=== PATIENT | female | born 1965 | race Caucasian/White ===

== ENCOUNTER → 2017-06-10 15:56 | Outpatient (CLI) | payer BC, SELFPAY ==
--- NOTE | 2017-06-10 16:03 | XR_ITS ---
XR shoulder LT min 2V COMPARISON: Left shoulder 05/12/2015 HISTORY: Left shoulder TECHNIQUE: 3 views left shoulder FINDINGS: The clavicle is intact. The AC joint appears somewhat wider on the current study when compared to the previous study. Suggest clinical correlation for tenderness at the AC joint. The humeral head and glenoid appear normal. There are no soft tissue calcifications. IMPRESSION: Change in the appearance of the AC joint when compared to the previous study suggesting possibility of very mild AC separation and suggest clinical correlation.
== END ==
PROVIDERS: PCP Family Medicine; Visit Provider Nurse Practitioner Family
DX: M25.512 Pain in left shoulder (principal)
CPT/HCPCS: 73030

== ENCOUNTER 2017-06-25 08:47 | Outpatient (RCR) | payer BC, SELFPAY ==
--- NOTE | 2017-06-25 10:10 | HMH.PTOPEV ---
Rehab Outpatient Evaluation Rehab OP Evaluation Start: 06/25/17 09:36 Freq: Status: Active Protocol: Document 06/25/17 09:36 TFRY (Rec: 06/25/17 10:09 TFRY [id number]) Electronically Signed By Julisa Victoria OT 06/25/17 09:36 Outpatient Therapy Subjective History Subjective History THIS IS A 51 YEAR OLD FEMALE WHO WAS REFERRED TO OCCUPATIONAL THERAPY FOR LEFT SHOULDER IMPINGEMENT SYNDROME. PATIENT REPORTS THAT SHE HAS HAD PAIN IN LEFT SHOULDER FOR THE LAST 6 MONTHS. PATIENT CAN NOT RECALL DOING ANYTHING TO HER SHOULDER BUT AT PREVIOUS JOB DID A LOT OF HEAVY LIFTING. Chief Complaint Pain Symptom Type Ache Sharp Burning Symptoms Relieved By Rest/Positioning Ice OTC Meds Symptoms Aggravated By Physical Activity Prior Functional Limitations None Current Functional Limitations Reaching Lifting Housework Dressing Driving Sleeping Symptom Description Constant but Variable Level of pain today (0-10) 3 Pain scale - at its best (0-10) 1 Pain scale - at its worst (0-10) 8 Shoulder/Elbow Eval Shoulder Objective Measurements Palpation Tenderness tenderness shoulder exam standard left tenderness over the bicipital tendon left shoulder exam standard Shoulder Palpation Findings Tenderness Shoulder ROM Left Shoulder Abduction Active Range of WFL Motion (degrees) Shoulder Flexion Active Range of Motion WFL (degrees) Query Text: Shoulder External Rotation Active Range WFL of Motion (degrees) Shoulder Internal Rotation Active Range WFL of Motion (degrees) Shoulder Extension Active Range of WFL Motion (degrees) pain with active ROM shoulder exam left standard Shoulder MMT Shoulder Abduction Strength Grade 3 Fair Shoulder Extension Strength Grade 3+ Fair+ Shoulder Flexion Strength Grade 3+ Fair+ Shoulder External Rotation Strength 3 Fair Grade Shoulder Internal Rotation Strength 3 Fair Grade Shoulder Strength Patient Testing Sitting Position Shoulder Speci
== END 2017-06-25 08:48 | disposition home or self-care (01) ==
LOC: OT 08:47
PROVIDERS: Family Provider Emergency Medicine; PCP Family Medicine; Visit Provider Orthopaedic Surgery
DX: M75.42 Impingement syndrome of left shoulder (principal); G56.02 Carpal tunnel syndrome, left upper limb
CPT/HCPCS: 97014; 97033; 97110; G0283

== ENCOUNTER → 2017-07-23 08:34 | Outpatient (CLI) | payer BC, SELFPAY ==
--- NOTE | 2017-07-23 08:35 | MM_ITS ---
MM Dig screening mamm BI w/CAD CAD Screening INDICATION: Screening for breast cancer ORDERING PHYSICIAN: Negrito Abebe MD PATIENT AGE: 51 years COMPARISON: 07/23/2014, 06/26/2013, 06/28/2012 TECHNIQUE: Standard CC and MLO images were obtained. R2 CAD reviewed. FINDINGS: Average fibroglandular tissue. No malignant appearing mass or malignant appearing microcalcification. No significant change IMPRESSION: No change with no evidence of malignancy BI-RADS Category: 1 Negative RECOMMENDED FOLLOW-UP: 1YR - 1 YEAR FOLLOW-UP (A letter has been sent to the patient regarding results of the study.)
== END ==
PROVIDERS: Family Provider Emergency Medicine; PCP Family Medicine; Visit Provider Nurse Practitioner Obstetrics & Gynecology
DX: Z12.31 Encounter for screening mammogram for malignant neoplasm of breast (principal)
CPT/HCPCS: 77067

== ENCOUNTER → 2017-10-01 07:54 | Outpatient (CLI) | payer BC, SELFPAY ==
--- NOTE | 2017-10-01 07:56 | MR_ITS ---
MR knee RT wo con Ordering Physician: Jose Urrutia MD Patient Age: 52 years: Female HISTORY: ITS.REASON: ACUTE PAIN OF RIGHT KNEE Right anterior knee pain.. Swelling. Pain worse when patient on the frontal lung appears intact. Pain with bending and extending. No trauma. TECHNIQUE: Multiplanar multisequence imaging 1.5 the MR. COMPARISON :November 25, 2015 FINDINGS . Large patient. Degenerative changes at the knee. . Moderate Tricompartmental marginal osteophytes Lateral compartment. Chondral scuffing and thinning most evident at the posterior weightbearing surface of the lateral femoral condyle. For example is seen on sagittal slice 16 ,17. There also appears to be some subtle fissuring irregularities the cartilage at the lateral tibial plateau There is slight displacement of the meniscus from accompanying the marginal osteophytes. Slight increased posterior margin posterior body lateral meniscus likely related to averaging from popliteus tendon sheath. There is mild intrameniscal degenerative signal changes within the body of lateral meniscus but no definitive nor prominent meniscal tear involving meniscal surface.. Generous volume meniscus. Medial compartment. The cartilage is better maintained throughout the medial compartment. The medial meniscus appears intact Patellofemoral joint Marked diffuse chondral thinning and chondral loss throughout lateral facet of patella also involving the midportion, vertical ridging posterior patella. The medial facet with less pronounced mild chondral thinning. initially question be a small 3 mm loose body fragment on axial slice 11 at the lateral patellofemoral joint but on sagittal view appears to be a small fatty protrusion. Generous 1.5 cm area of reactive posterior bone signal changes or bone contusion beneath at the inferior patella beneath the lateral facet where we see marked cartilage loss.-Either reactive bone change or bone contusion. Other tiny osteochondral irregularity seen at lateral facet Mild marginal osteophytes about the patellofemoral joint. Generous joint effusion most evident at suprapatellar bursa. ACL and PCL intact. Medial and lateral collateral ligament intact. Quadriceps and patellar tendon intact. Mild edema overlying patella tendon. Varicosities noted. Upper normal signal at the generous popliteal vein most likely normal but if there should be swelling the leg consider duplex Doppler study to further and more definitively exclude exclude DVT. IMPRESSION: 1. Osteo-arthritic changes at the knee most evident & pronounced at patellofemoral joint & lateral compartment. .. Tricompartmental marginal osteophytes.. 2. Moderate /generous Joint effusion most evident patellofemoral joint with 3. Patellofemoral joint. Prominent chondral loss at the lateral facet. . Generous area increased bone signal at inferior patella- beneath lateral facet reflecting reflecting likely reactive bone changes. Or possibly bone contusion 4. Lateral compartment.. Significant Chondral thinning and scuffing most evident at the posterior weightbearing surface of the lateral femoral condyle. 5. Generous caliber popliteal vein and femoral vein with increased signal and lack of flow void..... Appears most likely reflects slow flow phenomenon but consider duplex Doppler to exclude DVT particularly if pain or swelling. 6. medial & lateral meniscus are fairly intact with only mild degenerative signal changes and no definitive tear ACL and PCL intact. Collateral ligaments intact. 7 Additional note: a 15 mm x 11 mm mulberry-like calcification posterior to the distal femoral metaphysis, just above the base of medial femoral condyle-neck. Favor synovial osteochondroma. Less likely loose body. Note
== END ==
PROVIDERS: Family Provider Emergency Medicine; PCP Family Medicine; Visit Provider Family Medicine
DX: M25.561 Pain in right knee (principal)
CPT/HCPCS: 73721

== ENCOUNTER → 2017-10-11 07:35 | Outpatient (CLI) | payer BC, SELFPAY ==
--- NOTE | 2017-10-11 | NVE_ITS ---
Venous Exam Indications: 729.81 Swelling of limb. IMPRESSIONS No evidence of deep or superficial vein thrombosis involving the right lower extremity History: Swelling of the right lower extremity. Varicose veins of the right lower extremity. Risk factors: Current tobacco use. Hypercoagulable state due to hormone replacement therapy. Right lower extremity venous duplex evaluation. Doppler flow study including spectral analysis, color and hanson scale imaging. Location: Vascular laboratory. Patient status: Outpatient. Tables: Venous flow and imaging: + +-------+ + Location Overall Flow properties + +-------+ + Right common femoral Patent Normal phasicity; spontaneous; normal augmentation; compressible + +-------+ + Right saphenofemoral junction Patent Compressible + +-------+ + Right profunda femoral Patent Compressible + +-------+ + Right femoral Patent Normal phasicity; spontaneous; normal augmentation; compressible + +-------+ + Right greater saphenous Patent Normal phasicity; spontaneous; normal augmentation; compressible; reflux + +-------+ + Right popliteal Patent Normal phasicity; spontaneous; normal augmentation; compressible + +-------+ + Right posterior tibial Patent Compressible + +-------+ + Right peroneal Patent Compressible + +-------+ + Right gastrocnemius Patent Compressible + +-------+ + Right soleal Patent Compressible + +-------+ + (Report amended ) Electronically signed by: Hebert Kimball [id number]
== END ==
PROVIDERS: Family Provider Emergency Medicine; PCP Family Medicine; Visit Provider Orthopaedic Surgery Adult Reconstructive Orthopaedic Surgery
DX: M17.11 Unilateral primary osteoarthritis, right knee (principal); M79.604 Pain in right leg
CPT/HCPCS: 93971

== ENCOUNTER → 2018-04-15 09:30 | Outpatient (CLI) | payer BC, SELFPAY ==
--- NOTE | 2018-04-15 09:35 | XR_ITS ---
XR shoulder RT min 2V HISTORY: ITS.REASON: Shoulder pain ORDERING PHYSICIAN: Cami Coronel MD PATIENT AGE: 52 years Comparison: None FINDINGS: No fracture or dislocation. No lytic or blastic change. There is normal mineralization. Mild osteoarthritic changes involving the acromioclavicular joint with minimal spurring inferiorly. There is mild subacromial stenosis. There is a type II acromion . IMPRESSION: 1. 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 Otherwise negative
--- NOTE | 2018-04-15 09:35 | XR_ITS ---
XR shoulder LT min 2V HISTORY: ITS.REASON: Shoulder pain ORDERING PHYSICIAN: Cami Coronel MD PATIENT AGE: 52 years Comparison: 06/10/2017 FINDINGS: No fracture or dislocation. No lytic or blastic change. There is normal mineralization. There is mild acromioclavicular arthropathy with minimal subarticular cystic change of the distal aspect of the clavicle. No significant subacromial stenosis. IMPRESSION: Mild acromioclavicular arthropathy
== END ==
PROVIDERS: PCP Family Medicine; Visit Provider Orthopaedic Surgery
DX: G56.02 Carpal tunnel syndrome, left upper limb (principal); M25.511 Pain in right shoulder
CPT/HCPCS: 73030

== ENCOUNTER → 2018-07-06 10:41 | Outpatient (CLI) | payer BC, SELFPAY ==
--- NOTE | 2018-07-06 | NVE_ITS ---
Venous Exam Indications: 729.81 Swelling of limb. IMPRESSIONS 1. There is no evidence of significant Reflux. 2. No evidence of deep or superficial vein thrombosis involving the right lower extremity History: Risk factors: Current tobacco use. Right lower extremity venous duplex evaluation. Doppler flow study including spectral analysis, color and hanson scale imaging. Location: Vascular laboratory. Patient status: Outpatient. Tables: Venous flow and imaging: + +-------+ + Location Overall Flow properties + +-------+ + Right common femoral Patent Normal phasicity; spontaneous; normal augmentation; compressible + +-------+ + Right saphenofemoral junction Patent Compressible + +-------+ + Right profunda femoral Patent Compressible + +-------+ + Right femoral Patent Normal phasicity; spontaneous; normal augmentation; compressible + +-------+ + Right greater saphenous Patent Normal phasicity; spontaneous; normal augmentation; compressible + +-------+ + Right popliteal Patent Normal phasicity; spontaneous; normal augmentation; compressible + +-------+ + Right posterior tibial Patent Compressible + +-------+ + Right peroneal Patent Compressible + +-------+ + Right gastrocnemius Patent Compressible + +-------+ + Right soleal Patent Compressible + +-------+ + (Report amended ) Electronically signed by: Hebert Kimball [id number]
== END ==
PROVIDERS: PCP Family Medicine; Visit Provider Family Medicine
DX: R60.0 Localized edema (principal); M79.661 Pain in right lower leg
CPT/HCPCS: 93971

== ENCOUNTER 2018-07-24 19:24 | Observation (INO) ==
[2018-07-24 19:43] LABS: Microscopic, Urine URINE MICROSCOPIC (MICROSCOPIC)
[2018-07-24 19:47] LABS: Appearance,Urine CLEAR (Clear); Bilirubin,Urine Negative (Negative); Blood, Urine TRACE-I (Negative); Color,Urine YELLOW (Yellow); Glucose,Urine (UA) Negative (Negative); Ketones,Urine Negative (Negative); Leukocyte Esterase,Urine Negative (Negative); PH,Urine 7.5 (5.0-8.5); Protein,Urine Negative (Negative); Urobilinogen,Urine 0.2 EU/dl (0.2)
[2018-07-24 19:48] LABS: Amorphous Sediment,Urine Trace /lpf
[2018-07-24 19:48] LABS: Basophils # 0.1 K/mm3 (0-0.2); Basophils % 0.5 % (0.1-2.0); Eosinophils # 0.2 K/mm3 (0.0-0.4); Eosinophils % 1.8 % (0.1-12.0); Hematocrit 38.4 % (37.0-47.0); Hemoglobin 12.9 g/dL (12.2-16.2); Lymphocytes # 3.5 K/mm3 (0.7-4.5); Lymphocytes % 31.9 % (10-50); Mean Corpuscular HGB Conc 33.6 g/dL (31.8-35.4); Mean Corpuscular Hemoglobin 28.8 pg (27.0-31.2); Mean Corpuscular Volume 85.7 fl (81-99); Mean Platelet Volume 8.6 fl (7.4-10.4); Monocytes # 0.6 K/mm3 (0.1-1.0); Monocytes % 5.3 % (1.7-9.3); Neutrophils # 6.6 K/mm3 (1.8-7.8); Neutrophils % 60.5 % (37.0-80.0); Platelet Count 271 K/mm3 (142-424); Red Blood Count 4.48 M/mm3 (4.20-5.40)
[2018-07-24 20:02] LABS: Amphetamine/Metha Screen,Urine Negative ng/mL (<1000); Barbiturates Screen,Urine Negative ng/mL (<200); Benzodiazepines Screen,Urine Negative ng/mL (<200); Cannabinoid Screen,Urine Negative ng/mL (<50); Cocaine Screen,Urine Negative ng/mL (<300); Methadone Screen,Urine Negative ng/mL (<300); Opiate Screen,Urine Negative ng/mL (<300); Phencyclidine Screen,Urine Negative ng/mL (<25)
[2018-07-24 20:06] LABS: Alanine Aminotransferase 35 U/L (12-78); Albumin Level 3.6 gm/dL (3.4-5.0); Alkaline Phosphatase 83 U/L (46-116); Anion Gap 16.2 mEq/L (5-15); Aspartate Amino Transferase 18 U/L (15-37); Bilirubin,Total 0.4 mg/dL (0.2-1.0); Blood Urea Nitrogen 14 mg/dL (7-18); C-Reactive Protein 0.2 mg/L (0.0-0.9); Calcium 9.1 mg/dL (8.5-10.1); Carbon Dioxide 25 mmol/L (21.0-32.0); Chloride 98 mmol/L (98-107); Globulin 3.7 gm/dl (1.3-3.2); Glucose 88 mg/dL (74-106); Potassium 3.2 mmoL/L (3.5-5.1); Sodium 136 mmol/L (136-145); Total Protein,Serum 7.3 gm/dL (6.4-8.2)
--- NOTE | 2018-07-24 20:26 | Emergency Department Note ---
ED Disposition Clinical Impression: Obesity (BMI 30.0-34.9), Tobacco use Chest pain Qualifiers: Chest pain type: precordial pain Qualified Code(s): R07.2 - Precordial pain Disposition: Admitted as Observation Condition on Discharge: Good Referrals: Jaylene Mcwilliams MD [Primary Care Provider] - - Critical Care Critical Care Time: No Attestation: On 07/24/18, the high probability of a clinically significant, sudden or life threatening deterioration of the following system(s) required my full and direct attention, intervention and personal management. The time I documented below is in addition to time spent performing reported procedures but includes the following listed in this critical care notation. Medical Decision Making - Tony Inquiry Pt receiving controlled substance: No Vital Signs: 07/24/18 19:28 Temperature 98.7 F Temperature Source Oral Pulse Rate [Right] 64 Respiratory Rate 18 Blood Pressure [Right Arm] 130/79 Blood Pressure Mean [Right Arm] 96 Blood Pressure Source [Right Arm] Automatic Cuff Blood Pressure Position [Right Arm] Supine 02 Sat by Pulse Oximetry 96 Oxygen Delivery Method Room Air - Lab Data Lab results reviewed: Yes: I reviewed the patient's lab results. Lab Results 07/24/18 19:00: WBC 11.0 H, RBC 4.48, Hgb 12.9, Hct 38.4, MCV 85.7, MCH 28.8, MCHC 33.6, RDW 15.0, Plt Count 271, MPV 8.6, Neut % (Auto) 60.5, Lymph % (Auto) 31.9, Conway % (Auto) 5.3, Eos % (Auto) 1.8, Baso % (Auto) 0.5, Neut # (Auto) 6.6, Lymph # (Auto) 3.5, Conway # (Auto) 0.6, Eos # (Auto) 0.2, Baso # (Auto) 0.1, ESR 33 H 07/24/18 19:00: Sodium 136, Potassium 3.2 L, Chloride 98, Carbon Dioxide 25, Anion Gap 16.2 H, BUN 14, Creatinine 0.63, Estimated Creat Clear 168, Estimated GFR 100, Est GFR ( Amer) 121, Glucose 88, Calcium 9.1, Total Bilirubin 0.4, AST 18, ALT 35, Alkaline Phosphatase 83, Troponin I < 0.02, C-Reactive Protein 0.2, Total Protein 7.3, Albumin 3.6, Globulin 3.7 H, Albumin/Globulin Ratio 1.0 L 07/24/18 19:30: Urine Color Yellow, Urine Appearance Clear, Urine pH 7.5, Ur Specific Starbuck 1.010, Urine Protein Negative, Urine Glucose (UA) Negative, Urine Ketones Negative, Urine Blood Trace-i, Urine Nitrate Negative, Urine Bilirubin Negative, Urine Urobilinogen 0.2, Ur Leukocyte Esterase Negative, Urine RBC 3-5, Ur Squamous Epith Cells 3-5, Amorphous Sediment Trace 07/24/18 19:30: Urine Opiates Screen Negative, Urine Methadone Screen Negative, Ur Barbituates Screen Negative, Ur Phencyclidine Scrn Negative, Ur Amphetamines Screen Negative, U Benzodiazepines Scrn Negative, Urine Cocaine Screen Negative, U Marijuana (THC) Screen Negative Result diagrams: 07/24/18 19:00 07/24/18 19:00 Orders (Tests/Meds): ED MEDICATIONS Generic Name Dose Route Start Last Admin Trade Name Freq PRN Reason Stop Dose Admin Sodium Chloride 1,000 mls @ 999 mls/hr 07/24/18 19:30 07/24/18 19:45 Sod Chlor 0.9% 1000ml Bag IV 07/24/18 20:30 999 mls/hr .[id number] JAKE Administration Discontinued Medications Generic Name Dose Route Start Last Admin Trade Name Freq PRN Reason Stop Dose Admin Ketorolac Tromethamine 30 mg 07/24/18 19:27 07/24/18 19:45 Toradol 30mg/Ml Vial IV 07/24/18 19:28 30 mg ONCE ONE Administration Morphine Sulfate 4 mg 07/24/18 20:25 07/24/18 20:32 Morphine 2mg/Ml Syringe IV 07/24/18 20:26 4 mg ONCE ONE Administration Nitroglycerin 1 gm 07/24/18 20:25 07/24/18 20:32 Nitroglycerin 1 Inch Oint Udp TD 07/24/18 20:26 1 gm ONCE ONE Administration Ondansetron HCl 4 mg 07/24/18 19:27 07/24/18 19:45 Zofran 4mg/2ml Vial IV 07/24/18 19:28 4 mg ONCE ONE Administration Ondansetron HCl 4 mg 07/24/18 20:33 07/24/18 20:35 Zofran 4mg/2ml Vial IV 07/24/18 20:34 4 mg ONCE ONE Administration ORDERS Category Date Time Status XR chest 2V Stat Exams 07/24/18 19:26 Taken - Radiology Data #1 Image(s): Chest Image Reviewed: Yes I reviewed the patient's radiology image Preliminary Findings: Normal/NAD - ECG Data Tracing #1 Normal Sinus Rhythm: Yes Ischemic changes: non-specific ST-T wave changes - Physician Consults Physician Consulted: ave Reason -: Admission Chest Pain HPI - General Chief Complaint: Chest Pain Stated Complaint: chest pain Time Seen by Provider: 07/24/18 20:24 Mode of Arrival: EMS Source of Information: Patient, Spouse, EMS, Medical Record Limitations: No Limitations Description of Symptoms (Recalled from ER Triage Doc. by RN): Pt states she star rudolph having chest pain today, ASA, and Nitro x 1 per EMS - History of Present Illness HPI narrative: acute onset of chest pain which is described as heavy with pos risk factors MD complaint: chest pain indicative of cardiac Onset (ago): hour(s) Duration: constant Activity at onset: during rest Pain location: substernal Severity: moderate Quality: heaviness Relieving factors: nitroglycerin Associated symptoms: nausea Risk Factors for CAD: Family Hx of CAD, Smoking Treatments prior to or on arrival for Cardiac Chest Pain: aspirin, nitroglycerin - DAV Score for Non-Stemi Age of Patient: 50-59 years old Heart Rate: 50-69 bpm Systolic Blood Pressure: 120-139 mmhg Serum Creatinine: 0.40-0.79 mg/dl CHF Kill[place] Class: I-No CHF Other Risk Factors: None Non-Stemi Risk Score: 82 - Related Data On Oral Contraceptives: No Home Medications Medication Instructions Recorded Confirmed paroxetine 20 mg tablet 20 mg PO DAILY 04/25/18 07/24/18 Estradiol 2 mg PO DAILY 07/24/18 07/24/18 Allergies Allergy/AdvReac Type Severity Reaction Status Date / Time No Known Allergies Allergy Verified 07/24/18 19:25 [facility] History - Hepatitis A Screen Drug use history?: No High risk sexual behaviors?: No History of sexually transmitted infection?: No Currently employed?: No Childcare worker?: No Do you have indoor plumbing?: Yes Do you have electricity?: Yes Attestation statement:: This patient has been screened for Hepatitis A risk factors. I have reviewed the patient's past medical history: Yes Medical History: Reports:: Anxiety Denies:: Asthma, Diabetes Mellitus Type 1, Diabetes Mellitus Type 2, Hypertension, Seizures Other Medical History: Reports: Arthritis, Hormone Therapy, Thyroid Disease Comment: thyroid problems Other Surgeries: Yes: Cholecystectomy, Hysterectomy-Total, Other Amputation: No Fractures: No Comment: A&P repair, prakash in left leg - Social History Smoking Status: Current every day smoker Tobacco Type: cigarettes # Packs/Day (cigarettes): 2 Alcohol Intake: never Substance Use Type: denies use Occupational Status: employed, other Household Members: spouse - Psychiatric History Expresses thoughts of harming self/others: None Suicide Plan Description: No Plan Pschychiatric History:: Reports:: Anxiety Family Hx:: Cancer, Thyroid Disorder, Hypertension ROS Obtained: Yes All systems reviewed & no additional complaints - Constitutional Constitutional: Denies fever(s) - Eyes Eyes: Denies change in vision - ENT Ears, Nose, Mouth, and Throat: Denies sore throat - Cardiovascular Cardiovascular: Reports chest pain, Denies dyspnea - Respiratory Respiratory: No cough - Gastrointestinal Gastrointestingal: Reports: nausea. Denies: vomiting - Genitourinary Female Genitourinary: Denies hematuria - Musculoskeletal Musculoskeletal: Denies joint pain - Integumentary/Breasts Skin/Breast: Denies rash - Neurologic Neurologic: Denies seizure-like activity Physical Exam - General General appearance: alert, in no apparent distress, obese - Head Head exam: normocephalic - Eye Eye exam: Present: PERRL, EOMI. Absent: scleral icterus - ENT ENT exam: Present: mucous membranes dry - Neck Neck exam: Present: trachea midline - Respiratory Respiratory exam: Present: normal lung sounds bilaterally. Absent: respiratory distress - Cardiovascular Cardiovascular exam: Present: regular rate, systolic murmur - Abdominal Exam Abdominal exam: Present: soft - Extremities Exam Extremities exam: Absent: calf tenderness - Neurological Exam Neurological exam: Present: alert, oriented X3, CN II-XII intact - Psychiatric Psychiatric exam: Present: normal affect - Skin Skin exam: Absent: rash
[2018-07-24 20:27] LABS: Erythrocyte Sedimentation Rate 33 mm/hr (0-20)
[2018-07-25 04:35] LABS: Basophils # 0.1 K/mm3 (0-0.2); Basophils % 0.8 % (0.1-2.0); Eosinophils # 0.2 K/mm3 (0.0-0.4); Eosinophils % 2.3 % (0.1-12.0); Lymphocytes # 1.9 K/mm3 (0.7-4.5); Lymphocytes % 26.9 % (10-50); Mean Corpuscular HGB Conc 33.6 g/dL (31.8-35.4); Mean Corpuscular Hemoglobin 29.4 pg (27.0-31.2); Mean Corpuscular Volume 87.6 fl (81-99); Mean Platelet Volume 8.6 fl (7.4-10.4); Monocytes # 0.5 K/mm3 (0.1-1.0); Monocytes % 7.2 % (1.7-9.3); Neutrophils # 4.4 K/mm3 (1.8-7.8); Neutrophils % 62.8 % (37.0-80.0); Platelet Count 200 K/mm3 (142-424); Red Blood Count 3.89 M/mm3 (4.20-5.40)
[2018-07-25 04:40] LABS: Hemoglobin 11.4 g/dL (12.2-16.2)
[2018-07-25 04:50] LABS: Anion Gap 10.8 mEq/L (5-15); Blood Urea Nitrogen 14 mg/dL (7-18); Carbon Dioxide 28 mmol/L (21.0-32.0); Chloride 104 mmol/L (98-107); Chol/HDL Ratio 3.3 (1-3.5); Cholesterol 199 mg/dL (140-200); Glucose 95 mg/dL (74-106); HDL Cholesterol 60 mg/dL (29-89); LDL Cholesterol 131 mg/dL (0-130); Potassium 3.8 mmoL/L (3.5-5.1); Sodium 139 mmol/L (136-145); Triglycerides 42 mg/dL (30-200); VLDL Cholesterol 8 mg/dL (0-40)
[2018-07-25 04:54] LABS: Calcium 7.9 mg/dL (8.5-10.1)
--- NOTE | 2018-07-25 07:05 | Pharmacy Consult Notes ---
[facility] Pharmacy VTE Monitoring - Patient Demographics Admission date: 07/24/18 Report Date: 07/25/18 Time: 07:05 Allergies/Adverse Reactions: Patient Allergies No Known Allergies Allergy (Verified 07/24/18 19:25) Height: 1.7 m Weight: 109.089 kg Patient Problems: Current Active Problems (Updated 07/24/18 @ 21:50 by Anthony Warren MD) Chest pain (Acute) Obesity (BMI 30.0-34.9) (Acute) Tobacco use (Acute) - VTE Risk Labs: VTE Related Lab Results Hgb 11.4 g/dL (12.2-16.2) L D 07/25/18 04:05 Hct 34.0 % (37.0-47.0) L 07/25/18 04:05 Plt Count 200 K/mm3 (142-424) D 07/25/18 04:05 BUN 14 mg/dL (7-18) 07/25/18 04:05 Creatinine 0.62 mg/dL (0.55-1.02) 07/25/18 04:05 Estimated Creat Clear 186 mL/min (50-200) 07/25/18 04:05 Was VTE Risk Assessment Performed: Yes VTE Score: 5 VTE Risk Level: Low Risk - Prophylaxis VTE Prophylaxis Ordered?: Yes Types of VTE Prophylaxis: TEDS Knee High Location of Applied Device: Bilateral Lower Extremeties - VTE Diagnosis Confirmed Treatment or plan recommended: Continue Current Treatment
--- NOTE | 2018-07-25 09:09 | Consult Report ---
History of Present Illness Consult date: 07/25/18 Requesting physician: Pepper Plasencia Consult reason: chest pain Chief complaint: chest pain Additional Medical History:: 1. Tobacco use 2. Anxiety 3. Hormone replacement History of present illness: 52-year-old white female tobacco user presented to the emergency department for complaint of chest pain. She describes the pain as substernal and right-sided heaviness with associated shortness of breath/inability to breathe while at work last evening to the point that co-workers called EMS for evaluation. No nausea, vomiting or diaphoresis. Patient was transported to the ER for evaluation and was given nitroglycerin in route with improvement in symptoms. Patient's mother recently and patient has been stressed due to that along with an increasing her work load. EKG is sinus rhythm without acute ST segment changes. Troponins overnight have been normal. Preliminary echocardiogram shows normal left ventricular ejection fraction. Patient does relate some increased swelling recently for which she has been taken Lasix. She does relate eating a lot of pickles recently. Patient does smoke about 2 packs of cigarettes per day. She denies diabetes, hypertension or hyperlipidemia. Her mother of heart disease. [facility] History Medical History: Reports:: Anxiety Denies:: Asthma, Diabetes Mellitus Type 1, Diabetes Mellitus Type 2, Hypertension, Seizures *Have you ever received a pneumonia vaccine?: No *Have you received a flu vaccine this season?: No Other Medical History: Reports: Arthritis, Hormone Therapy, Thyroid Disease Other Surgeries: Yes: Cholecystectomy, Hernia Repair, Hysterectomy-Total, Other (Warren in (L) leg) Amputation: No Fractures: No - *Social History Educational Level: Completed High School Smoking Status: Current every day smoker Tobacco Type: cigarettes # Packs/Day (cigarettes): 1 Alcohol Intake: never Substance Use Type: denies use *Occupational Status:: employed, other Household Members: spouse *Travel in the last 8 weeks: None - Psychiatric History Expresses thoughts of harming self/others: None Suicide Plan Description: No Plan Pschychiatric History:: Reports:: Anxiety Family Hx:: Cancer, Thyroid Disorder, Hypertension Meds Home Medications Medication Instructions Recorded Confirmed Type paroxetine 20 mg tablet 20 mg PO DAILY 04/25/18 07/25/18 History Diclofenac Sodium [Diclofenac 75mg 75 mg PO BID 07/24/18 07/25/18 History Tab] Estradiol 2 mg PO DAILY 07/24/18 07/25/18 History Furosemide [Lasix 20mg tab] 20 mg PO DAILY 07/24/18 07/25/18 History Pyridoxine HCl (Vitamin B6) 50 mg PO DAILY 07/25/18 07/25/18 History [Vitamin B-6] Allergies Allergy/AdvReac Type Severity Reaction Status Date / Time No Known Allergies Allergy Verified 07/24/18 19:25 Review of Systems - *Cardiovascular Reports chest pain, Reports shortness of breath, Reports leg swelling - *Respiratory Reports shortness of breath with activity, Denies cough, Denies wheezing - *Gastrointestinal Denies abdominal pain, Denies nausea, Denies vomiting - *Genitourinary Denies blood in urine, Denies pelvic pain - *Musculoskeletal Denies joint pain, Denies back pain - *Neurologic Denies seizure-like activity Exam Vital signs and Labs for Last 24 Hours: Temp Pulse Resp BP Pulse Ox 97.9 F 43 L 16 120/73 91 L 07/25/18 08:00 07/25/18 08:00 07/25/18 08:00 07/25/18 08:00 07/25/18 08:00 Laboratory Results - last 24 hr 07/24/18 19:00: WBC 11.0 H, RBC 4.48, Hgb 12.9, Hct 38.4, MCV 85.7, MCH 28.8, MCHC 33.6, RDW 15.0, Plt Count 271, MPV 8.6, Neut % (Auto) 60.5, Lymph % (Auto) 31.9, [place] % (Auto) 5.3, Eos % (Auto) 1.8, Baso % (Auto) 0.5, Neut # (Auto) 6.6, Lymph # (Auto) 3.5, [place] # (Auto) 0.6, Eos # (Auto) 0.2, Baso # (Auto) 0.1, ESR 33 H 07/24/18 19:00: Sodium 136, Potassium 3.2 L, Chloride 98, Carbon Dioxide 25, Anion Gap 16.2 H, BUN 14, Creatinine 0.63, Estimated Creat Clear 168, Estimated GFR 100, Est GFR ( Amer) 121, Glucose 88, Calcium 9.1, Total Bilirubin 0.4, AST 18, ALT 35, Alkaline Phosphatase 83, Troponin I < 0.02, C-Reactive Protein 0.2, Total Protein 7.3, Albumin 3.6, Globulin 3.7 H, Albumin/Globulin Ratio 1.0 L 07/24/18 19:30: Urine Color Yellow, Urine Appearance Clear, Urine pH 7.5, Ur Specific [place] 1.010, Urine Protein Negative, Urine Glucose (UA) Negative, Urine Ketones Negative, Urine Blood Trace-i, Urine Nitrate Negative, Urine Bilirubin Negative, Urine Urobilinogen 0.2, Ur Leukocyte Esterase Negative, Urine RBC 3-5, Ur Squamous Epith Cells 3-5, Amorphous Sediment Trace 07/24/18 19:30: Urine Opiates Screen Negative, Urine Methadone Screen Negative, Ur Barbituates Screen Negative, Ur Phencyclidine Scrn Negative, Ur Amphetamines Screen Negative, U Benzodiazepines Scrn Negative, Urine Cocaine Screen Negative, U Marijuana (THC) Screen Negative 07/25/18 01:05: Troponin I < 0.02 07/25/18 04:05: WBC 7.0 D, RBC 3.89 L, Hgb 11.4 L D, Hct 34.0 L, MCV 87.6, MCH 29.4, MCHC 33.6, RDW 15.0, Plt Count 200 D, MPV 8.6, Neut % (Auto) 62.8, Lymph % (Auto) 26.9, Schley % (Auto) 7.2, Eos % (Auto) 2.3, Baso % (Auto) 0.8, Neut # (Auto) 4.4, Lymph # (Auto) 1.9, [place] # (Auto) 0.5, Eos # (Auto) 0.2, Baso # (Auto) 0.1 07/25/18 04:05: Sodium 139, Potassium 3.8, Chloride 104, Carbon Dioxide 28, Anion Gap 10.8, BUN 14, Creatinine 0.62, Estimated Creat Clear 186, Estimated GFR 102, Est GFR ( Amer) 123, Glucose 95, Calcium 7.9 L D, Magnesium 1.9, Troponin I < 0.02, Triglycerides 42, Cholesterol 199, LDL Cholesterol 131 H, VLDL Cholesterol 8, HDL Cholesterol 60, Cholesterol/HDL Ratio 3.3 I & O for Last 24 hours: Intake & Output 07/22/18 07/23/18 07/24/18 07/25/18 11:59 11:59 11:59 11:59 Intake Total 1581 / 1581 Balance 1581 / 1581 Weight 240 lb 8 oz - *Routine HEENT Exam Head: Present: normocephalic Eye: Present: EOMI, PERRL ENT: Present: mucous membranes moist - *Routine Neck Exam Present: supple. Absent: JVD, carotid bruit - *Routine Respiratory Exam Present: CTA bilaterally. Absent: accessory muscle use, rales, rhonchi, wheezes - *Routine Cardiovascular Exam Present: RRR. Absent: murmur, gallop, rubs - *Routine Abdominal Exam Present: soft. Absent: tenderness, distended, guarding - *Routine Extremities Exam Absent: edema, calf tenderness - *Routine Neurological Exam Present: alert, oriented X3, moving all extremities Assessment and Plan (1) Unstable angina Current visit: Yes Status: Acute Category: Medical Code(s): I20.0 - Unstable angina (2) Obesity (BMI 30.0-34.9) Current visit: Yes Status: Acute Category: Medical Code(s): E66.9 - Obesity, unspecified (3) Tobacco use Current visit: Yes Status: Acute Category: Medical Code(s): Z72.0 - Tobacco use (4) Dependent edema Current visit: No Status: Acute Category: Medical Code(s): R60.9 - Edema, unspecified (5) Bradycardia Current visit: Yes Status: Acute Category: Medical Code(s): R00.1 - Bradycardia, unspecified - Assessment and plan all Dx Assessment and Plan for all problems:: 1. Unstable angina at rest in a tobacco user. Preliminary echo shows normal LV function, EKG is without acute changes and troponins are normal. Patient has borderline low blood pressure and bradycardia which limits anti-anginal therapy. Would therefore recommend proceeding with cardiac catheterization to evaluate the patient's coronary arteries. Risks, benefits and procedure explained to the patient she agrees to proceed. 2. Continue to monitor patient's heart rate and rhythm due to bradycardia on no rate control medication for possible need for pacemaker. 3. Further recommendations to follow pending above results.
--- NOTE | 2018-07-25 09:22 | History & Physical Report ---
*Admission Date: 07/24/18 <Lauren Broderick 07/25/18 09:22> *Chief complaint: Chest pain <Lauren Broderick 07/25/18 09:22> *History of present illness: Ms. Doty is a 52-year-old white female tobacco user with a history of anxiety and depression who presented to the emergency department for complaint of chest pain. She describes the pain as substernal and right-sided heaviness with associated shortness of breath/inability to breathe. She denies nausea, vomiting and diaphoresis. Patient states she has been working daily for the last 2 weeks without any time off. The pain started work last evening and progressively worsened and her coworkers called an ambulance to transport her by EMS to the ER for evaluation. She was given nitroglycerin in route with improvement in symptoms. Patient's mother recently and patient has been stressed due to that along with an increasing her work load. EKG is sinus rhythm without acute ST segment changes. Troponins overnight have been normal. Preliminary echocardiogram shows normal left ventricular ejection fraction. Patient does relate some increased swelling recently for which she has been taken Lasix. She does relate eating a lot of pickles recently Patient does smoke about 2 packs of cigarettes per day. She denies diabetes, hypertension or hyperlipidemia. Her mother of heart disease. This a.m. patient has soreness in her chest. Her breathing is back to normal. She is seen by cardiology who plans for cardiac cath this a.m. <Lauren Broderick 07/25/18 09:30> [facility] History Medical History: Reports:: Anxiety Denies:: Asthma, Diabetes Mellitus Type 1, Diabetes Mellitus Type 2, Hypertension, Seizures <Lauren Broderick 07/25/18 09:22> *Have you ever received a pneumonia vaccine?: No <Lauren Broderick 07/25/18 09:22> *Have you received a flu vaccine this season?: No <Lauren Broderick 07/25/18 09:22> Other Medical History: Reports: Arthritis, Hormone Therapy, Thyroid Disease <Lauren Broderick 07/25/18 09:22> Other Surgeries: Yes: Cholecystectomy, Hernia Repair, Hysterectomy-Total, Other (Warren in (L) leg) <Lauren Broderick 07/25/18 09:22> Amputation: No <Lauren Broderick 07/25/18 09:22> Fractures: No <Lauren Broderick 07/25/18 09:22> Comment: Tendon repair right elbow 2002; knee surgery out on the right ; metal warren to left leg due to femur fracture 1990; left wrist surgery 2004 <Broderick,Lauren - 07/25/18 09:30> - *Social History Educational Level: Completed High School <Lauren Broderick 07/25/18 09:22> Smoking Status: Current every day smoker <Lauren Broderick 07/25/18 09:22> Tobacco Type: cigarettes <Lauren Broderick 07/25/18 09:22> # Packs/Day (cigarettes): 2 <Lauren Broderick 07/25/18 09:30> Alcohol Intake: never <Lauren Broderick 07/25/18 09:22> Substance Use Type: denies use <Lauren Broderick 07/25/18 09:22> *Occupational Status:: employed, other <Lauren Broderick 07/25/18 09:22> Household Members: spouse <Broderick,Lauren - 07/25/18 09:22> *Travel in the last 8 weeks: None <Lauren Broderick 07/25/18 09:22> - Psychiatric History Expresses thoughts of harming self/others: None <Lauren Broderick 07/25/18 09:22> Suicide Plan Description: No Plan <Lauren Broderick 07/25/18 09:22> Pschychiatric History:: Reports:: Anxiety <Lauren Broderick 07/25/18 09:22> Family Hx:: Cancer, Thyroid Disorder, Hypertension <Lauren Broderick 07/25/18 09:22> Review of Systems - Constitutional Reports headache(s), Denies fever(s) <Lauren Broderick 07/25/18 09:30> - Eyes Denies change in vision <Lauren Broderick 07/25/18 09:30> - ENT Denies ear pain, Denies sore throat <Lauren Broderick 07/25/18 09:30> - *Cardiovascular Reports chest pain, Denies irregular heart rhythm <Lauren Broderick 07/25/18 09:30> - *Respiratory Reports cough, Reports shortness of breath, Denies chest congestion, Denies coughing up blood <Lauren Broderick 07/25/18 09:30> - *Gastrointestinal Denies belching, Denies change in bowel habits, Denies change in stools, Denies nausea, Denies vomiting <Lauren Broderick 07/25/18 09:30> - *Genitourinary Denies difficulty urinating <Lauren Broderick 07/25/18 09:30> - *Musculoskeletal Reports joint pain (Right knee), Denies abnormal walking <Lauren Broderick 07/25/18 09:30> - *Neurologic Reports dizziness, Denies confusion, Denies seizure-like activity <Lauren Jama 07/25/18 09:30> - Psychiatric Reports anxiety, Reports depression <Lauren Broderick 07/25/18 09:30> Meds Home Medications Medication Instructions Recorded Confirmed Type paroxetine 20 mg tablet 20 mg PO DAILY 04/25/18 07/25/18 History Diclofenac Sodium [Diclofenac 75mg 75 mg PO BID 07/24/18 07/25/18 History Tab] Estradiol 2 mg PO DAILY 07/24/18 07/25/18 History Furosemide [Lasix 20mg tab] 20 mg PO DAILY 07/24/18 07/25/18 History Pyridoxine HCl (Vitamin B6) 50 mg PO DAILY 07/25/18 07/25/18 History [Vitamin B-6] <Pepper Plasencia - 07/25/18 09:49> Allergies Allergy/AdvReac Type Severity Reaction Status Date / Time No Known Allergies Allergy Verified 07/24/18 19:25 <Pepper Plasencia - 07/25/18 09:49> Exam Vital signs and Labs for Last 24 Hours: Temp Pulse Resp BP Pulse Ox 97.9 F 43 L 16 120/73 91 L 07/25/18 08:00 07/25/18 08:00 07/25/18 08:00 07/25/18 08:00 07/25/18 08:00 Laboratory Results - last 24 hr 07/24/18 19:00: WBC 11.0 H, RBC 4.48, Hgb 12.9, Hct 38.4, MCV 85.7, MCH 28.8, MCHC 33.6, RDW 15.0, Plt Count 271, MPV 8.6, Neut % (Auto) 60.5, Lymph % (Auto) 31.9, [place] % (Auto) 5.3, Eos % (Auto) 1.8, Baso % (Auto) 0.5, Neut # (Auto) 6.6, Lymph # (Auto) 3.5, [place] # (Auto) 0.6, Eos # (Auto) 0.2, Baso # (Auto) 0.1, ESR 33 H 07/24/18 19:00: Sodium 136, Potassium 3.2 L, Chloride 98, Carbon Dioxide 25, Anion Gap 16.2 H, BUN 14, Creatinine 0.63, Estimated Creat Clear 168, Estimated GFR 100, Est GFR ( Amer) 121, Glucose 88, Calcium 9.1, Total Bilirubin 0.4, AST 18, ALT 35, Alkaline Phosphatase 83, Troponin I < 0.02, C-Reactive Protein 0.2, Total Protein 7.3, Albumin 3.6, Globulin 3.7 H, Albumin/Globulin Ratio 1.0 L 07/24/18 19:30: Urine Color Yellow, Urine Appearance Clear, Urine pH 7.5, Ur Specific [place] 1.010, Urine Protein Negative, Urine Glucose (UA) Negative, Urine Ketones Negative, Urine Blood Trace-i, Urine Nitrate Negative, Urine Bilirubin Negative, Urine Urobilinogen 0.2, Ur Leukocyte Esterase Negative, Urine RBC 3-5, Ur Squamous Epith Cells 3-5, Amorphous Sediment Trace 07/24/18 19:30: Urine Opiates Screen Negative, Urine Methadone Screen Negative, Ur Barbituates Screen Negative, Ur Phencyclidine Scrn Negative, Ur Amphetamines Screen Negative, U Benzodiazepines Scrn Negative, Urine Cocaine Screen Negative, U Marijuana (THC) Screen Negative 07/25/18 01:05: Troponin I < 0.02 07/25/18 04:05: WBC 7.0 D, RBC 3.89 L, Hgb 11.4 L D, Hct 34.0 L, MCV 87.6, MCH 29.4, MCHC 33.6, RDW 15.0, Plt Count 200 D, MPV 8.6, Neut % (Auto) 62.8, Lymph % (Auto) 26.9, [place] % (Auto) 7.2, Eos % (Auto) 2.3, Baso % (Auto) 0.8, Neut # (Auto) 4.4, Lymph # (Auto) 1.9, [place] # (Auto) 0.5, Eos # (Auto) 0.2, Baso # (Auto) 0.1 07/25/18 04:05: Sodium 139, Potassium 3.8, Chloride 104, Carbon Dioxide 28, Anion Gap 10.8, BUN 14, Creatinine 0.62, Estimated Creat Clear 186, Estimated GFR 102, Est GFR ( Amer) 123, Glucose 95, Calcium 7.9 L D, Magnesium 1.9, Troponin I < 0.02, Triglycerides 42, Cholesterol 199, LDL Cholesterol 131 H, VLDL Cholesterol 8, HDL Cholesterol 60, Cholesterol/HDL Ratio 3.3 <Pepper Plasencia - 07/25/18 09:49> Temp Pulse Resp BP Pulse Ox 97.9 F 43 L 16 120/73 91 L 07/25/18 08:00 07/25/18 08:00 07/25/18 08:00 07/25/18 08:00 07/25/18 08:00 Laboratory Results - last 24 hr 07/24/18 19:00: WBC 11.0 H, RBC 4.48, Hgb 12.9, Hct 38.4, MCV 85.7, MCH 28.8, MCHC 33.6, RDW 15.0, Plt Count 271, MPV 8.6, Neut % (Auto) 60.5, Lymph % (Auto) 31.9, [place] % (Auto) 5.3, Eos % (Auto) 1.8, Baso % (Auto) 0.5, Neut # (Auto) 6.6, Lymph # (Auto) 3.5, [place] # (Auto) 0.6, Eos # (Auto) 0.2, Baso # (Auto) 0.1, ESR 33 H 07/24/18 19:00: Sodium 136, Potassium 3.2 L, Chloride 98, Carbon Dioxide 25, Anion Gap 16.2 H, BUN 14, Creatinine 0.63, Estimated Creat Clear 168, Estimated GFR 100, Est GFR ( Amer) 121, Glucose 88, Calcium 9.1, Total Bilirubin 0.4, AST 18, ALT 35, Alkaline Phosphatase 83, Troponin I < 0.02, C-Reactive Protein 0.2, Total Protein 7.3, Albumin 3.6, Globulin 3.7 H, Albumin/Globulin Ratio 1.0 L 07/24/18 19:30: Urine Color Yellow, Urine Appearance Clear, Urine pH 7.5, Ur Specific [place] 1.010, Urine Protein Negative, Urine Glucose (UA) Negative, Ur ine Ketones Negative, Urine Blood Trace-i, Urine Nitrate Negative, Urine Bilirubin Negative, Urine Urobilinogen 0.2, Ur Leukocyte Esterase Negative, Urine RBC 3-5, Ur Squamous Epith Cells 3-5, Amorphous Sediment Trace 07/24/18 19:30: Urine Opiates Screen Negative, Urine Methadone Screen Negative, Ur Barbituates Screen Negative, Ur Phencyclidine Scrn Negative, Ur Amphetamines Screen Negative, U Benzodiazepines Scrn Negative, Urine Cocaine Screen Negative, U Marijuana (THC) Screen Negative 07/25/18 01:05: Troponin I < 0.02 07/25/18 04:05: WBC 7.0 D, RBC 3.89 L, Hgb 11.4 L D, Hct 34.0 L, MCV 87.6, MCH 29.4, MCHC 33.6, RDW 15.0, Plt Count 200 D, MPV 8.6, Neut % (Auto) 62.8, Lymph % (Auto) 26.9, [place] % (Auto) 7.2, Eos % (Auto) 2.3, Baso % (Auto) 0.8, Neut # (Auto) 4.4, Lymph # (Auto) 1.9, [place] # (Auto) 0.5, Eos # (Auto) 0.2, Baso # (Auto) 0.1 07/25/18 04:05: Sodium 139, Potassium 3.8, Chloride 104, Carbon Dioxide 28, Anion Gap 10.8, BUN 14, Creatinine 0.62, Estimated Creat Clear 186, Estimated GFR 102, Est GFR ( Amer) 123, Glucose 95, Calcium 7.9 L D, Magnesium 1.9, Troponin I < 0.02, Triglycerides 42, Cholesterol 199, LDL Cholesterol 131 H, VLDL Cholesterol 8, HDL Cholesterol 60, Cholesterol/HDL Ratio 3.3 <Lauren Broedrick - 07/25/18 09:22> I & O for Last 24 hours: Intake & Output 05/07/23/18 07/24/18 07/25/18 11:59 11:59 11:59 11:59 Intake Total 1581 / 1581 Balance 1581 / 1581 Weight 240 lb 8 oz <Pepper Plasencia Lexi 07/25/18 09:49> Intake & Output 07/22/18 07/23/18 07/24/18 07/25/18 11:59 11:59 11:59 11:59 Intake Total 1581 / 1581 Balance 1581 / 1581 Weight 240 lb 8 oz <Lauren Broderick - 07/25/18 09:22> Radiology Reports for the Last 24 Hours: 07/24/2018 chest x-ray IMPRESSION: No acute finding. <MegganLauren - 07/25/18 09:22> - Constitutional no acute distress <Broderick,Lauren Lexi 07/25/18 09:22> Comments: Appears comfortable at present <Broderick,Lauren Lexi 07/25/18 09:22> - *Routine HEENT Exam Head: Present: normocephalic, atraumatic <MegganLauren Lexi 07/25/18 09:22> Eye: Present: PERRL <BroderickLauren Lexi 07/25/18 09:22> ENT: Present: mucous membranes moist, oropharynx clear <BroderickLauren Lexi 07/25/18 09:22> - *Routine Neck Exam Present: supple. Absent: carotid bruit, lymphadenopathy, thyromegaly <Broderick Lauren Lexi 07/25/18 09:22> - Routine Chest/Breast/Axilla Exam Chest wall: Absent: tenderness <MegganLauren Lexi 07/25/18 09:22> - *Routine Respiratory Exam Comments: Rare expiratory wheeze <BroderickLauren Lexi 07/25/18 09:22> - *Routine Cardiovascular Exam Present: RRR <BroderickLauren Lexi 07/25/18 09:22> - *Routine Abdominal Exam Present: soft, normoactive bowel sounds. Absent: tenderness, distended <BroderickLauren Lexi 07/25/18 09:22> - *Routine Extremities Exam Present: edema (2+ bilateral leg edema) <Lauren Broderick 07/25/18 09:22> - *Routine Neurological Exam Present: alert, oriented X3 <Lauren Broderick 07/25/18 09:22> Assessment and Plan (1) Unstable angina Current visit: Yes Status: Acute Category: Medical Code(s): I20.0 - Unstable angina (2) Obesity (BMI 30.0-34.9) Current visit: Yes Status: Acute Category: Medical Code(s): E66.9 - Obesity, unspecified (3) Tobacco use Current visit: Yes Status: Acute Category: Medical Code(s): Z72.0 - Tobacco use (4) Dependent edema Current visit: No Status: Acute Category: Medical Code(s): R60.9 - Edema, unspecified (5) Bradycardia Current visit: Yes Status: Acute Category: Medical Code(s): R00.1 - Bradycardia, unspecified <Lauren Broderick 07/25/18 09:22> (1) Unstable angina Current visit: Yes Status: Acute Category: Medical Code(s): I20.0 - Unstable angina (2) Obesity (BMI 30.0-34.9) Current visit: Yes Status: Acute Category: Medical Code(s): E66.9 - Obesity, unspecified (3) Tobacco use Current visit: Yes Status: Acute Category: Medical Code(s): Z72.0 - Tobacco use (4) Dependent edema Current visit: No Status: Acute Category: Medical Code(s): R60.9 - Edema, unspecified (5) Bradycardia Current visit: Yes Status: Acute Category: Medical Code(s): R00.1 - Bradycardia, unspecified <Pepper Plasencia 07/25/18 09:49> - Assessment and plan all Dx Assessment and Plan for all problems:: Agree with above. Discussed the risks and benefits of cardiac cath. I also ad vised her that discharge will be dictated depending on what is done during the cardiac cath. She voiced understanding. We will still keep her n.p.o. for now. Will restart her diet after her cardiac cath. <Pepper Plasencia 07/25/18 09:49> Patient will have a cardiac cath this a.m. <Lauren Broderick 07/25/18 09:30>
--- NOTE | 2018-07-25 20:28 | Cardiology Report ---
PROCEDURE: 2-D M-mode and color Doppler study INDICATIONS FOR THE TEST: Chest pain + COPD Heart Murmur Tobacco Smoking+ Palpitations Fatigue Syncope Edema+ Hypertension Diabetes Mellitus Rheumatic Fever SOB EVANS Obesity+Hyperlipidemia Family History HD Additional History PATIENT INFORMATION HEIGHT: 67 WEIGHT:220 GENDER: Female B/P:130/79 2-D/M-MODE INTERPRETATION: 2-D MEASUREMENTS OBSERVED VALUES IN CMS Right Ventricular Dimension (RVDd) 2.8 Interventricular Septum (Thickness)(IVsd) 1.4 Left Ventricular Internal Dimensions(LVIDd) 5.8 Left Ventricular Posterior Wall (Thickness)(LVPWd) 1.0 Aortic Root 3.6 Aortic Cusp Separation 2.6 Left Atrial Dimensions (LAD) 4.5 2D 1. Left atrium is mildly enlarged, left ventricle is normal size, there is no concentric left ventricular hypertrophy, visually estimated ejection fraction of 55% with no regional wall motion abnormality. 2. The right atrium and right ventricle are mildly enlarged with normal. 3. The aortic valve is minimally thickened and fibrosed. 4. Mitral and tricuspid valvular grossly normal. 5. The pulmonic valve is poorly present 6. No significant pericardial effusion noted. DOPPLER INTERROGATION: Doppler interrogation of the aortic, mitral and tricuspid valvular presence of mild mitral and tricuspid regurgitation, calculated right ventricular systolic pressure is 50 mmHg consistent with moderate pulmonary hypertension, diastolic parameters are within normal range. CONCLUSION: 1. Biatrial enlargement, normal left ventricular size, visually estimated ejection fraction 55% with no regional wall motion abnormality, diastolic parameters are within normal range. 2. Mildly enlarged right ventricle with normal contractility. 3. Mild mitral and tricuspid regurgitation, calculated right ventricular systolic pressure is 50 mmHg consistent with moderate pulmonary hypertension. 4. No significant pericardial effusion noted.
--- NOTE | 2018-07-26 13:38 | Discharge Summary ---
General - General Admission date:: 07/24/18 Discharge date: 07/25/18 HPI HPI: Ms. Doty is a 52-year-old white female tobacco user with a history of anxiety and depression who presented to the emergency department for complaint of chest pain. She describes the pain as substernal and right-sided heaviness with associated shortness of breath/inability to breathe. She denies nausea, vomiting and diaphoresis. Patient states she has been working daily for the last 2 weeks without any time off. The pain started work last evening and progressively worsened and her coworkers called an ambulance to transport her by EMS to the ER for evaluation. She was given nitroglycerin in route with improvement in symptoms. Patient's mother recently and patient has been stressed due to that along with an increasing her work load. EKG is sinus rhythm without acute ST segment changes. Troponins overnight have been normal. Preliminary echocardiogram shows normal left ventricular ejection fraction. Patient does relate some increased swelling recently for which she has been taken Lasix. She does relate eating a lot of pickles recently. Patient does smoke about 2 packs of cigarettes per day. She denies diabetes, hypertension or hyperlipidemia. Her mother of heart disease. This a.m. patient has soreness in her chest. Her breathing is back to normal. She is seen by cardiology who plans for cardiac cath this a.m. Hospital Course Hospital Course: The patient's chest x-ray showed nothing acute. Her echo showed biatrial enlargement with an EF of 55%. Diastolic parameters with normal. She did have moderate pulmonary hypertension. She was seen by cardiology who recommended a heart cath. The heart cath was performed and showed no significant coronary artery disease with a mildly elevated LVEDP. They felt the patient to be discharged home but would benefit from low-dose diuretics such as spironolactone or hydrochlorothiazide. They wanted to follow-up with the patient in 1 to 2 weeks. She was stable to be discharged home and her Lasix was increased from 20 to 40 mg daily. Objective Vital signs: Temp Pulse Resp BP Pulse Ox 97.5 F L 68 17 100/55 L 95 07/25/18 17:32 07/25/18 17:32 07/25/18 17:32 07/25/18 17:32 07/25/18 17:32 Narrative: - Constitutional no acute distress Comments: Appears comfortable at present - *Routine HEENT Exam Head: Present: normocephalic, atraumatic Eye: Present: PERRL ENT: Present: mucous membranes moist, oropharynx clear - *Routine Neck Exam Present: supple. Absent: carotid bruit, lymphadenopathy, thyromegaly - Routine Chest/Breast/Axilla Exam Chest wall: Absent: tenderness - *Routine Respiratory Exam Comments: Rare expiratory wheeze - *Routine Cardiovascular Exam Present: RRR - *Routine Abdominal Exam Present: soft, normoactive bowel sounds. Absent: tenderness, distended - *Routine Extremities Exam Present: edema (2+ bilateral leg edema) - *Routine Neurological Exam Present: alert, oriented X3 DS: Diagnosis - Discharge Diagnosis (1) Unstable angina Status: Acute (2) Obesity (BMI 30.0-34.9) Status: Acute (3) Tobacco use Status: Acute (4) Dependent edema Status: Acute (5) Bradycardia Status: Acute Discharge Plan - Patient Discharge Instructions ACTIVITY: Continue current activity DIET: continue same diet Patient Instructions: DI for Chest Pain, Surgical Site Infection - Follow up Plan Follow up with: Jaylene Mcwilliams MD [Primary Care Provider] - 1 week Disposition: Home, Self-Alf Medications: Home Medications Medication Instructions Recorded Confirmed Type paroxetine 20 mg tablet 20 mg PO DAILY 04/25/18 07/25/18 History Diclofenac Sodium [Diclofenac 75mg 75 mg PO BID 07/24/18 07/25/18 History Tab] Estradiol 2 mg PO DAILY 07/24/18 07/25/18 History Furosemide [Lasix 20mg tablet] 40 mg PO DAILY 30 Days #30 tab 07/25/18 Rx Pyridoxine HCl (Vitamin B6) 50 mg PO DAILY 07/25/18 07/25/18 History [Vitamin B-6] Prescriptions/Medication Reconciliation: Continued paroxetine 20 mg tablet 20 mg PO DAILY Diclofenac Sodium [Diclofenac 75mg Tab] 75 mg PO BID Pyridoxine HCl (Vitamin B6) [Vitamin B-6] 50 mg PO DAILY Estradiol 2 mg PO DAILY Changed Furosemide [Lasix 20mg tablet] 40 mg PO DAILY 30 Days #30 tab
== END 2018-07-25 17:53 | disposition home or self-care (01) ==
LOC: ER 19:24 → 2ND 19:24
PROVIDERS: ADMIT Emergency Medicine; ATTEND Emergency Medicine
CPT/HCPCS: 36415; 71020; 71046; 80048; 80053; 80061; 80305; 81001; 83735; 84484; 85025; 85651; 86140; 93005; 93306; 93458; 96365; 96367; 96375; 99152; 99284; C1725; C1769; G0378; J1644; J2405; Q9967

== ENCOUNTER → 2018-08-04 09:39 | Outpatient (CLI) | payer BC, SELFPAY ==
[2018-08-04 15:01] VITALS: PULSE 74; PULSE 80
== END ==
PROVIDERS: PCP Physician Assistant; Visit Provider Physician Assistant
DX: R06.02 Shortness of breath (principal)
CPT/HCPCS: 94060; 94640; 94726; 94729

== ENCOUNTER → 2018-08-05 12:03 | Outpatient (CLI) | payer BC, SELFPAY ==
[2018-08-05 14:03] LABS: Anion Gap 12.2 mEq/L (5-15); Blood Urea Nitrogen 10 mg/dL (7-18); Calcium 8.5 mg/dL (8.5-10.1); Carbon Dioxide 31 mmol/L (21.0-32.0); Chloride 103 mmol/L (98-107); Creatinine,Serum 0.59 mg/dL (0.55-1.02); Estimated Glomerular Filt Rate 107 ml/min (>60); GFR (African American) 130 ML/MIN (>60); Potassium 4.2 mmoL/L (3.5-5.1); Sodium 142 mmol/L (136-145)
[2018-08-05 14:08] LABS: Glucose 48 mg/dL (74-106)
== END ==
PROVIDERS: Visit Provider Nurse Practitioner Family
DX: R40.0 Somnolence (principal); G47.9 Sleep disorder, unspecified; R94.30 Abnormal result of cardiovascular function study, unspecified; E66.9 Obesity, unspecified; R06.83 Snoring; I25.10 Atherosclerotic heart disease of native coronary artery without angina pectoris; R07.2 Precordial pain; Z72.0 Tobacco use
CPT/HCPCS: 36415; 80048; 95806

== ENCOUNTER → 2018-09-09 08:06 | Outpatient (CLI) | payer BC, SELFPAY ==
[2018-09-09 10:29] LABS: Alanine Aminotransferase 36 U/L (12-78); Albumin Level 3.2 gm/dL (3.4-5.0); Albumin/Globulin Ratio 1.1 (1.1-1.8); Alkaline Phosphatase 75 U/L (46-116); Anion Gap 10.8 mEq/L (5-15); Aspartate Amino Transferase 18 U/L (15-37); Bilirubin,Total 0.3 mg/dL (0.2-1.0); Blood Urea Nitrogen 10 mg/dL (7-18); Calcium 8.3 mg/dL (8.5-10.1); Carbon Dioxide 30 mmol/L (21.0-32.0); Chloride 105 mmol/L (98-107); Estimated Glomerular Filt Rate 105 ml/min (>60); Free T4 (Free Thyroxine) 1.16 ng/dl (0.76-1.46); GFR (African American) 128 ML/MIN (>60); Globulin 2.8 gm/dl (1.3-3.2); Glucose 110 mg/dL (74-106); Potassium 3.8 mmoL/L (3.5-5.1); Sodium 142 mmol/L (136-145); Thyroid Stimulating Hormone 0.47 uIU/ml (0.358-3.740)
[2018-09-11 03:33] LABS: Vitamin B12 808 pg/mL (232-1245); Vitamin D 25 Hydroxy 28.9 ng/mL (30.0-100.0)
== END ==
PROVIDERS: Visit Provider Physician Assistant
DX: R60.0 Localized edema (principal); R20.2 Paresthesia of skin; R53.83 Other fatigue
CPT/HCPCS: 36415; 80053; 82607; 82652; 83880; 84439; 84443

== ENCOUNTER → 2018-11-07 10:43 | Outpatient (CLI) | payer BC, SELFPAY ==
--- NOTE | 2018-11-07 | XR_ITS ---
PROCEDURE: XR SHOULDER LT MIN three-view Patient Age:53Y CLINICAL INDICATION: AGA SHOULDER PAIN U COMPARISON: No exams were available for comparison FINDINGS: AP internal and external rotation along with Y-view of both left and right shoulder performed. The left humeral head and neck are intact. The left glenohumeral joint is intact. Suggestion of minor degenerative changes at the AC joint.. AC joint is slightly more generous in with on the left than right but within normal limits. Scapula intact. Bones well mineralized. Left lung apex clear. Probable old healed fracture of the lateral 4th rib noting minor deformity here. IMPRESSION: No acute findings but left shoulder intact w Only suggestion of perhaps trace degenerative changes at the left AC joint. Dictated by: Zhen Mayer MD 11/07/2018 14:08 Signed by: <Electronically signed by Zhen Mayer MD in [place]> 11/07/2018 14:08
--- NOTE | 2018-11-07 | XR_ITS ---
PROCEDURE: XR KNEE RT 4V Patient Age:53Y CLINICAL INDICATION: RT KNEE PAIN Right anterior knee pain. No injury COMPARISON: No exams were available for comparison FINDINGS: AP lateral and oblique views performed No fracture or dislocation. No lytic or blastic change. Adequate mineralization . Patellofemoral joint. Narrowing and degenerative arthritic changes are most evident at the lateral patellofemoral joint-with sclerosis and narrowing at the lateral patellofemoral joint. Marginal osteophytes laterally from the femoral aspect of this region and to less degree lateral margin of patella. There is also slight narrowing at the medial compartment. . Tricompartmental marginal osteophytes are more evident evident about slightly narrowed medial compartment more so than lateral compartment. . 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 Also note moderate venous varicosities are seen in the superficial soft tissues about the right knee But no significant joint effusion only borderline increased joint fluid suprapatellar bursa. IMPRESSION: No acute findings. . Degenerate arthritic changes at the right knee most evident at the lateral patellofemoral joint, and medial compartment. Other observations as in text above Dictated by: Zhen Mayer MD 11/07/2018 14:16 Signed by: <Electronically signed by Zhen Mayer MD in [place]> 11/07/2018 14:16
--- NOTE | 2018-11-07 | XR_ITS ---
PROCEDURE: XR SHOULDER RT MIN 2V Patient Age:53Y CLINICAL INDICATION: AGA SHOULDER PAIN No injury bilateral shoulder pain coal COMPARISON: No exams were available for comparison Findings: Bones are well mineralized but no lesions evident The glenohumeral joint intact. The humeral head and neck are intact. AC joint-Only minor degenerative changes. Scapula and visualized right clavicle intact. Upper right ribs and right lung apex satisfactory. IMPRESSION: Right shoulder intact no acute findings Only suggestion of scant degenerative changes right AC joint Dictated by: Zhen Mayer MD 11/07/2018 14:03 Signed by: <Electronically signed by Zhen Mayer MD in [place]> 11/07/2018 14:03
== END ==
PROVIDERS: PCP Family Medicine; Visit Provider Orthopaedic Surgery Adult Reconstructive Orthopaedic Surgery
DX: M25.512 Pain in left shoulder (principal); M25.511 Pain in right shoulder; M25.561 Pain in right knee
CPT/HCPCS: 73030; 73564

== ENCOUNTER → 2019-02-03 08:16 | Outpatient (CLI) | payer BC, SELFPAY ==
--- NOTE | 2019-02-03 08:17 | MM_ITS ---
PROCEDURE: MM DIG SCREENING MAMM BI W/CAD CLINICAL INDICATION: Routine Screening Mammogram There is a history of breast cancer in the patient's maternal aunts COMPARISON: [facility] DIGITAL MAMM-SCREEN BILATERAL from 06/28/2012 [facility] DIG MAMM-SCREEN AGA from 06/26/2013 [facility] DIG MAMM-SCREEN AGA from 07/23/2014 [facility] MM Dig screening mamm BI w/CAD from 07/23/2017 TECHNIQUE: Standard CC and MLO images were obtained. R2 CAD reviewed. FINDINGS: Scattered fibroglandular densities are seen throughout both breasts. The findings of bilateral and symmetrical. There is no suspicious lesion in either breast and no suspicious microcalcifications. IMPRESSION: Fibrofatty parenchyma with no suspicious lesions seen BI-RAD Category: 1 Negative FOLLOW-UP: 1YR 1 Year Follow-up (A letter has been sent to the patient regarding results of the study.) Dictated by: Dr. Ramy Mahajan MD 02/03/2019 10:[address] Ramy Mahajan MD in [place] 02/03/2019 10:40
== END ==
PROVIDERS: PCP Family Medicine; Visit Provider Nurse Practitioner Obstetrics & Gynecology
DX: Z12.31 Encounter for screening mammogram for malignant neoplasm of breast (principal)
CPT/HCPCS: 77067

== ENCOUNTER → 2019-05-25 08:36 | Outpatient (CLI) | payer BC, SELFPAY ==
--- NOTE | 2019-05-25 08:46 | XR_ITS ---
PROCEDURE: XR MULTIPLE SPINE 6+V CLINICAL INDICATION: BACK PAIN COMPARISON: CT ABDOMEN PELVIS W CON from 01/07/2019 FINDINGS: Thoracic spine: Normal alignment. No fracture or dislocation. Mild degenerative changes. Lumbar spine: Degenerate disc disease L1-L4 worse at L3-L4 and L4-5. No fracture or dislocation. No lytic or blastic change. Facet arthritic changes are present at L5-S1. There is generalized vascular calcification and there are surgical clips in the right lower quadrant and lower pelvic region IMPRESSION: Degenerative changes of the thoracic lumbar spine as described above Dictated by: Hebert Kimball MD 05/25/2019 11:35 Electronically signed by Hebert Kimball MD in [place] 05/25/2019 11:35
== END ==
PROVIDERS: PCP Nurse Practitioner Family; Referring Provider Nurse Practitioner Family; Visit Provider Nurse Practitioner Family
DX: M54.5 Low back pain (principal); M54.6 Pain in thoracic spine; M54.9 Dorsalgia, unspecified
CPT/HCPCS: 72084

== ENCOUNTER → 2019-08-21 08:14 | Outpatient (POV) | payer BC, SELFPAY ==
[2019-08-21 08:33] VITALS: BP 129/85; PULSE 88; RESP 18; TEMP 36.8; O2SAT 99; BMI 35.7
--- NOTE | 2019-08-21 09:18 | HMH.PMCON ---
Assessment and Plan (1) Arthritis Current visit: Yes Status: Chronic Category: Medical Code(s): M19.90 - Unspecified osteoarthritis, unspecified site (2) Back pain Current visit: Yes Status: Chronic Qualifiers: Back pain location: low back pain Chronicity: chronic Back pain laterality: right Category: Medical Code(s): M54.9 - Dorsalgia, unspecified (3) Hand pain Current visit: Yes Status: Chronic Qualifiers: Laterality: bilateral Qualified Code(s): M79.641 - Pain in right hand; M79.642 - Pain in left hand Category: Medical Code(s): M79.643 - Pain in unspecified hand - Assessment and plan all Dx Assessment and Plan for all problems:: Start her on some anti-inflammatory compounding cream. She is to take this prior to her physical therapy sessions. I will follow-up with her after her neurosurgical appointment to see how she is doing with this. She has been instructed to call the office if she has any issues prior to her next appointment. Dr. Urbina has reviewed this note and agrees with this plan of care. This note was dictated using voice recognition software and may contain errors or omissions HPI - Data of Consult Consult date: 08/21/19 Requesting Physician: Hali Keane APRN Primary Care Provider: Lauren Broderick APRN - Consult Narrative Reason for consult: Back pain, hand pain History of present illness: Ms. Doty is a 54 year old female who presents today for consultation in regards to her overall pain. Patient has low back pain which she is seeing a surgeon for on the of this month. She does have nerve impingement at the L4-L5 levels. She has low back pain radiating into her right leg. She states that she is here today to discuss her hand pain. She is not having any numbness and tingling she has not having soreness and swelling of the joints. She is on ibuprofen. She rates her pain today an 8 out of 10. Patient states that she is in physical therapy for her hand pain. CC: Hali Keane APRN [facility] History I have reviewed the patient's past medical history: Yes Medical History: Reports:: Anxiety, Hypertension Denies:: Asthma, Cancer, Diabetes Mellitus Type 1, Diabetes Mellitus Type 2, MRSA, Seizures *Have you ever received a pneumonia vaccine?: Yes *Have you received a flu vaccine this season?: Yes Other Medical History: Reports: Arthritis, Hormone Therapy, Thyroid Disease Other Surgeries: Yes: No Previous Surgery, Cholecystectomy, Hernia Repair, Hysterectomy-Total, Other (Warren in (L) leg) Amputation: No Fractures: No - *Social History Smoking Status: Current every day smoker Tobacco Type: cigarettes # Packs/Day (cigarettes): 1 Alcohol Intake: never Substance Use Type: denies use *Occupational Status:: other Housing: house Household Members: other *Travel in the last 8 weeks: None - Psychiatric History Pschychiatric History:: Reports:: Anxiety Family Hx:: Cancer, Thyroid Disorder, Hypertension Review of Systems - Review of Systems ROS General: no recent weight change, no fever, no sleep disturbances Respiratory: no cough, no shortness of air, no recurring pulmonary infections Cardiovascular/Peripheral Vascular: No chest pain, No palpitations, no edema, no shortness of breath. Gastrointestinal: no new onset incontinence, normal bowel movements reported Genitourinary: no new onset incontinence Musculoskeletal: Hand pain, back pain, leg pain Psychiatric: normal mood/ affect Neurological: [denies new onset weakness in extremities], [denies new onset balance issues] Meds Home Medications Medication Instructions Recorded Confirmed Type estradioL [Estradiol] 2 mg PO DAILY 07/24/18 11/21/18 History Pyridoxine HCl (Vitamin B6) 50 mg PO DAILY 07/25/18 11/21/18 History [Vitamin B-6] paroxetine HCl 20 mg tablet 30 mg PO DAILY tab 08/03/18 11/21/18 History aspirin 81 mg tablet,delayed 81 mg PO DAILY 08/31/18 11/21/18 History re
== END ==
PROVIDERS: PCP Nurse Practitioner Family; Visit Provider Clinical Nurse Specialist Family Health
DX: M19.90 Unspecified osteoarthritis, unspecified site (principal); M54.9 Dorsalgia, unspecified; M79.641 Pain in right hand; M79.642 Pain in left hand
CPT/HCPCS: 99202

== ENCOUNTER → 2020-01-30 09:17 | Outpatient (CLI) | payer BC, SELFPAY ==
--- NOTE | 2020-01-30 09:31 | ECG_ITS ---
APPROVED REPORT Exam: Resting ECG HR:66 bpm ECG Measurements Heart Rate 66 AXES GA 164 P 50 QRSd 90 QRS 31 QT 416 T 54 QTc 436 Conclusion Normal sinus rhythm Normal ECG Electronically signed by : Quang Costa, 01/30/2020 19:48:25
[2020-01-30 10:34] LABS: Basophils # 0.1 K/mm3 (0-0.2); Basophils % 1.1 % (0.1-2.0); Eosinophils # 0.3 K/mm3 (0.0-0.4); Eosinophils % 3.7 % (0.1-12.0); Hemoglobin 11.9 g/dL (12.2-16.2); Lymphocytes # 1.8 K/mm3 (0.7-4.5); Lymphocytes % 26.2 % (10-50); Mean Corpuscular HGB Conc 30.6 g/dL (31.8-35.4); Mean Corpuscular Hemoglobin 25.9 pg (27.0-31.2); Mean Corpuscular Volume 84.7 fl (81-99); Mean Platelet Volume 9.7 fl (7.4-10.4); Monocytes # 0.4 K/mm3 (0.1-1.0); Monocytes % 5.6 % (1.7-9.3); Neutrophils # 4.4 K/mm3 (1.8-7.8); Neutrophils % 63.3 % (37.0-80.0); Platelet Count 226 K/mm3 (142-424); Red Cell Distribution Width 15.4 % (11.5-17.5); White Blood Count 6.9 K/mm3 (4.8-10.8)
[2020-01-30 11:10] LABS: Chloride 104 mmol/L (98-107); Potassium 4.7 mmoL/L (3.5-5.1); Sodium 137 mmol/L (136-145)
[2020-01-30 11:13] LABS: Alanine Aminotransferase 19 U/L (12-78); Albumin/Globulin Ratio 1.5 (1.1-1.8); Alkaline Phosphatase 91 U/L (38-126); Anion Gap 8.7 mEq/L (5-15); Aspartate Amino Transferase 26 U/L (14-36); Bilirubin,Total 0.5 mg/dl (0.2-1.3); Blood Urea Nitrogen 14 mg/dl (7-17); Carbon Dioxide 29 mmol/L (22.0-30.0); Estimated Glomerular Filt Rate 105 ml/min (>60); GFR (African American) 127 ML/MIN (>60); Globulin 2.6 g/dL (1.3-3.2); Total Protein,Serum 6.6 g/dl (6.3-8.2)
[2020-01-30 11:14] LABS: Calcium 9.4 mg/dl (8.4-10.2); Glucose 93 mg/dl (74-100)
[2020-01-30 11:28] LABS: Free T4 (Free Thyroxine) 1.47 ng/dl (0.78-2.19)
== END ==
PROVIDERS: PCP Nurse Practitioner Family; Visit Provider Nurse Practitioner Family
DX: R53.1 Weakness (principal)
CPT/HCPCS: 36415; 80053; 84439; 84443; 85025; 93005; 93225; 93226

== ENCOUNTER → 2020-02-05 08:43 | Outpatient (CLI) | payer BC, SELFPAY ==
--- NOTE | 2020-02-05 08:46 | MM_ITS ---
PROCEDURE: MM DIG SCREENING MAMM BI W/CAD Digital Breast Tomosynthesis Included CLINICAL INDICATION: SCREENING The history of breast cancer in the patient's maternal aunts. COMPARISON: MG [facility]B DIG MAMM-SCREEN AGA from 07/23/2014 [facility] MM Dig screening mamm BI w/CAD from 07/23/2017 MG MM DIG SCREENING MAMM BI W/CAD from 02/03/2019 TECHNIQUE: Standard CC and MLO images and 3D Tomosynthesis was obtained. R2 CAD reviewed. FINDINGS: Mild to moderate scattered fibroglandular densities are both breasts. There is no suspicious lesion either breast and no suspicious microcalcifications. IMPRESSION: Fibrofatty parenchyma with no suspicious lesions seen BI-RAD Category: 1 Negative FOLLOW-UP: 1YR 1 Year Follow-up (A letter has been sent to the patient regarding results of the study.) Dictated by: Dr. Ramy Mahajan MD 02/06/2020 09:58 Dr. Ramy Mahajan MD in [place] 02/06/2020 09:58
== END ==
PROVIDERS: PCP Nurse Practitioner Family; Visit Provider Nurse Practitioner Family
DX: Z12.31 Encounter for screening mammogram for malignant neoplasm of breast (principal)
CPT/HCPCS: 77063; 77067

== ENCOUNTER → 2020-03-29 13:07 | Outpatient (CLI) | payer BC, SELFPAY ==
--- NOTE | 2020-03-29 13:10 | CT_ITS ---
PROCEDURE: CT LUMBAR SPINE WO CON CLINICAL HISTORY: LOW BACK PAIN Pinched nerve back pain Back surgery 5 months ago COMPARISON: CT CT ABDOMEN PELVIS W CON from 01/07/2019 TECHNIQUE: Axial images obtained with sagittal and coronal reformats. All CT scans at the facility use one or more dose reduction, viz: automated exposure control, ma/kV adjustment per patient size (including targeted exams where dose is matched to indication, i.e. head), or iterative reconstruction technique. FINDINGS: There has been prior lumbar surgery with inter pedicular screws at L2, L3, L4, and L5. Disc spacer devices are present at L2-L3 L3-L4 and L4-5. L1-L2: Mild degenerative disc disease with mild bilateral foraminal narrowing and minimal bulging disc. L2-L3: Postsurgical changes with significant artifact. Mild bulging disc with bilateral lateral recess and foraminal narrowing L3-L4: Postsurgical changes with significant artifact with mild bilateral foraminal narrowing. Minimal bulging disc. L4-L5: Significant artifact from postsurgical changes. There does appear to be a small right paracentral disc osteophyte complex causing right lateral recess and foraminal narrowing. There is mild left foraminal narrowing also noted. L5-S1: Minimal bulging disc. There is a small right facet osteophyte causing right lateral recess narrowing and mild right foraminal narrowing. L5-S1: Mild bulging disc. Incidental findings include renal cysts on both sides IMPRESSION: 1. Postsurgical changes as detailed above with normal alignment. 2. Multilevel lumbar spondylosis. Please see above for detailed description at each level. Dictated by: Hebert Kimball MD 03/30/2020 12:32 Hebert Kimball MD in [place] 03/30/2020 12:32
== END ==
PROVIDERS: PCP Nurse Practitioner Family; Visit Provider Orthopaedic Surgery
DX: M54.5 Low back pain (principal)
CPT/HCPCS: 72131

== ENCOUNTER 2020-11-16 17:11 | Emergency (ER) | payer BC, SELFPAY ==
[2020-11-16 18:15] VITALS: BP 145/79; PULSE 61; RESP 16; TEMP 36.6; O2SAT 98; BMI 37.5
--- NOTE | 2020-11-16 18:46 | HMH.EDUTC ---
[facility] Disposition Clinical Impression: Right wrist pain, Ganglion cyst of volar aspect of right wrist Disposition: Home, Self-Care Condition on Discharge: Good Instructions: DI Ganglion Cyst, Ganglion Cyst, DI for Wrist Pain Additional Instructions: Rest the extremity, Wear the caridad wrap for compression, Elevate the extremity as tolerated while you are resting. Take ibuprofen for pain. I sent in a prescription to your pharmacy. Follow up with your orthopedic doctor in [place]. An orthopedic doctor is the best one to help you get rid of or manage the cyst. Follow up with your regular doctor. GO TO THE ER FOR ANY WORSENING SYMPTOMS Prescriptions: methylPREDNISolone [Medrol] 4 mg PO DIRECTED 6 Days #21 packet Transmission Status: Pending to [id number] Referrals: Lauren Broderick APRN [Primary Care Provider] - Time of Disposition: 18:55 Medical Decision Making - Medical Records Medical records reviewed: No: I reviewed the patient's medical records. - Tony Inquiry Pt receiving controlled substance: No Vital Signs: 11/16/20 18:15 Temperature 97.9 F Temperature Source Oral Pulse Rate [Left] 61 Respiratory Rate 16 Blood Pressure [Right Arm] 145/79 H Blood Pressure Mean [Right Arm] 101 02 Sat by Pulse Oximetry 98 [facility] HPI - General Stated complaint: knot on r wrist Time Seen by Provider: 11/16/20 18:46 Mode of Arrival: Ambulatory Source of Information: Patient Limitations: No Limitations HEENT Symptoms (Recalled from RN notes): No Resp Symptoms (Recalled from RN notes): No Skin Symptoms (Recalled from RN notes): No MS Symptoms (Recalled from RN notes): Yes (R WRIST PAIN) Functional Status (Recalled from RN notes): NA - History of Present Illness Provider Complaint: She states that she has a knot on the inside of her right wrist. This knot has been present for a while now, at least a year. But, over the past 3 days it has began to hurt and be tender to touch. She denies any injury. - Related Data Home Medications Medication Instructions Recorded Confirmed estradioL [Estradiol] 2 mg PO DAILY 07/24/18 11/21/18 Pyridoxine HCl (Vitamin B6) 50 mg PO DAILY 07/25/18 11/21/18 [Vitamin B-6] paroxetine HCl 20 mg tablet 30 mg PO DAILY tab 08/03/18 11/21/18 aspirin 81 mg tablet,delayed 81 mg PO DAILY 08/31/18 11/21/18 release calcium carbonate 600 mg calcium 600 mg PO DAILY 08/31/18 11/21/18 (1,500 mg) tablet pantoprazole 40 mg tablet,delayed 40 mg PO DAILY 08/31/18 11/21/18 release varenicline 1 mg tablet 1 mg PO BID 08/31/18 11/21/18 Previous Rx's Medication Instructions Recorded furosemide 40 mg tablet 40 mg PO BID #60 tab 08/31/18 atorvastatin 20 mg tablet 20 mg PO DAILY #30 tab 11/21/18 isosorbide mononitrate 30 mg 30 mg PO DAILY #30 tab 11/21/18 tablet,extended release 24 hr Dicyclomine HCl [Bentyl 10mg 10 mg PO TIDP PRN #30 cap 12/31/18 capsule] Ondansetron [Zofran 4mg ODT] 4 mg PO Q8HP PRN #20 tab.rapdis 12/31/18 methylPREDNISolone [Medrol] 4 mg PO DIRECTED 6 Days #21 02/21/19 tab.ds.pk methylPREDNISolone [Medrol] 4 mg PO DIRECTED 6 Days #21 11/16/20 packet Allergies Allergy/AdvReac Type Severity Reaction Status Date / Time No Known Allergies Allergy Verified 11/21/18 14:30 - Worker's Comp Is this a Worker's Comp case?: No [facility] History - Hepatitis A Screen Drug use history?: No High risk sexual behaviors?: No History of sexually transmitted infection?: No Currently employed?: No Childcare worker?: No Do you have indoor plumbing?: Yes Do you have electricity?: Yes Attestation statement:: This patient has been screened for Hepatitis A risk factors. I have reviewed the patient's past medical history: Yes Medical History: Reports:: Anxiety, Hypertension Denies:: Asthma, Cancer, Diabetes Mellitus Type 1, Diabetes Mellitus Type 2, MRSA, Seizures Other Medical History: Reports: Arthritis, Hormone Therapy, Thyroi
[2020-11-16 18:59] VITALS: BP 145/79; PULSE 61; RESP 17; TEMP 36.6
== END 2020-11-16 19:05 | disposition home or self-care (01) ==
PROVIDERS: Emergency Provider Nurse Practitioner Family; PCP Nurse Practitioner Family
DX: M67.431 Ganglion, right wrist (principal); I10 Essential (primary) hypertension; F17.210 Nicotine dependence, cigarettes, uncomplicated; F41.9 Anxiety disorder, unspecified
CPT/HCPCS: 99202; G0463

== ENCOUNTER → 2021-02-21 07:48 | Outpatient (CLI) | payer BC, SELFPAY ==
--- NOTE | 2021-02-21 07:51 | MM_ITS ---
PROCEDURE INFORMATION: Exam: MG Bilateral Screening 3D Mammography Exam date and time: 02/21/2021 7:51 AM Age: 55 years old Clinical indication: Encounter for screening mammogram for malignant neoplasm of breast TECHNIQUE: Imaging protocol: Bilateral screening tomosynthesis and 2D mammography including computer-aided detection (CAD) when performed. COMPARISON: 1. MG MM DIG SCREENING MAMM BI W/CAD 02/05/2020 8:50 AM 2. MG MM DIG SCREENING MAMM BI W/CAD 02/03/2019 8:33 AM FINDINGS: MAMMOGRAPHY: Breast composition: The breast tissue is composed of scattered areas of fibroglandular density. Mass: Questionable 0.5 cm mass in the anterior third of the left upper breast only seen in the MLO projection Architectural distortion: None. Calcifications: No suspicious calcifications. Asymmetric density: None. Skin thickening: None. Axillary adenopathy: None. IMPRESSION: Patient to be recalled for spot compression views of the left breast in the CC and MLO projections, a full 90 degree lateral view, and left breast ultrasound for further evaluation of a left breast mass. ASSESSMENT: BI-RADS Category 0: Incomplete- Need Additional Imaging Evaluation and/or Prior Mammograms for Comparison
== END ==
PROVIDERS: PCP Nurse Practitioner Family; Visit Provider Nurse Practitioner Family
DX: Z12.31 Encounter for screening mammogram for malignant neoplasm of breast (principal)
CPT/HCPCS: 77063; 77067

== ENCOUNTER → 2021-03-17 07:48 | Outpatient (CLI) | payer BC, SELFPAY ==
--- NOTE | 2021-03-17 07:51 | US_ITS ---
PROCEDURE INFORMATION: Exam: US Left Breast, Complete MG Left Diagnostic Breast Tomosynthesis Exam date and time: 03/17/2021 7:51 AM Age: 55 years old Clinical indication: Callback from screening mammogram for a 0.5 cm mass in the anterior upper left breast. TECHNIQUE: Imaging protocol: Complete ultrasound of all four quadrants of the Left breast and the retroareolar regions, including ultrasound of the axilla when performed. Left Diagnostic tomosynthesis and 2D mammography including computer-aided detection (CAD) when performed. Unilateral or bilateral exam. COMPARISON: 1. MG MM DIG SCREENING MAMM BI W/CAD 02/21/2021 8:11 AM 2. MG MM DIG SCREENING MAMM BI W/CAD 02/05/2020 8:50 AM 3. MG MM DIG SCREENING MAMM BI W/CAD 02/03/2019 8:33 AM FINDINGS: MAMMOGRAPHY: The screening detected 0.5 cm mass in the anterior upper left breast partially dissipates on spot compression MLO view and resembles dense fibroglandular breast parenchyma . The mass possibly persists in the anterior lateral left breast on spot compression CC view however findings may represent overlapping breast parenchyma. No discrete stellate or suspicious mass identified. ULTRASOUND: No definite suspicious sonographic correlate for the screening detected mass in the anterior upper left breast. At least 3 probably benign, slightly prominent left axillary lymph nodes with fatty john, largest measuring 2.0 cm. IMPRESSION: No definite sonographically visible mass is seen in the upper anterior left breast to correlate with the screening detected 0.5 cm mass on mammogram. Finding may represent overlapping breast parenchyma. As a precaution recommend 6 month follow-up diagnostic mammogram of the left breast to confirm stability of the questionable screening detected mass in the anterior upper left breast. Probably benign, slightly prominent left axillary lymph nodes with fatty john seen on ultrasound, incidentally noted. Findings may represent reactive adenopathy. Clinical correlation recommended for any recent history of infectious or inflammatory process. Patient denies history of recent vaccination in the left arm (last vaccine in June 2020). Recommend short interval follow-up ultrasound in 6-8 weeks to confirm stability/resolution. ASSESSMENT: BI-RADS Category 3: Probably Benign
== END ==
LOC: RAD 07:48
PROVIDERS: PCP Nurse Practitioner Family; Visit Provider Physician Assistant
DX: R92.8 Other abnormal and inconclusive findings on diagnostic imaging of breast (principal)
CPT/HCPCS: 76641; 77061; 77065; G0279

== ENCOUNTER 2021-03-30 10:22 | Emergency (ER) | payer BC, SELFPAY ==
[2021-03-30 11:27] VITALS: BP 131/82; PULSE 57; RESP 16; TEMP 36.8; O2SAT 100; BMI 37.5
[2021-03-30 12:55] LABS: Apearance,Urine Clear (Clear); Color,Urine Yellow (Yellow); Protein,Urine Negative (Negative); Specific Gravity, Urine 1.015 (1.005-1.030)
[2021-03-30 12:56] LABS: Bilirubin,Urine Negative (Negative); Blood, Urine Trace (Negative); Glucose,Urine (UA) Negative (Negative); Ketones,Urine Negative (Negative); UTC Leukocyte Esterase,Urine Negative (Negative); UTC Nitrate,Urine Negative (Negative); Urobilinogen,Urine 0.2 EU/dl (0.2)
--- NOTE | 2021-03-30 12:56 | HMH.EDUTC ---
[facility] Disposition Clinical Impression: Low back pain Qualifiers: Chronicity: unspecified Back pain laterality: right Sciatica presence: with sciatica Sciatica laterality: sciatica of right side Qualified Code(s): M54.41 - Lumbago with sciatica, right side Disposition: Home, Self-Care Condition on Discharge: Good Instructions: DI for Chronic Pain -- Adult, DI for Low Back Pain, Low Back Pain, DI for Back Pain With Sciatica Additional Instructions: *Etodolac nikia 8 hours with meal as needed for pain/inflammation *Not additional anti-inflammatory like motrin, aleve, advil with the above amount of ibuprofen. You can still take Tylenol every 4 hours as needed if you need something else for pain *Ice 20 minutes every 2 hours for the first 48 hours after the initial injury followed by moist heat every 20 minutes 3-4 times a day to affected area *Muscle relaxer every 12 hours as needed for muscle spasms but remember, it WILL cause drowsiness You cannot take it and drive, operate machinery or care for small children. *Keep this area active, no movement leads to more stiffness, However take it easy and avoid heavy lifting pushing or pulling *Follow up with you family doctor if no improvement for further treatment Return if needed Straight to ER if any life threatening symptoms Prescriptions: Etodolac 200 mg PO Q8HP PRN #20 cap PRN Reason: Moderate Pain Transmission Status: Pending to [id number] methylPREDNISolone [Medrol 4mg tab] 4 mg PO DIRECTED #21 tab Transmission Status: Pending to [facility] methocarbamoL [Methocarbamol 500mg Tablet] 500 mg PO BID PRN #10 tab PRN Reason: Muscle Spasm Transmission Status: Pending to [facility] Referrals: Lauren Broderick APRN [Primary Care Provider] - As needed Forms: Work/School Release Time of Disposition: 13:13 Medical Decision Making - Tony Inquiry Pt receiving controlled substance: No Tony was queried for this patient: No Vital Signs: 03/30/21 11:27 Temperature 98.3 F Temperature Source Oral Pulse Rate [Right] 57 L Respiratory Rate 16 Blood Pressure [Right Arm] 131/82 Blood Pressure Mean [Right Arm] 98 Blood Pressure Source [Right Arm] Automatic Cuff Blood Pressure Position [Right Arm] Sitting 02 Sat by Pulse Oximetry 100 Oxygen Delivery Method Room Air - Lab Data Lab results reviewed: Yes: I reviewed the patient's lab results. Lab Results 03/30/21 11:31: Urine Color Yellow, Urine Appearance Clear, Urine pH 7.0, Ur Specific [place] 1.015, Urine Protein Negative, Urine Glucose (UA) Negative, Urine Ketones Negative, Urine Blood Trace, Urine Nitrate Negative, Urine Bilirubin Negative, Urine Urobilinogen 0.2, Ur Leukocyte Esterase Negative Medical Decision Narrative: dicussed and recommended xray and patient declined states that she has chronic back issues and denies injury [facility] HPI - General Stated complaint: right side hip/back pain Time Seen by Provider: 03/30/21 12:56 Mode of Arrival: Ambulatory Source of Information: Patient Limitations: No Limitations Description of Symptoms (Recalled from Triage Doc. by RN): pt c/o pain in her right flank, lower back that started yesterday. Denies any N/V/D or abd pain. PT advises she does some lifting at work HEENT Symptoms (Recalled from RN notes): No Resp Symptoms (Recalled from RN notes): No Skin Symptoms (Recalled from RN notes): No MS Symptoms (Recalled from RN notes): No Functional Status (Recalled from RN notes): na - History of Present Illness Provider Complaint: Patient states that she does do some lifting pulling and tugging at work State that she started yesterday having achy like feeling in her right lower back that goes down into her buttock area States that she has a history of back problems and denies known injury Denies fever, denies burning with urination etc States that she came in to get checked Denies loss of control of bowel or bladder - Related Data Home Medication
[2021-03-30 13:41] VITALS: BP 131/82; PULSE 57; RESP 16; TEMP 36.8
== END 2021-03-30 13:42 | disposition home or self-care (01) ==
PROVIDERS: Emergency Provider Nurse Practitioner; PCP Nurse Practitioner Family
DX: M54.41 Lumbago with sciatica, right side (principal); X50.9XXA Other and unspecified overexertion or strenuous movements or postures, initial encounter; I10 Essential (primary) hypertension; F41.9 Anxiety disorder, unspecified; F17.210 Nicotine dependence, cigarettes, uncomplicated
CPT/HCPCS: 81003; 99202; G0463

== ENCOUNTER → 2021-04-28 12:49 | Outpatient (CLI) | payer BC, SELFPAY ==
--- NOTE | 2021-04-28 12:52 | US_ITS ---
PROCEDURE INFORMATION: Exam: US Left Breast, Complete Exam date and time: 04/28/2021 12:52 PM Age: 55 years old Clinical indication: Short-term follow-up for questionable axillary adenopathy TECHNIQUE: Imaging protocol: Complete ultrasound of all four quadrants of the Left breast and the retroareolar regions, including ultrasound of the axilla when performed. COMPARISON: US BREAST LT COMPLETE 03/17/2021 8:58 AM FINDINGS: Breast: Sonographic images of the left axilla demonstrates several fat containing benign-appearing axillary lymph nodes. No axillary adenopathy. IMPRESSION: Normal left axillary lymph nodes. Annual mammographic screening is recommended unless otherwise clinically indicated. ASSESSMENT: BI-RADS Category 1: Negative
== END ==
LOC: RAD 12:49
PROVIDERS: PCP Nurse Practitioner Family; Visit Provider Nurse Practitioner Family
DX: R92.8 Other abnormal and inconclusive findings on diagnostic imaging of breast (principal)
CPT/HCPCS: 76641

== ENCOUNTER → 2021-05-26 07:27 | Outpatient (CLI) | payer BC, SELFPAY | PROVIDERS: Visit Provider Internal Medicine | DX: Z01.812 Encounter for preprocedural laboratory examination (principal); Z11.52 Encounter for screening for COVID-19; Z12.11 Encounter for screening for malignant neoplasm of colon | CPT/HCPCS: C9803; U0003; U0005 ==

== ENCOUNTER 2021-05-28 07:42 | Day surgery (SDC) | payer BC, SELFPAY ==
[2021-04-23 10:06] VITALS: BMI 37.6
[2021-05-21 12:59] VITALS: BMI 37.6
[2021-05-28 08:22] VITALS: BP 117/78; PULSE 69; RESP 16; TEMP 36.2; O2SAT 98
--- NOTE | 2021-05-28 08:33 | HMH.ANESCL ---
[facility] Anesthesia Checklist - Patient Identification Patient Identification: Arm Band - Structural Data Admitted From: Home Planned Operative Procedure/s: Colonoscopy Consent for Planned Operative Procedure(s) Verified: Yes - NPO Status Verified Time NPO: 05:00 (Prep) - Airway Assessment C-Spine Mobility Assessed: Yes TMJ Mobility Assessed: Yes Dentition: Good Dentition - Neurological Assessment Level of Consciousness: Awake Hx Seizures: No Numbness or tingling in extremities: No - Anesthesia Plan Anesthesia Risk discussed: Yes Anesthesia Plan: Verified ASA Class: I Anesthesia Type: MAC [facility] History I have reviewed the patient's past medical history: Yes Medical History: Reports:: Anxiety Denies:: Asthma, Cancer, Diabetes Mellitus Type 1, Diabetes Mellitus Type 2, Internal Pacemaker, MRSA, Seizures *Have you ever received a pneumonia vaccine?: No *Have you received a flu vaccine this season?: Yes Other Medical History: Reports: Hormone Therapy, Thyroid Disease Anesthesia experience/problems:: None Other Surgeries: Yes: No Previous Surgery, Cholecystectomy, Hernia Repair, Hysterectomy-Total, Other (Warren in (L) leg). No: Pacemaker Amputation: No Fractures: No - *Social History Last grade of school completed: GED Smoking Status: Current every day smoker Tobacco Type: cigarettes # Packs/Day (cigarettes): 1 Alcohol Intake: never Substance Use Type: denies use *Occupational Status:: employed Housing: house Household Members: spouse, family *Travel in the last 8 weeks: None - Psychiatric History Pschychiatric History:: Reports:: Anxiety Family Hx:: Cancer, Thyroid Disorder, Hypertension
[2021-05-28 09:23] VITALS: O2SAT 97
--- NOTE | 2021-05-28 09:42 | HMH.SCOPE ---
- Procedure: Date: 05/28/21 Patient Date of :: 1965 Procedure Performed:: Colonoscopy Indications:: The patient is a 55 year old who presents for screening colonoscopy. She has a history of colon cancer in a first degree relative in her mother. Performing Provider:: Cedrick Mercer MD Referring Provider:: Lauren Broderick APRN Sedation:: See nursing records Procedure:: After placing the patient in the left lateral decubitus position, the colonoscopy was gently inserted into the rectum and under direct visualization advanced to the cecum which was identified by transillumination in the right lower quadrant, identification of the ileocecal valve, appendiceal orifice, and cecal strap. Color, texture, mucosa, and anatomy of the colon were carefully examined with the scope. Findings:: Anal canal: normal Rectum: Sessile polyp less than 5 mm in size. Removed with cold snare polypectomy Sigmoid colon: Sessile polyp less than 5 mm in size. Removed with cold snare polypectomy Descending colon: normal without polyps or inflammatory changes Splenic flexure: normal Transverse colon: normal without polyps or inflammatory changes Hepatic flexure: normal Ascending colon: normal without polyps or inflammatory changes Cecum: normal Terminal ileum: not visualized Recommendations:: Await pathology results Recommend to repeat colonoscopy in 3 years Complications:: None Estimated blood obtained (mL): 0
[2021-05-28 09:43] VITALS: BP 111/66; PULSE 61; RESP 18; TEMP 36.7; O2SAT 98
[2021-05-28 09:53] VITALS: BP 122/65; PULSE 56; RESP 18; O2SAT 100
[2021-05-28 10:05] VITALS: BP 116/74; PULSE 59; RESP 18; O2SAT 97
[2021-05-28 10:11] VITALS: BP 137/79; PULSE 60; RESP 18; O2SAT 97
== END 2021-05-28 10:13 | disposition home or self-care (01) ==
LOC: OUTP 07:44
PROVIDERS: PCP Nurse Practitioner Family; Visit Provider Internal Medicine
PROC: 0DJD8ZZ Inspection of Lower Intestinal Tract, Via Natural or Artificial Opening Endoscopic (ICD-10-PCS; CPT 45378; principal; 2021-05-28 09:00)
DX: Z12.11 Encounter for screening for malignant neoplasm of colon (principal); Z80.0 Family history of malignant neoplasm of digestive organs; K63.5 Polyp of colon; F41.9 Anxiety disorder, unspecified; E07.9 Disorder of thyroid, unspecified; I25.10 Atherosclerotic heart disease of native coronary artery without angina pectoris; G47.30 Sleep apnea, unspecified; Z79.890 Hormone replacement therapy; Z83.49 Family history of other endocrine, nutritional and metabolic diseases; Z82.49 Family history of ischemic heart disease and other diseases of the circulatory system
CPT/HCPCS: 45385; J2704

== ENCOUNTER → 2021-09-15 13:41 | Outpatient (CLI) | payer BC, SELFPAY ==
--- NOTE | 2021-09-15 13:47 | MM_ITS ---
PROCEDURE INFORMATION: Exam: MG Left Diagnostic Breast Tomosynthesis Exam date and time: 09/15/2021 1:41 PM Age: 56 years old Clinical indication: Short-term radiographic followup; Left breast; mass TECHNIQUE: Imaging protocol: Left Diagnostic tomosynthesis and 2D mammography including computer-aided detection (CAD) when performed. Unilateral or bilateral exam. COMPARISON: 1. MG MM DIG MAMM DX UNILAT LT CAD 03/17/2021 8:08 AM 2. MG MM DIG SCREENING MAMM BI W/CAD 02/21/2021 8:11 AM FINDINGS: MAMMOGRAPHY: The breast tissue is composed of scattered areas of fibroglandular density. There is no stellate mass, architectural distortion or suspicious microcalcifications to suggest malignancy. No persistent focal mass lesion or asymmetry identified. No skin thickening or axillary adenopathy. IMPRESSION: No mammographic evidence of malignancy. Annual bilateral mammographic screening is recommended in March 2022 unless otherwise clinically indicated. ASSESSMENT: BI-RADS Category 1: Negative
== END ==
PROVIDERS: PCP Nurse Practitioner Family; Visit Provider Nurse Practitioner Family
DX: R92.8 Other abnormal and inconclusive findings on diagnostic imaging of breast (principal); N63.20 Unspecified lump in the left breast, unspecified quadrant
CPT/HCPCS: 77061; 77065; G0279

== ENCOUNTER 2021-12-12 14:03 | Emergency (ER) | payer BC, SELFPAY ==
--- NOTE | 2021-12-12 14:25 | EXP.UTC ---
Discharge Plan Disposition Patient Disposition: Home, Self-Care Condition: Good Prescriptions Prescriptions: New cyclobenzaprine 10 mg Tablet 10 mg PO BID PRN (Reason: Muscle Spasm) Qty: 20 0RF methylprednisolone 4 mg Tablets,Dose Pack 4 mg PO DIRECTED Qty: 21 0RF No Action aspirin [Adult Low Dose Aspirin] 81 mg tablet,delayed release (DR/EC) 81 mg PO DAILY pantoprazole [Protonix] 40 mg tablet,delayed release (DR/EC) 40 mg PO DAILY trazodone 50 MG tablet 50 mg PO HS umeclidinium-vilanterol 1 EACH blister with device 1 inh IH DAILY furosemide 40 MG tablet 40 mg PO NEEDED PRN (Reason: Edema) Referrals Follow up/Referrals: Lauren Broderick APRN [Primary Care Provider] - See instructions Activity Restrictions/Add. Instructions Additional Instructions/Restrictions: Go home and rest. It would be best if you rested tomorrow too. No heavy lifting. No twisting. Take the oral medications as directed. The muscle relaxer (cyclobenzaprine--Flexeril) will make you drowsy, so don't drive or operate heavy machinery after taking it. Don't start the oral steroids (medrol dose pack) until tomorrow, since you had the shots in here today. Follow up with your regular doctor. GO TO THE ER FOR ANY WORSENING SYMPTOMS OR CONCERN, ESPECIALLY BOWEL OR BLADDER ISSUES, SADDLE AREA NUMBNESS, FEVER, ETC Clinical Impressions Clinical Impression: Lumbar back pain with radiculopathy affecting left lower extremity Instructions Patient Instructions: DI for Low Back Pain, DI for Lumbar Radiculopathy Discharge ED Provider: Donovan Casas [facility] General Stated complaint: back pain Time Seen by Provider: 12/12/21 14:20 History of Present Illness Provider Complaint: she states that she has had low back pain that radiates down her right leg for the past 3 days. She has had similar episodes of this in the past. She denies any recent injury. Related Data Home Medications Medication Instructions Recorded Confirmed aspirin 81 mg tablet,delayed 81 mg PO DAILY heart health 08/31/18 05/28/21 release (Adult Low Dose Aspirin) pantoprazole 40 mg tablet,delayed 40 mg PO DAILY GERD 08/31/18 05/28/21 release (Protonix) furosemide 40 mg tablet 40 mg PO NEEDED PRN Edema 04/23/21 05/28/21 trazodone 50 mg tablet 50 mg PO HS sleep 04/23/21 05/28/21 umeclidinium 62.5 mcg-vilanterol 1 inh IH DAILY Anxiety 04/23/21 05/28/21 25 mcg/actuation powdr for inhalation Previous Rx's Medication Instructions Recorded cyclobenzaprine 10 mg tablet 10 mg PO BID PRN Muscle Spasm #20 12/12/21 tabs methylprednisolone 4 mg tablets in 4 mg PO DIRECTED #21 tabs 12/12/21 a dose pack Allergies Allergy/AdvReac Type Severity Reaction Status Date / Time No Known Allergies Allergy Verified 12/12/21 14:30 PFSH [facility] Medical History Angina, class II CAD (coronary artery disease) Daytime somnolence Dyspnea Elevated left ventricular end-diastolic pressure (LVEDP) Restless sleeper Snoring Social History Smoking Status: Current every day smoker tobacco type: cigarettes packs per day: 1 alcohol intake: never substance use type: denies use current occupational status: employed Travel in the last 8 weeks: None household members: spouse and family housing: house current occupation: [employer] Direct caffeine: Yes ROS Obtained: Yes All systems reviewed & no additional complaints except as documented Constitutional Constitutional: Denies chills and Denies fever(s) Eyes Eyes: Denies eye discharge ENT Ears, Nose, Mouth, and Throat: Denies dizziness, Denies otalgia and Denies sore throat Cardiovascular Cardiovascular: Denies chest pain Respiratory Respiratory: Denies shortness of breath, Denies chest congestion, Denies cough, Denies stridor and Denies wheezing
[2021-12-12 14:28] VITALS: BP 138/89; PULSE 72; RESP 16; TEMP 36.7; O2SAT 99; BMI 37.5
[2021-12-12 15:24] VITALS: BP 138/89; PULSE 72; RESP 16; TEMP 36.7
== END 2021-12-12 15:25 | disposition home or self-care (01) ==
PROVIDERS: Emergency Provider Nurse Practitioner Family; PCP Nurse Practitioner Family
DX: M54.16 Radiculopathy, lumbar region (principal)
CPT/HCPCS: 96372; 99212; G0463

== ENCOUNTER 2022-04-08 08:35 | Emergency (ER) | payer BC, SELFPAY ==
[2022-04-08 08:40] VITALS: BP 138/85; PULSE 67; RESP 20; TEMP 36.7; O2SAT 99; BMI 38.2
--- NOTE | 2022-04-08 08:48 | EXP.UTC ---
Discharge Plan Disposition Patient Disposition: Home, Self-Care Condition: Good Prescriptions Prescriptions: New amoxicillin [amoxicillin] 500 mg tablet 500 mg PO TID 10 Days Qty: 30 0RF benzonatate [benzonatate] 100 mg capsule 100 mg PO TIDP PRN (Reason: Cough) Qty: 30 0RF methylprednisolone 4 mg Tablets,Dose Pack 4 mg PO DIRECTED Qty: 21 0RF No Action aspirin [Adult Low Dose Aspirin] 81 mg tablet,delayed release (DR/EC) 81 mg PO DAILY pantoprazole [Protonix] 40 mg tablet,delayed release (DR/EC) 40 mg PO DAILY trazodone 50 MG tablet 50 mg PO HS umeclidinium-vilanterol 1 EACH blister with device 1 inh IH DAILY furosemide 40 MG tablet 40 mg PO NEEDED PRN (Reason: Edema) cyclobenzaprine 10 mg Tablet 10 mg PO BID PRN (Reason: Muscle Spasm) Qty: 20 0RF Referrals Follow up/Referrals: Lauren Broderick APRN [Primary Care Provider] - See instructions Activity Restrictions/Add. Instructions Additional Instructions/Restrictions: Drink plenty of fluids. Take tylenol or ibuprofen for pain or fever. Take the medications as directed. Follow up with your regular doctor. GO TO THE ER FOR ANY WORSENING SYMPTOMS Clinical Impressions Clinical Impression: Sinusitis, Pharyngitis Stand Alone Forms Stand Alone Forms: Work/School Release Instructions Patient Instructions: Sinusitis, DI for Pharyngitis/Tonsillopharyngitis -- Adult, DI for Sinusitis Discharge ED Provider: Donovan Casas [facility] General Stated complaint: SALDANA, ear pain, congestion Time Seen by Provider: 04/08/22 08:48 History of Present Illness Provider Complaint: She states that for the past 4 days she has had sore throat, ear pain, sinus congestion, and a cough. Her throat felt much worse today, so she came to be checked for strep throat. Related Data Home Medications Medication Instructions Recorded Confirmed aspirin 81 mg tablet,delayed 81 mg PO DAILY heart health 08/31/18 05/28/21 release (Adult Low Dose Aspirin) pantoprazole 40 mg tablet,delayed 40 mg PO DAILY GERD 08/31/18 05/28/21 release (Protonix) furosemide 40 mg tablet 40 mg PO NEEDED PRN Edema 04/23/21 05/28/21 trazodone 50 mg tablet 50 mg PO HS sleep 04/23/21 05/28/21 umeclidinium 62.5 mcg-vilanterol 1 inh IH DAILY Anxiety 04/23/21 05/28/21 25 mcg/actuation powdr for inhalation Previous Rx's Medication Instructions Recorded cyclobenzaprine 10 mg tablet 10 mg PO BID PRN Muscle Spasm #20 12/12/21 tabs amoxicillin 500 mg tablet 500 mg PO TID 10 days #30 tabs 04/08/22 benzonatate 100 mg capsule 100 mg PO TIDP PRN Cough #30 caps 04/08/22 methylprednisolone 4 mg tablets in 4 mg PO DIRECTED #21 tabs 04/08/22 a dose pack Allergies Allergy/AdvReac Type Severity Reaction Status Date / Time No Known Allergies Allergy Verified 04/08/22 09:01 [facility] Disclaimer: The information contained in this section may have been updated after the patient was seen, as this information can be updated by other users. 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
[2022-04-08 08:58] LABS: UTC Strep Screen (Rapid) Negative (Negative)
[2022-04-08 09:29] VITALS: BP 138/85; PULSE 67; RESP 20; TEMP 36.7; O2SAT 99
== END 2022-04-08 09:15 | disposition home or self-care (01) ==
PROVIDERS: Emergency Provider Nurse Practitioner Family; PCP Nurse Practitioner Family
DX: J32.9 Chronic sinusitis, unspecified (principal); J02.9 Acute pharyngitis, unspecified
CPT/HCPCS: 87880; 99212; 99213; G0463

== ENCOUNTER → 2022-05-20 09:41 | Outpatient (CLI) | payer BC, SELFPAY ==
[2022-05-20 10:22] LABS: Basophils # 0.1 K/mm3 (0-0.2); Basophils % 1.4 % (0.1-2.0); Eosinophils # 0.2 K/mm3 (0.0-0.4); Eosinophils % 2.4 % (0.1-12.0); Hematocrit 46.5 % (37.0-47.0); Hemoglobin 14.7 g/dL (12.2-16.2); Lymphocytes # 2.1 K/mm3 (0.7-4.5); Lymphocytes % 27.2 % (10-50); Mean Corpuscular HGB Conc 31.5 g/dL (31.8-35.4); Mean Corpuscular Hemoglobin 28.5 pg (27.0-31.2); Mean Corpuscular Volume 90.4 fl (81-99); Mean Platelet Volume 10.3 fl (7.4-10.4); Monocytes # 0.4 K/mm3 (0.1-1.0); Monocytes % 5.7 % (1.7-9.3); Neutrophils # 4.8 K/mm3 (1.8-7.8); Neutrophils % 63.4 % (37.0-80.0); Platelet Count 214 K/mm3 (142-424); Red Blood Count 5.15 M/mm3 (4.20-5.40); Red Cell Distribution Width 14.3 % (11.5-17.5); White Blood Count 7.6 K/mm3 (4.8-10.8)
[2022-05-20 10:54] LABS: Anion Gap 8.8 mEq/L (5-15); Blood Urea Nitrogen 15 mg/dl (7-17); Carbon Dioxide 29 mmol/L (22.0-30.0); Chloride 103 mmol/L (98-107); Estimated Glomerular Filt Rate 104 ml/min (>60); GFR (African American) 126 ML/MIN (>60); Glucose 108 mg/dl (74-100); Potassium 4.8 mmoL/L (3.5-5.1); Sodium 136 mmol/L (136-145)
== END ==
PROVIDERS: PCP Nurse Practitioner Family; Visit Provider Orthopaedic Surgery Adult Reconstructive Orthopaedic Surgery
DX: M54.2 Cervicalgia (principal); S14.107A Unspecified injury at C7 level of cervical spinal cord, initial encounter
CPT/HCPCS: 36415; 80048; 85025

== ENCOUNTER → 2022-07-14 23:28 | Outpatient (CLI) | payer BC, SELFPAY | PROVIDERS: PCP Student in an Organized Health Care Education/Training Program; Visit Provider Student in an Organized Health Care Education/Training Program | DX: J02.9 Acute pharyngitis, unspecified (principal) | CPT/HCPCS: 87070 ==

== ENCOUNTER 2022-08-25 16:25 | Inpatient (IN) | payer BC, SELFPAY ==
[2022-08-25] VITALS (16 sets, daily range): BP systolic 128–164; BP diastolic 69–97; PULSE 54–81; RESP 14–18; TEMP 36.8–43; O2SAT 90–98; BMI 36.3
--- NOTE | 2022-08-25 11:45 | CT_ITS ---
FINAL REPORT TECHNIQUE: Axial images through the abdomen and pelvis were performed without contrast. Oral contrast is given. This study was performed with techniques to keep radiation doses as low as reasonably achievable, (ALARA). Individualized dose reduction techniques using automated exposure control or adjustment of mA and/or kV according to the patient's size were employed. CLINICAL HISTORY: ABDOMINAL PAIN oral contrast only FINDINGS: ABDOMEN: Extensive streak artifact arising from posterior fusion hardware somewhat compromises the evaluation. The lung bases are clear. The heart size is normal. The liver parenchyma is homogeneous. The gallbladder is absent. There are calcified granulomas of the spleen. No adrenal mass is identified. The aorta is normal in caliber. There is no significant free fluid or adenopathy. There are multiple benign-appearing cysts in both kidneys. Individual cysts measure up to 2.5 cm in diameter. There is no nephrolithiasis. There is no hydronephrosis. PELVIS: There is extensive inflammatory reaction in the right lower quadrant. There is an associated focal density, probably representing an appendicolith. Tubular structure is seen consistent with an enlarged and inflamed appendix, can not exclude appendiceal rupture. Intramedullary prakash is seen in the proximal left femur. There are calcified phleboliths in the floor of the pelvis. The urinary bladder is unremarkable. There is no significant free fluid or adenopathy. IMPRESSION: Acute complicated appendicitis with possible appendiceal rupture. Please correlate clinically. Reviewed, Interpreted and Dictated by Merritt Schaffer MD Transcribed by Lauren Magaña Authenticated and [facility]
--- NOTE | 2022-08-25 16:36 | EXP.HP ---
History of Present Illness *Admission Date: 08/25/22 *Reason for visit:: Appendicitis *History of present illness: Ms. Doty is a 57-year-old female with a history of anxiety and GERD who presented to the office [facility] stating she started having Severe mid abdominal pain yesterday. She states the pain has now moved to her right side. She was not able to sleep throughout the night. She also was having some loose stools. She denied having any vomiting or diarrhea, fever, constipation. She had not had much to eat or drink because it hurt to even think about food. With evaluation in the office patient was found to have a temperature of 98. Completed CBC showed a white blood cell count of 13,000 with 75.6% granulocytes. Hemoglobin was 14.6 and hematocrit 45.5. Urinalysis revealed some hematuria. With exam she had pain with palpation in the right lower quadrant with guarding. She was then sent for CT scan. CT scan revealed the following: FINDINGS: ABDOMEN:? Extensive streak artifact arising from posterior fusion hardware somewhat compromises the evaluation.? The lung bases are clear.? The heart size is normal.? The liver parenchyma is homogeneous.? The gallbladder is absent.? There are calcified granulomas of the spleen.? No adrenal mass is identified.? The aorta is normal in caliber.? There is no significant free fluid or adenopathy.? There are multiple benign-appearing cysts in both kidneys.? Individual cysts measure up to 2.5 cm in diameter.? There is no nephrolithiasis. There is no hydronephrosis.? PELVIS:? There is extensive inflammatory reaction in the right lower quadrant.? There is an associated focal density, probably representing an appendicolith.? Tubular structure is seen consistent with an enlarged and inflamed appendix, can not exclude appendiceal rupture.? Intramedullary prakash is seen in the proximal left femur. There are calcified phleboliths in the floor of the pelvis. The urinary bladder is unremarkable.? There is no significant free fluid or adenopathy. IMPRESSION: Acute complicated appendicitis with possible appendiceal rupture.? Please correlate clinically. Patient did agree to admission. Dr. Mcwilliams was notified as well as Dr. Chavarria the surgeon. [facility] Disclaimer: The information contained in this section may have been updated after the patient was seen, as this information can be updated by other users. Medical History (Updated 08/25/22 @ 17:00 by Lauren Broderick APRN) Angina, class II CAD (coronary artery disease) Daytime somnolence Dyspnea Elevated left ventricular end-diastolic pressure (LVEDP) History of left heart catheterization Restless sleeper Snoring Surgical History (Updated 08/25/22 @ 17:00 by Lauren Broderick APRN) H/O repair of rotator cuff H/O total hysterectomy History of cholecystectomy Previous back surgery S/P tendon repair Family History (Updated 08/25/22 @ 16:46 by Latonia Jean RN) Family history of cancer Mother Family history of myocardial infarction Social History Smoking Status: Current every day smoker tobacco type: cigarettes packs per day: 1 alcohol intake: never substance use type: denies use current occupational status: employed Travel in the last 8 weeks: None household members: spouse and family housing: house current occupation: [employer] caffeine: Yes Review of Systems Constitutional Constitutional: Denies fever(s) and Reports headache(s) Eyes Eyes: Denies change in vision ENT Ears, Nose, Mouth, and Throat: Denies disequilibrium, Denies dizziness, Denies otalgia, Reports headache(s) and Denies sore throat *Cardiovascular Cardiovascular: Denies chest pain and Denies dyspnea *Respiratory Respiratory: Denies chest congestion, Denies cough and Denies dyspnea *Gastrointestinal Gastrointestinal: Reports abdominal pain, Denies belching, Denies change in stool character
--- NOTE | 2022-08-25 16:44 | EXP.SURG.CON ---
History of Present Illness *Admission Date: 08/25/22 *Reason for visit:: Appendicitis *History of present illness: This is a 57-year-old female seen in consultation from her primary service after being diagnosed with appendicitis as confirmed per CT scan. Please see truncated HPI forwarded from admission H&P below. Forwarded from admission H&P: Ms. Doty is a 57-year-old female with a history of anxiety and GERD who presented to the office of [facility] stating she started having Severe mid abdominal pain yesterday. She states the pain has now moved to her right side. She was not able to sleep throughout the night. She also was having some loose stools. She denied having any vomiting or diarrhea, fever, constipation. She had not had much to eat or drink because it hurt to even think about food. With evaluation in the office patient was found to have a temperature of 98. Completed CBC showed a white blood cell count of 13,000 with 75.6% granulocytes. Hemoglobin was 14.6 and hematocrit 45.5. Urinalysis revealed some hematuria. With exam she had pain with palpation in the right lower quadrant with guarding. She was then sent for CT scan. CT scan revealed the following: IMPRESSION: Acute complicated appendicitis with possible appendiceal rupture.? Please correlate clinically. Patient did agree to admission. Dr. Mcwilliams was notified as well as Dr. Chavarria the surgeon. PFSH PFSH Disclaimer: The information contained in this section may have been updated after the patient was seen, as this information can be updated by other users. Medical History (Updated 07/14/22 @ 12:57 by FOZIA Vital) Angina, class II CAD (coronary artery disease) Daytime somnolence Dyspnea Elevated left ventricular end-diastolic pressure (LVEDP) Restless sleeper Snoring Family History (Updated 08/25/22 @ 16:46 by Latonia Jean RN) Family history of cancer Mother Family history of myocardial infarction Social History Smoking Status: Current every day smoker tobacco type: cigarettes packs per day: 1 alcohol intake: never substance use type: denies use current occupational status: employed Travel in the last 8 weeks: None household members: spouse and family housing: house 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 caffeine: Yes Meds Home Medications and Allergies Home Medications Medication Instructions Recorded Confirmed Type aspirin 81 mg tablet,delayed 81 mg PO DAILY heart health 08/31/18 07/14/22 History release (Adult Low Dose Aspirin) pantoprazole 40 mg tablet,delayed 40 mg PO DAILY GERD 08/31/18 07/14/22 History release (Protonix) furosemide 40 mg tablet 40 mg PO NEEDED PRN Edema 04/23/21 07/14/22 History trazodone 50 mg tablet 50 mg PO HS sleep 04/23/21 07/14/22 History amoxicillin 500 mg capsule 500 mg PO BID 10 days #20 caps 07/14/22 07/14/22 Rx New Prescriptions to Start Prescriptions: Allergies Allergy/AdvReac Type Severity Reaction Status Date / Time No Known Allergies Allergy Verified 07/14/22 11:25 Exam (Inpt) Constitutional: no acute distress Head: Present normocephalic and atraumatic Neck: Present full ROM Respiratory: Absent respiratory distress Cardiac: Present Reg Rate and Rhythm GI: Present soft and tenderness Rectal (female): Present deferred (female): Present deferred Extremities: Present full ROM Skin: Absent erythema Neuro: Present alert Results Imaging CT scan - abdomen: report reviewed and image reviewed CT scan - pelvis: report reviewed and image reviewed Assessment and Plan *Assessment and plan (1) Appendicitis: Status: Acute Category: Surgical Code(s): K37 - Unspecified appendicitis Plan: The patient is being admitted
--- NOTE | 2022-08-25 17:05 | PC.NURSE ---
20g iv rt ac. no skin issues noted, pt a&o. or staff just took pt down to surgery.
--- NOTE | 2022-08-25 17:58 | P.PN_ITS ---
[facility] Disclaimer: The information contained in this section may have been updated after the patient was seen, as this information can be updated by other users. Medical History (Updated 08/25/22 @ 17:00 by Lauren Broderick APRN) Angina, class II CAD (coronary artery disease) Daytime somnolence Dyspnea Elevated left ventricular end-diastolic pressure (LVEDP) History of left heart catheterization Restless sleeper Snoring Surgical History (Updated 08/25/22 @ 17:00 by Lauren Broderick APRN) H/O repair of rotator cuff H/O total hysterectomy History of cholecystectomy Previous back surgery S/P tendon repair Family History (Updated 08/25/22 @ 16:46 by Latonia Jean RN) Mother Family history of cancer Other Family history of myocardial infarction Social History Smoking Status: Current every day smoker tobacco type: cigarettes packs per day: 1 alcohol intake: never substance use type: denies use current occupational status: employed Travel in the last 8 weeks: None household members: spouse and family housing: house 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 Anesthesia Checklist Patient Identification Patient Identification: Arm Band Structural Data Admitted From: Inpatient Planned Operative Procedure/s: Laparoscopic Appendectomy Consent for Planned Operative Procedure(s) Verified: Yes Verified Documents: Surgical Consent and History and Physical NPO Status Verified Time NPO: 00:00 Additional verifications Anesthesia Reactions: No Airway Assessment C-Spine Mobility Assessed: Yes TMJ Mobility Assessed: Yes Dentition: Good Dentition Anesthesia Plan Anesthesia Risk discussed: Yes Anesthesia Plan: Verified ASA Class: II (E) Anesthesia Type: General
--- NOTE | 2022-08-25 19:24 | EXP.OP.NOTE ---
Date of procedure: 08/25/22 Pre-op Diagnosis:: Appendicitis Post-op Diagnosis:: Necrotic/perforated appendicitis Procedure performed:: Laparoscopic appendectomy Surgeon:: Jerardo Chavarria MD CLEANING LABORER:: Brent Guillaume Anesthesia: FABY Estimated blood loss (mL): 25 Operative findings:: Severe inflammatory changes throughout right lower quadrant Dense adhesions (essentially fusion) of appendix to surrounding tissue including colon and small bowel Mid and distal appendiceal necrosis Perforation of distal appendix Operative note:: After informed consent was obtained the patient was taken to the operating room and placed in the supine position. General anesthesia was induced and her abdomen was prepped and draped in a sterile fashion. After infiltration with local anesthetic a small longitudinal supraumbilical incision was made (somewhat cephalad incision secondary to radiographic findings). A Veress needle was placed in position. The abdomen was insufflated. A 12 mm optical trocar was placed in position. Under direct visualization an additional 5 mm trocar was placed in the suprapubic position and an additional 5 mm trocar was placed in the left lower quadrant. Visualization revealed severe dense adhesions and fusion of periappendiceal tissue. The tissue was exceptionally firm and dissection was difficult. No obvious injury to colon or small bowel was noted. A combination of blunt dissection and harmonic yokasta were utilized to carefully transect around the appendix as it was elevated. Necrosis and distal perforation were confirmed. A small mesoappendiceal bleeding vessel was controlled with a single clip. No additional hemorrhage noted. An Endopath 45 stapling device was used to transect the appendix at its base. The base/stapled margin appeared viable. The appendix was placed in a retrieval bag and removed through the supraumbilical trocar site. No obvious injury or leak was noted. The right lower quadrant was thoroughly irrigated. No pockets of purulence or other fluid collections were seen. Fascia at the supraumbilical trocar site was reapproximated with the Reuben-Close device. Pneumoperitoneum was released as the remaining trocars were removed. All wounds were irrigated and skin was closed with interrupted 4-0 Monocryl in a mattress fashion to facilitate hemostasis. Dressings were applied and the patient was transferred to recovery in stable condition. Condition: stable Disposition: PACU Specimens:: Appendix Complications:: No immediate
--- NOTE | 2022-08-25 19:34 | P.PNANES_ITS ---
[facility] Anesthesia Record Part I Anesthesia Record I Intake, IV Amount: 1,300 Estimated blood loss (mL): 25 Urine output (mL): 200 Blood Pressure: 138/69 SaO2: 92 Pulse Rate: 81 Respiratory Rate: 16 Temperature: 98.5 F Patient is:: Drowsy and Stable Stable to PACU at:: 19:30
--- NOTE | 2022-08-25 20:02 | PC.NURSE ---
pt arrived to floor from PACU at this time
--- NOTE | 2022-08-25 20:10 | SUR.PHASEI ---
1957- Report called to Med/Surg nurse Maurice. 1999- Patient transported to med/surg room 202 in stable condition by this RN and Nancy. Bed left in lowest position and wheels locked. Vital signs stable, dressings clean dry and intact. This RN and Maurice RN assessed patient's dressings together at bedside. Patient left in the care of Maurice HARRINGTON with family at bedside.
[2022-08-26] VITALS (8 sets, daily range): BP systolic 109–147; BP diastolic 68–87; PULSE 58–81; RESP 15–18; TEMP 36.8–37.2; O2SAT 92–98; BMI 36.4
[2022-08-26 06:08] LABS: Chloride 101 mmol/L (98-107); Sodium 135 mmol/L (136-145)
[2022-08-26 06:09] LABS: Basophils % 0.1 % (0.1-2.0); Eosinophils % 0.1 % (0.1-12.0); Hematocrit 41.9 % (37.0-47.0); Hemoglobin 13.7 g/dL (12.2-16.2); Lymphocytes # 1.2 K/mm3 (0.7-4.5); Lymphocytes % 9.1 % (10-50); Mean Corpuscular HGB Conc 32.7 g/dL (31.8-35.4); Mean Corpuscular Hemoglobin 28.7 pg (27.0-31.2); Mean Corpuscular Volume 87.7 fl (81-99); Mean Platelet Volume 10.7 fl (7.4-10.4); Monocytes # 0.9 K/mm3 (0.1-1.0); Monocytes % 6.6 % (1.7-9.3); Neutrophils # 11.4 K/mm3 (1.8-7.8); Neutrophils % 84.1 % (37.0-80.0); Platelet Count 226 K/mm3 (142-424); Red Blood Count 4.78 M/mm3 (4.20-5.40); Red Cell Distribution Width 14.5 % (11.5-17.5); White Blood Count 13.6 K/mm3 (4.8-10.8)
[2022-08-26 06:11] LABS: Blood Urea Nitrogen 11 mg/dl (7-17); Creatinine Clearance Estimated 151 mL/min (50-200); Estimated Glomerular Filt Rate 87 ml/min (>60); GFR (African American) 105 ML/MIN (>60)
[2022-08-26 06:12] LABS: Calcium 8.5 mg/dl (8.4-10.2); Carbon Dioxide 25 mmol/L (22.0-30.0); Glucose 117 mg/dl (74-100)
[2022-08-26 06:29] LABS: Anion Gap 13.2 mEq/L (5-15); Potassium 4.2 mmoL/L (3.5-5.1)
--- NOTE | 2022-08-26 07:07 | [facility].PHAINT1 ---
Pharmacy Intervention Comments: home medication list verified using list from outpatient pharmacy and pt interview
--- NOTE | 2022-08-26 07:39 | EXP.ANES.II ---
[facility] Anesthesia Record Part II Anesthesia Record Part II Discharge Time: 20:00 Destination: Surgical Day Care (OP Surgery) PACU nurse assessment reviewed?: Yes Patient Condition:: Good Anesthesia Complications:: None Swallowing reflex intact?: Yes Cyanosis?: No Blood Pressure: 133/87 Pulse Rate: 58 Temperature: 98.5 F Mental Status: Alert & Oriented Pain level:: 0 Nausea and/or vomitting:: None Intake, IV Amount: 0
--- NOTE | 2022-08-26 08:25 | EXP.SURG.PN ---
Subjective Patient reports: no new complaints and feels better Exam Data for Last 24 hours Vital signs and Labs for Last 24 Hours: Temp Pulse Resp BP Pulse Ox 98.4 F 62 17 109/68 L 94 L 08/26/22 07:51 08/26/22 07:51 08/26/22 07:51 08/26/22 07:51 08/26/22 07:51 Laboratory Results - last 24 hr 08/26/22 05:45: WBC 13.6 H, RBC 4.78, Hgb 13.7, Hct 41.9, MCV 87.7, MCH 28.7, MCHC 32.7, RDW 14.5, Plt Count 226, MPV 10.7 H, Neut % (Auto) 84.1 H, Lymph % (Auto) 9.1 L, [place] % (Auto) 6.6, Eos % (Auto) 0.1, Baso % (Auto) 0.1, Neut # (Auto) 11.4 H, Lymph # (Auto) 1.2, [place] # (Auto) 0.9, Eos # (Auto) 0.0, Baso # (Auto) 0.0 08/26/22 05:45: Sodium 135 L, Potassium 4.2, Chloride 101, Carbon Dioxide 25, Anion Gap 13.2, BUN 11, Creatinine 0.70, Estimated Creat Clear 151, Estimated GFR 87, Est GFR ( Amer) 105, Glucose 117 H, Calcium 8.5 I & O for Last 24 hours: Intake & Output 08/23/22 08/24/22 08/25/22 08/26/22 11:59 11:59 11:59 11:59 Intake Total 1540 / 1540 Output Total 350 / 350 Balance 1190 / 1190 Weight 232 lb 7 oz Constitutional Constitutional: no acute distress *Routine Respiratory Exam Respiratory: Absent respiratory distress *Routine Cardiovascular Exam Cardiovascular: Absent tachycardia *Routine Abdominal Exam Comments: Dressings in place. No erythema or sign of bleeding. Progress Note: A&P Assessment and plan (1) Acute perforated appendicitis: Status: Acute Assessment and plan: Overall, doing well status post laparoscopic appendectomy. Slowly advance diet as tolerated Continue IV antibiotics for now Increase ambulation (2) Obesity (BMI 30.0-34.9): Status: Acute
--- NOTE | 2022-08-26 08:25 | EXP.ACUTE.PN ---
Subjective *Date: 08/26/22 *Time: 08:35 Interval history: Patient is feeling better and has much less pain. Passing a lot of gas. Medical Exam Vital signs and Labs for Last 24 Hours: Vital Signs Temp Pulse Pulse Resp BP BP Pulse Ox 08/26/22 07:51 98.4 F 62 17 109/68 L 94 L 08/26/22 04:00 98.2 F 64 17 118/69 98 08/26/22 02:45 98.8 F 78 15 125/81 95 08/26/22 01:45 81 18 132/76 92 L 08/26/22 00:45 72 17 147/81 H 95 08/25/22 23:45 99.1 F 67 14 154/85 H 93 L 08/25/22 22:40 99.5 F 65 16 137/91 H 94 L 08/25/22 22:20 99 F 63 16 150/84 H 91 L 08/25/22 21:40 98.4 F 63 16 147/80 H 95 08/25/22 21:10 98.4 F 61 16 140/88 95 08/25/22 20:44 98.4 F 54 L 16 139/81 90 L 08/25/22 20:35 98.7 F 54 L 16 139/87 90 L 08/25/22 20:15 98.3 F 56 L 16 144/90 H 90 L 08/25/22 20:05 98.3 F 60 18 132/82 90 L 08/25/22 20:00 58 L 15 133/87 94 L 08/25/22 19:50 63 17 129/75 92 L 08/25/22 19:40 74 16 128/76 91 L 08/25/22 19:30 98.5 F 81 16 138/69 92 L 08/25/22 16:45 98.7 F 71 18 164/97 H 98 08/25/22 19:34 98.5 F 81 16 138/69 Intake and Output 08/25/22 08/26/22 08/26/22 19:59 03:59 11:59 Intake Total 1300 / 1540 240 / 1540 Output Total 350 / 350 Balance 1300 / 1190 -350 / 1190 240 / 1190 Intake: Intake, Oral Amount 0 / 240 240 / 240 Intake, Total IV Amount 1300 / 1300 0 / 1300 Output: Output, Urine Amount 350 / 350 Other: Number of Unmeasured Voids 1 Weight 232 lb 7 oz 232 lb 7 oz Patient Weight 08/26/22 11:59 Weight 232 lb 7 oz Laboratory Results - last 24 hr 08/26/22 05:45: WBC 13.6 H, RBC 4.78, Hgb 13.7, Hct 41.9, MCV 87.7, MCH 28.7, MCHC 32.7, RDW 14.5, Plt Count 226, MPV 10.7 H, Neut % (Auto) 84.1 H, Lymph % (Auto) 9.1 L, [place] % (Auto) 6.6, Eos % (Auto) 0.1, Baso % (Auto) 0.1, Neut # (Auto) 11.4 H, Lymph # (Auto) 1.2, [place] # (Auto) 0.9, Eos # (Auto) 0.0, Baso # (Auto) 0.0 08/26/22 05:45: Sodium 135 L, Potassium 4.2, Chloride 101, Carbon Dioxide 25, Anion Gap 13.2, BUN 11, Creatinine 0.70, Estimated Creat Clear 151, Estimated GFR 87, Est GFR ( Amer) 105, Glucose 117 H, Calcium 8.5 I & O for Labs for Last 24 Hours: Intake & Output 08/23/22 08/24/22 08/25/22 08/26/22 11:59 11:59 11:59 11:59 Intake Total 1540 / 1540 Output Total 350 / 350 Balance 1190 / 1190 Weight 232 lb 7 oz Constitutional: Present no acute distress Respiratory: Present CTA bilaterally Cardiac: Present Reg Rate and Rhythm GI: Present soft, tenderness (around surgical sites) and normal bowel sounds; Absent guarding, rebound or rigidity Extremities: Absent edema Skin: Present warm Neuro: Present alert, awake and oriented x 3 Assessment and Plan *Assessment and plan (1) Appendicitis: Status: Deleted Category: Surgical Code(s): K37 - Unspecified appendicitis (2) Acute perforated appendicitis: Status: Acute Category: Surgical Code(s): K35.32 - Acute appendicitis with perforation, localized peritonitis, and gangrene, without abscess (3) Status post appendectomy: Status: Acute Category: Surgical Code(s): Z90.49 - Acquired absence of other specified parts of digestive tract (4) Tobacco use: Status: Chronic Category: Social Hx Code(s): Z72.0 - Tobacco use (5) Snoring: Status: Chronic Category: Medical Code(s): R06.83 - Snoring (6) Obesity (BMI 30.0-34.9): Status: Acute Category: Medical Code(s): E66.9 - Obesity, unspecified (7) Lower abdominal pain: Status: Acute Category: Medical Code(s): R10.30 - Lower abdominal pain, unspecified Plan Dr. Chavarria would like to keep the patient on IV abx until tomorrow. Will advance diet to full liquid.
[2022-08-26 10:55] LABS: Coronavirus 19, PCR Not Detected (NotDetected); Influenza A, PCR Not Detected (NotDetected); Influenza B, PCR Not Detected (NotDetected)
[2022-08-26 13:17] LABS: Microscopic,Cath URINE MICROSCOPIC (MICROSCOPIC)
[2022-08-26 13:19] LABS: Appearance,Urine/Cath CLEAR (Clear); Bilirubin,Cath Negative (Negative); Blood, Urine/Cath 1+ (Negative); Color,Urine/Cath YELLOW (Yellow); Glucose,Urine/Cath (UA) Negative (Negative); Ketones,Urine/Cath Negative (Negative); Leukocyte Esterase,Cath Negative (Negative); Nitrate,Cath Negative (Negative); Protein,Urine/Cath Negative (Negative); Specific Gravity, Urine/Cath 1.015 (1.005-1.030)
[2022-08-26 13:49] LABS: Bacteria,Urine/Cath TRACE /lpf; Squamous Epithelial Ur./Cath Occasional #/hpf (0-5); WBC,Urine/Cath Occasional #/hpf (0-3)
--- NOTE | 2022-08-26 15:10 | PC.NURSE ---
Pt is up to chair. Has not c/o any discomfort. DSGs to abdomen is C/D/I. Pt has ambulated to BR and tolerated. IV ABX administered. Diet tolerated. Call light within reach.
[2022-08-27] VITALS: BP 137/74; PULSE 70; RESP 19; TEMP 37.2; O2SAT 92
[2022-08-27 04:00] VITALS: BP 140/75; PULSE 66; RESP 19; TEMP 36.9; O2SAT 95; BMI 38.0
--- NOTE | 2022-08-27 04:32 | PC.NURSE ---
patient has rested most of the night. Has ambulated in the room. Patient did complain of nausea, see MAR. Patient has had no other complaints.
[2022-08-27 06:36] LABS: Basophils % 0.2 % (0.1-2.0); Eosinophils # 0.1 K/mm3 (0.0-0.4); Eosinophils % 1.2 % (0.1-12.0); Hematocrit 38.8 % (37.0-47.0); Hemoglobin 12.7 g/dL (12.2-16.2); Lymphocytes # 1.7 K/mm3 (0.7-4.5); Lymphocytes % 17.3 % (10-50); Mean Corpuscular HGB Conc 32.8 g/dL (31.8-35.4); Mean Corpuscular Hemoglobin 28.9 pg (27.0-31.2); Mean Platelet Volume 10.3 fl (7.4-10.4); Monocytes # 0.8 K/mm3 (0.1-1.0); Monocytes % 7.9 % (1.7-9.3); Neutrophils # 7.3 K/mm3 (1.8-7.8); Neutrophils % 73.3 % (37.0-80.0); Platelet Count 195 K/mm3 (142-424); Red Blood Count 4.41 M/mm3 (4.20-5.40); Red Cell Distribution Width 14.6 % (11.5-17.5); White Blood Count 9.9 K/mm3 (4.8-10.8)
--- NOTE | 2022-08-27 06:43 | EXP.SURG.PN ---
Subjective Patient reports: no new complaints, feels better and bowel movement Exam Data for Last 24 hours Vital signs and Labs for Last 24 Hours: Temp Pulse Resp BP Pulse Ox 98.5 F 66 19 140/75 95 08/27/22 04:00 08/27/22 04:00 08/27/22 04:00 08/27/22 04:00 08/27/22 04:00 Laboratory Results - last 24 hr 08/26/22 10:50: SARS-CoV-2 (PCR) Not detected, Influenza A Untype (PCR) Not detected, Influenza Type B (PCR) Not detected 08/26/22 11:25: Urine Color Yellow, Urine Appearance Clear, Urine pH 8.0, Ur Specific [place] 1.015, Urine Protein Negative, Urine Glucose (UA) Negative, Urine Ketones Negative, Urine Blood 1+, Urine Nitrate Negative, Urine Bilirubin Negative, Urine Urobilinogen 1.0, Ur Leukocyte Esterase Negative, Urine RBC 5-10, Urine WBC Occasional, Ur Squamous Epith Cells Occasional, Urine Bacteria Trace 08/27/22 06:05: WBC 9.9 D, RBC 4.41, Hgb 12.7, Hct 38.8, MCV 88.0, MCH 28.9, MCHC 32.8, RDW 14.6, Plt Count 195, MPV 10.3, Neut % (Auto) 73.3, Lymph % (Auto) 17.3, [place] % (Auto) 7.9, Eos % (Auto) 1.2, Baso % (Auto) 0.2, Neut # (Auto) 7.3, Lymph # (Auto) 1.7, [place] # (Auto) 0.8, Eos # (Auto) 0.1, Baso # (Auto) 0.0 I & O for Last 24 hours: Intake & Output 08/24/22 08/25/22 08/26/22 08/27/22 11:59 11:59 11:59 11:59 Intake Total 1780 / 1780 2497 / 2497 Output Total 350 / 350 0 / 0 Balance 1430 / 1430 2497 / 2497 Weight 232 lb 7 oz 242 lb 11.2 oz Constitutional Constitutional: no acute distress *Routine Respiratory Exam Respiratory: Absent respiratory distress *Routine Cardiovascular Exam Cardiovascular: Present RRR *Routine Abdominal Exam Comments: No spreading cellulitis Progress Note: A&P Assessment and plan (1) Acute perforated appendicitis: Status: Acute Assessment and plan: Overall, doing well status post laparoscopic appendectomy. Okay from surgical standpoint for discharge home with close outpatient follow-up Short-course of Augmentin prescribed secondary to intraoperative findings (2) Obesity (BMI 30.0-34.9): Status: Acute
[2022-08-27 08:00] VITALS: BP 120/54; PULSE 56; RESP 18; TEMP 36.9; O2SAT 97
--- NOTE | 2022-08-27 08:07 | EXP.ACUTE.PN ---
Subjective *Date: 08/27/22 *Time: 08:07 Interval history: Patient is feeling better this am. Has had a small watery BM and is passing gas. Still feels bloated. Has been tolerating a full liquid diet. Wants to go home today. Medical Exam Vital signs and Labs for Last 24 Hours: Vital Signs Temp Pulse Resp BP Pulse Ox 08/27/22 04:00 98.5 F 66 19 140/75 95 08/27/22 00:00 98.9 F 70 19 137/74 92 L 08/26/22 15:12 99.0 F 62 18 130/80 96 08/26/22 11:34 99.0 F 62 17 129/71 94 L Intake and Output 08/26/22 08/27/22 08/27/22 19:59 03:59 11:59 Intake Total 2497 / 2497 Output Total 0 / 0 0 / 0 0 / 0 Balance 2497 / 2497 0 / 2497 0 / 2497 Intake: Intake, Oral Amount 360 / 360 Intake, Total IV Amount 2137 / 2137 0.9 % Sodium Chloride 1000ML 1, 1937 / 1937 000 ml @ 125 mls/hr IV .Q8H JAKE Rx#:[id number] Piperacillin/Tazo 4.5 gm In 0.9 200 / 200 % Sodium Chloride 100 ml @ 200 mls/hr IV Q6H JAKE Rx#:[id number] Output: Output, Urine Amount 0 / 0 0 / 0 0 / 0 Other: Number of Unmeasured Voids 1 2 1 Number of Bowel Movements 1 Weight 242 lb 11.2 oz Patient Weight 08/27/22 11:59 Weight 242 lb 11.2 oz Laboratory Results - last 24 hr 08/26/22 10:50: SARS-CoV-2 (PCR) Not detected, Influenza A Untype (PCR) Not detected, Influenza Type B (PCR) Not detected 08/26/22 11:25: Urine Color Yellow, Urine Appearance Clear, Urine pH 8.0, Ur Specific [place] 1.015, Urine Protein Negative, Urine Glucose (UA) Negative, Urine Ketones Negative, Urine Blood 1+, Urine Nitrate Negative, Urine Bilirubin Negative, Urine Urobilinogen 1.0, Ur Leukocyte Esterase Negative, Urine RBC 5-10, Urine WBC Occasional, Ur Squamous Epith Cells Occasional, Urine Bacteria Trace 08/27/22 06:05: WBC 9.9 D, RBC 4.41, Hgb 12.7, Hct 38.8, MCV 88.0, MCH 28.9, MCHC 32.8, RDW 14.6, Plt Count 195, MPV 10.3, Neut % (Auto) 73.3, Lymph % (Auto) 17.3, [place] % (Auto) 7.9, Eos % (Auto) 1.2, Baso % (Auto) 0.2, Neut # (Auto) 7.3, Lymph # (Auto) 1.7, [place] # (Auto) 0.8, Eos # (Auto) 0.1, Baso # (Auto) 0.0 I & O for Labs for Last 24 Hours: Intake & Output 08/24/22 08/25/22 08/26/22 08/27/22 11:59 11:59 11:59 11:59 Intake Total 1780 / 1780 2497 / 2497 Output Total 350 / 350 0 / 0 Balance 1430 / 1430 2497 / 2497 Weight 232 lb 7 oz 242 lb 11.2 oz Constitutional: Present no acute distress Respiratory: Present CTA bilaterally Cardiac: Present Reg Rate and Rhythm GI: Present soft, tenderness (around surgical sites) and normal bowel sounds; Absent guarding, rebound or rigidity Extremities: Absent edema Skin: Present warm Neuro: Present alert, awake and oriented x 3 Assessment and Plan *Assessment and plan (1) Appendicitis: Status: Deleted Category: Surgical Code(s): K37 - Unspecified appendicitis (2) Acute perforated appendicitis: Status: Acute Category: Surgical Code(s): K35.32 - Acute appendicitis with perforation, localized peritonitis, and gangrene, without abscess (3) Status post appendectomy: Status: Inactive Category: Surgical Code(s): Z90.49 - Acquired absence of other specified parts of digestive tract (4) Tobacco use: Status: Chronic Category: Social Hx Code(s): Z72.0 - Tobacco use (5) Snoring: Status: Chronic Category: Medical Code(s): R06.83 - Snoring (6) Obesity (BMI 30.0-34.9): Status: Acute Category: Medical Code(s): E66.9 - Obesity, unspecified (7) Lower abdominal pain: Status: Acute Category: Medical Code(s): R10.30 - Lower abdominal pain, unspecified Plan Patient should be able to discharge home today on oral abx. She will f/u with Dr. Chavarria next week.
[2022-08-27 11:47] VITALS: BP 139/72; PULSE 64; RESP 18; TEMP 36.8; O2SAT 96
--- NOTE | 2022-08-28 13:15 | CARE MANAGER ---
Contacted patient related to hospital discharge. She states she is sore, but feels much better. She did get her antibiotic and is aware of follow up appointment. Denies questions or concerns.
--- NOTE | 2022-08-31 23:31 | EXP.DC.SUM ---
General Admission date:: 08/25/22 Discharge date: 08/27/22 HPI HPI HPI: Ms. Doty is a 57-year-old female with a history of anxiety and GERD who [facility] stating she started having Severe mid abdominal pain yesterday.? She states the pain has now moved to her right side.? She was not able to sleep throughout the night.? She also was having some loose stools.? She denied having any vomiting or diarrhea, fever, constipation.? She had not had much to eat or drink because it hurt to even think about food. With evaluation in the office patient was found to have a temperature of 98.? Completed CBC showed a white blood cell count of 13,000 with 75.6% granulocytes.? Hemoglobin was 14.6 and hematocrit 45.5.? Urinalysis revealed some hematuria. With exam she had pain with palpation in the right lower quadrant with guarding.? She was then sent for CT scan. CT scan revealed the following: FINDINGS: ABDOMEN:? Extensive streak artifact arising from posterior fusion hardware somewhat compromises the evaluation.? The lung bases are clear.? The heart size is normal.? The liver parenchyma is homogeneous.? The gallbladder is absent.? There are calcified granulomas of the spleen.? No adrenal mass is identified.? The aorta is normal in caliber.? There is no significant free fluid or adenopathy.? There are multiple benign-appearing cysts in both kidneys.? Individual cysts measure up to 2.5 cm in diameter.? There is no nephrolithiasis. There is no hydronephrosis.? PELVIS:? There is extensive inflammatory reaction in the right lower quadrant.? There is an associated focal density, probably representing an appendicolith.? Tubular structure is seen consistent with an enlarged and inflamed appendix, can not exclude appendiceal rupture.? Intramedullary prakash is seen in the proximal left femur. There are calcified phleboliths in the floor of the pelvis. The urinary bladder is unremarkable.? There is no significant free fluid or adenopathy. IMPRESSION: Acute complicated appendicitis with possible appendiceal rupture.? Please correlate clinically. Patient did agree to admission.? Dr. Mcwilliams was notified as well as Dr. Chavarria the surgeon. Hospital Course Hospital Course Hospital Course: The patient was seen by Dr. Chavarria who performed an appendectomy. The patient had a necrotic/perforated appendicitis. There were severe inflammatory changes throughout the right lower quadrant and dense adhesions of the appendix to surrounding tissue including the colon and small bowel. There was mid and distal appendiceal necrosis and a perforation of the distal appendix. He was able to remove the appendix laparoscopically. The patient felt much better by 08/26/2022. She had much less pain and was passing gas. It was felt she should be kept for another day for IV antibiotics due to the perforated appendix. Her diet was advanced to a full liquid diet. By 08/28/2022, she was feeling better and had a bowel movement. She wanted to be discharged home. Her white count was improving and it was felt she was stable for discharge with close outpatient follow-up on a short course of Augmentin. She will follow-up with both Dr. Chavarria and Dr. Mcwilliams. Exam Data for Last 24 hours Vital signs and Labs for Last 24 Hours: Temp Pulse Resp BP Pulse Ox 98.2 F 64 18 139/72 96 08/27/22 11:47 08/27/22 11:47 08/27/22 11:47 08/27/22 11:47 08/27/22 11:47 Narrative: Exam Constitutional Constitutional: no acute distress Comments: appears somewhat uncomfortable *Routine HEENT Exam Head: Present normocephalic and atraumatic Eye: Present PERRL; Absent conjunctival icterus, scleral injection or conjunctivae pink ENT: Present mucous membranes moist and oropharynx clear *Routine Neck Exam Neck: Present supple and full ROM; Absent lymphadenopathy or thyromegaly *Routine Respiratory Exam Respiratory: Present CTA bilaterally (Anteriorly and posteriorly) *Routine
== END 2022-08-27 12:34 | disposition home or self-care (01) | DRG 340 ==
LOC: 2ND 16:27
PROVIDERS: Surgery; Admitting Provider Family Medicine; PCP Nurse Practitioner Family; Visit Provider Family Medicine
PROC: 0DTJ4ZZ Resection of Appendix, Percutaneous Endoscopic Approach (ICD-10-PCS; CPT 44970; principal; 2022-08-25 17:00)
DX: F17.210 Nicotine dependence, cigarettes, uncomplicated; K35.32 Acute appendicitis with perforation, localized peritonitis, and gangrene, without abscess; F41.9 Anxiety disorder, unspecified; K21.9 Gastro-esophageal reflux disease without esophagitis; I25.10 Atherosclerotic heart disease of native coronary artery without angina pectoris; E66.9 Obesity, unspecified; Z68.38 Body mass index [BMI] 38.0-38.9, adult
CPT/HCPCS: 44970; 36415; 74176; 80048; 80053; 81001; 85025; 87636; C9803; J0696; J2405; J2543; U0003; U0005

== ENCOUNTER → 2022-10-27 07:47 | Outpatient (CLI) | payer BC, SELFPAY ==
--- NOTE | 2022-10-27 07:50 | MM_ITS ---
PROCEDURE INFORMATION: Exam: MG Bilateral Screening 3D Mammography Exam date and time: 10/27/2022 7:45 AM Age: 57 years old Clinical indication: Screening. Maternal aunt had breast cancer. TECHNIQUE: Imaging protocol: Bilateral Screening tomosynthesis and 2D mammography including computer-aided detection (CAD) when performed. COMPARISON: 1. MG MM DIG MAMM DX UNILAT LT CAD 09/15/2021 1:41 PM 2. MG MM DIG MAMM DX UNILAT LT CAD 03/17/2021 8:08 AM 3. MG MM DIG SCREENING MAMM BI W/CAD 02/21/2021 8:11 AM 4. MG MM DIG SCREENING MAMM BI W/CAD 02/05/2020 8:50 AM FINDINGS: MAMMOGRAPHY: Breast composition: There are scattered areas of fibroglandular density. Mass: No suspicious mass. Architectural distortion: None. Calcifications: No suspicious calcifications. Asymmetric density: None. Skin thickening: None. Axillary adenopathy: None. IMPRESSION: No mammographic evidence of malignancy. Annual screening is recommended unless otherwise clinically indicated. ASSESSMENT: BI-RADS Category 1: Negative
== END ==
PROVIDERS: PCP Nurse Practitioner Family; Visit Provider Nurse Practitioner Family
DX: Z12.31 Encounter for screening mammogram for malignant neoplasm of breast (principal)
CPT/HCPCS: 77063; 77067

== ENCOUNTER 2022-12-04 11:22 | Emergency (ER) | payer BC, SELFPAY ==
[2022-12-04 12:20] VITALS: BP 109/68; PULSE 86; RESP 19; TEMP 36.6; O2SAT 97; BMI 33.6
--- NOTE | 2022-12-04 12:38 | EXP.UTC ---
Discharge Plan Disposition Patient Disposition: Home, Self-Care Condition: Good Prescriptions Prescriptions: New methocarbamol 500 mg tablet 500 mg PO TID PRN (Reason: muscle spasm) Qty: 15 0RF No Action aspirin [Adult Low Dose Aspirin] 81 mg tablet,delayed release (DR/EC) 81 mg PO DAILY pantoprazole [Protonix] 40 mg tablet,delayed release (DR/EC) 40 mg PO DAILY trazodone 50 MG tablet 50 mg PO HSP PRN (Reason: Sleep) furosemide 40 MG tablet 40 mg PO NEEDED PRN (Reason: Edema) Referrals Follow up/Referrals: Lauren Broderick APRN [Primary Care Provider] - See instructions Activity Restrictions/Add. Instructions Additional Instructions/Restrictions: *Ibuprofen as prescribed with meal as needed for pain/inflammation Not additional anti-inflammatory like motrin, aleve, advil with the above amount of ibuprofen. You can still take Tylenol every 4 hours as needed if you need something else for pain *Ice 20 minutes every 2 hours for the first 48 hours after the initial injury followed by moist heat every 20 minutes 3-4 times a day to affected area *Muscle relaxer every 8 hours as needed for muscle spasms but remember, it WILL cause drowsiness You cannot take it and drive, operate machinery or care for small children. *Keep this area active, no movement leads to more stiffness, However take it easy and avoid heavy lifting pushing or pulling *Follow up with you family doctor if no improvement for further treatment Clinical Impressions Clinical Impression: Muscle spasm Stand Alone Forms Stand Alone Forms: Work/School Release Instructions Patient Instructions: DI for Muscle Spasm, Methocarbamol Discharge ED Provider: Genesis Bowser [facility] General Stated complaint: Neck pain, headache, dizzy Mode of Arrival: Ambulatory Source of Information: Patient Limitations: No Limitations Time Seen by Provider: 12/04/22 12:38 Description of Symptoms (Recalled from Triage Doc. by RN): PATIENT C/O NECK PAIN THAT IS CAUSING HEADACHES AND DIZZINESS. 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 and it is making her have tightness and spasm like feeling in the back of her neck that goes up into the base of her skull and makes her head hurt at times States that this morning she had a small spell of dizziness when she turned her head but hasnt had it since States that she had to leave work earlier because her neck felt tight and hurt when she would turn her head or move certain ways Denies known injury Reports that she has appointment with her Ortho on Wednesday Related Data Home Medications Medication Instructions Recorded Confirmed aspirin 81 mg tablet,delayed 81 mg PO DAILY heart health 08/31/18 09/09/22 release (Adult Low Dose Aspirin) pantoprazole 40 mg tablet,delayed 40 mg PO DAILY Acid reflux 08/31/18 09/09/22 release (Protonix) furosemide 40 mg tablet 40 mg PO NEEDED PRN Edema 04/23/21 09/09/22 trazodone 50 mg tablet 50 mg PO HSP PRN Sleep 04/23/21 09/09/22 Previous Rx's Medication Instructions Recorded methocarbamol 500 mg tablet 500 mg PO TID PRN muscle spasm #15 12/04/22 tabs Allergies Allergy/AdvReac Type Severity Reaction Status Date / Time No Known Allergies Allergy Verified 09/09/22 10:41 Worker's Comp Is this a Worker's Comp case?: No [facility] Disclaimer: The information contained in this section may have been updated after the patient was seen, as this information can be updated by other users. Medical History Angina, class II Arth
[2022-12-04 12:54] VITALS: BP 109/68; PULSE 86; RESP 19; TEMP 36.6; O2SAT 97
== END 2022-12-04 12:56 | disposition home or self-care (01) ==
PROVIDERS: Emergency Provider Nurse Practitioner; PCP Nurse Practitioner Family
DX: M54.2 Cervicalgia (principal); M62.838 Other muscle spasm; F17.210 Nicotine dependence, cigarettes, uncomplicated; I25.10 Atherosclerotic heart disease of native coronary artery without angina pectoris; I27.20 Pulmonary hypertension, unspecified; G25.81 Restless legs syndrome; M19.09 Primary osteoarthritis, other specified site; I11.9 Hypertensive heart disease without heart failure
CPT/HCPCS: 99212; 99214; G0463

== ENCOUNTER → 2023-01-05 07:19 | Outpatient (CLI) | payer BC, SELFPAY ==
[2023-01-05 07:36] LABS: Microscopic, Urine URINE MICROSCOPIC (MICROSCOPIC)
--- NOTE | 2023-01-05 07:49 | XR_ITS ---
FINAL REPORT CLINICAL HISTORY: TOBACCO USE,COUGH R CTR 01-13-23 COMPARISON: None FINDINGS: Two views of the chest were obtained. The heart size and pulmonary vascularity are within normal limits. The mediastinum is normal. There is a mild left basilar opacity, atelectasis and/or pneumonia. There is no pneumothorax. Postoperative changes noted in the lower cervical spine. IMPRESSION: Mild left basilar opacity, atelectasis and/or pneumonia. Reviewed, Interpreted and Dictated by Сергей Salazar III, MD Transcribed by Anna Collier Authenticated and . [facility]
[2023-01-05 08:01] LABS: Basophils # 0.1 K/mm3 (0-0.2); Basophils % 0.5 % (0.1-2.0); Eosinophils # 0.2 K/mm3 (0.0-0.4); Eosinophils % 1.9 % (0.1-12.0); Hematocrit 44.8 % (37.0-47.0); Hemoglobin 15.3 g/dL (12.2-16.2); Lymphocytes # 2.6 K/mm3 (0.7-4.5); Lymphocytes % 24.4 % (10-50); Mean Corpuscular HGB Conc 34.3 g/dL (31.8-35.4); Mean Corpuscular Hemoglobin 30.8 pg (27.0-31.2); Mean Platelet Volume 9.5 fl (7.4-10.4); Monocytes # 0.7 K/mm3 (0.1-1.0); Monocytes % 6.7 % (1.7-9.3); Neutrophils # 7.2 K/mm3 (1.8-7.8); Neutrophils % 66.5 % (37.0-80.0); Platelet Count 223 K/mm3 (142-424); Red Blood Count 4.97 M/mm3 (4.20-5.40); Red Cell Distribution Width 15.2 % (11.5-17.5); White Blood Count 10.8 K/mm3 (4.8-10.8)
--- NOTE | 2023-01-05 08:05 | ECG_ITS ---
APPROVED REPORT Exam: Resting ECG HR:48 bpm ECG Measurements Heart Rate 48 AXES NE 170 P 30 QRSd 104 QRS 3 QT 419 T 23 QTc 385 Conclusion SINUS BRADYCARDIA BORDERLINE ECG UNCONFIRMED REPORT Electronically signed by : Quang Costa MD 01/07/2023 21:42:47
[2023-01-05 08:08] LABS: Appearance,Urine CLEAR (Clear); Bilirubin,Urine Negative (Negative); Blood, Urine 1+ (Negative); Color,Urine YELLOW (Yellow); Glucose,Urine (UA) Negative (Negative); Ketones,Urine Negative (Negative); Leukocyte Esterase,Urine Negative (Negative); Nitrate,Urine Negative (Negative); Protein,Urine Negative (Negative); Specific Gravity, Urine <= 1.005 (1.005-1.030); Urobilinogen,Urine 0.2 EU/dl (0.2)
[2023-01-05 08:20] LABS: Chloride 104 mmol/L (98-107); Potassium 4.2 mmoL/L (3.5-5.1); Sodium 136 mmol/L (136-145)
[2023-01-05 08:23] LABS: Alanine Aminotransferase 20 U/L (12-78); Albumin Level 4.2 g/dl (3.5-5.0); Albumin/Globulin Ratio 1.9 (1.1-1.8); Alkaline Phosphatase 61 U/L (38-126); Anion Gap 7.2 mEq/L (5-15); Aspartate Amino Transferase 22 U/L (14-36); Bilirubin,Total 0.3 mg/dl (0.2-1.3); Blood Urea Nitrogen 14 mg/dl (7-17); Calcium 8.7 mg/dl (8.4-10.2); Carbon Dioxide 29 mmol/L (22.0-30.0); Estimated Glomerular Filt Rate 104 ml/min (>60); GFR (African American) 126 ML/MIN (>60); Globulin 2.2 g/dL (1.3-3.2); Glucose 95 mg/dl (74-100); Total Protein,Serum 6.4 g/dl (6.3-8.2)
== END ==
PROVIDERS: PCP Nurse Practitioner Family; Visit Provider Orthopaedic Surgery Adult Reconstructive Orthopaedic Surgery
DX: Z01.818 Encounter for other preprocedural examination (principal); G56.01 Carpal tunnel syndrome, right upper limb
CPT/HCPCS: 36415; 71046; 80053; 81001; 85025; 87635; 93005

== ENCOUNTER 2023-08-17 11:25 | Outpatient (CLI) | payer BC, SELFPAY ==
--- NOTE | 2023-08-17 11:32 | XR_ITS ---
FINAL REPORT CLINICAL HISTORY: COSTOCHONDRAL CHEST PAIN COMPARISON: None FINDINGS: Two views of the chest were obtained. The heart size and pulmonary vascularity are within normal limits. The mediastinum is normal. There is mild atelectasis versus scar present at the right lung base. Postoperative changes are noted in the lower cervical spine. There is no pneumothorax. The bony thorax is intact. IMPRESSION: Mild atelectasis versus scar at right lung base. Reviewed, Interpreted and Dictated by Сергей Salazar III, MD Transcribed by Anna Collier Authenticated and [facility]
--- NOTE | 2023-08-17 11:32 | XR_ITS ---
FINAL REPORT CLINICAL HISTORY: RIGHT HAND PAIN COMPARISON: None FINDINGS: RIGHT HAND: 3 views of the right hand were obtained. There is no acute fracture or dislocation. Visualized joint spaces are normally aligned. Mild degenerative change is present involving the radial aspect of the hand and wrist. Soft tissues are unremarkable. IMPRESSION: No acute bony abnormality. Reviewed, Interpreted and Dictated by Сергей Salazar III, MD Transcribed by Anna Collier Authenticated and [facility]
--- NOTE | 2023-08-17 11:33 | XR_ITS ---
FINAL REPORT CLINICAL HISTORY: LEFT HAND PAIN COMPARISON: None FINDINGS: LEFT HAND: 3 views of the left hand were obtained. There is no acute fracture or dislocation. Mild degenerative changes present involving the radial aspect of the wrist and hand. There is chronic deformity of the middle phalanx of the third finger, that may represent a chronic fracture deformity. Soft tissues are unremarkable. IMPRESSION: No acute bony abnormality. Mild degenerative change, and possible chronic fracture deformity of the middle phalanx of the third finger. Reviewed, Interpreted and Dictated by Сергей Salazar III, MD Transcribed by Anna Collier Authenticated and [facility]
== END 2023-08-17 23:59 | disposition home or self-care (01) ==
LOC: RAD 11:27
PROVIDERS: PCP Nurse Practitioner Family; Visit Provider Nurse Practitioner Family
DX: R07.1 Chest pain on breathing (principal); M79.641 Pain in right hand; M79.642 Pain in left hand
CPT/HCPCS: 71046; 73130

== ENCOUNTER 2023-11-03 08:02 | Outpatient (CLI) | payer BC, SELFPAY ==
--- NOTE | 2023-11-03 08:05 | MM_ITS ---
PROCEDURE INFORMATION: Exam: MG Bilateral Screening 3D Mammography Exam date and time: 11/03/2023 7:55 AM Age: 58 years old Clinical indication: Screening examination TECHNIQUE: Imaging protocol: Bilateral Screening tomosynthesis and 2D mammography including computer-aided detection (CAD) when performed. COMPARISON: 1. MG MM DIG SCREENING MAMM BI W/CAD 11/03/2023 7:55 AM 2. MG MM DIG SCREENING MAMM BI W/CAD 10/27/2022 7:45 AM FINDINGS: MAMMOGRAPHY: Breast composition: There are scattered areas of fibroglandular density. Mass: No suspicious masses. Architectural distortion: None. Calcifications: No suspicious calcifications. Asymmetric density: None. Skin thickening: None. Axillary adenopathy: None. IMPRESSION: No mammographic evidence of malignancy. Annual screening is recommended unless otherwise clinically indicated. ASSESSMENT: BI-RADS Category 1: Negative
== END 2023-11-03 23:59 | disposition home or self-care (01) ==
LOC: RAD 08:02
PROVIDERS: PCP Nurse Practitioner Family; Visit Provider Nurse Practitioner Family
DX: Z12.31 Encounter for screening mammogram for malignant neoplasm of breast (principal)
CPT/HCPCS: 77063; 77067

== ENCOUNTER 2024-03-20 11:41 | Outpatient (CLI) | payer BC, SELFPAY ==
--- NOTE | 2024-03-20 12:00 | XR_ITS ---
FINAL REPORT CLINICAL HISTORY: Left hip pain COMPARISON: None FINDINGS: LEFT HIP: Two views of the left hip with an AP view of the pelvis demonstrate no acute fracture or dislocation. There are post ORIF changes of the left femoral shaft. Dystrophic calcifications are seen along the greater trochanter. The visualized bony structures are well aligned. No soft tissue abnormality is seen. IMPRESSION: No acute findings. Reviewed, Interpreted and Dictated by Jaylene Mcfarlane MD Transcribed by Cate Guzmán Authenticated and [facility]
[2024-03-20 12:21] LABS: Basophils # 0.1 K/mm3 (0-0.2); Basophils % 1.1 % (0.1-2.0); Eosinophils # 0.1 K/mm3 (0.0-0.4); Eosinophils % 0.8 % (0.1-12.0); Hematocrit 43.8 % (37.0-47.0); Hemoglobin 14.8 g/dL (12.2-16.2); Lymphocytes # 1.3 K/mm3 (0.7-4.5); Lymphocytes % 15.3 % (10-50); Mean Corpuscular HGB Conc 33.8 g/dL (31.8-35.4); Mean Corpuscular Hemoglobin 30.3 pg (27.0-31.2); Mean Corpuscular Volume 89.6 fl (81-99); Mean Platelet Volume 11.7 fl (7.4-10.4); Monocytes # 0.5 K/mm3 (0.1-1.0); Monocytes % 6.1 % (1.7-9.3); Neutrophils # 6.5 K/mm3 (1.8-7.8); Neutrophils % 76.2 % (37.0-80.0); Platelet Count 215 K/mm3 (142-424); Red Blood Count 4.89 M/mm3 (4.20-5.40); Red Cell Distribution Width 14.6 % (11.5-17.5); White Blood Count 8.6 K/mm3 (4.8-10.8)
[2024-03-20 12:48] LABS: Estimated Glomerular Filt Rate 87 ml/min (>60); GFR (African American) 105 ML/MIN (>60); VLDL Cholesterol 13 mg/dL (0-40)
[2024-03-20 12:49] LABS: Chol/HDL Ratio 2.4 (1-3.5)
[2024-03-20 13:08] LABS: Hemoglobin A1C 5.1 % (4.0-6.0)
[2024-03-20 13:13] LABS: 25-OH Vitamin D, Total 34.8 ng/mL (30-100)
[2024-03-20 13:19] LABS: Thyroid Stimulating Hormone 0.23 uIU/mL (0.465-4.68)
[2024-03-20 13:25] LABS: Alanine Aminotransferase 30 U/L (12-78); Albumin Level 4.2 g/dl (3.5-5.0); Alkaline Phosphatase 48 U/L (38-126); Anion Gap 10.7 mEq/L (5-15); Aspartate Amino Transferase 35 U/L (14-36); Bilirubin,Total 0.4 mg/dl (0.2-1.3); Blood Urea Nitrogen 16 mg/dl (7-17); Carbon Dioxide 27 mmol/L (22.0-30.0); Chloride 102 mmol/L (98-107); Cholesterol 164 mg/dl (140-200); Globulin 2.1 g/dL (1.3-3.2); Glucose 88 mg/dl (74-100); HDL Cholesterol 67 mg/dl (40-60); Magnesium 1.7 mg/dl (1.6-2.3); Potassium 4.7 mmoL/L (3.5-5.1); Sodium 135 mmol/L (136-145); Total Protein,Serum 6.3 g/dl (6.3-8.2); Triglycerides 67 mg/dl (30-150)
[2024-03-20 13:36] LABS: Direct LDL Cholesterol 81.24 mg/dL (100-129)
[2024-03-20 14:08] LABS: Iron 83 ug/dL (37-170)
[2024-03-20 14:18] LABS: Vitamin B12 919 pg/mL (239-931)
== END 2024-03-20 23:59 | disposition home or self-care (01) ==
LOC: LAB 11:41
PROVIDERS: PCP Nurse Practitioner Family; Visit Provider Nurse Practitioner Family
DX: R25.1 Tremor, unspecified (principal); E04.9 Nontoxic goiter, unspecified; L03.90 Cellulitis, unspecified; Z13.1 Encounter for screening for diabetes mellitus; Z13.220 Encounter for screening for lipoid disorders; M25.552 Pain in left hip
CPT/HCPCS: 36415; 73502; 80053; 80061; 82306; 82607; 83036; 83540; 83735; 84443; 85025

== ENCOUNTER 2024-03-31 10:38 | Observation (INO) | payer BC, SELFPAY ==
[2024-03-31] VITALS (15 sets, daily range): BP systolic 93–118; BP diastolic 48–67; PULSE 68–95; RESP 16–24; TEMP 36.6–37.1; O2SAT 93–99; BMI 35.8; BMI 35.6; BMI 35.4
--- NOTE | 2024-03-31 10:52 | XR_ITS ---
FINAL REPORT TECHNIQUE: Chest PA & Lateral CLINICAL HISTORY: Shortness of breath COMPARISON: 08/17/2023 FINDINGS: 2 views of the chest were performed. The heart size is normal. The mediastinum is within normal limits. There is patchy airspace opacity in the right middle lobe. Atelectasis is seen at the right lung base. The left lung is clear. There are no pleural effusions. There is no pneumothorax. The bony thorax appears intact. IMPRESSION: Patchy airspace opacity right middle lobe. Right lung base atelectasis. Reviewed, Interpreted and Dictated by Merritt Schaffer MD Transcribed by Cate Guzmán Authenticated and [facility]
--- NOTE | 2024-03-31 11:05 | EXP.UTC ---
Discharge Plan Disposition Patient Disposition: Still a Patient Condition: Fair Prescriptions Prescriptions: No Action furosemide 40 mg tablet 40 mg PO DAILY gabapentin 600 mg tablet 600 mg PO TID Patient Comments: TAKE 1 TABLET BY MOUTH THREE TIMES DAILY trazodone 50 mg tablet 50 mg PO HS Patient Comments: TAKE 1 TABLET BY MOUTH AT BEDTIME NEEDED prednisone 5 mg tablet 5 mg PO DAILY leflunomide 20 mg tablet 20 mg PO DAILY Patient Comments: TAKE 1 TABLET BY MOUTH ONCE DAILY pantoprazole 40 mg tablet,delayed release (DR/EC) 40 mg PO DAILY Patient Comments: TAKE 1 TABLET BY MOUTH ONE-HALF TO ONE HOUR BEFORE MORNING MEAL ONCE A DAY nicotine 21 mg/24 hr patch 24 hour 1 patch transdermal DAILY Patient Comments: APPLY 1 PATCH TO SKIN TRANSDERMALLY ONCE DAILY methimazole 5 mg tablet 5 mg PO DAILY Patient Comments: TAKE 1 TABLET BY MOUTH ONCE DAILY hydroxychloroquine 200 mg tablet 200 mg PO BID Patient Comments: TAKE 1 TABLET BY MOUTH TWICE DAILY ibuprofen 600 mg tablet 600 mg PO TID Patient Comments: TAKE 1 TABLET BY MOUTH THREE TIMES DAILY rosuvastatin 10 mg tablet 10 mg PO DAILY Patient Comments: TAKE 1 TABLET BY MOUTH ONCE DAILY Referrals Follow up/Referrals: Lauren Broderick APRN [Primary Care Provider] - See instructions Clinical Impressions Clinical Impression: Pneumonia Print Language Print Language: Polish Discharge ED Provider: Nithya Nagel [facility] HPI General Stated complaint: fever, vomiting, body aches Mode of Arrival: Ambulatory Source of Information: Patient Limitations: No Limitations Time Seen by Provider: 03/31/24 11:05 Description of Symptoms (Recalled from Triage Doc. by RN): PATIENT C/O FEVER, BODY ACHES, HEADACHE AND VOMITING X 2 DAYS HEENT Symptoms (Recalled from RN notes): No Resp Symptoms (Recalled from RN notes): No Skin Symptoms (Recalled from RN notes): No MS Symptoms (Recalled from RN notes): No Functional Status (Recalled from RN notes): WNL History of Present Illness Provider Complaint: She states that for the past 2 days she has had worsening shortness of breath, cough, fever, body aches, and n/v. Related Data Home Medications ?Medication ?Instructions ?Recorded ?Confirmed furosemide 40 mg tablet 40 mg PO DAILY 03/31/24 03/31/24 gabapentin 600 mg tablet 600 mg PO TID 03/31/24 03/31/24 hydroxychloroquine 200 mg tablet 200 mg PO BID 03/31/24 03/31/24 ibuprofen 600 mg tablet 600 mg PO TID 03/31/24 03/31/24 leflunomide 20 mg tablet 20 mg PO DAILY 03/31/24 03/31/24 methimazole 5 mg tablet 5 mg PO DAILY 03/31/24 03/31/24 nicotine 21 mg/24 hr daily 1 patch transdermal DAILY 03/31/24 03/31/24 transdermal patch pantoprazole 40 mg tablet,delayed 40 mg PO DAILY 03/31/24 03/31/24 release prednisone 5 mg tablet 5 mg PO DAILY 03/31/24 03/31/24 rosuvastatin 10 mg tablet 10 mg PO DAILY 03/31/24 03/31/24 trazodone 50 mg tablet 50 mg PO HS 03/31/24 03/31/24 Allergies Allergy/AdvReac Type Severity Reaction Status Date / Time No Known Allergies Allergy Verified 03/22/23 08:16 Worker's Comp Is this a Worker's Comp case?: No [facility] Disclaimer: The information contained in this section may have been updated after the patient was seen, as this information can be updated by other users. Medical History Angina, class II Arthritis Back pain Bradycardia CAD (coronary artery disease) Chest pain Daytime somnolence Dependent edema Dyspnea Elevated left ventricular end-diastolic pressure (LVEDP) Ganglion cyst of volar aspect of right wrist Hand pain History of left heart catheterization Knee pain Low back pain Lumbar back pain with radiculopathy affecting left lower extremity Pharyngitis Pulmonary HTN Restless sleeper Right wrist pain Sinusitis Snoring Umbilical hernia Unstable angina Vulval edema Surgical History H/O repair of rotator cuff H/O total hysterectomy History of cholecystectomy Previous back surgery S/P tendon repair Status post appendectomy Family History Mother Family history of cancer Other Family history of myocardial infarction Social History (Updated 03/22/23 @ 08:22 by Krystyna Cruiel) Smoking Status: Current every day smoker tobacco type: cigarettes packs per day: 1 alcohol intake: never substance use type: denies use current occupational status: unemployed Travel in the last 8 weeks: None household members: spouse and family housing: house 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: Yes Have you lived/traveled outside [place] in past 30 days?: No Contact w/someone who lives/traveled outside US past 30 days?: No Exposure to someone with infectious disease in past 14 days?: No Do you have a fever (greater than 100.4 F or 38 C)?: Yes Have you tested positive for COVID-19: No Exposed to someone with COVID-19 in past 14 days?: No Do you have a sore throat?: No Do you have a cough?: No Do you have any weakness?: No Do you have any diarrhea?: No Are you experiencing any unusual bleeding?: No Do you have any muscle aches/pain?: Yes Do you have any abdominal pain?: No Are you experiencing loss of taste or smell?: No ROS Obtained: Yes All systems reviewed & no additional complaints except as documented Constitutional Constitutional: Reports chills and Reports fever(s) Eyes Eyes: Denies eye discharge ENT Ears, Nose, Mouth, and Throat: Reports as per HPI Cardiovascular Cardiovascular: Denies chest pain Respiratory Respiratory: Denies chest congestion and Reports cough Gastrointestinal Gastrointestingal: Reports nausea; Denies abdominal pain, constipation, cramping, diarrhea or vomiting Musculoskeletal Musculoskeletal: Denies arthralgias Integumentary/Breasts Skin/Breast: Denies rash Neurologic Neurologic: Denies paresthesias Physical Exam General General appearance: alert and in no apparent distress Head Head exam: atraumatic, normocephalic and normal inspection Eye Eye exam: Present normal appearance, PERRL and EOMI ENT ENT exam: Present normal exam, normal oropharynx, mucous membranes moist, TM's normal bilaterally and normal external ear exam Neck Neck exam: Present normal inspection, full ROM and trachea midline; Absent meningismus or lymphadenopathy Chest Chest inspection: Present normal inspection and symmetric chest wall rise; Absent tenderness Respiratory Respiratory exam: Present normal lung sounds bilaterally; Absent respiratory distress Cardiovascular Cardiovascular exam: Present regular rate and normal rhythm; Absent JVD Abdominal Exam Abdominal exam: Present soft and normal bowel sounds; Absent distention, tenderness or guarding Extremities Exam Extremities exam: Present normal inspection, full ROM and normal capillary refill; Absent calf tenderness Back Exam Back exam: Present normal inspection; Absent tenderness Neurological Exam Neurological exam: Present alert and oriented X3 Psychiatric Psychiatric exam: Present normal affect and normal mood Skin Skin exam: Present warm, dry, intact and normal color Lymphatic Lymphatic Findings: no adenopathy Medical Decision Making Medical Records Medical records reviewed: No I reviewed the patient's medical records. Screening: Per USPSTF and CDC recommendations, given the prevalence of disease in our region, it is our hospital?s policy to screen for HIV and viral Hepatitis for all patients aged 18 and over and those with ongoing risk factors. Tony Inquiry Pt receiving controlled substance: No Vital Signs: 03/31/24 10:50 Temperature 98.1 F Temperature Source Oral Pulse Rate [Left Brachial] 95 H Respiratory Rate 24 Blood Pressure [Left Arm] 118/48 L Blood Pressure Mean [Left Arm] 71 Blood Pressure Source [Left Arm] Automatic Cuff Blood Pressure Position [Left Arm] Sitting 02 Sat by Pulse Oximetry 93 L Oxygen Delivery Method Room Air Orders (Tests/Meds): ORDERS Category Date Time Status Chest XR 2 view (NOT portable) [XR chest 2V] Stat Exams 03/31/24 10:52 Ordered Radiology Data #1: Image(s): Chest Image Reviewed: Yes I reviewed the patient's radiology image and Yes I have reviewed radiologist's interpretation Preliminary Findings: Abnormal Medical Decision Narrative: She was transferred to the ER due to low 02 sats and pneumonia on cxr.
[2024-03-31 11:16] LABS: UTC Influenza A Antigen Negative (Negative)
[2024-03-31 11:17] LABS: UTC Influenza B Antigen Negative (Negative)
--- NOTE | 2024-03-31 11:44 | PC.NURSE ---
PATIENT SENT TO ER PER Jaylene HADDAD APRN FOR FURTHER EVALUATION. REPORT GIVEN TO ER MD BY Jaylene HADDAD APRN. PATIENT TRANSPORTED TO ER VIA WHEELCHAIR WITH [facility] STAFF ASSIST AT THIS TIME. FAMILY AT BEDSIDE
--- NOTE | 2024-03-31 11:45 | PC.NURSE ---
PT ARRIVED TO ER FROM [facility] VIA WHEELCHAIR
--- NOTE | 2024-03-31 12:00 | PC.NURSE ---
DR SILVA AT BEDSIDE
[2024-03-31] MEDS: ACETAMINOPHEN 500MG TAB 1000 MG PO (12:14)
[2024-03-31] MEDS: KETOROLAC 30MG/ML VIAL 15 MG IV (12:14)
[2024-03-31] MEDS: AMOXICILLIN/CLAVULANATE POTASSIUM 875/125MG TABLET 1 EACH PO (12:14)
[2024-03-31 12:17] LABS: Basophils # 0.1 K/mm3 (0-0.2); Basophils % 0.6 % (0.1-2.0); Eosinophils % 0.1 % (0.1-12.0); Hematocrit 45.1 % (37.0-47.0); Hemoglobin 15.3 g/dL (12.2-16.2); Lymphocytes # 0.6 K/mm3 (0.7-4.5); Lymphocytes % 3.3 % (10-50); Mean Corpuscular HGB Conc 33.9 g/dL (31.8-35.4); Mean Corpuscular Hemoglobin 29.7 pg (27.0-31.2); Mean Corpuscular Volume 87.6 fl (81-99); Mean Platelet Volume 11.7 fl (7.4-10.4); Monocytes # 0.5 K/mm3 (0.1-1.0); Monocytes % 3.1 % (1.7-9.3); Neutrophils # 16.2 K/mm3 (1.8-7.8); Neutrophils % 91.5 % (37.0-80.0); Platelet Count 196 K/mm3 (142-424); Red Blood Count 5.15 M/mm3 (4.20-5.40); White Blood Count 17.7 K/mm3 (4.8-10.8)
[2024-03-31 12:22] LABS: MANUAL DIFFERENTIAL MANUAL DIFFERENTIAL (MANUAL DIFF)
[2024-03-31 12:25] LABS: Chloride 102 mmol/L (98-107); Potassium 3.7 mmoL/L (3.5-5.1); Sodium 137 mmol/L (136-145)
[2024-03-31 12:28] LABS: Anion Gap 13.7 mEq/L (5-15); Blood Urea Nitrogen 24 mg/dl (7-17); Carbon Dioxide 25 mmol/L (22.0-30.0); Creatinine Clearance Estimated 128 mL/min (50-200); Estimated Glomerular Filt Rate 74 ml/min (>60); GFR (African American) 90 ML/MIN (>60); Glucose 112 mg/dl (74-100)
[2024-03-31 12:46] LABS: Free T4 (Free Thyroxine) 2.15 ng/dl (0.78-2.19)
--- NOTE | 2024-03-31 12:54 | ED_ITS ---
Discharge Plan Disposition Patient Disposition: Still a Patient Condition: Fair Prescriptions Prescriptions: No Action furosemide 40 mg tablet 40 mg PO DAILY gabapentin 600 mg tablet 600 mg PO TID Patient Comments: TAKE 1 TABLET BY MOUTH THREE TIMES DAILY trazodone 50 mg tablet 50 mg PO HS Patient Comments: TAKE 1 TABLET BY MOUTH AT BEDTIME NEEDED prednisone 5 mg tablet 5 mg PO DAILY leflunomide 20 mg tablet 20 mg PO DAILY Patient Comments: TAKE 1 TABLET BY MOUTH ONCE DAILY pantoprazole 40 mg tablet,delayed release (DR/EC) 40 mg PO DAILY Patient Comments: TAKE 1 TABLET BY MOUTH ONE-HALF TO ONE HOUR BEFORE MORNING MEAL ONCE A DAY nicotine 21 mg/24 hr patch 24 hour 1 patch transdermal DAILY Patient Comments: APPLY 1 PATCH TO SKIN TRANSDERMALLY ONCE DAILY methimazole 5 mg tablet 5 mg PO DAILY Patient Comments: TAKE 1 TABLET BY MOUTH ONCE DAILY hydroxychloroquine 200 mg tablet 200 mg PO BID Patient Comments: TAKE 1 TABLET BY MOUTH TWICE DAILY ibuprofen 600 mg tablet 600 mg PO TID Patient Comments: TAKE 1 TABLET BY MOUTH THREE TIMES DAILY rosuvastatin 10 mg tablet 10 mg PO DAILY Patient Comments: TAKE 1 TABLET BY MOUTH ONCE DAILY Referrals Follow up/Referrals: Lauren Broderick APRN [Primary Care Provider] - See instructions Clinical Impressions Clinical Impression: Pneumonia Qualifiers: Laterality: right Print Language Print Language: Persian Discharge ED Provider: Nithya Nagel General Adult HPI General Chief complaint: Upper Respiratory Infection Stated complaint: fever, vomiting, body aches Time Seen by Provider: 03/31/24 11:05 Mode of Arrival: Ambulatory Source of Information: Patient Limitations: No Limitations Description of Symptoms (Recalled from ER Triage Doc. by RN): [place] [facility] [place]. Pt reports she has been feeling sick for several days with fever of 101.6, chills, non-productive cough. covid/flu swab was negative. x-ray showed the patient had a spot on her right lung. History of Present Illness HPI narrative: Patient is a 58-year-old female presenting with cough. Patient initially seen at [facility] and transferred to the ER after having concerns for pneumonia and hypoxia. Patient states she developed nasal congestion with facial pressure on Wednesday which progressed to a cough that was productive of white sputum. She then developed fevers, chills, generalized weakness. She thought that she had the flu and was going to deal with it at home, but family convinced her to come to the ER after she was barely able to take a shower today. Patient has had a few episodes of vomiting without coughing. She notes feeling hungry but decreased oral intake due to nausea. Patient denies lung disease. She has a past medical history of rheumatoid arthritis and thyroiditis scheduled to have a thyroidectomy in the spring. Patient denies chest pain, back pain, bowel or bladder dysfunction. Related Data Home Medications ?Medication ?Instructions ?Recorded ?Confirmed furosemide 40 mg tablet 40 mg PO DAILY 03/31/24 03/31/24 gabapentin 600 mg tablet 600 mg PO TID 03/31/24 03/31/24 hydroxychloroquine 200 mg tablet 200 mg PO BID 03/31/24 03/31/24 ibuprofen 600 mg tablet 600 mg PO TID 03/31/24 03/31/24 leflunomide 20 mg tablet 20 mg PO DAILY 03/31/24 03/31/24 methimazole 5 mg tablet 5 mg PO DAILY 03/31/24 03/31/24 nicotine 21 mg/24 hr daily 1 patch transdermal DAILY 03/31/24 03/31/24 transdermal patch pantoprazole 40 mg tablet,delayed 40 mg PO DAILY 03/31/24 03/31/24 release prednisone 5 mg tablet 5 mg PO DAILY 03/31/24 03/31/24 rosuvastatin 10 mg tablet 10 mg PO DAILY 03/31/24 03/31/24 trazodone 50 mg tablet 50 mg PO HS 03/31/24 03/31/24 Allergies Allergy/AdvReac Type Severity Reaction Status Date / Time No Known Allergies Allergy Verified 03/22/23 08:16 [facility] Disclaimer: The information contained in this section may have been updated after the patient was seen, as this information can be updated by other users. Medical History Angina, class II Arthritis Back pain Bradycardia CAD (coronary artery disease) Chest pain Daytime somnolence Dependent edema Dyspnea Elevated left ventricular end-diastolic pressure (LVEDP) Ganglion cyst of volar aspect of right wrist Hand pain History of left heart catheterization Knee pain Low back pain Lumbar back pain with radiculopathy affecting left lower extremity Pharyngitis Pulmonary HTN Restless sleeper Right wrist pain Sinusitis Snoring Umbilical hernia Unstable angina Vulval edema Surgical History H/O repair of rotator cuff H/O total hysterectomy History of cholecystectomy Previous back surgery S/P tendon repair Status post appendectomy Family History Mother Family history of cancer Other Family history of myocardial infarction Social History (Updated 03/22/23 @ 08:22 by Krystyna Curiel) Smoking Status: Never smoker alcohol intake: never substance use type: denies use current occupational status: unemployed Travel in the last 8 weeks: None household members: spouse and family housing: house 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: Yes Have you lived/traveled outside US in past 30 days?: No Contact w/someone who lives/traveled outside US past 30 days?: No Exposure to someone with infectious disease in past 14 days?: No Do you have a fever (greater than 100.4 F or 38 C)?: Yes Have you tested positive for COVID-19: No Exposed to someone with COVID-19 in past 14 days?: No Do you have a sore throat?: No Do you have a cough?: No Do you have any weakness?: No Do you have any diarrhea?: No Are you experiencing any unusual bleeding?: No Do you have any muscle aches/pain?: Yes Do you have any abdominal pain?: No Are you experiencing loss of taste or smell?: No Other Medical History Have you received the Flu Vaccine for this season: No Have you received the Pneumonia Vaccine: No ROS Obtained: Yes All systems reviewed & no additional complaints except as documented Physical Exam General General appearance: alert and in no apparent distress Head Head exam: atraumatic, normocephalic and normal inspection Eye Eye exam: Present normal appearance, PERRL and EOMI ENT ENT exam: Present normal exam, normal oropharynx, mucous membranes moist and normal external ear exam Neck Neck exam: Present normal inspection, full ROM and trachea midline; Absent meningismus or lymphadenopathy Chest Chest inspection: Present normal inspection and symmetric chest wall rise; Absent tenderness Respiratory Respiratory exam: Present normal lung sounds bilaterally; Absent respiratory distress Expanded Respiratory Exam Location: Right: decreased breath sounds and Lower: decreased breath sounds Cardiovascular Cardiovascular exam: Present regular rate and normal rhythm; Absent JVD Abdominal Exam Abdominal exam: Present soft; Absent distention, tenderness or guarding Extremities Exam Extremities exam: Present normal inspection, full ROM and normal capillary refill; Absent calf tenderness Neurological Exam Neurological exam: Present alert and oriented X3 Psychiatric Psychiatric exam: Present normal affect and normal mood Skin Skin exam: Present warm, dry, intact and normal color Medical Decision Making Medical Records Medical records reviewed: Yes I reviewed the patient's medical records. Screening: Per USPSTF and CDC recommendations, given the prevalence of disease in our region, it is our hospital?s policy to screen for HIV and viral Hepatitis for all patients aged 18 and over and those with ongoing risk factors. Tony Inquiry Pt receiving controlled substance: No Vital Signs: 03/31/24 10:50 03/31/24 11:51 03/31/24 12:00 Temperature 98.1 F 97.8 F Temperature Source Oral Oral Pulse Rate Pulse Rate [Left Brachial] 95 H 82 Respiratory Rate 24 18 16 Blood Pressure Blood Pressure [Left Arm] 118/48 L 115/67 Blood Pressure Mean [Left Arm] 71 83 Blood Pressure Source [Left Arm] Automatic Cuff Automatic Cuff Blood Pressure Position [Left Arm] Sitting 02 Sat by Pulse Oximetry 93 L 99 96 Oxygen Delivery Method Room Air Room Air Room Air Oxygen Flow Rate (LPM) 03/31/24 12:06 03/31/24 12:30 03/31/24 12:31 Temperature Temperature Source Pulse Rate 83 Pulse Rate [Left Brachial] 78 Respiratory Rate Blood Pressure 110/57 L Blood Pressure [Left Arm] Blood Pressure Mean [Left Arm] Blood Pressure Source [Left Arm] Blood Pressure Position [Left Arm] 02 Sat by Pulse Oximetry 93 L 96 Oxygen Delivery Method Nasal Cannula Oxygen Flow Rate (LPM) 2 03/31/24 13:00 03/31/24 13:30 Temperature Temperature Source Pulse Rate 84 78 Pulse Rate [Left Brachial] Respiratory Rate Blood Pressure 108/57 L 112/53 L Blood Pressure [Left Arm] Blood Pressure Mean [Left Arm] Blood Pressure Source [Left Arm] Blood Pressure Position [Left Arm] 02 Sat by Pulse Oximetry 96 94 L Oxygen Delivery Method Nasal Cannula Room Air Oxygen Flow Rate (LPM) 2 Lab Data Lab results reviewed: Yes I reviewed the patient's lab results. Lab Results 03/31/24 10:52: Influenza Type A Ag Negative, Influenza Type B Ag Negative 03/31/24 11:58: WBC 17.7 H, RBC 5.15, Hgb 15.3, Hct 45.1, MCV 87.6, MCH 29.7, MCHC 33.9, RDW 14.0, Plt Count 196, MPV 11.7 H, Neut % (Auto) 91.5 H, Lymph % (Auto) 3.3 L, [place] % (Auto) 3.1, Eos % (Auto) 0.1, Baso % (Auto) 0.6, Neut # (Auto) 16.2 H, Lymph # (Auto) 0.6 L, [place] # (Auto) 0.5, Eos # (Auto) 0.0, Baso # (Auto) 0.1, Total Counted 100, Neutrophils % (Manual) 88 H, Lymphocytes % (Manual) 7 L, Monocytes % (Manual) 5, Platelet Estimate Normal, RBC Morphology Normal, Sodium 137, Potassium 3.7, Chloride 102, Carbon Dioxide 25, Anion Gap 13.7, BUN 24 H, Creatinine 0.80, Estimated Creat Clear 128, Estimated GFR 74, Est GFR ( Amer) 90, Glucose 112 H, Calcium 9.0, Procalcitonin 1.14, TSH 0.78, Free T4 2.15 03/31/24 11:58 03/31/24 11:58 Orders (Tests/Meds): ED MEDICATIONS Generic Name Dose Route Start Last Admin Trade Name Freq PRN Reason Stop Dose Admin Sodium Chloride 10 ml 03/31/24 12:03 Sodium Chloride 0.9% 10ml Flush Syringe IV 04/30/24 12:02 NEEDED PRN Maintain IV Site Discontinued Medications Generic Name Dose Route Start Last Admin Trade Name Freq PRN Reason Stop Dose Admin Acetaminophen 1,000 mg 03/31/24 12:06 03/31/24 12:14 Acetaminophen 500mg Tab PO 03/31/24 12:07 1,000 mg ONCE ONE Administration Amoxicillin/Clavulanate Potassium 1 each 03/31/24 12:06 03/31/24 12:14 Amoxicillin/Clavulanate Potassium 875/125mg Tablet PO 03/31/24 12:07 1 each ONCE ONE Administration Ketorolac Tromethamine 15 mg 03/31/24 12:06 03/31/24 12:14 Ketorolac 30mg/Ml Vial IV 03/31/24 12:07 15 mg ONCE ONE Administration ORDERS Category Date Time Status Chest XR 2 view (NOT portable) [XR chest 2V] Stat Exams 03/31/24 10:52 Completed BMP [Basic Metabolic Panel] Stat Lab 03/31/24 11:58 Completed CBC w/Auto Diff [Complete Blood Count Auto Diff] Stat Lab 03/31/24 11:58 Completed Free T4 (Free Thyroxine) Stat Lab 03/31/24 11:58 Completed Full Resp Panel w/COVID ([facility]) Routine Lab 03/31/24 13:09 Received Procalcitonin Stat Lab 03/31/24 11:58 Completed TSH [Thyroid Stimulating Hormone] Stat Lab 03/31/24 11:58 Completed Medical Decision Narrative: In summary, patient is a 58-year-old female presenting with cough and hypoxia. Differential diagnosis includes was not limited to, viral URI, pneumonia, pneumothorax, PE, ACS, among others. Based on history, physical and lack of chest pain, upper respiratory infection is the current leading diagnosis. Patient had two-view CXR and flu swab performed which demonstrated right middle lobe consolidation with right lower lobe atelectasis. Flu A/B were negative. Patient found to be hypoxic with exertion to the upper 80s on room air. On my evaluation, patient tested with CBC, BMP, full respiratory panel, procalcitonin, thyroid. Patient given initial dose of antibiotics, Augmentin, Toradol and Tylenol for headache. Additional labs significant for a leukocytosis of 17.7, no anemia or thrombocytopenia. BMP nonactionable. Procalcitonin 1.14. Thyroid studies WNL. Full respiratory panel pending. Patient requiring 2L NC due to persistent hypoxia at 90% while at rest. Patient experienced hypoxia to 86% with ambulation on room air. I discussed admission with the patient who was in agreement. I consulted Dr. Lugo for admission and he has agreed to admit the patient for observation and new oxygen requirement. Nithya Nagel MD PGY-3, Emergency Medicine Critical Care Critical Care Time Critical Care Time: No
[2024-03-31 12:59] LABS: Thyroid Stimulating Hormone 0.78 uIU/mL (0.465-4.68)
[2024-03-31 13:04] LABS: Procalcitonin 1.14 ng/mL (0.0-2.0)
[2024-03-31 13:14] LABS: Adenovirus,PCR Not Detected (NotDetected); Bordetella Pertussis Not Detected (NotDetected); Chlamydophila Pneumoniae, PCR Not Detected (NotDetected); Coronavirus 19, PCR Not Detected (NotDetected); Coronavirus 229E Not Detected (NotDetected); Coronavirus NL63 Not Detected (NotDetected); Coronavirus OC43 Not Detected (NotDetected); Coronovirus HKU1,PCR Not Detected (NotDetected); Human Metapneumovirus Not Detected (NotDetected); Influenza A, PCR Not Detected (NotDetected); Influenza AH1, 2009 Not Detected (NotDetected); Influenza AH1, PCR Not Detected (NotDetected); Influenza AH3,PCR Not Detected (NotDetected); Influenza B, PCR Not Detected (NotDetected); Mycoplasma Pneumoniae, PCR Not Detected (NotDetected); Parainfluenza 1, PCR Not Detected (NotDetected); Parainfluenza 2, PCR Not Detected (NotDetected); Parainfluenza 3, PCR Not Detected (NotDetected); Parainfluenza 4, PCR Not Detected (NotDetected); Respiratory Syncytial Virus Not Detected (NotDetected)
[2024-03-31 13:22] LABS: Lymphocytes % 7 % (10-50); Monocytes % 5 % (2-9); Neutrophils % 88 % (42-76); Platelet Estimate Normal; RBC Morphology Normal; Total Cells Counted 100
--- NOTE | 2024-03-31 13:32 | PC.NURSE ---
ROUNDED ON PT NO NEEDS AT THIS TIME DID DIM THE LIGHT IN ROOM AT BS AND CALL LIGHT IN REACH
--- NOTE | 2024-03-31 13:41 | PC.NURSE ---
on phone with hospitalist
--- NOTE | 2024-03-31 13:43 | PC.NURSE ---
call made to housekeeper/custodian/laundry worker for bed placement
--- NOTE | 2024-03-31 13:45 | EXP.HP ---
History of Present Illness *Admission Date: 03/31/24 *Reason for visit:: Pneumonia, cough, fever *History of present illness: Ms. Doty is a 58-year-old female who states she has been having fevers and cough for the past 2 to 3 days. More fatigued per family. at bedside helps give history. Patient and state that she has been more confused and her children were commenting on her confusion, talking out of her head yesterday. Denies any nausea or vomiting. No diarrhea. Complains of feeling weak. On presentation to the ER, found to be hypoxic. Workup concerning for pneumonia with leukocytosis and chest imaging confirming right middle lobe pneumonia. Started on Augmentin. Due to new oxygen requirement, medicine consulted for admission and further management. Patient denies any chest pain, nausea, vomiting, diarrhea. Afebrile at this time. Recent antibiotic course for 7 days with Keflex for cellulitis of right lower leg. Leg looks good but given recent exposure, antibiotics changed from those initiated in the ER. Received 1 dose of Augmentin in the ER. Alert and oriented x 4 on exam [facility] Disclaimer: The information contained in this section may have been updated after the patient was seen, as this information can be updated by other users. Medical History History of left heart catheterization Pharyngitis Sinusitis Lumbar back pain with radiculopathy affecting left lower extremity Ganglion cyst of volar aspect of right wrist Right wrist pain Hand pain Back pain Arthritis Knee pain Umbilical hernia Low back pain Dyspnea Angina, class II Pulmonary HTN Elevated left ventricular end-diastolic pressure (LVEDP) CAD (coronary artery disease) Snoring Restless sleeper Daytime somnolence Bradycardia Unstable angina Chest pain Dependent edema Vulval edema Surgical History Status post appendectomy Previous back surgery H/O repair of rotator cuff History of cholecystectomy H/O total hysterectomy S/P tendon repair Family History Mother Family history of cancer Other Family history of myocardial infarction Social History Smoking Status: Never smoker alcohol intake: never substance use type: denies use current occupational status: unemployed Travel in the last 8 weeks: None household members: spouse and family housing: house 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: Yes Have you lived/traveled outside US in past 30 days?: No Contact w/someone who lives/traveled outside US past 30 days?: No Exposure to someone with infectious disease in past 14 days?: No Do you have a fever (greater than 100.4 F or 38 C)?: Yes Have you tested positive for COVID-19: No Exposed to someone with COVID-19 in past 14 days?: No Do you have a sore throat?: No Do you have a cough?: No Do you have any weakness?: No Do you have any diarrhea?: No Are you experiencing any unusual bleeding?: No Do you have any muscle aches/pain?: Yes Do you have any abdominal pain?: No Are you experiencing loss of taste or smell?: No Other Medical History Have you received the Flu Vaccine for this season: No Have you received the Pneumonia Vaccine: No Review of Systems Review of Systems Review of systems (narrative): 14 point review of systems performed, pertinent positives and negatives as per HPI *Neurologic Neurologic: Denies paresthesias Meds Home Medications and Allergies Home Medications ?Medication ?Instructions ?Recorded ?Confirmed ?Type furosemide 40 mg tablet 40 mg PO DAILY 03/31/24 03/31/24 History gabapentin 600 mg tablet 600 mg PO TID 03/31/24 03/31/24 History hydroxychloroquine 200 mg tablet 200 mg PO BID 03/31/24 03/31/24 History ibuprofen 600 mg tablet 600 mg PO TID 03/31/24 03/31/24 History leflunomide 20 mg tablet 20 mg PO DAILY 03/31/24 03/31/24 History methimazole 5 mg tablet 5 mg PO DAILY 03/31/24 03/31/24 History nicotine 21 mg/24 hr daily 1 patch transdermal DAILY 03/31/24 03/31/24 History transdermal patch pantoprazole 40 mg tablet,delayed 40 mg PO DAILY 03/31/24 03/31/24 History release prednisone 5 mg tablet 5 mg PO DAILY 03/31/24 03/31/24 History rosuvastatin 10 mg tablet 10 mg PO DAILY 03/31/24 03/31/24 History trazodone 50 mg tablet 50 mg PO HS 03/31/24 03/31/24 History New Prescriptions to Start Prescriptions: Allergies Allergy/AdvReac Type Severity Reaction Status Date / Time No Known Allergies Allergy Verified 03/31/24 16:43 Exam Data for Last 24 hours Vital signs and Labs for Last 24 Hours: Temp Pulse Resp BP Pulse Ox O2 Del Method O2 Flow Rate 97.8 F 78 16 112/53 L 94 L Room Air 2 03/31/24 11:51 03/31/24 13:30 03/31/24 12:00 03/31/24 13:30 03/31/24 13:30 03/31/24 13:30 03/31/24 13:00 Laboratory Results - last 24 hr 03/31/24 10:52: Influenza Type A Ag Negative, Influenza Type B Ag Negative 03/31/24 11:58: WBC 17.7 H, RBC 5.15, Hgb 15.3, Hct 45.1, MCV 87.6, MCH 29.7, MCHC 33.9, RDW 14.0, Plt Count 196, MPV 11.7 H, Neut % (Auto) 91.5 H, Lymph % (Auto) 3.3 L, [place] % (Auto) 3.1, Eos % (Auto) 0.1, Baso % (Auto) 0.6, Neut # (Auto) 16.2 H, Lymph # (Auto) 0.6 L, [place] # (Auto) 0.5, Eos # (Auto) 0.0, Baso # (Auto) 0.1, Total Counted 100, Neutrophils % (Manual) 88 H, Lymphocytes % (Manual) 7 L, Monocytes % (Manual) 5, Platelet Estimate Normal, RBC Morphology Normal, Sodium 137, Potassium 3.7, Chloride 102, Carbon Dioxide 25, Anion Gap 13.7, BUN 24 H, Creatinine 0.80, Estimated Creat Clear 128, Estimated GFR 74, Est GFR ( Amer) 90, Glucose 112 H, Calcium 9.0, Procalcitonin 1.14, TSH 0.78, Free T4 2.15 I & O for Last 24 hours: Intake & Output 03/28/24 03/29/24 03/30/24 03/31/24 23:59 23:59 23:59 23:59 Weight 103.419 kg Constitutional Constitutional: no acute distress, obese and cooperative *Routine HEENT Exam Head: Present normocephalic Eye: Present EOMI and PERRL ENT: Present mucous membranes moist *Routine Neck Exam Neck: Present supple; Absent lymphadenopathy *Routine Respiratory Exam Respiratory: Present crackles (Right lung field best heard in posterior and lateral midlung region); Absent respiratory distress, rhonchi or wheezes *Routine Cardiovascular Exam Cardiovascular: Present RRR *Routine Abdominal Exam Abdominal: Present soft and normoactive bowel sounds; Absent tenderness *Routine Rectal Exam Rectal:: deferred *Routine Genitalia Exam Genitalia:: deferred *Routine Extremities Exam Extremities: Absent cyanosis, clubbing or edema *Routine Skin Exam Skin: Present warm; Absent rash Comments: Wound right lower [place], scabbed and healing *Routine Neurological Exam Neurological: Present alert, oriented X3 and moving all extremities; Absent altered mental status Assessment and Plan *Assessment and plan (1) Pneumonia: Status: Acute Qualifiers: Laterality: right Category: Medical Code(s): J18.9 - Pneumonia, unspecified organism (2) Acute hypoxemic respiratory failure: Status: Acute Category: Medical Code(s): J96.01 - Acute respiratory failure with hypoxia (3) CAD (coronary artery disease): Status: Chronic Qualifiers: Coronary Disease-Associated Artery/Lesion type: [place] artery [place] vs. transplanted heart: [place] heart Associated angina: with stable angina Qualified Code(s): I25.118 - Atherosclerotic heart disease of [place] coronary artery with other forms of angina pectoris Category: Medical Code(s): I25.10 - Atherosclerotic heart disease of [place] coronary artery without angina pectoris (4) HLD (hyperlipidemia): Status: Chronic Qualifiers: Hyperlipidemia type: mixed hyperlipidemia Qualified Code(s): E78.2 - Mixed hyperlipidemia Category: Medical Code(s): E78.5 - Hyperlipidemia, unspecified (5) Tobacco use: Status: Chronic Category: Social Hx Code(s): Z72.0 - Tobacco use (6) Hyperthyroidism: Status: Acute Category: Medical Code(s): E05.90 - Thyrotoxicosis, unspecified without thyrotoxic crisis or storm (7) Class 2 obesity: Status: Acute Category: Medical Code(s): E66.812 - Obesity, class 2 Plan 58-year-old female who presents with 3 to 4 days of cough, fever, shortness of breath. Found to be hypoxic in the ER with chest imaging consistent with pneumonia. Discussed case with ER physician, request admission for observation overnight and treatment with antibiotics to evaluate oxygen requirements. I agreed to admit for further care. Hemodynamically stable upon arrival to the floor, requiring 2 L oxygen. Problems addressed as follows: Acute hypoxemic respiratory failure Right middle lobe pneumonia - Patient has new oxygen requirement,-room air saturation in the mid 80s. Necessitating 2 L. Per my review of chest imaging, has right middle lobe consolidation consistent with pneumonia. White count elevated at 17. Kidney function and electrolytes normal. -Initiated on Augmentin in the ER, will broaden to Levaquin as she just completed a course of Keflex for cellulitis. Continue Levaquin 750 mg daily for 5 to 7 days. -Sputum and blood cultures pending -DuoNebs as needed every 6 hours Hyperthyroidism: Continue methimazole 5 mg daily and leflunomide 20 mg daily. Former smoker, using patches at this time. Last cigarette over a week ago. Continue nicotine 21 mg patch daily Continue home Crestor 10 mg daily for hyperlipidemia Continue trazodone 50 mg nightly sleep Continue pantoprazole 40 mg daily for GERD Continue gabapentin 600 mg 3 times a day for neuropathy Holding home diuretics in the setting of acute illness Holding home hydroxychloroquine for RA in the setting of acute infection Obesity complicates all aspects of her care Full code Lovenox subcu 40 mg Regular diet
--- NOTE | 2024-03-31 14:06 | [facility].PHAINT1 ---
Pharmacy Intervention Comments: home medication list verified using list from outpatient pharmacy
--- NOTE | 2024-03-31 14:09 | PC.NURSE ---
ROUNDED ON HAS NO COMPLAINTS AT THIS TIME AND AT BS
--- NOTE | 2024-03-31 14:42 | PC.NURSE ---
report called to luz on second floor
--- NOTE | 2024-03-31 15:00 | PC.NURSE ---
arrived by w/c to floor from ED
[2024-03-31 16:59] LABS: Rhinovirus/Enterovirus Detected (NotDetected)
[2024-03-31] MEDS: LEVOFLOXACIN/D5W 750 MG/150 ML 750 MG/150 ML PIGGYBACK 100 MG IV (17:29)
[2024-03-31] MEDS: ENOXAPARIN 40MG/0.4ML SYRINGE 40 MG SUBCUT (17:29)
[2024-03-31] MEDS: IPRATROPIUM/ALBUTEROL 3 ML NEB IH (18:19)
[2024-03-31] MEDS: ACETAMINOPHEN 325MG TAB 650 MG PO (18:48)
[2024-03-31] MEDS: TRAZODONE 50MG TABLET 50 MG PO (21:10)
[2024-03-31] MEDS: ATORVASTATIN 20MG TABLET 20 MG PO (21:10)
[2024-03-31] MEDS: PANTOPRAZOLE 40MG TABLET 40 MG PO (21:10)
[2024-03-31] MEDS: GABAPENTIN 600MG TABLET 600 MG PO (21:10)
[2024-04-01] MEDS: IPRATROPIUM/ALBUTEROL 3 ML NEB IH ×2 (00:23→06:36)
[2024-04-01] MEDS: GUAIFENESIN/DEXTROMETHORPHAN 200MG/20MG 10ML UDC 10 ML PO (01:47)
[2024-04-01 04:00] VITALS: BP 113/77; PULSE 75; RESP 16; TEMP 36.8; O2SAT 96; BMI 35.9
[2024-04-01 04:47] LABS: Basophils # 0.1 K/mm3 (0-0.2); Basophils % 0.5 % (0.1-2.0); Eosinophils # 0.1 K/mm3 (0.0-0.4); Eosinophils % 0.7 % (0.1-12.0); Hematocrit 38.8 % (37.0-47.0); Mean Corpuscular HGB Conc 34.3 g/dL (31.8-35.4); Mean Corpuscular Volume 87.4 fl (81-99); Monocytes # 0.7 K/mm3 (0.1-1.0); Monocytes % 5.4 % (1.7-9.3); Platelet Count 190 K/mm3 (142-424); Red Blood Count 4.44 M/mm3 (4.20-5.40); Red Cell Distribution Width 14.1 % (11.5-17.5)
[2024-04-01 04:51] LABS: Lymphocytes % 8.4 % (10-50); Mean Platelet Volume 12.4 fl (7.4-10.4); Neutrophils # 10.4 K/mm3 (1.8-7.8); Neutrophils % 84.6 % (37.0-80.0); White Blood Count 12.3 K/mm3 (4.8-10.8)
[2024-04-01 04:54] LABS: Hemoglobin 13.3 g/dL (12.2-16.2)
[2024-04-01 04:57] LABS: Alanine Aminotransferase 21 U/L (12-78); Albumin Level 3.2 g/dl (3.5-5.0); Albumin/Globulin Ratio 1.2 (1.1-1.8); Alkaline Phosphatase 76 U/L (38-126); Anion Gap 9.3 mEq/L (5-15); Aspartate Amino Transferase 21 U/L (14-36); Bilirubin,Total 0.8 mg/dl (0.2-1.3); Blood Urea Nitrogen 24 mg/dl (7-17); Calcium 8.6 mg/dl (8.4-10.2); Carbon Dioxide 26 mmol/L (22.0-30.0); Chloride 102 mmol/L (98-107); Creatinine Clearance Estimated 147 mL/min (50-200); Estimated Glomerular Filt Rate 87 ml/min (>60); GFR (African American) 105 ML/MIN (>60); Globulin 2.7 g/dL (1.3-3.2); Glucose 101 mg/dl (74-100); Potassium 3.3 mmoL/L (3.5-5.1); Sodium 134 mmol/L (136-145); Total Protein,Serum 5.9 g/dl (6.3-8.2)
[2024-04-01] MEDS: POTASSIUM CHLORIDE 20MEQ TAB 40 MEQ PO ×2 (05:39→09:23)
[2024-04-01 06:37] VITALS: PULSE 71; PULSE 74; O2SAT 95
--- NOTE | 2024-04-01 07:36 | P.DS_ITS ---
General Admission date:: 03/31/24 Discharge date: 04/01/24 HPI HPI HPI: Ms. Doty is a 58-year-old female who states she has been having fevers and cough for the past 2 to 3 days. More fatigued per family. at bedside helps give history. Patient and state that she has been more confused and her children were commenting on her confusion, talking out of her head yesterday. Denies any nausea or vomiting. No diarrhea. Complains of feeling weak. On presentation to the ER, found to be hypoxic. Workup concerning for pneumonia with leukocytosis and chest imaging confirming right middle lobe pneumonia. Started on Augmentin. Due to new oxygen requirement, medicine consulted for admission and further management. Patient denies any chest pain, nausea, vomiting, diarrhea. Afebrile at this t [place]. Recent antibiotic course for 7 days with Keflex for cellulitis of right lower leg. Leg looks good but given recent exposure, antibiotics changed from those initiated in the ER. Received 1 dose of Augmentin in the ER. Alert and oriented x 4 on exam Hospital Course Hospital Course Hospital Course: 58-year-old female who presents with 3 to 4 days of cough, fever, shortness of breath. Found to be hypoxic in the ER with chest imaging consistent with pneumonia. Discussed case with ER physician, request admission for observation overnight and treatment with antibiotics to evaluate oxygen requirements. I agreed to admit for further care. Hemodynamically stable upon arrival to the floor, requiring 2 L oxygen. Weaned to room air by morning. Found to be positive for rhinovirus. Also concerning for lobar pneumonia. Continue antibiotics at discharge to complete course for empiric treatment for pneumonia. Stable on room air. Problems addressed as follows: Acute hypoxemic respiratory failure Right middle lobe pneumonia - Patient has new oxygen requirement, room air saturation in the mid 80s at time of admission. Necessitated 2 L oxygen. Improved overnight. Respiratory panel found to be positive for rhinovirus. Per my review of chest imaging, has right middle lobe consolidation consistent with pneumonia. White count elevated at 17. Kidney function and electrolytes normal. Initiated on levofloxacin. White count improved to 12.3 by the following morning. Given her positive viral panel and presentation consistent with community-acquired pneumonia, will complete 7 days total of Levaquin orally at discharge. No oxygen requirement on day of discharge. Sats maintained in the low 90s with ambulation on room air. Hyperthyroidism: Continue methimazole 5 mg daily and leflunomide 20 mg daily. Former smoker, using patches at this time. Last cigarette over a week ago. Continue nicotine 21 mg patch daily Continue home Crestor 10 mg daily for hyperlipidemia Continue trazodone 50 mg nightly sleep Continue pantoprazole 40 mg daily for GERD Continue gabapentin 600 mg 3 times a day for neuropathy Holding home diuretics in the setting of acute illness Holding home hydroxychloroquine for RA in the setting of acute infection Exam Data for Last 24 hours Vital signs and Labs for Last 24 Hours: Temp Pulse Resp BP Pulse Ox O2 Del Method O2 Flow Rate 98.2 F 71 16 113/77 95 Room Air 1 04/01/24 04:00 04/01/24 06:37 04/01/24 04:00 04/01/24 04:00 04/01/24 06:37 04/01/24 06:41 04/01/24 06:37 Laboratory Results - last 24 hr 03/31/24 10:52: Influenza Type A Ag Negative, Influenza Type B Ag Negative 03/31/24 11:58: WBC 17.7 H, RBC 5.15, Hgb 15.3, Hct 45.1, MCV 87.6, MCH 29.7, MCHC 33.9, RDW 14.0, Plt Count 196, MPV 11.7 H, Neut % (Auto) 91.5 H, Lymph % (Auto) 3.3 L, [place] % (Auto) 3.1, Eos % (Auto) 0.1, Baso % (Auto) 0.6, Neut # (Auto) 16.2 H, Lymph # (Auto) 0.6 L, [place] # (Auto) 0.5, Eos # (Auto) 0.0, Baso # (Auto) 0.1, Total Counted 100, Neutrophils % (Manual) 88 H, Lymphocytes % (Manual) 7 L, Monocytes % (Manual) 5, Platelet Estimate Normal, RBC Morphology Normal, Sodium 137, Potassium 3.7, Chloride 102, Carbon Dioxide 25, Anion Gap 13.7, BUN 24 H, Creatinine 0.80, Estimated Creat Clear 128, Estimated GFR 74, Est GFR ( Amer) 90, Glucose 112 H, Calcium 9.0, Procalcitonin 1.14, TSH 0.78, Free T4 2.15 03/31/24 13:09: Chlamy pneumoniae PCR Not detected, Adenovirus (PCR) Not detected, B. pertussis DNA (PCR) Not detected, Coronavirus OC43 (PCR) Not detected, Coronavirus HKU1 (PCR) Not detected, Coronavirus 229E (PCR) Not detected, SARS-CoV-2 (PCR) Not detected, Coronavirus NL63 (PCR) Not detected, Human Metapneumovir PCR Not detected, Influenza A (H1) PCR Not detected, Influ A (H1N1/09) PCR Not detected, Influenza A (H3) PCR Not detected, Influenza Type A (PCR) Not detected, Influenza Type B (PCR) Not detected, M. pneumoniae (PCR) Not detected, Parainfluenza 1 (PCR) Not detected, Parainfluenza 2 (PCR) Not detected, Parainfluenza 3 (PCR) Not detected, Parainfluenza 4 (PCR) Not d etected, RSV (PCR) Not detected, Entero/Rhino (PCR) Detected A 04/01/24 04:26: WBC 12.3 H D, RBC 4.44, Hgb 13.3 D, Hct 38.8, MCV 87.4, MCH 30.0, MCHC 34.3, RDW 14.1, Plt Count 190, MPV 12.4 H, Neut % (Auto) 84.6 H, Lymph % (Auto) 8.4 L, [place] % (Auto) 5.4, Eos % (Auto) 0.7, Baso % (Auto) 0.5, Neut # (Auto) 10.4 H, Lymph # (Auto) 1.0, [place] # (Auto) 0.7, Eos # (Auto) 0.1, Baso # (Auto) 0.1, Sodium 134 L, Potassium 3.3 L, Chloride 102, Carbon Dioxide 26, Anion Gap 9.3, BUN 24 H, Creatinine 0.70, Estimated Creat Clear 147, Estimated GFR 87, Est GFR ( Amer) 105, Glucose 101 H, Calcium 8.6, Magnesium 2.0, Total Bilirubin 0.8, AST 21, ALT 21, Alkaline Phosphatase 76, Total Protein 5.9 L, Albumin 3.2 L, Globulin 2.7, Albumin/Globulin Ratio 1.2 I & O for Last 24 hours: Intake & Output 01/2203/30/24 03/31/24 04/01/24 23:59 23:59 23:59 23:59 Intake Total 480 / 720 240 / 240 Output Total 0 / 0 0 / 0 Balance 480 / 720 240 / 240 Weight 102.625 kg 103.827 kg Microbiology Reports for the Last 24 Hours: Microbiology 03/31/24 18:46 Sputum - Expectorated Sputum Gram Stain - Preliminary Constitutional Constitutional: no acute distress, obese, chronically ill appearing and cooperative *Routine HEENT Exam Head: Present normocephalic Eye: Present EOMI and PERRL ENT: Present mucous membranes moist *Routine Neck Exam Neck: Present supple; Absent lymphadenopathy *Routine Respiratory Exam Respiratory: Present crackles (right posterior lung field) and normal respiratory effort; Absent rhonchi or stridor *Routine Cardiovascular Exam Cardiovascular: Present RRR *Routine Abdominal Exam Abdominal: Present soft and normoactive bowel sounds; Absent tenderness *Routine Rectal Exam Patient deferred: visual exam *Routine Exam Patient deferred: external exam *Routine Extremities Exam Extremities: Absent cyanosis, clubbing or edema *Routine Skin Exam Skin: Present intact and warm; Absent rash Comments: healing scabbed wound on right lower [place] *Routine Neurological Exam Neurological: Present alert, oriented X3 and moving all extremities; Absent altered mental status Results Data Completed and Pending Labs on day of discharge: Labs from last 24 hours 04/01/24 03/31/24 03/31/24 04:26 13:09 11:58 WBC 12.3 H D 17.7 H RBC 4.44 5.15 Hgb 13.3 D 15.3 Hct 38.8 45.1 MCV 87.4 87.6 MCH 30.0 29.7 MCHC 34.3 33.9 RDW 14.1 14.0 Plt Count 190 196 MPV 12.4 H 11.7 H Neut % (Auto) 84.6 H 91.5 H Lymph % (Auto) 8.4 L 3.3 L [place] % (Auto) 5.4 3.1 Eos % (Auto) 0.7 0.1 Baso % (Auto) 0.5 0.6 Neut # (Auto) 10.4 H 16.2 H Lymph # (Auto) 1.0 0.6 L [place] # (Auto) 0.7 0.5 Eos # (Auto) 0.1 0.0 Baso # (Auto) 0.1 0.1 Total Counted 100 Neutrophils % (Manual) 88 H Lymphocytes % (Manual) 7 L Monocytes % (Manual) 5 Platelet Estimate Normal RBC Morphology Normal Sodium 134 L 137 Potassium 3.3 L 3.7 Chloride 102 102 Carbon Dioxide 26 25 Anion Gap 9.3 13.7 BUN 24 H 24 H Creatinine 0.70 0.80 Estimated Creat Clear 147 128 Estimated GFR 87 74 Est GFR ( Amer) 105 90 Glucose 101 H 112 H Calcium 8.6 9.0 Magnesium 2.0 Total Bilirubin 0.8 AST 21 ALT 21 Alkaline Phosphatase 76 Total Protein 5.9 L Albumin 3.2 L Globulin 2.7 Albumin/Globulin Ratio 1.2 Procalcitonin 1.14 TSH 0.78 Free T4 2.15 Chlamy pneumoniae PCR Not detected Adenovirus (PCR) Not detected B. pertussis DNA (PCR) Not detected Coronavirus OC43 (PCR) Not detected Coronavirus HKU1 (PCR) Not detected Coronavirus 229E (PCR) Not detected SARS-CoV-2 (PCR) Not detected Coronavirus NL63 (PCR) Not detected Human Metapneumovir PCR Not detected Influenza A (H1) PCR Not detected Influ A (H1N1/09) PCR Not detected Influenza A (H3) PCR Not detected Influenza Type A Ag Influenza Type A (PCR) Not detected Influenza Type B Ag Influenza Type B (PCR) Not detected M. pneumoniae (PCR) Not detected Parainfluenza 1 (PCR) Not detected Parainfluenza 2 (PCR) Not detected Parainfluenza 3 (PCR) Not detected Parainfluenza 4 (PCR) Not detected RSV (PCR) Not detected Entero/Rhino (PCR) Detected A 03/31/24 10:52 WBC RBC Hgb Hct MCV MCH MCHC RDW Plt Count MPV Neut % (Auto) Lymph % (Auto) [place] % (Auto) Eos % (Auto) Baso % (Auto) Neut # (Auto) Lymph # (Auto) [place] # (Auto) Eos # (Auto) Baso # (Auto) Total Counted Neutrophils % (Manual) Lymphocytes % (Manual) Monocytes % (Manual) Platelet Estimate RBC Morphology Sodium Potassium Chloride Carbon Dioxide Anion Gap BUN Creatinine Estimated Creat Clear Estimated GFR Est GFR ( Amer) Glucose Calcium Magnesium Total Bilirubin AST ALT Alkaline Phosphatase Total Protein Albumin Globulin Albumin/Globulin Ratio Procalcitonin TSH Free T4 Chlamy pneumoniae PCR Adenovirus (PCR) B. pertussis DNA (PCR) Coronavirus OC43 (PCR) Coronavirus HKU1 (PCR) Coronavirus 229E (PCR) SARS-CoV-2 (PCR) Coronavirus NL63 (PCR) Human Metapneumovir PCR Influenza A (H1) PCR Influ A (H1N1/09) PCR Influenza A (H3) PCR Influenza Type A Ag Negative Influenza Type A (PCR) Influenza Type B Ag Negative Influenza Type B (PCR) M. pneumoniae (PCR) Parainfluenza 1 (PCR) Parainfluenza 2 (PCR) Parainfluenza 3 (PCR) Parainfluenza 4 (PCR) RSV (PCR) Entero/Rhino (PCR) Preliminary micro results at discharge 03/31/24 18:46 Gram Stain - Preliminary Sputum - Expectorated Sputum DS: Diagnosis Discharge Diagnosis (1) Pneumonia: Status: Acute Code(s): J18.9 - Pneumonia, unspecified organism Qualifiers: Laterality: right (2) Acute hypoxemic respiratory failure: Status: Acute Code(s): J96.01 - Acute respiratory failure with hypoxia (3) CAD (coronary artery disease): Status: Chronic Code(s): I25.10 - Atherosclerotic heart disease of [place] coronary artery without angina pectoris Qualifiers: Associated angina: with stable angina Coronary Disease-Associated Artery/Lesion type: [place] artery [place] vs. transplanted heart: [place] heart Qualified Code(s): I25.118 - Atherosclerotic heart disease of [place] coronary artery with other forms of angina pectoris (4) HLD (hyperlipidemia): Status: Chronic Code(s): E78.5 - Hyperlipidemia, unspecified Qualifiers: Hyperlipidemia type: mixed hyperlipidemia Qualified Code(s): E78.2 - Mixed hyperlipidemia (5) Tobacco use: Status: Chronic Code(s): Z72.0 - Tobacco use (6) Hyperthyroidism: Status: Acute Code(s): E05.90 - Thyrotoxicosis, unspecified without thyrotoxic crisis or storm (7) Class 2 obesity: Status: Acute Code(s): E66.812 - Obesity, class 2 (8) Immunosuppressed status: Status: Chronic Code(s): D84.9 - Immunodeficiency, unspecified Problem details: On hydroxychloroquine and steroids daily for RA Meds Home Medications and Allergies Home Medications ?Medication ?Instructions ?Recorded ?Confirmed ?Type furosemide 40 mg tablet 40 mg PO DAILY 03/31/24 03/31/24 History gabapentin 600 mg tablet 600 mg PO TID 03/31/24 03/31/24 History hydroxychloroquine 200 mg tablet 200 mg PO BID 03/31/24 03/31/24 History ibuprofen 600 mg tablet 600 mg PO TID 03/31/24 03/31/24 History leflunomide 20 mg tablet 20 mg PO DAILY 03/31/24 03/31/24 History methimazole 5 mg tablet 5 mg PO DAILY 03/31/24 03/31/24 History nicotine 21 mg/24 hr daily 1 patch transdermal DAILY 03/31/24 03/31/24 History transdermal patch pantoprazole 40 mg tablet,delayed 40 mg PO DAILY 03/31/24 03/31/24 History release prednisone 5 mg tablet 5 mg PO DAILY 03/31/24 03/31/24 History rosuvastatin 10 mg tablet 10 mg PO DAILY 03/31/24 03/31/24 History trazodone 50 mg tablet 50 mg PO HS 03/31/24 03/31/24 History levofloxacin 750 mg tablet 750 mg PO DAILY 6 days #6 tabs 04/01/24 Rx New Prescriptions to Start Prescriptions: levofloxacin Donovan Lugo Allergies Allergy/AdvReac Type Severity Reaction Status Date / Time No Known Allergies Allergy Verified 03/31/24 16:43 Discharge Plan Disposition Patient Disposition: Home, Self-Care Condition: Fair Follow up Plan Follow up with: Lauren Broderick APRN [Primary Care Provider] - Enter time for follow up (Please call office Wednesday to schedule appointment. ) Prescriptions/Medication Reconciliation: New levofloxacin 750 mg tablet 750 mg PO DAILY 6 Days Qty: 6 0RF Rx Instructions: first dose evening of 04/01/24 Continued furosemide 40 mg tablet 40 mg PO DAILY gabapentin 600 mg tablet 600 mg PO TID Patient Comments: TAKE 1 TABLET BY MOUTH THREE TIMES DAILY trazodone 50 mg tablet 50 mg PO HS Patient Comments: TAKE 1 TABLET BY MOUTH AT BEDTIME NEEDED prednisone 5 mg tablet 5 mg PO DAILY leflunomide 20 mg tablet 20 mg PO DAILY Patient Comments: TAKE 1 TABLET BY MOUTH ONCE DAILY pantoprazole 40 mg tablet,delayed release (DR/EC) 40 mg PO DAILY Patient Comments: TAKE 1 TABLET BY MOUTH ONE-HALF TO ONE HOUR BEFORE MORNING MEAL ONCE A DAY nicotine 21 mg/24 hr patch 24 hour 1 patch transdermal DAILY Patient Comments: APPLY 1 PATCH TO SKIN TRANSDERMALLY ONCE DAILY methimazole 5 mg tablet 5 mg PO DAILY Patient Comments: TAKE 1 TABLET BY MOUTH ONCE DAILY ibuprofen 600 mg tablet 600 mg PO TID Patient Comments: TAKE 1 TABLET BY MOUTH THREE TIMES DAILY rosuvastatin 10 mg tablet 10 mg PO DAILY Patient Comments: TAKE 1 TABLET BY MOUTH ONCE DAILY Held hydroxychloroquine 200 mg tablet 200 mg PO BID Hold Instructions: hold until completes antibiotics for pneumonia Patient Comments: TAKE 1 TABLET BY MOUTH TWICE DAILY Problem Reconciliation Problems Reviewed?: Yes Patient Discharge Instructions ACTIVITY: Continue current activity DIET: continue same diet Patient Instructions: DI for Pneumonia -- Adult, DI for Respiratory Failure Print Language: Citizen Of [place] Providers Primary Care Provider: Lauren Broderick Admit Provider: Donovan Lugo Attending Provider: Donovan Lugo
[2024-04-01 07:51] VITALS: BP 114/69; PULSE 78; RESP 18; TEMP 36.7; O2SAT 95
[2024-04-01 08:00] VITALS: O2SAT 95
--- NOTE | 2024-04-01 08:46 | PC.NURSE ---
patients o2 RA saturation during the walk test was 92%-93%
[2024-04-01] MEDS: NICOTINE 21MG/24HR PATCH 21 MG TD (09:18)
[2024-04-01] MEDS: GABAPENTIN 600MG TABLET 600 MG PO (09:18)
[2024-04-01] MEDS: predniSONE 5MG TAB 5 MG PO (09:18)
--- NOTE | 2024-04-03 11:20 | SW/DCPLANNER ---
Spoke with patient on the phone. Patient stated that she is doing well. Patient stated that she has already been to her follow up appointment to see her primary care provider. 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 Patient stated that she has no concerns or questions at this time. Anthony Cat
== END 2024-04-01 10:55 | disposition home or self-care (01) ==
LOC: UTC 10:41 → ER 11:46 → 2ND 13:54
PROVIDERS: Nurse Practitioner Family; Admitting Provider Internal Medicine Adolescent Medicine; Emergency Provider Student in an Organized Health Care Education/Training Program; PCP Nurse Practitioner Family; Visit Provider Internal Medicine Adolescent Medicine
DX: J18.9 Pneumonia, unspecified organism (principal); M06.9 Rheumatoid arthritis, unspecified; K21.9 Gastro-esophageal reflux disease without esophagitis; E05.90 Thyrotoxicosis, unspecified without thyrotoxic crisis or storm; R09.02 Hypoxemia; E78.5 Hyperlipidemia, unspecified; G62.9 Polyneuropathy, unspecified; I27.20 Pulmonary hypertension, unspecified; I25.10 Atherosclerotic heart disease of native coronary artery without angina pectoris; Z79.899 Other long term (current) drug therapy; Z79.01 Long term (current) use of anticoagulants; Z79.69 Long term (current) use of other immunomodulators and immunosuppressants; Z79.890 Hormone replacement therapy; Z87.891 Personal history of nicotine dependence
CPT/HCPCS: 36415; 71046; 80048; 80053; 83735; 84145; 84439; 84443; 85007; 85025; 87070; 87205; 87633; 87804; 94640; 94760; 94761; 99285; G0378; J1650; J1885; J1956; J7512; J7620

== ENCOUNTER 2024-04-27 10:00 | Outpatient (RCR) | payer BC, SELFPAY ==
--- NOTE | 2024-04-19 16:21 | HMH.PTOPWND ---
Rehab Outpt Wound Evaluation Rehab OP Wound Evaluation Start: 04/19/24 15:33 Freq: Status: Active Protocol: Document 04/19/24 15:35 PHOJOSE ARMANDO (Rec: 04/19/24 16:21 PHORNE [id number]) E-signed By Aaron Villatoro, PT Subjective/History History History This is the initial PT wound care eval for Rosina Doty, 58 yowf who presents with anterior R harmon wound x ~ 6 wks. She states, I ran into the corner of a piece of drywall at [employer]. She reports no wound initial, but significant bruising in the sagar-wound area and the wound developed shortly after. She reports continued pain and tenderness in the area. She has PMH of chronic back pain with neuropathy, thyroid nodules, RA, CVI, and recent PNA. Subjective Subjective Pain currently is 2/10 in the R lower leg, TTP is 3/4 in the sagar-wound skin. Minimal sagar -wound erythema. 2+ pitting edema in the R ankle and foot. Wound Eval Wound Right Anterior Harmon Wound Type Contusion Is This a Chronic Wound Yes Wound Length (cm) 1.2 Wound Width (cm) 0.9 Wound Depth (cm) 0.3 Wound Bed Appearance Yellow,Eschar Percentage of Slough (%) 25 Percentage of Eschar (Yellow) (%) 75 Wound Margins Description Well Defined Surrounding Tissue Appearance [place] Edema Type Pitting Edema Degree 2+ Query Text:1+ Trace, Barely Detectable, Rebound 15-30 seconds 2+ Moderate, Slight Indentation, Rebound 10-20 seconds 3+ Deep, Deeper Indentation, Rebound > 30 seconds 4+ Very Deep, Rebound > 60 seconds Drainage Description Serosanguineous Drainage Amount Scant Drainage Odor No Odor Dressing Status Open to Air Wound Topical Solution/Irrigant Saline Irrigant Primary Dressing Composite Comment therahoney gel, optifoam gentle border lite Wound Debridement Method Sharps,Gauze,Mechanical Wound Debridement Amount of Tissue Minimal Removed Dressing Change Patient Tolerance Tolerated Poorly Multani-Ayala Wound Assessment Tool Assessment Wound size 1=Length x Width <4 sq cm Wound depth 4=Obscured by necrosis Wound edges 3=Well-defined, not attached to wound base Wound undermining 1=None present Necrotic tissue type 4=Adherent, soft, black eschar Necrotic tissue amount 5=75% to 100% of wound covered Exudate type 3=Serosanguineous: thin, watery, pale red/pink Exudate amount 2=Scant, wound moist but no observable exudate Skin color surrounding wound 2=Bright red &/or blanches to touch Peripheral tissue edema 1=No swelling or edema Peripheral tissue induration 1=None present Granulation tissue 5=No granulation tissue present Epithelialization 5= < 25% wound covered Wound assessment total score 37 Wound Problems/Impairments Impairments Problems/Impairmments Palpation Tenderness,Impaired Shower/Bathing,Increased Edema ,Wound Care Needs,Subjective C /O Pain,Impaired Self Care/ Self Management Prognosis Rehab Potential Good Comment Skilled therapy is indicated to improve healing time and reduce overall wound surface area in order to return pt to [facility]. Clinical Impression Consistent with Diagnosis Yes Short Term Goals Number of Weeks 2 Decreased Palpation Tenderness Yes: 2/4 R lower leg Decrease Edema Yes: 1+pitting edema R lower leg Decrease Wound Area Yes: by 25% Evs Tech Goals Number of Weeks 4 Decreased Palpation Tenderness Yes: 1/4 R lower leg Decrease Edema Yes: No pitting edema R lower leg Decrease Wound Area Yes: by 75% Patient to be Ind w/ Home Wound Care/ Yes Dressing Changes Outpatient Therapy Plan of Care Treatment Plan May Include Therapeutic Exercise Including Home Yes Exercise Program Manual Therapy Techniques Yes Neuromuscular Re-education Yes Therapeutic Activities to Return to Yes Previous Functional/Work Level ADL/Self Care Education Yes Ultrasound/Phonophoresis Yes Orthotics/Bracing/Splinting Yes Manual Lymphatic Drainage Yes Wound Care Yes Eval/Re-Eval Yes Frequency Times per week 1-2 Duration Number of Weeks 4 Addendums This patient is a candidate for social No or vocational rehab? Patient/Guardian verbally acknowledges Yes understanding of treatment program and consents to further treatment? Patient/Guardian verbally acknowledges Yes understanding of diagnosis, prognosis and goals for treatment? Eval Complexity PT Charges 84177 - High Complexity PHYSICIAN CERTIFICATION: I certify the specified therapy services for Rosina Doty are required, authorized, and reviewed every 30 days.
== END 2024-04-27 23:59 | disposition home or self-care (01) ==
LOC: PT 10:00
PROVIDERS: PCP Nurse Practitioner Family; Visit Provider Physician Assistant
DX: M79.661 Pain in right lower leg (principal); S81.801A Unspecified open wound, right lower leg, initial encounter
CPT/HCPCS: 97163; 97597

== ENCOUNTER 2024-05-10 10:48 | Outpatient (CLI) | payer BC, SELFPAY ==
--- NOTE | 2024-05-10 10:49 | CT_ITS ---
FINAL REPORT CLINICAL HISTORY: HX OF TOBACCO current smoker 2ppd x17 years COMPARISON: None FINDINGS: CT CHEST LOW DOSE SCREENING HISTORY: Screening exam for lung cancer. 58-year-old female, current smoker, [id number] history DOSE: CTDI vol: 2.9 mGy, DLP: 98.99 mGy*cm TECHNIQUE: Axial CT without IV contrast administration using low dose protocol. This study was performed with techniques to keep radiation doses as low as reasonably achievable, (ALARA). Individualized dose reduction techniques using automated exposure control or adjustment of mA and/or kV according to the patient's size were employed. No acute lung disease is present. No pulmonary lesions are seen suspicious for neoplasm. Mild right lower lobe scar is present. No pleural or pericardial effusion is seen. No adenopathy or mass lesion is present. IMPRESSION: No evidence of lung cancer LUNG RADS CATEGORY 1 RECOMMENDATION: 12 month LDCT follow up Reviewed, Interpreted and Dictated by Jaylene Mcfarlane MD Transcribed by Anna Collier Authenticated and . [facility]
== END 2024-05-10 23:59 | disposition home or self-care (01) ==
LOC: RAD 10:48
PROVIDERS: PCP Nurse Practitioner Family; Visit Provider Nurse Practitioner Family
DX: Z87.891 Personal history of nicotine dependence (principal)
CPT/HCPCS: 71271

== ENCOUNTER 2024-05-29 14:00 | Outpatient (RCR) | payer BC, SELFPAY ==
--- NOTE | 2024-05-22 15:00 | HMH.RHREAS ---
Rehab Reassessment Rehab OP Re-assessment Start: 05/09/24 15:24 Freq: Status: Active Protocol: Document 05/22/24 14:49 PHOMarthaSETH (Rec: 05/22/24 15:00 PHORSETH [id number]) E-signed By Aaron Villatoro, PT Anthony Wound Assessment Tool Assessment Wound size 1=Length x Width <4 sq cm Wound depth 3=Full thickness skin loss involving damage or necrosis of Wound edges 3=Well-defined, not attached to wound base Wound undermining 1=None present Necrotic tissue type 2=White/cha non-viable tissue &/or non-adherent yellow slough Necrotic tissue amount 5=75% to 100% of wound covered Exudate type 3=Serosanguineous: thin, watery, pale red/pink Exudate amount 3=Small Skin color surrounding wound 1=[place] or normal for ethnic group Peripheral tissue edema 4=Pitting edema extends <4 cm around wound Peripheral tissue induration 1=None present Granulation tissue 4=[place], &/or dull, dusky red & /or fills < or = 25% of wound Epithelialization 5= < 25% wound covered Wound assessment total score 36 Rehab Re-assessment Subjective Subjective Pt reports she has less tenderness to palpation in the sagar-wound skin this date. She was able to undergo her planned thyroidectomy surgery without problems last week. Objective Objective Notes R anterior [place] wound: L= 0.9 cm, W= 0.6 cm, D= 0.2 cm. 10% granulation tissue in the wound bed. Wound has healed 50 % since IE. TTP: 2/4 superior pole of wound bed. Edema: 1+ pitting edema throughout R Lower leg. Assessment Progress Assessment Progressing as Expected Assessment Notes Pt has shown significant reduction in overall wound surface area. However, she continues to have less granulation tissue that expected. She continues to need skilled therapy services to aid wound healing in an effort to return her to PLOF. Patient goals met ST/3 LT/4 Plan Plan Continue per initial POC. Frequency of Therapy 1 x/wk Duration of therapy 4 wks Time and Billing Re-Eval Time 11 Re-Eval Billing Units 1 Charge for PT reassessment? Yes PHYSICIAN CERTIFICATION: I certify the specified therapy services for Rosina Rick Ray are required, authorized, and reviewed every 30 days.
== END 2024-05-29 23:59 | disposition home or self-care (01) ==
LOC: PT 14:00
PROVIDERS: PCP Nurse Practitioner Family; Visit Provider Physician Assistant
DX: S81.801A Unspecified open wound, right lower leg, initial encounter (principal)
CPT/HCPCS: 97164; 97597

== ENCOUNTER 2024-07-07 09:16 | Outpatient (CLI) | payer BC, SELFPAY ==
--- OUTSIDE RECORDS SUMMARY | 2024-07-07 09:19 | XMS_ITS | Data Portability ---
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 Plan of Treatment Reminders Order Date Submit Date Provider Last Modified By Organization Details Last Modified Time Details Appointments None recorded. Lab sjogren antibody panel, serum 2019 020 [facility], [address] [place] [address], [phone], 0 17:04:55 ccp (cyclic citrullinat ed peptide) iga+igg, serum 2019 020 [facility], [address] [place] [address], [phone], 0 03:54:04 ESR (erythrocyt e sedimentati on rate), blood 2019 020 [facility], [address] [place] [address], [phone], 0 14:17:30 Referral None recorded. Procedures None recorded. Surgeries None recorded. Imaging None recorded. Medication Orders None recorded. Patient TargetsNo targets recorded. Patient Instructions Encounter Date Encounter Id Patient Instructions Last Modified By Organization Details Last Modified Time 06/27/2019 [id number] osteoarthritis: care instructions [email or web address] Not available 06/27/2019 09:36:48 Reason for Referral None Reported. Results Created Date Observation Date Name Description Value Unit Range Abnormal Flag Note LastModifiedBy Organization Detail LastModifiedTime 06/27/19 20 06/27/2019 ESR (eryt hrocy te sedim entat ion rate) , blood ESR, automated 29 mm/HR 0-29 normal Not Available [facility] [address] [place] [address], [phone], 06/27/2019 14:17:30 06/27/19 20 06/28/2019 sjogr en antib christiano panel , serum ss-A Ab <1.0 NEG ai <1.0 neg normal Not Available [facility] [address] [place] [address], [phone], 06/28/2019 17:04:55 06/27/19 20 06/28/2019 sjogr en antib christiano panel , serum ss-B Ab <1.0 NEG ai <1.0 neg normal TEST PERFO RMED AT: [facility] [address] [facility], [place] [id number] FRAN Treviño MD Not Available [facility] [address] [place] [address], [phone], 06/28/2019 17:04:55 06/27/19 20 06/29/2019 ccp (cycl ic citru llina rudolph pepti de) iga+i gg, serum anti-ccp <16 units normal Refer ence Range Negat isabelle: <20 Weak Posit isabelle: 20-39 Moder ate Posit isabelle: 40-59 Stron g Posit isabelle: >59 TEST PERFO RMED AT: [facility] [address] [facility], [place] [id number] FRAN Treviño MD Not Available [facility] [address] [place] [address], [phone], 06/29/2019 03:54:04 06/26/19 20 05/27/2018 MRI, shoul gisel, w/o contr ast No observ ation record ed. lklemme [facility] [address] [place] [address] [address], [place], [phone], 06/26/2019 10:32:15 Result Notes None recorded. Procedures Surgical History None recorded. Imaging Results Imaging Date Name Status LastModified by Organiz ation Details LastModified Time 05/27/2018 MRI, shoulder, w/o contrast completed [facility] [address], [place], [address], 06/26/2019 10:32:15 Procedure Notes None recorded. Medical Equipment None Reported. Medications Name Sig Start Date Stop Date Status Note LastModified by Organization Details LastModified Time furosemide 40 mg tablet active Not Available Not Available Not Available atorvastatin 20 mg tablet active Not Available Not Available Not Available isosorbide mononitrate ER 30 mg tablet,extended release 24 hr active Not Available Not Availabl e Not Available oxycodone-acetamino phen 5 mg-325 mg tablet active Not Available Not Available Not Available paroxetine 30 mg tablet active Not Available Not Available Not Available pantoprazole 40 mg tablet,delayed release active Not Available Not Available Not Available estradiol 2 mg tablet active Not Available Not Available Not Available diclofenac sodium 75 mg tablet,delayed release active Not Available Not Available Not Available furosemide 20 mg tablet active Not Available Not Available Not Available ibuprofen 600 mg tablet active Not Available Not Available Not Available methylprednisolone 4 mg tablets in a dose pack active Not Available Not Available No t Available albuterol sulfate HFA 90 mcg/actuation aerosol inhaler active Not Available Not Availa ble Not Available ondansetron 4 mg disintegrating tablet active Not Available Not Available Not Available dicyclomine 10 mg capsule active Not Available Not Available Not Available cyclobenzaprine 5 mg tablet active Not Available Not Available No t Available duloxetine 60 mg capsule,delayed release active Not Available Not Available Not Available Chantix 1 mg tablet active Not Availab le Not Available Not Available Chantix Starting Month Box 0.5 mg (11)-1 mg (42) tablets in dose pack active Not Available Not Available Not Available Anoro Ellipta 62.5 mcg-25 mcg/actuation powder for inhalation active Not Available Not Available N ot Available Vitals Date Recorded Body temperature Heart rate Respiratory rate Provider Name and Address Organization Details Last Updated DateTime 06/27/2019 97 [degF] 76 /min 16 /min LUIS F CHAVEZ MD [address] [place], [phone], [facility] 06/27/2019 09:35:33 Social History None recorded. Functional Status None recorded. Mental Status None recorded. Family History Nothing Reported. Medical History No medical history recorded. Gynecological HistoryNo gynecological history recorded. Obstetrics History GPAL:G 0 P 0 0 0 0 Past Encounters Encounter ID Performer Location Encounter Start Date Encounter Closed Date Diagnosis/Indication Diagnosis SNOMED-CT Code Diagnosis ICD10 Code Diagnosis Note [id number] LUIS FDAVID CHAVEZ MD [facility] [address] [place] [address] 06/27/2019 08:02:49 06/27/2019 14:48:26 Anti-nuclear factor detected 356797153 R76.8 53-year-ol d female with positive ABIMAEL screen, significan ce doubtful. Certainly she does not have any clinical stigmata for systemic lupus. I would like to obtain an anti-SSA and anti-SSB antibodies to complete investigat ions and to screen her for Sjogren's. Rheumatoid factor detected [id number] R76.0 she has a positive rheumatoid factor along with modestly elevated ESR. The video examinatio n was very limited, certainly her x-rays findings as well as medical history is most suggestive of chronic degenerati ve joint disease. However I would like to obtain an anti-CCP antibodies , a more specific testing for rheumatoid arthritis to complete investigat ions. I'll also repeated the ESR. She does have high BMI at 41 which can also be associated with elevated ESR. I will contact her after reviewing the anti-CCP antibody results. Generalize d osteoarthritis [id number] M15.9 she has diffuse degenerati ve joint disease along with degenerati ve disc disease. She also has chronic degenerati ve changes and pain in the right knee along with numbness. Followed by orthopedic surgeon and has received steroid injection as a when necessary. Symptomati c management is the way to go. I strongly encouraged her to work on lifestyle including weight loss. I would like her to be less than 30 in the BMI. Would also suggest to avoid use of NSAIDs on a long-term basis because of gastrointe stinal and renal side effect profile. COXII inhibitor like Celebrex would be reasonable option in terms of gastrointe stinal profile is consistent . Morbidly the decision making to her PCP. Health Concerns Section Related Observation LastModified by Organization Detai ls LastModified Time None Recorded Concern Status LastModified by Organization Details LastModified Time None Recorded Advance Directives Directive None Recorded Payers Encounter Date Sequence Insurance Name Policy Number Policy Bauman Covered Member ID Bauman Member ID Guarantor Name 06/27/2019 1 [id number] [id number] Chandler Doty [id number] Rosina Doty Notes Date Note Type Note Provider Name and Address Organization Details Recorded Time 06/27/2019 text/html The patient has requested and consented to a tele-jamilah appointment today. Due to the current state of emergency it is appropriate to address patient? s medical need via a telehealth appointment. seen today as a new patient. She is complaining of pain in her knee joints especially the right knee. She also has back pains. She is also concerned about chronic numbness in her knee. She is followed by a local orthopedic surgeon and has received steroid injections which have helped the knee pain but not the numbness. X-ray right knee November 2018 shows moderate degenerative changes. MRI lumbosacral spine shows degenerative disc disease involving lumbosacral spine. No fractures or dislocation noted. Similarly x-ray of the left shoulder shows mild degenerative changes. her lab studies were significant for positive ABIMAEL screen along with positive rheumatoid screen. ESR was modestly elevated at 45 mm per hour. She has normal uric acid level vitamin D levels were low at 14 units. She is on ibuprofen 600 mg 3 times a day. She is also on vitamin D replacement at 2000 units daily. LUIS F CHAVEZ MD [address] [place], [address], [facility] 06/27/2019 09:50:53 OBGyn Episode No OBEpisode recorded.
[2024-07-07 10:25] LABS: Free T4 (Free Thyroxine) 2.11 ng/dl (0.78-2.19)
== END 2024-07-07 23:59 | disposition home or self-care (01) ==
LOC: LAB 09:17
PROVIDERS: PCP Nurse Practitioner Family; Visit Provider Nurse Practitioner
DX: Z98.890 Other specified postprocedural states (principal); Z90.89 Acquired absence of other organs
CPT/HCPCS: 36415; 84439; 84443

== ENCOUNTER 2024-09-27 09:19 | Outpatient (CLI) | payer BC, SELFPAY ==
--- OUTSIDE RECORDS SUMMARY | 2024-09-06 10:00 | XMS_ITS | Encounter Summary ---
Author Organization [facility] Address [address] [place] [address] Care Team Providers Care Wood Machine Carver Name Role Phone Immanuel Mcwilliams MD Primary Care Provider [phone] Luanne Mcgrath Unavailable [phone] Reason for Visit * Consultation (Routine) - Closed Specialty Diagnoses / Procedures Referred By Contac t Referred To Contact Neurology Diagnoses Tension-type headache, unspecified, not intractable Pamela Brambila PA [address] [place] [address] Phone: tel: fax: [facility] [address] [place] [address] Phone: tel: fax: Referral ID Status Reason Start Date Expiration Date V isits Requested Visits Authorized [id number] Closed Specialty Services Required 12/01/2023 06/01/2025 1 1 Encounter Details Date Type Department Care Team (Late st Contact Info) Description 09/06/2024 10:00 AM EDT Consult [facility] [address] [place] [address] Luanne Mcgrath PA [address] [facility] [address] [place] [address] Myofascial neck pain (Primary Dx); [...] week 06/15/2024 How often do you attend [facility] or restoration services? Never 06/15/2024 Do you belong to any clubs o r organizations such as episcopal groups, unions, fraternal or athletic groups, or [...] Recorded Patient Health Questionnaire-2 Score 0 11/02/2023 [facility] [place] [facility] - Occupational Stress Questionnaire Answer Date Recorded [...] any time in the past 12 m [facility], were you homeless or living in a senior living (including now)? No 06/15/2024 Utilities Answer Date Recorded In the past 12 months has th e electric, gas, oil, or water company threatened to [...] Mcgrath PA - 09/06/2024 10:00 AM EDT [facility] Neurology Clinic Note New Referral Rosina Doty presents to clinic for a New Patient Consult regarding Tension type headache. Patient was referred by FOZIA Medina (12/01/2023 Patient presents to clinic accompanied by who contributes to the history. 10/27/2023 - ARMANDO Medina - [facility]. C/O 3 weeks of progressive headache w/ [...] Right CERVICAL FUSION CHOLECYSTECTOMY N/A Cholecystectomy from [facility] FEMUR FRACTURE SURGERY Left Femur Repair from [facility] LUMBAR FUSION TOTAL ABDOMINAL HYSTERECTOMY N/A Total Abdominal Hysterectomy from [facility] TOTAL THYROIDECTOMY Bilateral 05/19/2024 [4] Current Outpatient [...] 6 (six) hours. 120 tablet 1 HYDROcodone-acetaminophen ([place]) 5-325 MG tablet Take 1 tablet (5 [...] Description 12/08/2024 10:40 AM EDT Office Visit [place] [facility] [address] [place] [address] Luanne Mcgrath PA [address] [facility] [address] [place] [address] documented as of this encounter [...] documented as of this encounter Care Teams Wood Machine Carver Relationship Specialty Start Date End Date Immanuel Mcwilliams MD [address] [place] [address] PCP - General 07/19/20 Luanne Mcgrath PA [address] [facility] [address] [place] [phone] Physician Process Control Programmer Neurology 09/06/24 documented as of this encounter
--- NOTE | 2024-09-27 09:25 | XR_ITS ---
FINAL REPORT CLINICAL HISTORY: LEFT FOOT PAIN COMPARISON: None FINDINGS: Three views of the left foot show no evidence of acute fracture or periosteal reaction. Osteopenia is noted. There is periosteal reaction. There is mild calcaneal spurring. A 21 mm sclerotic lesion in the distal tibia may represent nonossifying fibrosis. IMPRESSION: No acute findings. Reviewed, Interpreted and Dictated by Jaylene Mcfarlane MD Transcribed by Cate Guzmán Authenticated and [facility]
--- OUTSIDE RECORDS SUMMARY | 2024-09-27 09:27 | XMS_ITS | Clinical Summary ---
Author Organization [facility] Address [address] [place] [address] Care Team Providers Care Allergist/Md Name Role Phone Immanuel Mcwilliams MD Primary Care Provider [phone] Luanne Mcgrath Unavailable [phone] Allergies No known active allergies Medications Aspirin 81 MG capsule Active pantoprazole (Protonix) 40 MG EC tablet Take 1 tablet (40 mg) by mouth in the morning. 3 Active traZODone (Desyrel) 50 MG tablet Take 1 tablet (50 mg) by mouth nightly. Every day. Active rosuvastatin (Crestor) 10 MG tablet Take 1 tablet (10 mg) by mouth nightly. Active hydroxychloroqu ine (Plaquenil) 200 MG tablet Take 1 tablet (200 mg) by mouth 2 (two) times a day. 4 Active ibuprofen 600 MG tablet Take 1 tablet (600 mg) by mouth every 8 hours as needed. 4 Active predniSONE (Deltasone) 5 MG tablet Take 1 tablet (5 mg) by mouth in the morning. 4 Active gabapentin (Neurontin) 600 MG tablet Take 400 mg by mouth 3 (three) times a day. 4 Active leflunomide (Arava) 20 MG tablet Take 1 tablet (20 mg) by mouth in the morning. Active cyclobenzaprine (Flexeril) 10 MG tablet Take 1 tablet (10 mg) by mouth 3 (three) times a day. Active nicotine (Nicoderm CQ) 21 MG/24HR patch Place 1 patch on the skin 1 (one) time each day at the same time. Active furosemide (Lasix) 40 MG tablet Take 1 tablet (40 mg) by mouth daily. Active HYDROcodone-caridad taminophen ([place]) 5-325 MG tablet Take 1 tablet (5 mg of hydrocodone) by mouth every 6 hours as needed for severe pain. 10 tablet 5 Active naloxone (Narcan) 4 mg/0.1 mL nasal spray 1. Give 1 spray in nostril for no/slow breathing or cannot wake after opioid use 2. Call 911 3. Repeat in other nostril if symptoms continue 1 each 5 Active Additional Information Patient not taking.Reported on 06/15/2024 calcium carbonate (Tums Ultra) 1000 MG chewable tablet Chew 1 tablet (1,000 mg) every 6 (six) hours. 120 tablet 1 5 Active levothyroxine (Synthroid, Levoxyl) 175 MCG tabletIndicatio ns:S/P total thyroidectomy,M ultinodular goiter Take 1 tablet by mouth every morning. Take with water, on an empty stomach. Wait 30 - 60 minutes before eating or taking other medications. Wait 3 to 4 hours before taking any vitamins or supplements. 90 tablet 1 5 07/14/19 26 Active rizatriptan (Maxalt) 10 MG tablet Take 1 tablet by mouth 1 time as needed for migraine for up to 9 doses. May repeat in 2 hours if unresolved. Do not exceed 30 mg in 24 hours. 9 tablet 3 5 Active Active Problems Problem Noted Date Diagnosed Date S/P total thyroidectomy 06/15/2024 Idiopathic peripheral neuropathy 02/28/2024 Acute perforated appendicitis 02/16/2024 Bradycardia 02/16/2024 Daytime somnolence 02/16/2024 Dependent edema 02/16/2024 Dyspnea 02/16/2024 Ganglion cyst of volar aspect of right wrist 01/2024 Hand pain 02/16/2024 Knee pain 02/16/2024 Lower abdominal pain 02/16/2024 Obesity (BMI 30.0-34.9) 02/16/2024 HLD (hyperlipidemia) 02/16/2024 Restless sleeper 02/16/2024 Right wrist pain 02/16/2024 Rheumatoid arthritis 02/16/2024 Pharyngitis 02/16/2024 Sinusitis 02/16/2024 Snoring 02/16/2024 Status post appendectomy 02/16/2024 Umbilical hernia 02/16/2024 Vulval edema 02/16/2024 Osteoarthritis of both hands 11/10/2023 Chronic pain 09/10/2023 Low back pain 05/17/2023 Overweight 09/18/2022 Lumbar post-laminectomy syndrome 08/13/2022 Lumbar spondylosis 08/11/2022 Abnormal results of thyroid function studies 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 06/02/2013 Resolved Problems Problem Noted Date Diagnosed Date Resolved Date Multinodular goiter 02/17/2024 05/21/19 Encounters Date Type Department Care Team Description 09/06/2024 10:00 AM EDT Consult [place] [facility] [address] [place] [address] Luanne Mcgrath, PA Myofascial neck pain (Primary Dx); Bilateral occipital neuralgia; Migraine without aura and without status migrainosus, not intractable 09/06/2024 Travel 08/30/2024 Travel 07/13/2024 Orders Only [facility] [address], [address] [place] [address] Halie Granados, KOFI S/P total thyroidectomy; Multinodular goiter from Last 3 Months Immunizations Immunization Administration Dates Next Due Hep A, Adult 02/02/2018,07/20/2017 Influenza, Recombinant, inje ctable, preservative free 01/18/2024 Influenza, injectable, quadrivalent 12/19/2019,1 03/11/2018,02/02/2018 Influenza, injectable, quadr ivalent, preservative free 11/23/2022,12/28/2021,12/19/2019,2017,12/20/2016 Influenza, seasonal, intrade rmal, preservative free 04/14/2021 PPD Skin Test (TB Skin Test) 05/21/2007 Tdap 04/14/2021 Zoster, Recombinant 04/14/2021 Family History Medical History Relation Name Comments Asthma Daughter Arthritis Father Esophageal cancer Father Hearing loss Father Arthritis Mother Colon cancer Mother Heart disease Mother Hypertension Mother Ovarian cancer Mother Anesthesia problems Neg Hx Malig Hyperthermia Neg Hx Relation Name Status Comments Daughter Father Mother Social History Tobacco Use Types Packs/Day Years Used Date Smoking Tobacco: Every Day Cigarettes Smokeless Tobacco: Never Tobacco Cessation:Ready to Q uit: No; Counseling Given: Not Answered Comments:Currently occasionally smokes. Wearing nicotine patches. Alcohol Use Standard [...] week 06/15/2024 How often do you attend [facility] or taoist services? Never 06/15/2024 Do you belong to any clubs o r organizations such as confucianist groups, unions, fraternal or athletic groups, or [...] Recorded Patient Health Questionnaire-2 Score 0 11/02/2023 [facility] - Occupational Stress Questionnaire Answer Date Recorded [...] any time in the past 12 m [facility], were you homeless or living in a mcfp (including now)? No 06/15/2024 Utilities Answer Date Recorded In the past 12 months has th e electric, gas, oil, or water company threatened to shut off services in your home? No 06/15/2024 Comments No Sex and Gender Information Value Date Recorded Sex Assigned at Not on file Legal Sex Female 7:57 PM EDT Gender Identity Not on file Sexual Orientation Not on file Last Filed Vital Signs Vital Sign Reading Time Taken Comments Blood Pressure 110/78 09/06/2024 10:06 AM EDT Pulse 74 09/06/2024 10:06 AM EDT Temperature 36.7 C (98.1 F) 06/15/2024 11:16 AM EDT Respiratory Rate 16 05/20/2024 2:36 AM EDT Oxygen Saturation 96% 09/06/2024 10:06 AM EDT Inhaled Oxygen Concentration - - Weight 109 kg (240 lb) 09/06/2024 10:06 AM EDT Height 170.2 cm (5' 7 ) 09/06/2024 10:06 AM EDT Body Mass Index 37.59 09/06/2024 10:06 AM EDT Plan of Treatment Upcoming Encounters Date Type Department Care Team (Late st Contact Info) Description 12/08/2024 10:40 AM EDT Office Visit [place] [facility] [address] [place] [address] Luanne Mcgrath, PA [address] [place] [address] Health Maintenance Due Date Last Done Comments [facility]-HIV Screening 1965 [facility]-Hepatitis C Screening 1965 [facility]-Infant/Child/Adol SDOH Screenings 1965 [facility]-Hepatitis B Vaccines (1 of 3 - 19+ 3-dose series) 08/05/1986 [facility]-Pneumococcal Vaccine: 50+ Years (1 of 2 - PCV) 08/05/1986 CT Colonography 08/05/2012 Colonoscopy 08/05/2012 FIT-DNA 08/05/2012 FIT 08/05/2012 FOBT 08/05/2012 Sigmoidoscopy 08/05/2012 [facility]-Colorectal Cancer Screening 08/05/2012 [facility]-Breast Cancer Screening 08/05/2017 [id number] Vaccine (2 - Elva risk series) 07/10/2020 06/12/2020 [facility]-Zoster Vaccines (2 of 2) 06/09/2021 04/14/2021 [facility]-Depression Screening 11/01/2024 11/02/2023 [facility]-Influenza Vaccine (#1) 11/06/202401/17, 11/23/2022, 12/28/2021, Additional history exists [facility]- SDOH Screenings 12/15/2024 [facility]-Adult SDOH Screenings 12/15/2024 06/15/2024 [facility]-DTaP,Tdap,and Td Vaccines (2 - Td or Tdap) 04/14/2031 04/14/2021 [facility]-Cervical Cancer Screening Discontinued [facility]-HPV/Cotest Discontinued 07/06/2013 [facility]-Pap Smear Discontinued 07/06/2013 [facility]-Hepatitis A Vaccines Aged Out 02/02/2018, 07/06 No longer eligible based on patient's age to complete this topic [facility]-Obesity Intervention Completed 025, 06/15/2024, 02/17/2024, Additional history exists HPV Vaccines Aged Out No longer eligi ble based on patient's age to complete this topic [facility]-HIB Vaccines Aged Out No longer e ligible based on patient's age to complete this topic [facility]-IPV Vaccines Aged Out No longer e ligible based on patient's age to complete this topic [facility]-Rotavirus Vaccines Aged Out No lo nger eligible based on patient's age to complete this topic Medical Devices Implanted Type Area Control Room Tender Device Identifier Shelf Expiration Date Model / Serial / Lot Warren Warren Left: Femur Screw Screw Neck Procedures Procedure Name Priority Date/Time Associated Diagnosis Comments CYTO DATA CONVERSION Routine 07/06/2013 12:00 AM EDT from Last 3 Months or Most Recently Relevant to Health Maintenance Results * Cytology (07/06/2013 12:00 AM EDT) Thyroid fine needle aspirate specimen (specimen) 07/06/2013 07/07/2013 1:29 PM EDT Narrative [facility]QUEST - 07/17/2013 6:50 AM EDT [facility] MR #: [id number] [facility] [place] [address] 1965 (Age: 47) FW Collect Date: 07/06/2013 00:00 Receipt Date: 07/07/2013 13:29 Page 1 DEPARTMENT OF PATHOLOGY AND LABORATORY MEDICINE CYTOPATHOLOGY REPORT Email: [email or web address] [phone] * Amended * ATTENDING MD/Practitioner: Sandro Byrd MD. Service: END Location: [facility] OTHER MD(S): Enid Schumacher MD Reported: 07/17/2013 06:50 Collected: 07/06/2013 00:00 DIAGNOSIS ULTRASOUND GUIDED FNA, LEFT THYROID: COLLOID, MACROPHAGES, AND BLAND FOLLICULAR GROUPS, FINDINGS MOST CONSISTENT WITH COLLOID NODULE /GOITER. Electronically Signed Out Bernard Cantu M.D. AMENDMENTS Amended: 07/13/2013 by IRVIN Montano ([facility]) Reason: Date of service error made during accessioning Case amended to correct dos from 07/07 to 07/06/2013. Previous Signout Date: 07/11/2013 Amended: 07/17/2013 by IRVIN Montano ([facility]) Reason: order entry clerk error. Case amended in error, no changes. Previous Signout Date: {missing} PROCEDURES/ADDENDA GROSS DESCRIPTION: Hold needle rinse fluid. CLINICAL INFORMATION: CLINICAL DIAGNOSIS USG FNA of left thyroid nodule. 2.7 cm, hypoechoic. Previously found to have atypia of undetermined significance FNA at an outside institution. FNA performed by: Drs. Byrd/Winsome Number of sticks: not provided This service has been rendered in part by a resident. A pathologist has personally reviewed the slides/tissue and has rendered and is responsible for the diagnosis that appears on the report. SPECIMEN DESCRIPTION: A: FNA LEFT THYROID, ULTRASOUND GUIDED PAP STAIN x 6, DIFF-QUIK x 6 ICD: 240.9 GOITER NOS F: A; 32408 ASP INTER SNOMED CODES: A; U46527 Z16706 P1149 [id number] A resident has participated in this service. A pathologist has performed and is responsible for the reported pathologic evaluation. Sarah Byrd MD LAB PATHOLOGY ORDERABLES Final R esult SUNQUEST from Last 3 Months or Most Recently Relevant to Health Maintenance Insurance [employer]THEM Advance Directives * Full Code (Latest Code Status on File) Date Activated Date Inactivated Comments 05/19/2024 12:54 PM 05/20/2024 1:40 PM Care Teams Allergist/Md Relationship Specialty Start Date End Date Immanuel Mcwilliams MD [address] [facility] [address] [place] [id number] PCP - General 07/19/20 Luanne Mcgrath PA [address] [place] [address] Physician Skein Washer Neurology 09/06/24
--- OUTSIDE RECORDS SUMMARY | 2024-09-27 09:27 | XMS_ITS | Clinical Summary ---
Author Organization [employer] ([place], [place], [place], [place]) Address [address] [place] [address] Care Team Providers Care Donkey Ride Operator Name Role Phone Unavailable Primary Care Provider Unavailabl e Allergies No known active allergies Medications aspirin 81 MG EC tablet Take 81 mg by mouth daily. Active hydrOXYzine (ATARAX) 25 MG tablet Take 25 mg by mouth 3 (three) times daily as needed for Itching. Active furosemide (LASIX) 40 MG tablet Take 40 mg by mouth as needed. Active pantoprazole (PROTONIX) 40 MG tablet Take 40 mg by mouth daily. Active traMADoL (ULTRAM) 50 mg tablet Take 50 mg by mouth every 6 (six) hours as needed for Pain. Active traZODone (DESYREL) 50 MG tablet Take 50 mg by mouth nightly. Active Family History Medical History Relation Name Comments Arthritis Father Cancer Father Arthritis Mother Cancer Mother High blood pressure Mother Relation Name Status Comments Father Mother Social History Tobacco Use Types Packs/Day Years Used Date Smoking Tobacco: Every Day Cigarettes 1 20 Smokeless Tobacco: Never Alcohol Use Standard Drinks/Week Comments Never 0 (1 standard drink = 0.6 oz pur e alcohol) Food Insecurity Answer Date Recorded Food run out past 12 months Not on file 03/09 Food did not last past 12 months Not on file 03/27/2023 Employment Answer Date Recorded Help finding and keeping a job Not on file 0 03/27/2023 Family and Community Support Answer Herman e Recorded Help with Day to Day Activities Not on file 03/27/2023 Feeling Lonely or Isolated Not on file 03/27 Educational Attainment Answer Date Andre rded Speak language other than [place] at home Not on file 03/27/2023 Want help with school or training Not on file 03/27/2023 Substance Use Answer Date Recorded Used prescription meds for non-medical reasons N ot on file 03/27/2023 Used illegal drugs past 12 months Not on file 03/27/2023 Comments Unknown Sex and Gender Information Value Date Recorded Sex Assigned at Not on file Legal Sex Female 6:26 PM CDT Gender Identity Not on file Sexual Orientation Not on file Last Filed Vital Signs Vital Sign Reading Time Taken Comments Blood Pressure 135/82 01/12/2022 10:18 AM EST Pulse 69 01/12/2022 10:18 AM EST Temperature 36.5 C (97.7 F) 01/12/2022 10:18 AM EST Respiratory Rate 18 01/12/2022 10:18 AM EST Oxygen Saturation 97% 01/12/2022 10:18 AM EST RA Inhaled Oxygen Concentration - - Weight 108.9 kg (240 lb) 01/12/2022 10:18 AM EST Height 170.2 cm (5' 7 ) 01/12/2022 10:18 AM EST Body Mass Index 37.59 01/12/2022 10:18 AM EST Plan of Treatment Health Maintenance Due Date Last Done Comments CT Colonography 1965 Colonoscopy 1967 Colorectal Cancer Screening 1965 FOBT/FIT 1967 Fit-DNA (Cologuard) 1965 Sigmoidoscopy 1967 Depression Screening (12+) 1979 HIV Screening 08/05/1982 Hepatitis C Screening 08/05/1985 Pneumococcal 50+ years (1 of 2 - PCV) 08/05/1986 Pap Smear 08/05/1988 Breast Cancer Screening 2007 Lipid Panel 08/05/2012 Shingles Vaccine (Zoster) (2 of 2) 06/09/20212021 Tobacco Cessation Counseling and Screening (12+) 01/1201/12/2022 COVID-19 VACCINE (2 - season) 11/07/202309/2020 Influenza Vaccine (#1) 2024 DTAP/TDAP/TD VACCINES (2 - Td or Tdap) 04/14/2031 Insurance [facility]
--- OUTSIDE RECORDS SUMMARY | 2024-09-27 09:27 | XMS_ITS | Encounter Summary ---
Author Organization [employer] ([place], [place], [place], [place]) Address [address] [place] [address] Care Team Providers Care Facility Worker Name Role Phone Unavailable Primary Care Provider Unavailabl e Encounter Details Date Type Department Care Team (Late st Contact Info) Description 11/17/2021 Transcribed Document [facility] Family Medicine [address] [place] [address] ProviderXochilt MD [address], [place] [id number] Social History Tobacco Use Types Packs/Day Years Used Date Smoking Tobacco: Never Assessed Food Insecurity Answer Date Recorded Food run [...] Date Andre rded Speak language other than Marshallese at home Not on file 03/27/2023 Want [...] on file documented as of this encounter Functional Status documented as of this encounter Miscellaneous Notes * Cerner Conversion Note - Historical ProviderMD - 11/17/2021 10:00 AM CDT Ambulatory Intake and History Entered On: 11/17/2021 10:07 EDT Performed On: 11/17/2021 10:00 EDT by NAYAN FOWLER RN General Info Ambulatory Accompanied By : Unaccompanied Chief Complaint : low back pain to buttocks Primary Language : Marshallese NAYAN FOWLER RN - 11/17/2021 10:00 EDT Height and Weight, Clinical Dosing Height Source : Stated Height Entry Format : [place] Height, Feet : 5 ft(Converted to: 152 cm, 60 Inch) Height, Inches : 7 Inch(Converted to: 0 ft 7 Inch, 17.78 cm) Clinical Height : 170.18 cm Weight Source : Standing scale Weight Entry Format : [place] Clinical Dosing Weight : 109.09 kg Weight, Pounds : 240 lb Body Surface Area (BSA) : 2.19 m2 Body Mass Index : 37.7 kg/m2 (HI) [place] Body Weight : 61 kg NAYAN FOWLER RN - 11/17/2021 10:00 EDT Vital Measurements Temperature Source : Temporal artery scanning Temperature Mode : Fahrenheit Temperature, Fahrenheit : 97.7 Deg F Clinical Temperature, C : 36.5 Deg C Peripheral Pulse Rate : 54 bpm (LOW) Respiratory Rate : 18 Breaths/Min Blood Pressure Location : Arm, right upper Blood Pressure Source : Non-Invasive BP Device Blood Pressure Position : Sitting Systolic Blood Pressure : 120 mmHg Diastolic Blood Pressure : 80 mmHg Oxygen Saturation : 98 % Oxygen Therapy Mode : Room air NAYAN FOWLER RN - 11/17/2021 10:00 EDT Pain Assessment Duration : 3 years Pain Scale Used : 0-10 Scale Location : Back, lower Onset : Chronic Quality : Aching, Sharp, Spasms, Stabbing, Tender Pain Radiation : Yes Pain Radiation Location : Other: buttocks area Pain Worsened by : Movement Pain Improved by : Cold therapy, Heat therapy, Relaxation, Repositioning Pain Improved by Intervention : No NAYAN FOWLER RN - 11/17/2021 10:00 EDT Patient Health Questionnaire Depression Scale-9 (PHQ-9) Trouble Falling/Staying Asleep/Sleeping : Nearly every day Little Interest or Pleasure Doing Things : Not at all Feeling Down, Depressed, Hopeless : Not at all Feeling Tired or Little Energy : Several days Poor Appetite or Overeating : Not at all Feel Bad About Self/That You are Failure : Not at all Trouble Concentrating on Things : Not at all Moving/Speaking Slowly, Fidgety/Restless : Not at all Thoughts of Better Off /Hurting Self : Not at all PHQ-9 Score : 4 PHQ-9 Score Interpretation : Minimal depression (0-4) NAYAN FOWLER RN - 11/17/2021 10:00 EDT Functional Assessment Living Situation : Home NAYAN FOWLER RN - 11/17/2021 10:00 EDT Fall Risk Scales ABCs Fall Injury Risk Identification : None [place] Hx Falls Immediate/Within 3 Months : No [place] Secondary Diagnosis : No [place] Use of Ambulatory Aid : None [place] IV Therapy or IV Access : No [place] Gait/Transferring : Normal, bedrest, immobile [place] Mental Status : Oriented to own ability [place] Fall Risk Score : 0 [place] Fall Scale Risk Level : 0-24 Low Risk [place] Fall Interventions : Adequate lighting, Fall prevention handout/education per facility policy, Personal items within reach, Room free of clutter/spills NAYAN FOWLER RN - 11/17/2021 10:00 EDT Sleep Apnea Risk Assmt Hx of Obstructive Sleep Apnea Diagnosis : No Snore Loudly : No Tired, Fatigued, or Sleepy During Day : No Observed Stopping Breathing During Sleep : No Have/Are Being Treated for Hypertension : No BMI Greater Than 35 kg/m2 : No Age over 50 Years Old : Yes Neck Circumference Greater Than 40 cm : No Gender Male : No STOP-BANG Sleep Apnea Risk Level Score : 1 NAYAN FOWLER RN - 11/17/2021 10:00 EDT Pain Scale Intensity : 4 NAYAN FOWLER RN - 11/17/2021 10:00 EDT Image 4 - Images currently included in the form version of this document have not been included in the text rendition version of the form. documented in this encounter Plan of Treatment Not on file documented as of this encounter Visit Diagnoses Not on filedocumented in this encounter
--- OUTSIDE RECORDS SUMMARY | 2024-09-27 09:27 | XMS_ITS | Encounter Summary ---
Author Organization [employer] ([place], [place], [place], [place]) Address [address] [place] [address] Care Team Providers Care Optical Advisor Name Role Phone Unavailable Primary Care Provider Unavailabl e Encounter Details Date Type Department Care Team (Late st Contact Info) Description 11/17/2021 Transcribed Document [facility] Family Medicine [address] [place] [address] ProviderXochilt MD [address], [place] [id number] Social History Tobacco Use Types Packs/Day Years [...] Date Andre rded Speak language other than Greek at home Not on file 03/27/2023 Want [...] Conversion Note - Historical ProviderMD - 11/17/2021 10:39 AM CDT Patient Education Materials Follows: [facility] DISCHARGE INSTRUCTIONS FOR MEDIAL BRANCH BLOCK AFTER THE MEDIAL BRANCH BLOCK: Do not drive for the rest of the day after the procedure. You must have a responsible adult present to drive you home; otherwise the Procedure will be cancelled. Do not operate any kind of machinery the rest of the day, or engage in any strenuous activity for the rest of the day unless told otherwise. Do not take a tub bath, swim, or soak in water (pool, hot tub, etc) the remainder of the day. DO resume your regular diet and medications unless told otherwise. DO use ice on the injected area for the first 24 hours You may remove your dressing/ band aids tonight. Remember this is a diagnostic block to help diagnose the origin of your pain. This is not treatment for your pain and your pain will return. You may experience: Muscle weakness or numbness from the local anesthetic. (Usually a few hours, But could remain longer.) Some discomfort when the local anesthetic wears off. Use ice to the injection site for the first 24 hours for discomfort. After 24 hours you may use ice or heat. . .. Notify pain management if: You have any drainage, swelling or redness from the injection site. You have a fever above 100 [facility] is open Wednesday- from 8:00-4:30pm and Wednesday 8:00-3:00pm. Call during clinic hours for questions or concerns. [facility] Cervical/Thoracic/ Lumbar Medial Branch Block What is a Medial Branch Block? A Medial Branch Block is an injection of local anesthetic around the nerves that supply the facet joints (the small joints that attach your vertebrae). This is a diagnostic test to see if your pain decreases with the administration of the local anesthetic. This block may be performed for neck pain, upper and lower back pain. Why is Medial Branch Block performed? A medial branch block is performed to help diagnose the origin of your pain. If you obtain significant pain relief with two of these blocks, a longer lasting treatment can be offered. Your pain relief may last for the duration of the local anesthetic (average 2-5 hours). In some cases, patients may experience pain relief that may last a little longer. Important information: ?? DO NOT EAT for 6 hours and NOTHING TO DRINK for 2 hours before the procedure. ?? Bring a driver examiner. If you do not have a driver examiner, the procedure will be cancelled. Your driver examiner must also remain in our lobby until you are discharged. ?? If you are or think there is a possibility, please inform the staff. ?? If you are taking antibiotics, have the flu, and or have a temperature above 101, please call our office before your appointment. ?? If taking any blood thinners, please inform the physician and or staff as these medications may need to be stopped prior to the procedure. In some cases, lab work may also need to be ordered. How long does the procedure take? Usually less than 10 minutes. How is the injection performed? You will be taken to the procedure room and positioned on an x-ray table on your stomach. Your vital signs will be monitored throughout the procedure. The area to be injected will be cleaned off with an antiseptic solution. The doctor will initially numb the area with local anesthetic and then inject more local anesthetics around the branches of nerves. What should be expected after the injection? You will be taken to the recovery area and monitored by the nursing staff. Recovery time may last between 15-20 minutes. After the injection, you may notice that your pain is gone or considerably less. The area injected may also be sore for a day or two. An ice pack will help with this discomfort. documented in this encounter Plan of Treatment Not on file documented as of this encounter Visit Diagnoses Not on filedocumented in this encounter
--- OUTSIDE RECORDS SUMMARY | 2024-09-27 09:27 | XMS_ITS | Encounter Summary ---
Author Organization Healthcare Address [address] [place] [address] Care Team Providers Care Hvac Service Manager Name Role Phone Immanuel Mcwilliams MD Primary Care Provider [phone] Luanne Mcgrath Unavailable [phone] Encounter Details Date Type Department Care Team (Latest Contact Info) Description 09/06/2024 Travel Social History Tobacco Use Types Packs/Day Years [...] often do you attend chur ch or rastafarian services? Never 06/15/2024 Do you belong to any clubs o r organizations such as mormon groups, unions, fraternal or athletic groups, or [...] Recorded Patient Health Questionnaire-2 Score 0 11/02/2023 [facility] - Occup[facility] Stress [...] time in the past 12 m [facility], were you homeless or living in a half-way (including now)? No 06/15/2024 Utilities Answer Date [...] on file documented as of this encounter Plan of Treatment Upcoming Encounters Date Type Department Care Team (Late st Contact Info) Description 12/08/2024 10:40 AM EDT Office Visit [place] [facility] [address] [place] [address] Luanne Mcgrath PA [address] [facility] [address] [place] [address] documented as of this encounter Visit Diagnoses Not on filedocumented in this encounter Additional Health Concerns Assessment Noted Time A fall risk assessment has been complete d for the patient 09/06/2024 10:05 AM EDT A Body Mass Index follow-up plan has been documented for the patient 09/08/2024 4:59 PM EDT documented as of this encounter Care Teams Hvac Service Manager Relationship Specialty Start Date End Date Immanuel Mcwilliams MD [address] [place] [address] PCP - General 07/19/20 Luanne Mcgrath PA [address] [facility] [address] [place] [address] Physician Sewing Machine Tester Neurology 09/06/24 documented as of this encounter
--- OUTSIDE RECORDS SUMMARY | 2024-09-27 09:27 | XMS_ITS | Data Portability ---
Author Organization [facility]ST[facility] [place] [facility] Address [address] [facility] [address] [address] [place] [address] Care Team Providers Care Guest Service Team Leader Name Role Phone NAYAN PLAZA Primary Care Provider RAÚL FOSTER Orthopedist Assessment No assessment recorded. Plan of Treatment Reminders Order Date Submit Date Provider Last Modified By Organization Details Last Modified Time Details Appointments None recorded. Lab sjogren antibody panel, serum 2019 [facility], [address] [place] [address], [id number], 0 17:04:55 ccp (cyclic citrullinat ed peptide) iga+igg, serum 2019 020 [facility], [address] [place] [address], [id number], 0 03:54:04 ESR (erythrocyt e sedimentati on rate), blood 2019 020 [facility], [address] [place] [address], [id number], 0 14:17:30 Referral None recorded. Procedures None recorded. Surgeries None recorded. Imaging None recorded. Medication Orders None recorded. Patient TargetsNo targets recorded. Patient Instructions Encounter Date Encounter Id Patient Instructions Last Modified By Organization Details Last Modified Time 06/27/2019 [id number] osteoarthritis: care instructions [email or web address] Not available 06/27/2019 09:36:48 Reason for Referral None Reported. Results Created Date Observation Date Name Description Value Unit Range Abnormal Flag Note LastModifiedBy Organization Detail LastModifiedTime 06/27/19 20 06/27/2019 ESR (eryt hrocy te sedim entat ion rate) , blood ESR, automated 29 mm/HR 0-29 normal Not Available [facility] [address] [place] [address], [phone], 06/27/2019 14:17:30 06/27/19 20 06/28/2019 sjogr en antib christiano panel , serum ss-A Ab <1.0 NEG ai <1.0 neg normal Not Available [facility] [address] [place] [address], [phone], 06/28/2019 17:04:55 06/27/19 20 06/28/2019 sjogr en antib christiano panel , serum ss-B Ab <1.0 NEG ai <1.0 neg normal TEST PERFO RMED AT: [facility] [address] [facility], [place] [id number] FRAN Treviño MD Not Available [facility] [address] [place] [address], [phone], 06/28/2019 17:04:55 06/27/19 20 06/29/2019 ccp (cycl ic citru llina rudolph pepti de) iga+i gg, serum anti-ccp <16 units normal Refer ence Range Negat isabelle: <20 Weak Posit isabelle: 20-39 Moder ate Posit isabelle: 40-59 Stron g Posit isabelle: >59 TEST PERFO RMED AT: [facility] [address] [facility], [place] [id number] FRAN Treviño MD Not Available [facility] [address] [place] [address], [phone], 06/29/2019 03:54:04 06/26/19 20 05/27/2018 MRI, shoul gisel, w/o contr ast No observ ation record ed. [email or web address] [address], [place], [address], 06/26/2019 10:32:15 Result Notes None recorded. Medical Equipment None Reported. [...] 16 /min LUIS F CHAVEZ MD [address] [place], [address], [facility] 06/27/2019 09:35:33 Social History None recorded. Functional Status None recorded. Mental Status None recorded. Family History Nothing Reported. Medical History No medical history recorded. Gynecological HistoryNo gynecological history recorded. Obstetrics History GPAL:G 0 P 0 0 0 0 Past Encounters Encounter ID Performer Location Encounter Start Date Encounter Closed Date Diagnosis/Indication Diagnosis SNOMED-CT Code Diagnosis ICD10 Code Diagnosis Note [id number] LUIS F POLO CHAVEZ MD RHEUMATOL OGY [address] [place] [address] 06/27/2019 08:02:49 06/27/2019 14:48:26 Anti-nuclear factor detected [id number] R76.8 53-year-ol d female with positive ABIMAEL screen, significan ce doubtful. Certainly she does not have any clinical stigmata for systemic lupus. I would like to obtain an anti-SSA and anti-SSB antibodies to complete investigat ions and to screen her for Sjogren's. Rheumatoid factor detected [id number] R76.0 she has a positive rheumatoid factor [...] the anti-CCP antibody results. Generalize d osteoarthritis [id number] M15.9 she has diffuse degenerati ve joint [...] Recorded Advance Directives Directive None Recorded Payers Insurance Date Sequence Insurance Name Policy Number Policy Bauman Covered Member ID Bauman Member ID Guarantor Name 11/03/2023 1 [place] [id number] Chandler Doty [id number] Rosina Doty Notes Date Note Type Note Provider Name and Address Organization Details Recorded Time 06/27/2019 text/html The patient has requested and consented to a tele-jamilah appointment today. Due to the current state of emergency it is appropriate to address patient s medical need via a telehealth appointment. [...] 2000 units daily. LUIS F CHAVEZ MD [address] [place] [address], [phone], [facility] 06/27/2019 09:50:53 OBGyn Episode No OBEpisode recorded.
--- OUTSIDE RECORDS SUMMARY | 2024-09-27 09:27 | XMS_ITS | Encounter Summary ---
Author Organization Healthcare Address [address] [place] [address] Care Team Providers Care Auto Body Repair Estimator Name Role Phone Immanuel Mcwilliams MD Primary Care Provider [phone] Encounter Details Date Type Department Care Team (Latest Contact Info) Description 08/30/2024 Travel Social History Tobacco Use Types Packs/Day [...] week 06/15/2024 How often do you attend [facility] or confucianism services? Never 06/15/2024 Do you belong to any clubs o r organizations such as bahai groups, unions, fraternal or athletic groups, or [...] Recorded Patient Health Questionnaire-2 Score 0 11/02/2023 [facility] - Occupational [...] any time in the past 12 m [facility], were you homeless or living in a alf (including now)? No 06/15/2024 Utilities Answer Date [...] Description 12/08/2024 10:40 AM EDT Office Visit [place] [facility] [address] [place] [address] Luanne Mcgrath, PA [address] [place] [address] documented as of this encounter Visit Diagnoses Not on filedocumented in this encounter Additional Health Concerns Assessment Noted Time A fall risk assessment has been complete d for the patient 11/02/2023 10:02 AM EDT A Body Mass Index follow-up plan has been documented for the patient 06/15/2024 11:41 AM EDT documented as of this encounter Care Teams Auto Body Repair Estimator Relationship Specialty Start Date End Date Immanuel Mcwilliams MD [address] [place] [address] PCP - General 07/19/20 documented as of this encounter
--- OUTSIDE RECORDS SUMMARY | 2024-09-27 09:27 | XMS_ITS | Encounter Summary ---
Author Organization Healthcare Address [address] [place] [address] Care Team Providers Care Marketing Summer Intern Name Role Phone Immanuel Mcwilliams MD Primary Care Provider [phone] Luanne Mcgrath PA Unavailable [phone] Encounter Details Date Type Department Care Team (Late Contact Info) Description 12/01/2023 [facility] [address] [place] [address] Pamlea Brambila PA [address] [place] [address] Social History Tobacco Use Types Packs/Day Years Used Date Smoking Tobacco: Every Day Cigarettes Alcohol Use Standard Drinks/Week Comments No 0 (1 standard drink = 0.6 oz pur e alcohol) PHQ-2 Answer Date Recorded Patient Health Questionnaire-2 Score 0 11/02/2023 Comments No Sex and Gender Information Value Date Recorded Sex Assigned at Not on file Legal Sex Female 7:57 PM EDT Gender Identity Not on file Sexual Orientation Not on file documented as of this encounter Plan of Treatment Upcoming Encounters Date Type Department Care Team (Late Contact Info) Description 12/08/2024 10:40 AM EDT Office Visit [place] [facility] [address] [place] [address] Luanne Mcgrath PA [address] [place] [address] documented as of this encounter Visit Diagnoses Not on filedocumented in this encounter Additional Health Concerns Assessment Noted Time A fall risk assessment has been complete d for the patient 11/02/2023 10:02 AM EDT A Body Mass Index follow-up plan has been documented for the patient 11/02/2023 10:35 AM EDT documented as of this encounter Care Teams Marketing Summer Intern Relationship Specialty Start Date End Date Immanuel Mcwilliams MD [address] [place] [address] PCP - General 07/19/20 Luanne Mcgrath, FOZIA [address] [place] [address] Physician Watershed Manager Neurology 09/06/24 documented as of this encounter
--- OUTSIDE RECORDS SUMMARY | 2024-09-27 09:27 | XMS_ITS | Encounter Summary ---
Author Organization [employer] ([place], [place], [place], [place]) Address [address] [place] [address] Care Team Providers Care Wheel Grinder Name Role Phone Unavailable Primary Care Provider Unavailabl e Encounter Details Date Type Department Care Team (Late st Contact Info) Description 11/17/2021 Transcribed Document [facility] [place] [address] [place] [address] ProviderXochilt MD [address], [place] [id number] Social History Tobacco Use Types Packs/Day Years Used Date Smoking Tobacco: Never Assessed Food Insecurity Answer Date Recorded Food run out past 12 months Not on file 03/09 Food did not last past 12 months Not on file 03/27/2023 Employment Answer Date Recorded Help finding and keeping a job Not on file 0 03/27/2023 Family and Community Support Answer Heramn e Recorded Help with Day to Day Activities Not on file 03/27/2023 Feeling Lonely or Isolated Not on file 03/27 Educational Attainment Answer Date Andre rded Speak language other than [place]une[place] at home Not on file 03/27/2023 Want [...] Conversion Note - Historical ProviderMD - 11/17/2021 10:31 AM CDT Patient: ROSINA GIL Age: 56 Years Sex: Female : 1965 Chief Complaint low back pain to buttocks Primary Care Provider MARY PLAZA MD History of Present Illness 56-year-old female referred by [place] [facility] for evaluation treatment of chronic back pain and knee pain. Patient reports many years of back and knee pain. She had lumbar spinal fusion done approximately 2 years ago. She is had a lot of improvement specially with her radicular symptoms but still struggles with her back pain. She reports its been very difficult for her to do physical therapy, they want her to ride on a bike which is hard on her knees. She says she needs a knee replacement on the right as well. She has never really gotten much relief from muscle relaxers. Anti-inflammatories helped some. She has a tramadol that she uses as needed if pain is severe but also does not use regularly. She is looking for treatment options that do not involve medications and would like to have an interventional type approach to her pain. She also reports increased difficulty working due to her pain, she needs pain relief to help her be more active at her job. PHQ 4. ORT 0. She complains today of 5/10 pain. Pain is in the middle of her low back, it radiates out into the sides of her back and into her buttock. Her pain there is constant. She reports that it does not increased substantially with standing and walking but does improve follow-up with laying down, not necessarily with sitting. She denies any associated numbness or tingling or weakness in the legs. She describes her back pain as stabbing, spasming, aching, tender, sharp. 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 She also reports increased pain with driving. She has pain in both of her knees, the right knee is worse than the left. She has had injections there without benefit. She needs a knee replacement but she is hesitant to have it done. Review of Systems 14 system review performed today. Pertinent positives and negatives in HPI. Patient endorses anxiety Vital Signs T: 36.5 ??C HR: 54(Peripheral) RR: 18 BP: 120/80 SpO2: 98% HT: 170.18 cm WT: 109.09 kg BMI: 37.7 Oxygen Settings (Last) Oxygen Therapy Mode: Room air (11/17/21 10:00:00) Physical Exam Spine, lumbosacral: Well-healed bilateral scars from fusion, tenderness over the bilateral PSIS, range of motion: Flexion: Limited at 80 but not necessarily painful, return to neutral was slightly difficult, Extension: Limited and painful at 10, rotation: Limited and painful bilaterally, lateral bending: Limited and painful bilaterally, straight leg raise negative bilaterally, facet loading positive bilaterally, [place] positive bilaterally Right knee: Swelling is present, mild diffuse tenderness, range of motion intact but painful, crepitus was present but no laxity Left knee: No swelling, normal appearance, no focal tenderness, range of motion intact but painful, no crepitus or laxity Bilateral hips: Normal appearance, left GTB tenderness, range of motion limited and painful due to back pain Neurologic: Gait antalgic, cranial nerves II through XII grossly intact Strength: 5/5 iliopsoas, hamstrings, quadriceps, gastrocnemius, tibialis anterior, EHL Deep Tendon Reflexes: symetrical at the bilateral patella and Achilles Sensation: intact to light touch L1-S1 General: No acute distress, well-developed, well-nourished, appears stated age HEENT: Atraumatic, extraocular movements intact, moist mucous membranes Neck: Supple, trachea midline, no palpable lymph nodes Cardiovascular: Regular rate and rhythm, no murmurs rubs or gallops Pulmonary: Nonlabored breathing, no wheezes, rales or rhonchi Abdomen: Normoactive bowel sounds, soft, nondistended, nontender Psychiatric: Alert and oriented x3, mood and affect appropriate, judgment and insight appropriate, no signs of oversedation or intoxication Assessment/Plan Failed back surgical syndrome Lumbar spondylosis Bilateral SI joint pain Bilateral knee pain Chronic pain Obesity Pleasant 56-year-old female with L2-L5 fusion 2 years ago. Struggling more with low back pain, radiating into the buttocks. Conservative medications have not been helpful, she does not want to be on more medicines. Pain is consistent with lumbar spondylosis and also SI joint pain. We have ordered and reviewed x-rays. No focal deficits on exam. Treatment plan as below: Interventions: Lumbar medial branch blocks bilaterally level L5/S1, patient has positive facet loading and is failed other conservative treatments. The intention is to perform the radiofrequency ablation should these diagnostic injections be helpful. If these diagnostic injections are not beneficial I would proceed with bilateral SI joint injections. Rehabilitation: Currently very limited, have encouraged home exercises Behavioral: Reports a low risk score. Drug screen was taken today as per the new patient evaluation and will be sent for confirmation. Medications: Tony report was reviewed and appropriate. No medications prescribed today. Follow-up in 2 months. VTE Prophylaxis - Medical No VTE Prophylaxis Orders. Problem List/Past Medical History Ongoing Anxiety Arthritis Chronic low back pain Depression Historical No qualifying data Procedure/Surgical History back surgery, cholecystectomy, hernia repair, hysterectomy, right shoulder. Home Medications (6) Active aspirin 81 mg oral delayed release tablet 81 mg = 1 Tab, Oral, Daily hydrOXYzine pamoate 25 mg oral capsule 25 mg = 1 Cap, PRN, Oral, QID Lasix 40 mg oral tablet 40 mg = 1 Tab, Oral, Daily Protonix 40 mg oral delayed release tablet 40 mg = 1 Tab, Oral, Daily traMADol 50 mg oral tablet 50 mg = 1 Tab, Oral, Q6H traZODone 50 mg oral tablet 50 mg = 1 Tab, Oral, At Bedtime Allergies No Known Medication Allergies Social History Alcohol Alcohol Use History No. Employment/School Employed, Work/School description: [employer]. Tobacco 10 or more cigarettes (1/2 pack or more)/day in last 30 days Smoking Status. Years of Use: 12. Packs/Tins Daily: 1. Additional Documentation Code Status No Code Status Order on Record documented in this encounter Plan of Treatment Not on file documented as of this encounter Visit Diagnoses Not on filedocumented in this encounter
--- OUTSIDE RECORDS SUMMARY | 2024-09-27 09:28 | XMS_ITS | Encounter Summary ---
Author Organization [employer] ([place], [place], [place], [place]) Address [address] [place] [address] Care Team Providers Care Candy Mixer Name Role Phone Unavailable Primary Care Provider Unavailabl e Encounter Details Date Type Department Care Team (Late st Contact Info) Description 11/17/2021 Transcribed Document [facility] [place] Family Medicine [address] [place] [address] ProviderXochlit MD [address], [place] [phone] Social History Tobacco Use Types Packs/Day Years [...] Date Andre rded Speak language other than [place] Islander at home Not on file 03/27/2023 Want [...] Historical ProviderMD - 11/17/2021 10:39 AM CDT Liz [place] [address] [address] ROSINA DOTY :1965 Visit Time:11/17/2021 Your Visit Summary Your Care Team Admitting Physician - ITA REGALADO MD-ANS Attending Physician - ITA REGALADO MD-ANS Primary Care Physician - MARY PLAZA -ADONIS Referring Physician - MARYANN ANGLIN MD These Are Your Goals to have less pain No qualifying data available. Discharge Vitals Temperature 36.5 ??C Respiratory Rate 18 Blood Pressure 120/80 What to do next Follow-Up Appointments Follow Up with ITA REGALADO MD-ANS When Within 2 months Comments We will schedule medial branch blocks once approved by insurance. Where: [address] [facility] [address] [place] [address]- Medications What How Much When Instructions Next Dose aspirin (aspirin 81 mg oral delayed release tablet) 1 Tablet(s) Oral Every Day furosemide (Lasix 40 mg oral tablet) 1 Tablet(s) Oral Every Day hydrOXYzine (hydrOXYzine pamoate 25 mg oral capsule) 1 Capsule(s) Oral Four Times A Day as needed for as needed for anxiety pantoprazole (Protonix 40 mg oral delayed release tablet) 1 Tablet(s) Oral Every Day traMADol (traMADol 50 mg oral tablet) 1 Tablet(s) Oral Every 6 Hours traZODone (traZODone 50 mg oral tablet) 1 Tablet(s) Oral At Bedtime Take your medications faithfully. Do NOT skip medication. Do NOT stop taking medications without the direction of a physician. Carry a list of your medications with you at all times, and take this medication list with you to your first follow up visit. Report any side effects. Avoid herbal remedies unless discussed with your physician. As part of your treatment plan, your physician may have prescribed a limited course of a controlled substance. This medication may be given to help people with moderate or severe pain or for other medical conditions, but there are risks involved with treatment. Common side effects may include nausea, constipation, drowsiness, sweating, itching, dry mouth, and rash. More serious side effects may include cognitive and motor impairment, like problems with thinking, concentrating, alertness, and movement (e.g. slowed reflexes), and driving and operating heavy machinery can be dangerous. It is important for you to talk to your physician if you have these side effects or questions. These controlled substances can produce physical dependence and be habit-forming if taken for an extended period of time, which means that the body has gotten used to them and may experience withdrawal symptoms if they are abruptly stopped. Withdrawal symptoms can include runny nose, sweating, goose bumps, diarrhea, abdominal cramping, rapid heartbeat, difficulty sleeping, and nervousness. Please dispose of unused and medications per your retail pharmacy guidance. Allergies No Known Medication Allergies Immunizations This Visit No Immunizations Found Education Materials [facility] DISCHARGE INSTRUCTIONS FOR MEDIAL BRANCH BLOCK AFTER [...] during clinic hours for questions or concerns. [facility] [place] Cervical/Thoracic/ Lumbar Medial Branch Block What is [...] may last a little longer. Important information: ??? DO NOT EAT for 6 hours and NOTHING TO DRINK for 2 hours before the procedure. ??? Bring a driver education road instructor. If you do not have a driver education road instructor, the procedure will be cancelled. Your driver education road instructor must also remain in our lobby until you are discharged. ??? If you are or think there is a possibility, please inform the staff. ??? If you are taking antibiotics, have the flu, and or have a temperature above 101, please call our office before your appointment. ??? If taking any blood thinners, please inform [...] ice pack will help with this discomfort. Emergency Awareness and Preventative Care STROKE is an EMERGENCY Every Minute Counts Act FAST and Check for these signs: FACE Does the face look uneven? ARM Does one arm drift down? SPEECH Does their speech sound strange? TIME Call 9-1-1 at any sign of stroke Stroke Risk Factors Atrial Fibrillation (irregular heartbeat) Diabetes Family history of stroke Heart Disease Heavy alcohol use High Blood Pressure High Cholesterol Physical inactivity and obesity Smoking Cigarette Smoking The facts are clear, cigarette smoking will shorten your life. Smoking can cause many illnesses along the way. As a healthcare provider, we recommend that you stop smoking. Assistance with quitting is available by contacting 1-203-DWLPNOW. This is a free resource providing counseling, support, and referral. Or you may contact your personal physician. [employer] Suicide Prevention Lifeline: The National Suicide Prevention Lifeline is a national network of local crisis centers that provides free and confidential emotional support to people in suicidal crisis or emotional distress 24 hours a day, 7 days a week. Don't Wait! Stop a Heart Attack Before it Starts What is a heart attack? A heart attack is damage or to a part of the heart from severely decreased or lack of blood flow to the heart. Over time, arteries can become narrow from the buildup of fat and cholesterol, which is called plaque. The plaque can rupture causing a blood clot to form. When the blood clot forms, the artery can become severely narrowed or completely blocked, causing a heart attack. Heart attack is the leading cause of in the [place]. 85% of muscle damage occurs within the first 2 hours. Delay in the recognition of heart attack symptoms increases the chances of . Know the early symptoms of a heart attack: Nausea Feeling of fullness in chest Jaw Pain Pain that travels down one or both arms Fatigue/being tired Anxiety Back Pain Chest pressure, squeezing, or discomfort Shortness of breath Sweating, or a cold sweat Feeling of impending doom There are unusual signs of a heart attack, too! Women, the elderly, and diabetics may present with atypical symptoms: Fainting/dizziness Weakness Confusion Risk Factors for a Heart Attack Some heart disease risk factors, such as age and family history, cannot be changed. Others, like smoking and lack of exercise, can be changed. Smoking High Cholesterol High Blood Pressure Family History Obesity Age Gender (Males are at higher risk) Lack of Exercise Diabetes Diet Stress Excessive Alcohol Intake If you or someone you know is experiencing the signs and symptoms of a heart attack, DON???T DELAY. Call immediately and seek help. If someone collapses, perform CPR! Do not attempt to drive if you are having symptoms of heart attack. Hands-Only CPR Why Hands-Only CPR? Hands-Only CPR has been shown to be as effective as conventional CPR for cardiac arrests that occur outside of a hospital. Survival depends on immediately receiving CPR from someone nearby. How do you perform Hands-Only CPR? There are two easy steps: Call 9-1-1 if you see a teen or adult collapse Push hard and fast in the center of the chest at a beat of 100 beats per minute. Save a life! 4 WAYS TO GET AHEAD OF SEPSIS SEPSIS is a MEDICAL EMERGENCY. Time matters! Infections put you and your family at risk for a life-threatening condition called sepsis. Sepsis is the body's extreme response to an infection. It is life-threatening, and without timely treatment, sepsis can rapidly lead to tissue damage, organ failure, and . Sepsis happens when an infection you already have-in your skin, lungs, urinary tract or somewhere else-triggers a chain reaction throughout your body. 1 PREVENT INFECTIONS Take good care of chronic conditions. Talk to your doctor about getting the recommended vaccines. 2 PRACTICE GOOD HYGIENE Wash your hands frequently. Keep cuts or open sores clean and covered until they are healed. 3 KNOW THE SYMPTOMS Confusion or disorientation Shortness of breath High heart rate Fever, shivering, or feeling very cold Extreme pain or discomfort Clammy or sweaty skin 4 ACT FAST Get medical care IMMEDIATELY if you suspect sepsis or if you have an infection that is not getting better or is getting worse. To learn more about sepsis and how to prevent infections, visit www.cdc.gov/sepsis. Test Results Laboratory or Other Results This Visit (last charted value for your 11/17/2021 visit) No Laboratory or Other Results This Visit Patient Name:ROSINA DOTY I have received and understand this information and was given the opportunity to ask questions. Patient/General Service Technician Name: Patient/General Service Technician Signature: Relationship to Patient: Clinician/Hospital General Service Technician Signature: Date: documented in this encounter Plan of Treatment Not on file documented as of this encounter Visit Diagnoses Not on filedocumented in this encounter
--- OUTSIDE RECORDS SUMMARY | 2024-09-27 09:28 | XMS_ITS | Encounter Summary ---
Author Organization [employer] ([place], [place], [place], [place]) Address [address] [place] [address] Care Team Providers Care Central Supply Nurse Name Role Phone Unavailable Primary Care Provider Unavailabl e Encounter Details Date Type Department Care Team (Late st Contact Info) Description 11/17/2021 Transcribed Document [facility] [place] Medicine [address] [place] [address] ProviderXochilt MD [address] [place], [place] [phone] Social History Tobacco Use Types Packs/Day Years [...] Date Andre rded Speak language other than Citizen [place] at home Not on file 03/27/2023 Want [...] Historical ProviderMD - 11/17/2021 10:39 AM CDT Nursing Discharge Summary Entered On: 11/17/2021 10:39 EDT Performed On: 11/17/2021 10:39 EDT by DA NGUYEN RN Discharge Documentation Discharge Date/Time : 11/17/2021 10:39 EDT Patient Disposition, General : Discharge Discharge To : Home with ambulatory/outpatient follow-up Mode Of Departure, General Discharge : Ambulatory Accompanied By, Discharge : Unaccompanied Prescriptions Given to Patient : No Medications Given to Patient : No Discharge Instructions Reviewed With, Opportunity For Questions Given : Patient Patient Education Completed : Yes Teaching Method : Explanation, Printed materials Teaching Evaluation : Verbalizes understanding DA NGUYEN RN - 11/17/2021 10:39 EDT Electronically signed by [facility] Conversion Sawmill Supervisor Cerner at 06/25/2022 1:52 PM CDT documented in this encounter Plan of Treatment Not on file documented as of this encounter Visit Diagnoses Not on filedocumented in this encounter
--- OUTSIDE RECORDS SUMMARY | 2024-09-27 09:28 | XMS_ITS | Clinical Summary ---
Author Organization [facility] Address [address] [place], [place] [id number] Phone [email or web address] Care Team Providers Care Offset Press Assistant Name Role Phone Unavailable Primary Care Provider Unavailabl e Medications pantoprazole (PROTONIX) 40 MG EC tablet 1 Active Anoro Ellipta 62.5-25 MCG/INH aerosol powder 1 Active traZODone (DESYREL) 50 MG tablet 1 Active atorvastatin (LIPITOR) 20 MG tablet atorvastatin 20 mg tablet Active estradiol (ESTRACE) 2 MG tablet estradiol 2 mg tablet Active furosemide (LASIX) 40 MG tablet Take 40 mg by mouth in the morning and 40 mg before bedtime. 2 Active isosorbide mononitrate (IMDUR) 30 MG 24 hr tablet isosorbide mononitrate ER 30 mg tablet,extended release 24 hr Active PARoxetine (PAXIL) 30 MG tablet paroxetine 30 mg tablet Active Active Problems Problem Noted Date Diagnosed Date Other hyperlipidemia 01/13/2021 Resolved Problems Problem Noted Date Diagnosed Date Resolved Date Encounter for screening, unspecified 01/16/2019 01/13/2021 Overview (11/20/2020): Social History Tobacco Use Types Packs/Day Years Used Date Smoking Tobacco: Every Day Comments:Smoking History Pac ks/day: 6 cigarettes Intimate Partner Violence Answer Date R ecorded Insults You Not on file 11/24/2020 Threatens You Not on file 11/24/2020 Screams at You Not on file 11/24/2020 Physically Hurt Not on file 11/24/2020 Intimate Partner Violence Score Not on file 11/24/2020 Stress Answer Date Recorded Stress in your Life Not on file 01/12/2024 Dealing with Stress 3 01/12/2024 Comments Unknown Sex and Gender Information Value Date Recorded Sex Assigned at Not on file Legal Sex Female 12:55 PM CDT Gender Identity Not on file Sexual Orientation Not on file Last Filed Vital Signs Vital Sign Reading Time Taken Comments Blood Pressure 110/72 12/24/2021 8:28 AM EDT Pulse 65 12/24/2021 8:28 AM EDT Temperature - - Respiratory Rate - - Oxygen Saturation 97% 12/24/2021 8:28 AM EDT Inhaled Oxygen Concentration - - Weight 109 kg (241 lb) 12/24/2021 8:28 AM EDT Height 170.2 cm (5' 7 ) 12/24/2021 8:28 AM EDT Body Mass Index 37.75 12/24/2021 8:28 AM EDT Plan of Treatment Health Maintenance Due Date Last Done Comments Dental Cleaning/Exam 1965 HIV Screening 1965 Hepatitis C Screening 1965 Cervical Cancer Screening 1983 Annual Preventive Exam 08/05/1985 Hep B Infection Screening - Triple Screen 08/05/1985 Hepatitis B Immunization (1 of 3 - 19+ 3-dose series) 08/05/1986 Pneumococcal: Ped (0 to 5 Yr s) and At-Risk Member (6 to 64 Yrs) (1 of 2 - PCV) 08/05/1986 Tetanus Diphtheria and Pertu ssis Immunization (1 - Tdap) 08/05/1986 Breast Cancer Screening 08/05/1997 Colorectal Cancer Screening 08/05/1997 Zoster Immunization (1 of 2) 08/05/2017 Covid-19 Immunization (1 - 2 season) 2023 Influenza Immunization (#1) 2024 HIB Immunization Aged Out No longer e ligible based on patient's age to complete this topic HPV Immunization Aged Out No longer e ligible based on patient's age to complete this topic Hepatitis A Immunization Aged Out No longer eligible based on patient's age to complete this topic Polio Immunization Aged Out No longer eligible based on patient's age to complete this topic Insurance MIGUEL NO COPAY NB
--- OUTSIDE RECORDS SUMMARY | 2024-09-27 09:28 | XMS_ITS | Referral Summary ---
Author Organization [employer] ([place], [place], [place], [place]) Address [address] [place] [address] Care Team Providers Care Dedicated Regional Driver Name Role Phone Unavailable Primary Care Provider [...] Take 50 mg by mouth nightly. Active Social History Tobacco Use Types Packs/Day Years [...] Date Andre rded Speak language other than [place] Islander at home Not on file 03/27/2023 [...] 01/12/2022 10:18 AM EST Plan of Treatment Not on file Insurance
== END 2024-09-27 23:59 | disposition home or self-care (01) ==
LOC: RAD 09:20
PROVIDERS: PCP Nurse Practitioner Family; Visit Provider Nurse Practitioner Family
DX: M77.32 Calcaneal spur, left foot (principal); M85.872 Other specified disorders of bone density and structure, left ankle and foot
CPT/HCPCS: 73630

== ENCOUNTER 2024-11-03 07:35 | Outpatient (CLI) | payer BC, SELFPAY ==
--- OUTSIDE RECORDS SUMMARY | 2024-04-06 05:30 | XMS_ITS ---
[facility] Organization [facility] Address [address] [facility] [address] [place], [place] [address] Care Team Providers Care Terminal Clerk Name Role Phone Mary Jo Mcwilliams Primary Care Provider Alejandrina Rivera Unavailable [phone] Allergies No Known Allergies Results Component Value Reference Range Notes CBC Fingerstick (in house) Reviewed date:04/07/2024 08:56:17 AM Interpretation: Performing Lab: Notes/Report: wbc 9.2 3.5 - 10 lym 15.2 15 - 50 mid 5.2 2 - 15 gran 79.6 35 - 80 rbc 4.33 3.5 - 5.5 hgb 13.0 11.5 - 16.5 hct 38.7 35 - 55 mcv 89.2 75 - 100 mch 30.0 25 - 35 mchc 33.6 31 - 38 plat 230 100 - 400 REASON FOR VISIT f/u on lungs Medications Medication SIG (Take, Route, Frequency, Duration) Notes Start Date End Date Status Cephalexin 500 MG 1 capsule Orally bid ; Duration: 7 day(s) 03/20/2024 Active Ibuprofen 600 MG take 1 tablet by angie th three times daily Orally Three times a day; Duration: 90 days Active Crestor 10 MG 1 tablet Orally Once a day; Duration: 30 day(s) Active traZODone HCl 50 MG 1 tablet at bedtime Orally As needed; Duration: 90 days Active Nicotine Step 1 21 MG/24HR 1 patch to sk in Transdermal Once a day; Duration: 28 days 03/20/2024 Active Lasix 40 MG 1 tab(s) orally Once a day; Duration: 90 days Active Pantoprazole Sodium 40 MG 1 tablet 1/2 t o 1 hour before morning meal Orally Once a day; Duration: 90 days Active Aspir-Low 81 MG 1 tab(s) orally once a day Active Gabapentin 600 MG 1 tablet Orally Thre e times a day Active Vitamin D3 1.25 MG (55450 UT) Take 1 cap roger by mouth once a week; Duration: 84 Active Hydroxychloroquine Sulfate 2 00 MG 1 tab Orally Two times a day Active predniSONE 5 MG 1 tablet Orally Once a day Active Ipratropium-Albuterol 0.5-2. 5 (3) MG/3ML 3 ml as needed Inhalation every 6 hrs Active Mucinex DM 30-600 MG 1 tablet as needed Orally every 12 hrs Active Nebulizer System All-In-One - as directed Active levoFLOXacin 750 MG 1 tablet Orally Once a day; Duration: 10 day(s) Active methIMAzole 5 MG 1 tablet Orally Once a day; Duration: 30 day(s) 03/21/2024 Active levoFLOXacin 500 MG 1 tablet Orally Once a day Active Social History Tobacco Use: Social History Observation Description Date Details (start date - stop date) Current Smoker NA - NA CURRENT TOBACCO USE: Question Answer Notes Are you a: current smoker How many cigarettes a day do you smoke? 31 or mo re Vital Signs Blood pressure systolic 118 mm Hg 04/06/19 25 Blood pressure diastolic 70 mm Hg 025 Heart Rate 55 /min 04/06/2024 Height 67.50 in 04/06/2024 Weight 230.4 lbs 04/06/2024 BMI 35.55 kg/m2 04/06/2024 Encounters Encounter Location Date Provider Diagnosis [facility] [address], [place] [id number] 04/06/2024 Alejandrina Crowdy Pneumonia J18.9 and Rhinovirus B34.8 Assessments Encounter Date Diagnosis (ICD Code) Assessment Notes Treatment Notes Treatment Clinical Notes Section Notes 04/06/2024 Pneumonia (ICD-10 - J18.9) Will finish levaquin and continue nebs and mucinex. Will f/u next week and see if we need to repeat her CXR. 04/06/2024 Rhinovirus (ICD-10 - B34.8) Plan Of Treatment Medication Medication Name Sig Start Date Stop Date Notes Ipratropium-Albuterol 0.5-2. 5 (3) MG/3ML 3 ml as needed Inhalation every 6 hrs Mucinex DM 30-600 MG 1 tablet as needed Orally every 12 hrs Nebulizer System All-In-One - as directed levoFLOXacin 500 MG 1 tablet Orally Once a day Treatment Notes Assessment Notes Pneumonia Will finish levaquin and continue nebs and mucinex. Will f/u next week and see if we need to repeat her CXR. Next Appt Details Follow Up: 1 Week, Reason: Progress Notes * ANDRES GILRADOB:1965 ([age] yo F)Acc No.[id number]:04/06/2024 Patient: JULIAN WATERS Provider: FOZIA Tiwari :1965 A ge:58 Y S ex:Female Date:04/06/2024 Address:[address] [place] [address] Pcp:Mary Jo Mcwilliams Subjective: * Chief Complaints: * 1 . F/u on lungs. * HPI: H PI: 58 year old female presents with c/o Here for follow up on:?Pt is here today for a f/u on her lungs. She does feel better but is very fatigued. She still coughs a lot and has wheezing. * ROS: D ERMATOLOGY: wound h it right leg on a corner last week with opain and bruising ; very TTP. n o R wayne. n o H dionicio. N EUROLOGY: Tremor b ilateral hands > on the right at rest; has developed in the last 2 months. n o H eadache. n o S eizures. n o D izziness.? U ROLOGY: no D ifficulty urinating. n o B lood in urine. h as recently had Gabapentin increased; she is smoking 1 1/2-2 PPD. * Medical History: A nxiety, Chronic back issues and pain- sees ortho, RA- seeing rhenmatology, Chronic pain- seespainmanagement, thyroid nodules- to have thyroidectomy May 2024. * Surgical History: R T Elbow Tendon Repair 2002, RT Knee , LT Leg Metal [place], d/t femur fracture 1990, LT Wrist 2004, Total Hysterectomy , A&P repair , Cholecystectomy , Heart cath 07/25/2018, RT Rotator Cuff Tear Repair 03/10/2019, Lower Back Disc Replaced x 3, Dr. Donnelly in [place] 11/21/2019, appendectomy 08/2022. * Hospitalization/Major Diagno stic Procedure: C hest Pain- [facility] 07/25/2018, Stomach Pain- [facility] 12/31/2018, Stomach Pain- [facility] ER 01/07/2019, [facility] with pneumonia and hypoxia 03/31-04/01/2024. * Family History: F ather: . M other: alive 67 yrs. P aternal Grand Father: . P aternal Grand Mother: . M aternal Grand Father: . M aternal Grand Mother: . 4 brother(s) , 2 sister(s) - healthy. 1 son(s) , 1 daughter(s) - healthy. . * Social History: C URRENT TOBACCO USE: Yes A re you a: c urrent smoker, H ow many cigarettes a day do you smoke? 3 1 or more. C affeine: yes, frequency:daily. Exercise: no. Home smoke detector use: yes. Marital Status: Single. New since last visit: none. Occupation: yes. Past smoking status: no. Occup. exposure: none. Recreational drug use: no. Alcohol: no. Sexually active: yes. Travel ouside [place]: no. * Medications: T aking levoFLOXacin 750 MG Tablet 1 tablet Orally Once a day , Taking Hydroxychloroquine Sulfate 200 MG Tablet 1 tab Orally Two times a day , Taking predniSONE 5 MG Tablet 1 tablet Orally Once a day , Taking Lasix 40 MG Tablet 1 tab(s) orally Once a day , Taking Aspir-Low 81 MG Tablet Delayed Release 1 tab(s) orally once a day , Taking Gabapentin 600 MG Tablet 1 tablet Orally Three times a day , Taking Vitamin D3 1.25 MG (61637 UT) Capsule Take 1 capsule by mouth once a week , Taking Pantoprazole Sodium 40 MG Tablet Delayed Release 1 tablet 1/2 to 1 hour before morning meal Orally Once a day , Taking Crestor 10 MG Tablet 1 tablet Orally Once a day , Taking traZODone HCl 50 MG Tablet 1 tablet at bedtime Orally As needed , Taking Nicotine Step 1 21 MG/24HR Patch 24 Hour 1 patch to skin Transdermal Once a day , Taking Cephalexin 500 MG Capsule 1 capsule Orally bid , Taking Ibuprofen 600 MG Tablet take 1 tablet by mouth three times daily Orally Three times a day , Taking methIMAzole 5 MG Tablet 1 tablet Orally Once a day , Taking levoFLOXacin 500 MG Tablet 1 tablet Orally Once a day , Taking Ipratropium-Albuterol 0.5-2.5 (3) MG/3ML Solution 3 ml as needed Inhalation every 6 hrs , Taking Mucinex DM 30-600 MG Tablet Extended Release 12 Hour 1 tablet as needed Orally every 12 hrs , Taking Nebulizer System All-In-One - Miscellaneous as directed , Medication List reviewed and reconciled with the patient * Allergies: N .K.D.A. Objective: * Vitals: W t:230.4, Temp:97.7, BP:118/70, HR:55, O2 Sat:96% on RA, Nurse:BLANCA, Ht: 67.50, BMI:35.55. * Examination: G eneral Examination: General Appearance: N AD. H EENT: u nremarkable.?Oral cavity: n o lesions, mucosa moist and WNL, no erythema. N michele: s upple, no lymphadenopathy. C hest: n ormal shape and expansion. H eart: R SR. L ungs: bilateral wheezes, no rales. Assessment: * Assessment: 1. P neumonia - J18.9 (Primary) 2 . R hinovirus - B34.8 Plan: * Treatment: Value Reference Range w bc 9.2 3.5 - 10 * l ym 15.2 15 - 50 * m id 5.2 2 - 15 * g ran 79.6 35 - 80 * r bc 4.33 3.5 - 5.5 * h gb 13.0 11.5 - 16.5 * h ct 38.7 35 - 55 * m cv 89.2 75 - 100 * m ch 30.0 25 - 35 * m chc 33.6 31 - 38 * p lat 230 100 - 400 * Sharee Childers 04/06/2024 10:05 :05 AM > , Provider reviewed results while patient in office. Notes: Will finish levaquin and continue nebs and mucinex. Will f/u next week and see if we need torepeat her CXR.?? * Procedure Codes: 9 4760 [place], [address] CAPILLARY BLOOD DRAW, 75344 CBC WITH AUTO DIFF * Follow Up: 1 Week * Images: Billing Information: * Visit Code: 70604 Office Visit, Est Pt., Level 3. * Procedure Codes: [address] [place]. [address] CAPILLARY BLOOD DRAW. 17593 CBC WITH AUTO DIFF. * Electronic signature of FOZIA Islas on 11/03/2024 at 07:38 AM EDT Sign off status: Pending * Provider: FOZIA Tiwari Date: 0 04/06/2024 Generated for Rashauni ng/Fastacyg/eTransmitting on: 0 11/03/2024 07:38 AM EDT History and Physical Notes * HPI (History of Present Illness) Category Sub-Category Detail Notes Category Not es HPI Here for follow up on: Pt is her e today for a f/u on her lungs. She does feel better but is very fatigued. She still coughs a lot and has wheezing Examination Category Sub-Category Detail Notes Category Not es General Examination HEENT: unremarkable Heart: RSR Lungs: bilateral wheezes, n o rales General Appearance: NAD Neck: supple, no lymphaden opathy Oral cavity: no lesions, mucosa m oist and WNL, no erythema Chest: normal shape and exp ansion
--- OUTSIDE RECORDS SUMMARY | 2024-04-13 05:45 | XMS_ITS ---
Author Organization [facility] Address [address] [facility] [address] [place], [place] [id number] Care Team Providers Care Manufacturing Quality Engineer Name Role Phone Mary Jo Mcwilliams Primary Care Provider Alejandrina Rivera Unavailable [phone] Allergies No Known Allergies Results Component Value [...] 1 Open wound (T14.8XXA ) Referral Organization [facility] Referring Provider First Name Alejandrina Referring Provider Last Name Nicole Referring Provider Speciality Physician Textile Scrap Salvager Referred Provider Physical Therapy, . Referred Provider Specialty Physical The rapist General Notes Alejandrina Rivera 2024 9:59:24 AM > Needs an appt with Wound care, Jalyn Mckeon 04/13/2024 11:13:28 AM > faxed to [facility] PT Referral Priority Routine REASON FOR VISIT [...] a day Active Vitamin D3 1.25 MG (94318 UT) Take 1 cap roger by mouth [...] 04/13/2024 Encounters Encounter Location Date Provider Diagnosis [facility] [address] [place], [place] [phone] 04/13/2024 Alejandrina Fredericdy Pneumonia J18.9 ; Rhinovirus [...] * VINICIUS GILOB:1965 ([age] yo F)Acc No.[id number]:04/13/2024 Patient: JULIAN WATERS Provider: FOZIA Tiwari :1965 A ge:58 Y S ex:Female Date:04/13/2024 Address:[address] [place] [address] Pcp:Mary Jo Mcwilliams Subjective: * Chief Complaints: [...] Disc Replaced x 3, Dr. Donnelly in [place] 11/21/2019, appendectomy 08/2022. * Hospitalization/Major Diagno stic Procedure: C hest Pain- [facility] 07/25/2018, Stomach Pain- [facility] 12/31/2018, Stomach Pain- [facility] ER 01/07/2019, [facility] with pneumonia and hypoxia 03/31-04/01/2024. * Family [...] day , Taking Vitamin D3 1.25 MG (43881 UT) Capsule Take 1 capsule by mouth [...] p lat 206 100 - 400 * aCmilla Nicole 04/13/2024 10:0 5:31 AM > , Provider reviewed results while patient in office.Alejandrina Rivera 04/13/2024 10:17:39 AM > Notes: Has been weaning down off the nebs. Much improved. WBC is normal and lungs are clear. No need for another CXR.??2.?Open wound? Referral To:. Physical Therapy??Physical Therapist ?Reason: * Procedure Codes: 9 4760 [place], [address] CAPILLARY BLOOD DRAW, 43628 CBC WITH AUTO DIFF * Follow Up: w ith wound care * Images: Billing Information: * Visit Code: 65488 Office Visit, Est Pt., Level 3. * Procedure Codes: [address] [place]. [address] CAPILLARY BLOOD DRAW. 98986 CBC WITH AUTO DIFF. * Electronic signature of FOZIA Islas on 11/03/2024 at 07:38 AM EDT Sign off status: Pending * Provider: FOZIA Tiwari Date: 0 04/13/2024 Generated for Printi ng/Faxing/eTransmitting on: 0 11/03/2024 07:38 AM EDT History [...]
--- OUTSIDE RECORDS SUMMARY | 2024-06-26 05:45 | XMS_ITS ---
[facility] Address [address] [facility] [address] [place], [place] [id number] Care Team Providers Care Patrol Police Sergeant Name Role Phone Mary Jo Mcwilliams Primary Care Provider Indira Broderick Unavailable [phone] Allergies No Known Allergies REASON FOR VISIT hands still shaking Medications Medication SIG (Take, Route, Frequency, Duration) Notes Start Date End Date Status Vitamin D3 1.25 MG (12340 UT) Take 1 cap roger by mouth once a week; Duration: 84 Active Gabapentin 600 MG 1 tablet Orally Thre e times a day Active Crestor 10 MG 1 tablet Orally Once a day; Duration: 30 day(s) Active Pantoprazole Sodium 40 MG 1 tablet 1/2 t o 1 hour before morning meal Orally Once a day; Duration: 90 days Active Aspir-Low 81 MG 1 tab(s) orally once a day Active Leflunomide 20 MG 1 tablet Orally Once a day Active Furosemide 40 MG Take 1 tablet by angie once daily for 90 days; Duration: 90 Active predniSONE 5 MG 1 tablet Orally Once a day Active Hydroxychloroquine Sulfate 2 00 MG 1 tab Orally Two times a day Active Nicotine Step 1 21 MG/24HR 1 patch to sk in Transdermal Once a day; Duration: 28 days 03/20/2024 Active Ipratropium-Albuterol 0.5-2. 5 (3) MG/3ML 3 ml as needed Inhalation every 6 hrs Active Ibuprofen 600 MG take 1 tablet by angie th three times daily Orally Three times a day; Duration: 90 days Active Mucinex DM 30-600 MG 1 tablet as needed Orally every 12 hrs Active Nebulizer System All-In-One - as directed Active traZODone HCl 50 MG 1 tablet at bedtime Orally As needed; Duration: 90 days Active Social History Tobacco Use: Social History Observation Description Date Details (start date - stop date) Current Smoker NA - NA CURRENT TOBACCO USE: Question Answer Notes Are you a: current smoker How many cigarettes a day do you smoke? 31 or mo re Problems Problem Type SNOMED Code ICD Code Onset Dates Problem Status W/U Status Risk Notes Problem Essential tremor (688013897) Benign essential tremor (G25.0) Active confirmed Problem Obese class II (6391893579288 05) BMI 36.0-36.9,adul t (Z68.36) Active confirmed Vital Signs Blood pressure systolic 120 mm Hg 06/27/19 25 Blood pressure diastolic 76 mm Hg 025 Heart Rate 77 /min 06/26/2024 Height 67.50 in 06/26/2024 Weight 236.6 lbs 06/26/2024 BMI 36.51 kg/m2 06/26/2024 Encounters Encounter Location Date Provider Diagnosis [facility] [address] [facility] [address] [place], [place] [id number] 06/26/2024 Indira Broderick Benign essential tremor G25.0 ; Tobacco abuse Z72.0 ; Open wound T14.8XXA and BMI 36.0-36.9,adult Z68.36 Assessments Encounter Date Diagnosis (ICD Code) Assessment Notes Treatment Notes Treatment Clinical Notes Section Notes 06/26/2024 Benign essential tremor (ICD-10 - G25.0) plan for now is to discuss med ( gabapentin) as a possible cause; she sees pain management tomorrow; if provider does not think this is a cause, will do Neuro referral 06/26/2024 Tobacco abuse (ICD-10 - Z72.0) discussed cessation; she did quit for 1 month with usage of the patch; ; discussed change of behaviors 06/26/2024 Open wound (ICD-10 - T14.8XXA) right lower leg wound has a pen point opening will continue with dry dressing application as per wound care providers 06/26/2024 BMI 36.0-36.9,adul t (ICD-10 - Z68.36) 06/26/2024 Other has regular lab s done by rheumatology; we have not received results; pt will obtain for us Plan Of Treatment Treatment Notes Assessment Notes Benign essential tremor plan for now is to discuss med ( gabapentin) as a possible cause; she sees pain management tomorrow; if provider does not think this is a cause, will do Neuro referral Tobacco abuse discussed cessation; she did quit for 1 month with usage of the patch; ; discussed change of behaviors Open wound wound has a pen poin t opening will continue with dry dressing application as per wound care providers Other has regular labs don e by rheumatology; we have not received results; pt will obtain for us Next Appt Details Follow Up: prn, Reason: Progress Notes * VINICIUS DOTYOB:1965 ([age] yo F)Acc No.[id number]:06/26/2024 Progress Notes Patient: JULIAN WATERS Provider: RICKY Wells :1965 A ge:58 Y S ex:Female Date:06/26/2024 Address:[address] [place] [address] Pcp:Mary Jo Mcwilliams Subjective: * Chief Complaints: * 1 . Hands still shaking. * HPI: H PI: pt hands have been shaking for 2-3 months; occurs at rest and with arm/hand activity; right hand is worse than the left; has discussed with rheumatology and she does not feel this is due to rheumatology meds. 58 year old female presents with c/o Patient is here today for?Pt is here today with c/o her hands shaking. Pt sts they do not shake all of thime, but do at some times. Pt sts when they are not shaking they still feel like they are shaky. * ROS: R ESPIRATORY: Positive for h as decreased smoking to 1/2 PPD. n o?Shortness of breath. n o C hest pain. C ARDIOLOGY: no C hest pain. n o L eg edema. D ERMATOLOGY: wound w ound on right lower leg is slowly healing. n o?Rash. n o H dionicio. G ASTROENTEROLOGY: no [...] Disc Replaced x 3, Dr. Donnelly in [place] 11/21/2019, appendectomy 08/2022, thyroidectomy 05/2024. * Hospitalization/Major Diagno stic Procedure: C hest Pain- H 07/25/2018, Stomach Pain- [facility] 12/31/2018, Stomach Pain- [facility] ER 01/07/2019, H with pneumonia and hypoxia 03/31-04/01/2024. * Family [...] ouside US: no. * Medications: T aking Leflunomide 20 MG Tablet 1 tablet Orally Once a day , Taking Hydroxychloroquine Sulfate 200 MG Tablet 1 tab Orally Two times a day , Taking predniSONE 5 MG Tablet 1 tablet Orally Once a day , Taking Aspir-Low 81 MG Tablet Delayed Release 1 tab(s) orally once a day , Taking Gabapentin 600 MG Tablet 1 tablet Orally Three times a day , Taking Vitamin D3 1.25 MG (96786 UT) Capsule Take 1 capsule by mouth [...] Orally Three times a day , Taking Ipratropium-Albuterol 0.5-2.5 (3) MG/3ML Solution 3 ml as needed Inhalation every 6 hrs , Taking Mucinex DM 30-600 MG Tablet Extended Release 12 Hour 1 tablet as needed Orally every 12 hrs , Taking Nebulizer System All-In-One - Miscellaneous as directed , Taking Furosemide 40 MG Tablet Take 1 tablet by mouth once daily for 90 days , Discontinued methIMAzole 5 MG Tablet 1 tablet Orally Once a day , Medication List reviewed and reconciled with the patient * Allergies: N .K.D.A. Objective: * Vitals: W t: 236.6, Temp: 97.9, BP: 120/76, HR: 77, Nurse: conrado, Ht: 67.50, BMI:36.51. * Examination: G eneral Examination: General Appearance: N AD , alert , pleasant. H eart:?RRR. L ungs: C TAB A&P; decreased BSM posteriorly. E xtremities: s light right hand tremor with some movement , pulses 2 plus bilaterally , good ROM of arms; trace bilateral leg edema. Assessment: * Assessment: 1. B enign essential tremor - G25.0 (Primary) 2 . T obacco abuse - Z72.0? 3. O pen wound - T14.8XXA N otes :right lower leg 4 . B AK 36.0-36.9,adult - Z68.36 Plan: * Treatment: 2. T obacco abuse Notes: discussed cessation; she did quit for 1 month with usage of the patch; ; discussed change of behaviors 3. O pen wound Notes: wound has a pen point opening will continue with dry dressing application as per wound care providers 4. O thers Notes: has regular labs done by rheumatology; we have not received results; pt will obtain for us? * Procedure Codes: 3 074F SYST BP LT 130 MM HG, 3078F DIAST BP < 80 MM HG * Follow Up: p rn * Images: Billing Information: * Visit Code: 85701 Office Visit, Est Pt., Level 3. * Procedure Codes: 3074F SYST BP LT 130 MM HG. 3078F DIAST BP < 80 MM HG. * Electronic signature of Saloni katie Broderick APRN on 11/03/2024 at 07:37 AM EDT Sign off status: Pending * Provider: RICKY Wells Date: 0 06/26/2024 Generated for Dalton maya/Riley/Otoniel on: 0 11/03/2024 07:37 AM EDT History and Physical Notes * HPI (History of Present Illness) Category Sub-Category Detail Notes Category Not es HPI Patient is here today for Pt is here today with c/o her hands shaking. Pt sts they do not shake all of thime, but do at some times. Pt sts when they are not shaking they still feel like they are shaky Examination Category Sub-Category Detail Notes Category Not es General Examination Heart: RRR Lungs: CTAB A&P; decreased BSM posteriorly Extremities: slight right hand tr emor with some movement , pulses 2 plus bilaterally , good ROM of arms; trace bilateral leg edema General Appearance: NAD , alert , pleasa nt
--- OUTSIDE RECORDS SUMMARY | 2024-09-06 10:00 | XMS_ITS | Encounter Summary ---
Author Organization [facility] Address [address] [place] [address] Care Team Providers Care Digital Marketing Officer Name Role Phone Immanuel Mcwilliams MD Primary Care Provider [phone] Luanne Mcgrath PA Unavailable [phone] Reason for Visit * Consultation (Routine) - Closed Specialty Diagnoses / Procedures Referred By Contac t Referred To Contact Neurology Diagnoses Tension-type headache, unspecified, not intractable Pamela Brambila PA [address] [address] Phone: tel: fax: [facility] [address], [address] [place] [address] Phone: tel: fax: Referral ID Status Reason Start Date Expiration Date V isits Requested Visits Authorized [id number] Closed Specialty Services Required 12/01/2023 06/01/2025 1 1 Encounter Details Date Type Department Care Team (Late st Contact Info) Description 09/06/2024 10:00 AM EDT Consult [facility] [address] [place] [address] Luanne Mcgrath PA [id number] [place] [address] Myofascial neck pain (Primary Dx); Bilateral occipital neuralgia; Migraine without aura and without status migrainosus, not intractable Social History Tobacco Use Types Packs/Day Years Used Date Smoking Tobacco: Every Day Cigarettes Smokeless Tobacco: Never Comments:Currently occasiona lly smokes. Wearing nicotine patches. Alcohol Use Standard Drinks/Week Comments No 0 (1 standard drink = 0.6 oz pur e alcohol) Humiliation, Afraid, Rape, and Kick questionnair e Answer Date Recorded Within the last year, have y ou been afraid of your partner or ex-partner? No 06/15/2024 Within the last year, have y ou been humiliated or emotionally abused in other ways by your partner or ex-partner? No Within the last year, have y ou been kicked, hit, slapped, or otherwise physically hurt by your partner or ex-partner? No 06/15/2024 Within the last year, have y ou been raped or forced to have any kind of sexual activity by your partner or ex-partner? No 06/15/2024 Social Connection and Isolation Panel Answer Date Recorded In a typical week, how many times do you talk on the phone with family, friends, or neighbors? Once a week 06/15/2024 How often do you get togethe r with friends or relatives? More than three times a week 06/15/2024 How often do you attend chur ch or adventism services? Never 06/15/2024 Do you belong to any clubs o r organizations such as yazdanism groups, unions, fraternal or athletic groups, or school groups? No 06/15/2024 How often do you attend meet ings of the clubs or organizations you belong to? Never 06/15/2024 Are you , , di vorced, , never , or living with a partner? 06/15/2024 AUDIT-C Answer Date Recorded Q1: How often do you have a drink containing alcohol? Never 06/15/2024 Q2: How many drinks containi ng alcohol do you have on a typical day when you are drinking? Patient does not drink Q3: How often do you have si x or more drinks on one occasion? Never 06/15/2024 Overall Financial Resource Strain (CARDIA) Answe r Date Recorded How hard is it for you to pa y for the very basics like food, housing, medical care, and heating? Not very hard 06/15/2024 PHQ-2 Answer Date Recorded Patient Health Questionnaire-2 Score 0 11[facility]02[facility]2023 [facility] - Occupational Stress Questionnaire Answer Date Recorded Do you feel stress - tense, restless, nervous, or anxious, or unable to sleep at night because your mind is troubled all the time - these days? Not at all 06/15/2024 Exercise Vital Sign Answer Date Recorde d On average, how many days pe r week do you engage in moderate to strenuous exercise (like a brisk walk)? 0 days 06/15/2024 On average, how many minutes do you engage in exercise at this level? 0 min 06/15/2024 Hunger Vital Sign Answer Date Recorded Within the past 12 months, y ou worried that your food would run out before you got the money to buy more. Never true 06/16/19 25 Within the past 12 months, t he food you bought just didn't last and you didn't have money to get more. Never true 06/15/2024 PRAPARE - Transportation Answer Date Re corded In the past 12 months, has l ack of transportation kept you from medical appointments or from getting medications? No 06/06 In the past 12 months, has l ack of transportation kept you from meetings, work, or from getting things needed for daily living? No 06/15/2024 Housing Stability Vital Sign Answer Herman e Recorded In the last 12 months, was t here a time when you were not able to pay the mortgage or rent on time? No 06/15/2024 In the past 12 months, how m any times have you moved where you were living? 0 06/15/2024 At any time in the past 12 m [facility], were you homeless or living in a custodial (including now)? No 06/15/2024 Utilities Answer Date Recorded In the past 12 months has th e haku, gas, oil, or water company threatened to shut off services in your home? No 06/15/2024 Comments No Sex and Gender Information Value Date Recorded Sex Assigned at Not on file Legal Sex Female 7:57 PM EDT Gender Identity Not on file Sexual Orientation Not on file documented as of this encounter Last Filed Vital Signs Vital Sign Reading Time Taken Comments Blood Pressure 110/78 09/06/2024 10:06 AM EDT Pulse 74 09/06/2024 10:06 AM EDT Temperature - - Respiratory Rate - - Oxygen Saturation 96% 09/06/2024 10:06 AM EDT Inhaled Oxygen Concentration - - Weight 109 kg (240 lb) 09/06/2024 10:06 AM EDT Height 170.2 cm (5' 7 ) 09/06/2024 10:06 AM EDT Body Mass Index 37.59 09/06/2024 10:06 AM EDT documented in this encounter Miscellaneous Notes * Progress Notes - Luanne Mcgrath PA - 09/06/2024 10:00 AM EDT [facility] Neurology Clinic Note New Referral Rosina Doty presents to clinic for a New Patient Consult regarding Tension type headache. Patient was referred by FOZIA Medina (12/01/2023 Patient presents to clinic accompanied by who contributes to the history. 10/27/2023 - ARMANDO Medina - [facility]. C/O 3 weeks of progressive headache w/ nausea. On Gabapentin and -- dissolvable pain medications -- H/O C5-7 ACDF May 2022. Recommend MRI of the cervical spine for further evaluation. Patient is a candidate for injection therapy or surgical intervention depending on findings. F/U after MRI for further recommendations. If no neural compression on imaging, consider referral to neurology for tx of chronic headache. 11/23/2023 - for results of MRI cervical spine -- rest of note is missing -- HPI This 59 yo female has been referred for evaluation of headaches. Referred by FOZIA Medina, who worked for Orthopedist (she has had surgery on her C-spine). Request Evaluation for the headache that comes from pain around cervical spine pain. Has not been taking anything for the headache, other than over the counter meds. HEADACHE HISTORY Onset: for years - Age 21 Location of pain: Back of head or on top of head Radiation of pain: sometimes radiates to top of head / light sensivity Character of pain: starts as sharp - then gets dull. When I get it stays. Severity of pain: 8-9 Headaches aura: no Headache prodrome: n/a Duration: w/ meds couple of hours - few days. Worse time of day: mornings. Awaken from sleep: yes - Headache triggers: strong smells / sweet smell /bright lights / no menstrual SALDANA / + stress / sometimes sun. / get too hot Seasonal pattern: no Associated symptoms: sensitive to lights / sounds / =/- smells/ dizzy/ nauses/ no blurry vision / no neuro deficit. Positional: sometimes Sleep history: usually 5-6 hours Number of headache days: 3 - 4 SALDANA a day a piece. Number of migraines: 1 Degree of Functional Impairment: if hurts bad, no doing anything Abortive medications: Ibuprofen, 600 takes 3 over course of day. Most of time will help. Sometime eases so it is tolerate (Tylenol does touch headaches) no excedrin/ naprosyn Prophylactic medications: no Frequency of rescue medications: 3 doses of IBU 600mg History of head/neck trauma: No Family history of headaches: mom, sister Substance use/abuse: smoke 1ppd +/-; no alcohol; no illicit drugs / marijuana Visits to ER: no Testing: no MRI / MRV . No head imaging. 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 PMH: reviewed at bedside Current treatment regimen: reviewed at bedside Past Medical History[1] Family History[2] Surgical History[3] Medications Ordered Prior to Encounter[4] Allergies[5] All medications have been reviewed today. Review of Systems As noted in HPI Objective Vitals: 09/06/24 1006 BP: 110/78 Pulse: 74 SpO2: 96% Physical Exam GEN: Well developed, well nourished. No acute distress. HENT: Atraumatic, normocephalic, patent airway. NECK: Supple, ROM normal. There is point tenderness in the areas of the head, neck and shoulders. Palpation does recreate symptoms. RESP: Good effort EXT: No edema NEURO: MS: Awake, alert, oriented. Appropriate mood and affect. CN: PERRL. Visual brown are full. EOMI full and conjugate. Facial sensation intact bilaterally. Nofacial droop. Speech is normal. Hearing is intact. MOTOR: No pronator drift. Muscle tone is normal. Strength is 5/5, R=L. No abnormal movements. SENSORY: Intact DTR: Grossly intact COORD: Intact bilaterally. GAIT: Normal base, stride and stance. Discussion Summary: This very pleasant 59 yo female comes to clinic today, after referral by herorthopedic surgeon's office for evaluation of headache. Patient has history of Cervical spine surgery. Patient continues tohave pain in back of neck / base of skull. Symptoms seem to be due to occipital neuralgia / myofascial neck pain. Past medical history, imaging/lab results and interval history reviewed Using shared decision making, the following treatment plan is recommended. 1) Migraine Headache, no aura, no status migrainosus, not intractable. MRI head w/wo contrast. MRV head RX Rizatriptan 10mg - for headache rescue. No headache prevention at this time - with only 3-4 SALDANA days/month. 2) Occipital Neuralgia / Myofascial neck pain RX: Tizanidine 4mg take WITH Anti -inflammatory every HS. Repeat it the next day if needed. Patientcan continue to take her already prescribed Flexeril,instead of Tizanidine. Continue the Ibuprofen 600mg - take WITH Tizanidine at HS/ Can repeat the next day if needed. Consider referral to physical therapy for evaluation / treatment with PT modalities of choice. Future - Trigger point injections for decreased inflammation/ pain RTC 3months Assessment and Plan Diagnosis Plan 1. Myofascial neck pain 2. Bilateral occipital neuralgia 3. Migraine without aura and without status migrainosus, not intractable - 61 minutes was spent preparing, performing an examination, counseling, educating the patient, andcare coordination with more than 50% of that time used for counseling the patient and coordination of care. [1] Past Medical History: Diagnosis Date Disease of thyroid gland Generalized osteoarthritis GERD (gastroesophageal reflux disease) Hyperlipidemia Rheumatoid arthritis (CMS/HCC) [2] Family History Problem Relation Name Age of Onset Arthritis Mother Heart disease Mother Ovarian cancer Mother Colon cancer Mother Hypertension Mother Esophageal cancer Father Arthritis Father Hearing loss Father Asthma Daughter Anesthesia problems Neg Hx Malig Hyperthermia Neg Hx [3] Past Surgical History: Procedure Laterality Date APPENDECTOMY 2022 CARPAL TUNNEL RELEASE Right CERVICAL FUSION CHOLECYSTECTOMY N/A Cholecystectomy from [facility] FEMUR FRACTURE SURGERY Left Femur Repair from [facility] LUMBAR FUSION TOTAL ABDOMINAL HYSTERECTOMY N/A Total Abdominal Hysterectomy from [facility] TOTAL THYROIDECTOMY Bilateral 05/19/2024 [4] Current Outpatient Medications on File Prior to Visit Medication Sig Dispense Refill Aspirin 81 MG capsule cyclobenzaprine (Flexeril) 10 MG tablet Take 1 tablet (10 mg) by mouth 3 (three) times a day. furosemide (Lasix) 40 MG tablet Take 1 tablet (40 mg) by mouth daily. gabapentin (Neurontin) 600 MG tablet Take 400 mg by mouth 3 (three) times a day. hydroxychloroquine (Plaquenil) 200 MG tablet Take 1 tablet (200 mg) by mouth 2 (two) times a day. ibuprofen 600 MG tablet Take 1 tablet (600 mg) by mouth every 8 hours as needed. leflunomide (Arava) 20 MG tablet Take 1 tablet (20 mg) by mouth in the morning. levothyroxine (Synthroid, Levoxyl) 175 MCG tablet Take 1 tablet by mouth every morning. Take with water, on an empty stomach. Wait 30 - 60 minutes before eating or taking other medications. Wait 3 to4 hours before taking any vitamins or supplements. 90 tablet 1 pantoprazole (Protonix) 40 MG EC tablet Take 1 tablet (40 mg) by mouth in the morning. predniSONE (Deltasone) 5 MG tablet Take 1 tablet (5 mg) by mouth in the morning. rosuvastatin (Crestor) 10 MG tablet Take 1 tablet (10 mg) by mouth nightly. traZODone (Desyrel) 50 MG tablet Take 1 tablet (50 mg) by mouth nightly. Every day. calcium carbonate (Tums Ultra) 1000 MG chewable tablet Chew 1 tablet (1,000 mg) every 6 (six) hours. 120 tablet 1 HYDROcodone-acetaminophen (Armbrust) 5-325 MG tablet Take 1 tablet (5 mg of hydrocodone) by mouth every 6 hours as needed for severe pain. 10 tablet 0 naloxone (Narcan) 4 mg/0.1 mL nasal spray 1. Give 1 spray in nostril for no/slow breathing or cannot wake after opioid use 2. Call 911 3. Repeat in other nostril if symptoms continue (Patient not takin. Give 1 spray in nostril for no/slow breathing or cannot wake after opioid use 2. Call 911 3.Repeat in other nostril if symptoms continue Reported on 06/15/2024) 1 each 0 nicotine (Nicoderm CQ) 21 MG/24HR patch Place 1 patch on the skin 1 (one) time each day at the sametime. (Patient not taking: Reported on 09/06/2024) No current facility-administered medications on file prior to visit. [5] No Known Allergies documented in this encounter Plan of Treatment Upcoming Encounters Date Type Department Care Team (Late st Contact Info) Description 12/08/2024 10:40 AM EDT Office Visit [place] [facility] [address] [place] [address] Luanne Mcgrath PA [address] [facility] [address] [place] [address] documented as of this encounter Visit Diagnoses Diagnosis Myofascial neck pain- Primary Bilateral occipital neuralgia Migraine without aura and without status migrainosus, not intractable documented in this encounter Additional Health Concerns Assessment Noted Time A fall risk assessment has been complete d for the patient 09/06/2024 10:05 AM EDT A Body Mass Index follow-up plan has been documented for the patient 09/08/2024 4:59 PM EDT documented as of this encounter Care Teams Digital Marketing Officer Relationship Specialty Start Date End Date Immanuel Mcwilliams MD [address] [place] [address] PCP - General 07/19/20 Luanne Mcgrath PA [address] [place] [address] Physician Stable Attendant Neurology 09/06/24 documented as of this encounter
--- OUTSIDE RECORDS SUMMARY | 2024-09-19 05:30 | XMS_ITS ---
[facility] Address [address] [facility] [address] [place], [place] [address] Care Team Providers Care Dynamometer Tester Engine Name Role Phone Mary Jo Mcwilliams Primary Care Provider Indira Broderick Unavailable [phone] Allergies No Known Allergies Results Component Value Reference Range Notes P-CBC With Platelet And Diff erential Reviewed date:09/20/2024 02:28:17 PM Interpretation: Performing Lab: Notes/Report: Test performed by [facility] [address] , [address], [place] [address] Vasyl Syed MD, Cigar Inspector CLIA: [id number] WBC 6.2 3.8-11.5 K/uL Red Blood Cell [...] Interpretation: Performing Lab: Notes/Report: Test performed by [facility] [address] [place] [address] , [address], [place] [address] Vasyl Syed MD, Cigar Inspector CLIA: [id number] Sodium 142 135-145 mmol/L Potassium 3.9 3.5-5.3 [...] 73 Performing Lab: Notes/Report: Test performed by [facility] [address] [place] [address] [address], [place] [address] Vasyl Syed MD, Cigar Inspector CLIA: [id number] Cholesterol 168 <200 mg/dL Triglycerides 73 <150 [...] Interpretation:0.83 Performing Lab: Notes/Report: Test performed by [facility] [address] [place] [address] , [address], [place] [address] Vasyl Syed MD, Cigar Inspector CLIA: [id number] TSH 0.83 0.43-5.25 mU/L Reason For Referral Diagnosis 1 Hearing loss of both ears (H91.93) Referral Organization [facility] Referring Provider First Name Indira Referring Provider Last Name Broderick Referring Provider Speciality Family Pra ctice Referred Provider ENT, . Referred Provider Specialty ENT General Notes Indira Broderick 0 09/20/2024 07:15:09 AM >hearing lossLinda Brynn 09/20/2024 09:54:38 AM > faxed to [facility] Linda NOBLE Brynn 09/21/2024 11:33:11 AM [...] day; Duration: 30 days 09/19/2024 Active Nystatin 332601 UNIT/GM lapply to bilate ral feet Externally [...] W/U Status Risk Notes Problem Hearing loss of both ears (H91.93) Active confirmed Vital Signs Weight 240 lbs 09/19/2024 Blood pressure systolic 126 mm Hg 09/20/19 25 Blood pressure diastolic 80 mm Hg 025 Heart Rate 72 /min 09/19/2024 Height 67.50 in 09/19/2024 BMI 37.03 kg/m2 09/19/2024 Encounters Encounter Location Date Provider Diagnosis [facility] [address] [place] [id number] 09/19/2024 Indira Broderick Tobacco abuse Z72.0 ; [...] a day; Duration: 30 days 09/19/2024 Nystatin 323179 UNIT/GM lapply to bilate ral feet Externally [...] Test Test Name Order Date colonoscopy 09/19/2024 Mammogram 09/19/2024 Referrals Referral Date Details 09/20/2024 09/20/2024, . ENT Next Appt Details Follow Up: 2 Weeks, Reason: Procedure Notes * Category Sub-Category Detail Notes Debridement callus #10 blade, marcell board used, debrided Progress Notes * ANDRES DOTYRADOB:1965 ([age] yo F)Acc No.[id number]:09/19/2024 Progress Notes Patient: JULIAN WATERS Provider: RICKY Wells :1965 A ge:59 Y S ex:Female Date:09/19/2024 Address:[address] [place] [address] Pcp:Mary Jo Mcwilliams Subjective: * Chief Complaints: [...] Disc Replaced x 3, Dr. Donnelly in [place] 11/21/2019, appendectomy 08/2022, thyroidectomy 05/2024. * Hospitalization/Major Diagno stic Procedure: C hest Pain- [facility] 07/25/2018, Stomach Pain- [facility] 12/31/2018, Stomach Pain- [facility] ER 01/07/2019, [facility] with pneumonia and hypoxia 03/31-04/01/2024. * [...] NEEDED , Discontinued Vitamin D3 1.25 MG (43507 UT) Capsule Take 1 capsule by mouth [...] and reported results 5.?Colon cancer screening?Imaging: colonoscopy* Marilu Broderickharine 09/19/2024 12:45:34 PM EDT >recommended repeat; procedure with Jalyn Bradford 09/20/2024 08:58:36 AM EDT > faxed to Dr. Louise office 6.?Screening mammogram for breast cancer?Imaging: Mammogram* Marilu Broderickharine 09/19/2024 12:45:16 PM EDT >annualTaylJalyn marina 09/20/2024 08:43:09 AM EDT > faxed to [facility] Scheduling 7.?Thyroid disorder screen? Refill Levothyroxine Sodium Tablet, 175 MCG, 1 tablet in the morning on an empty stomach, Orally, Once a day, 90 days, 90 Tablet, Refills 1.?LAB: P-TSH (Collection Date & Time - 09/19/2024 09:34 AM)?0.83* Value Reference Range T SH 0.83 0.43-5.25 - mU/L * Niurka Broderickine 09/20/2024 02:30:27 PM EDT >I spoke with pt and reported results 8.?Sleep disorder? Refill traZODone HCl Tablet, 50 MG, 1 tablet at bedtime as needed, Orally, Once a day, 90 days, 90 Tablet, Refills 1.??9.?Infection, fungal, left foot? Start Nystatin Cream, 872384 UNIT/GM, lapply to bilateral feet, Externally, Twice [...] * Images: Billing Information: * Visit Code: 96003 Office Visit, Est Pt., Level 4. * Procedure Codes: 3074F SYST BP LT 130 MM HG. 3079F DIAST BP 80-89 MM HG. * Electronic signature of Saloni Broderick APRN on 11/03/2024 at 07:38 AM EDT Sign off status: Pending * Provider: RICKY Wells Date: 0 09/19/2024 Generated for Dalton maya/Riley/eTransmitting on: 0 11/03/2024 07:38 AM EDT History [...]
--- OUTSIDE RECORDS SUMMARY | 2024-10-03 05:45 | XMS_ITS ---
Author Organization [facility] Address [address] [place] [id number] Care Team Providers Care Director Of Research And Development Name Role Phone Mary Jo Mcwilliams Primary Care Provider [phone] Indira Broderick Unavailable [phone] Allergies No Known Allergies Reason For Referral Diagnosis 1 Acute pain of left f oot (M79.672) Ref[facility] Referring Provider First Name Indira Referring Provider Last Name Meggan Referring Provider Speciality Family Pra ctice Referred Provider PODIATRY, . General Notes Madyson ; possible inje leonLinda pereira Brynn 10/03/2024 10:01:38 AM > faxed to [facility] Podiatry; called and spoke to Vy; [...] y; Duration: 3 days 09/19/2024 Active Nystatin 186949 UNIT/GM lapply to bilate ral feet Externally [...] smoke? 31 or mo re Vital Signs Weight 236 lbs 10/03/2024 Blood pressure systolic 122 mm Hg 10/04/19 25 Blood pressure diastolic 80 mm Hg 025 Heart Rate 70 /min 10/03/2024 Height 67.50 in 10/03/2024 BMI 36.41 kg/m2 10/03/2024 Encounters Encounter Location Date Provider Diagnosis [facility] [address] [phone] 10/03/2024 Indira Broderick Acute pain of left [...] * VINICIUS DOTYOB:1965 ([age] yo F)Acc No.[id number]:10/03/2024 Patient: JULIAN WATERS Provider: RICKY Wells :1965 A ge:59 Y S ex:Female Date:10/03/2024 Address:[address] [place] [address] Pcp:Mary Jo Mcwilliams Subjective: * Chief Complaints: [...] Disc Replaced x 3, Dr. Donnelly in [place] 11/21/2019, appendectomy 08/2022, thyroidectomy 05/2024. * Hospitalization/Major Diagno stic Procedure: C hest Pain- [facility] 07/25/2018, Stomach Pain- [facility] 12/31/2018, Stomach Pain- [facility] ER 01/07/2019, [facility] with pneumonia and hypoxia 03/31-04/01/2024. [...] Orally Once a day , Taking Nystatin 043778 UNIT/GM Cream lapply to bilateral feet Externally [...] * Images: Billing Information: * Visit Code: 70028 Office Visit, Est Pt., Level 3. * Procedure Codes: 3074F SYST BP LT 130 MM HG. 3079F DIAST BP 80-89 MM HG. * Electronic signature of Saloni Broderick APRN on 11/03/2024 at 07:38 AM EDT Sign off status: Pending * Provider: RICKY Wells Date: 0 10/03/2024 Generated for Dalton maya/Riley/Sheitting on: 0 11/03/2024 07:38 AM EDT History [...]
--- NOTE | 2024-11-03 07:37 | MM_ITS ---
PROCEDURE INFORMATION: Exam: MG Bilateral Screening 3D Mammography Exam date and time: 11/03/2024 7:54 AM Age: 59 years old Clinical indication: Screening examination TECHNIQUE: Imaging protocol: Bilateral Screening tomosynthesis and 2D mammography including computer-aided detection (CAD) when performed. COMPARISON: MG MM DIG SCREENING MAMM BI W/CAD 11/03/2023 7:55 AM FINDINGS: MAMMOGRAPHY: Breast composition: There are scattered areas of fibroglandular density. Mass: No suspicious masses. Architectural distortion: None. Calcifications: No suspicious calcifications. Asymmetric density: None. Skin thickening: None. Axillary adenopathy: None. IMPRESSION: No mammographic evidence of malignancy. Annual screening is recommended unless otherwise clinically indicated. ASSESSMENT: BI-RADS Category 1: Negative.
--- OUTSIDE RECORDS SUMMARY | 2024-11-03 07:37 | XMS_ITS | Encounter Summary ---
Author Organization [employer] ([place], [place], [place], [place]) Address [address] [place] [address] Care Team Providers Care Scene And Lighting Design Lecturer Name Role Phone Unavailable Primary Care Provider Unavailabl e Encounter Details Date Type Department Care Team (Late st Contact Info) Description 11/17/2021 Transcribed Document [facility] [place] [address] [place] [address] ProviderXochilt MD [address] [place], [place] [phone] Social History Tobacco Use Types Packs/Day Years [...] Date Andre rded Speak language other than Yi at home Not on file 03/27/2023 Want [...] 10:39 AM CDT Patient Education Materials Follows: [facility] [place] DISCHARGE INSTRUCTIONS FOR MEDIAL BRANCH BLOCK AFTER [...] during clinic hours for questions or concerns. [facility] Cervical/Thoracic/ Lumbar Medial Branch Block What is [...] hours before the procedure. ?? Bring a helper/driver. If you do not have a helper/driver, the procedure will be cancelled. Your helper/driver must also remain in our lobby until [...] ice pack will help with this discomfort. Electronically signed by Yulia Maldonado Conversion Grain Origination Specialist Cerner at 06/25/2022 2:10 PM CDT documented in this encounter Plan of Treatment Not on file documented as of this encounter Visit Diagnoses Not on filedocumented in this encounter
--- OUTSIDE RECORDS SUMMARY | 2024-11-03 07:37 | XMS_ITS | Clinical Summary ---
Author Organization [employer] ([place], [place], [place], [place]) Address [address] [place] [address] Care Team Providers Care Film Developing Machine Operator Name Role Phone Unavailable Primary Care [...] Date Andre rded Speak language other than Spanish at home Not on file 03/27/2023 Want [...] (2 - Td or Tdap) 04/14/2031 Insurance [facility]
--- OUTSIDE RECORDS SUMMARY | 2024-11-03 07:37 | XMS_ITS | Clinical Summary ---
Author Organization [facility] Address [address] [place] [address] Care Team Providers Care Education Assistant Name Role Phone Immanuel Mcwilliams MD Primary Care Provider Luanne Mcgrath Unavailable [phone] Allergies No known active allergies Medications [...] mg) by mouth daily. Active HYDROcodone-caridad taminophen ([place]) 5-325 MG tablet Take 1 tablet (5 [...] Team Description 09/06/2024 10:00 AM EDT Consult ID Clinic [facility] Clinic [address] [place] [id number] Luanne Mcgrath, PA Myofascial neck pain (Primary Dx); Bilateral occipital neuralgia; Migraine without aura and without status migrainosus, not intractable 09/06/2024 Travel 08/30/2024 Travel from Last 3 Months Immunizations Immunization Administration [...] often do you attend chur ch or anabaptism services? Never 06/15/2024 Do you belong to any clubs o r organizations such as mandaeism groups, unions, fraternal or athletic groups, or [...] Recorded Patient Health Questionnaire-2 Score 0 11/02/2023 [facility] Occupat ional Health - Occupational Stress [...] any time in the past 12 m [facility], were you homeless or living in a care home (including now)? No 06/15/2024 Utilities Answer Date [...] Visit [place] [facility] [address] [place] [address] Luanne Mcgrath, PA [address] [place] [address] Health Maintenance Due Date Last Done Comments [facility]-HIV Screening 1965 [facility]-Hepatitis C Screening 1965 [facility]-Infant/Child/Adol SDOH Screenings 1965 [facility]-Hepatitis B Vaccines (1 of 3 - 19+ 3-dose series) 08/05/1986 [facility]-Pneumococcal Vaccine: 50+ Years (1 of 2 - PCV) 08/05/1986 CT Colonography 08/05/2012 Colonoscopy 08/05/2012 FIT-DNA 08/05/2012 FIT 08/05/2012 FOBT 08/05/2012 Sigmoidoscopy 08/05/2012 [facility]-Colorectal Cancer Screening 08/05/2012 [facility]-Breast Cancer Screening 08/05/2017 AWM-ZEXVO-45 Vaccine (2 - Elva risk series) 07/10/2020 [...] this topic Medical Devices Implanted Type Area Drywall Worker Device Identifier Shelf Expiration Date Model / [...] Narrative [facility] - 07/17/2013 6:50 AM EDT [facility] MR #: [id number] [facility] [place] [place], [place] [address] 1965 (Age: 47) FW Collect Date: 07/06/2013 00:00 Receipt Date: 07/07/2013 13:29 Page 1 DEPARTMENT OF PATHOLOGY AND LABORATORY MEDICINE CYTOPATHOLOGY REPORT Email: [email or web address] * Amended * ATTENDING MD/Practitioner: Sandro Byrd MD. Service: END Location: [facility] OTHER (S): Enid Schumacher MD Reported: 07/17/2013 06:50 Collected: 07/06/2013 00:00 DIAGNOSIS ULTRASOUND GUIDED FNA, LEFT THYROID: COLLOID, MACROPHAGES, AND BLAND FOLLICULAR GROUPS, FINDINGS MOST CONSISTENT WITH COLLOID NODULE /GOITER. Electronically Signed Out Bernard Cantu M.D. AMENDMENTS Amended: 07/13/2013 by IRVIN Montano ([facility]) Reason: Date of service error made during accessioning Case amended to correct dos from 07/07 to 07/06/2013. Previous Signout Date: 07/11/2013 Amended: 07/17/2013 by IRVIN Montano ([facility]) Reason: blasting entryman error. Case amended in error, no changes. [...] 6 ICD: 240.9 GOITER NOS F: A; 99748 ASP INTER SNOMED CODES: A; Z73512 O04321 P1149 [id number] A resident has participated in this service. A pathologist has performed and is responsible for the reported pathologic evaluation. Sarah Byrd MD LAB PATHOLOGY ORDERABLES Final R esult SUNQUEST from Last 3 Months or Most Recently Relevant to Health Maintenance Insurance [facility] Advance Directives * Full Code (Latest Code Status on File) Date Activated Date Inactivated Comments 05/19/2024 12:54 PM 05/20/2024 1:40 PM Care Teams Education Assistant Relationship Specialty Start Date End Date Immanuel Mcwilliams MD [address] [place] [address] PCP - General 07/19/20 Luanne Mcgrath PA [address] [place] [address] Physician Labor Expediter Neurology 09/06/24
--- OUTSIDE RECORDS SUMMARY | 2024-11-03 07:37 | XMS_ITS | Encounter Summary ---
Author Organization [email or web address] ([place], [place], [place], [place]) Address [address] [place] [address] Care Team Providers Care Record Press Supervisor Name Role Phone Unavailable Primary Care Provider Unavailabl e Encounter Details Date Type Department Care Team (Late st Contact Info) Description 11/17/2021 Transcribed Document [facility] Family Medicine [address] [place] [address] ProviderXochilt MD [address], [place] [phone] Social History Tobacco Use Types Packs/Day Years [...] Date Andre rded Speak language other than Nauruan at home Not on file 03/27/2023 Want [...] back pain to buttocks Primary Language : Nauruan NAYAN FOWLER RN - 11/17/2021 10:00 EDT Height and Weight, Clinical Dosing Height Source : Stated Height Entry Format : [place] Height, Feet : 5 ft(Converted to: 152 cm, 60 Inch) Height, Inches : 7 Inch(Converted to: 0 ft 7 Inch, 17.78 cm) Clinical Height : 170.18 cm Weight Source : Standing scale Weight Entry Format : [place] Clinical Dosing Weight : 109.09 kg Weight, Pounds : 240 lb Body Surface Area (BSA) : 2.19 m2 Body Mass Index : 37.7 kg/m2 ([place]) [place] Body Weight : 61 kg NAYAN FOWLER [...] Scale Risk Level : 0-24 Low Risk [place] Fall Interventions : Adequate lighting, Fall prevention [...]
--- OUTSIDE RECORDS SUMMARY | 2024-11-03 07:37 | XMS_ITS | Encounter Summary ---
Author Organization [email or web address] ([place], [place], [place], [place]) Address [address] [place] [address] Care Team Providers Care Patient Carrier Name Role Phone Unavailable Primary Care Provider Unavailabl e Encounter Details Date Type Department Care Team (Late st Contact Info) Description 11/17/2021 Transcribed Document [facility] Family Medicine [address] [place] [address] ProviderXochilt MD [address] [place], [place] [phone] Social History Tobacco Use Types Packs/Day Years [...] Date Andre rded Speak language other than Mohawk at home Not on file 03/27/2023 Want [...] of Present Illness 56-year-old female referred by [place] [facility] for evaluation treatment of chronic back [...] is worse at work, 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 Employment/School Employed, Work/School description: exchange floor managergons[employer]. Tobacco 10 or more cigarettes (1/2 pack or more)/day in last 30 days Smoking Status. Years of Use: 12. Packs/Tins Daily: 1. Additional Documentation Code Status No Code Status Order on Record documented in this encounter Plan of Treatment Not on file documented as of this encounter Visit Diagnoses Not on filedocumented in this encounter
--- OUTSIDE RECORDS SUMMARY | 2024-11-03 07:38 | XMS_ITS | Patient Health Record ---
[facility] Address [address] [place] [id number] Care Team Providers Care Brick Mason Name Role Phone Mary Jo Mcwilliams Primary Care Provider [phone] Indira Broderick Unavailable [phone] Alejandrina Rivera Unavailable [phone] Allergies No Known Allergies Results Component Value [...] - 38 plat 230 100 - 400 CBC Fingerstick (in house) Reviewed date:04/13/2024 10:17:42 [...] - 38 plat 206 100 - 400 CBC Fingerstick (in house) Reviewed date:04/03/2024 11:09:15 AM Interpretation: Performing Lab: Notes/Report: wbc 6.4 3.5 - 10 lym 26.2 15 - 50 mid 7.9 2 - 15 gran 65.9 35 - 80 rbc 4.44 3.5 - 5.5 hgb 13.3 11.5 - 16.5 hct 39.8 35 - 55 mcv 89.6 75 - 100 mch 30.1 25 - 35 mchc 33.6 31 - 38 plat 172 100 - 400 X ray : Hip, left Reviewed date:03/31/2024 03:21:00 PM Interpretation:No acute Findings Performing Lab: Notes/Report: No acute Findings CT Scan : Chest, low dose Reviewed date:05/13/2024 03:09:43 PM Interpretation:no evidence of lung cancer, annual f/u Performing Lab: Notes/Report: no evidence of lung cancer, annual f/u H-TSH Reviewed date:03/20/2024 03:41:47 PM Interpretation:0.23 Performing Lab: Notes/Report: TSH 0.23 0.465-4.68 uIU/mL H-CBC Reviewed date:03/20/2024 03:40:14 PM Interpretation: Performing Lab: Notes/Report: WBC 8.6 4.8-10.8 K/mm3 RBC 4.89 4.20-5.40 M/mm3 HGB 14.8 12.2-16.2 g/dL HCT 43.8 37.0-47.0 % MCV 89.6 81-99 fl MCH 30.3 27.0-31.2 pg MCHC 33.8 31.8-35.4 g/dL RDW 14.6 11.5-17.5 % PLT 215 142-424 K/mm3 MPV 11.7 7.4-10.4 fl NE% 76.2 37.0-80.0 % LY% 15.3 10-50 % MO% 6.1 1.7-9.3 % EO% 0.8 0.1-12.0 % BA% 1.1 0.1-2.0 % NE# 6.5 1.8-7.8 K/mm3 LY# 1.3 0.7-4.5 K/mm3 MO# 0.5 0.1-1.0 K/mm3 EO# 0.1 0.0-0.4 K/mm3 BA# 0.1 0-0.2 K/mm3 H-VITAMIN D Reviewed date:03/20/2024 03:40:42 PM Interpretation:34.8 Performing Lab: Notes/Report: TVITD 34.8 30-100 ng/mL Deficient <20 ng/mL Insufficient 20-30 ng/mL Sufficient 30-100 ng/mL Potential Toxicity >100 ng/mL H-Lipid Panel Reviewed date:03/20/2024 03:41:32 PM Interpretation:TC 164, TG 67; LDL 81.24, HDL 67 Performing Lab: Notes/Report: Patient Fasting? N TRIG 67 30-150 mg/dl CHOL 164 140-200 mg/dl DLDL 81.24 100-129 mg/dL VLDL 13 0-40 mg/dL HDL 67 40-60 mg/dl CHLHDL 2.4 1-3.5 H-CMP Reviewed date:03/20/2024 03:40:58 PM Interpretation: Performing Lab: Notes/Report: NA 135 136-145 mmol/L K 4.7 3.5-5.1 mmoL/L CL 102 98-107 mmol/L CO2 27 22.0-30.0 mmol/L GAP 10.7 5-15 mEq/L BUN 16 7-17 mg/dl CREATT 0.70 0.52-1.04 mg/dl GFRAA 105 >60 ML/MIN EGFR 87 >60 ml/min GLU 88 74-100 mg/dl CA 9.0 8.4-10.2 mg/dl BILIT 0.4 0.2-1.3 mg/dl AST 35 14-36 U/L ALT 30 12-78 U/L TP 6.3 6.3-8.2 g/dl ALB 4.2 3.5-5.0 g/dl GLOB 2.1 1.3-3.2 g/dL AGRATIO 2.0 1.1-1.8 ALP 48 38-126 U/L H-Glycohemoglobin A1C Reviewed date:03/20/2024 03:40:28 PM Interpretation:5.1 Performing Lab: Notes/Report: HGBA1C 5.1 4.0-6.0 % < 6% Non-Diabetic Level < 7% Controlled Diabetic Level > 8% Poorly Controlled Diabetic Level H-Magnesium Reviewed date:03/20/2024 03:41:13 PM Interpretation:1.7 Performing Lab: Notes/Report: MG 1.7 1.6-2.3 mg/dl H-VITAMIN B12 Reviewed date:03/20/2024 03:42:03 PM Interpretation:919 Performing Lab: Notes/Report: VITB12 919 239-931 pg/mL H-Iron Reviewed date:03/20/2024 03:42:18 PM Interpretation:83 Performing Lab: Notes/Report: FE 83 37-170 ug/dL P-CBC With Platelet And Diff erential Reviewed date:09/20/2024 02:28:17 PM Interpretation: Performing Lab: Notes/Report: Test performed by [facility] [address] [place] [address] , [address], [place] [address] Vasyl Syed MD, Child Welfare Consultant CLIA: [id number] WBC 6.2 3.8-11.5 K/uL Red Blood Cell [...] Interpretation: Performing Lab: Notes/Report: Test performed by [facility] [address] [place] [address] , [address], [place] [address] Vasyl Syed MD, Child Welfare Consultant CLIA: [id number] Sodium 142 135-145 mmol/L Potassium 3.9 3.5-5.3 [...] 73 Performing Lab: Notes/Report: Test performed by [facility], [address] , [address], [place] [address] Vasyl Syed MD, Child Welfare Consultant CLIA: [id number] Cholesterol 168 <200 mg/dL Triglycerides 73 <150 [...] Interpretation:0.83 Performing Lab: Notes/Report: Test performed by [facility] , [facility], [place] [address] Vasyl Syed MD, Child Welfare Consultant CLIA: [id number] TSH 0.83 0.43-5.25 mU/L Medications Medication SIG (Take, Route, Frequency, Duration) Notes Start Date End Date Status Levothyroxine Sodium 175 MCG 1 tablet in the morning on an empty stomach Orally Once a day; Duration: 90 days 08/29/2024 Active Ibuprofen 600 MG take 1 tablet by three times daily Orally Three times a day; Duration: 90 days Active traZODone HCl 50 MG 1 tablet at bedtime as needed Orally Once a day; Duration: 90 days Active Aspir-Low 81 MG 1 tab(s) orally ger y; Duration: 90 days Active Gabapentin 600 MG 1 tablet Orally Thre e times a day Active Rosuvastatin Calcium 10 MG Take 1 tablet by mouth once daily; Duration: 90 days Active Furosemide 40 MG Take 1 tablet by angie th once daily for 90 days; Duration: 90 days Active Leflunomide 20 MG 1 tablet Orally Once a day Active Spironolactone 25 MG 1 tablet Orally Onc e a day; Duration: 30 days 09/19/2024 Active Cyclobenzaprine HCl 10 MG 1 tablet Orall y 3 times a day Active predniSONE 5 MG 1 tablet Orally Once a day Active Diflucan 150 MG 1 tablet Orally ger y; Duration: 3 days 09/19/2024 Active Hydroxychloroquine Sulfate 2 00 MG 1 tab Orally Two times a day Active Nystatin 963897 UNIT/GM lapply to bilate ral feet Externally Twice a day; Duration: 30 days 09/19/2024 Active Medrol 4 MG as directed orally daily; Duration: 6 days 10/03/2024 Active Pantoprazole Sodium 40 MG 1 tablet 1/2 t o 1 hour before morning meal Orally Once a day; Duration: 90 days Active Immunizations Vaccine Route Administration Date Status Comme nts tuberculin (ppd) ID Intradermal 05/21/2007 Administered Tetanus Tdap-Adacel (over 7yrs) IM Intramuscular 04/14/2021 Administered Shingrix IM Intramuscular 04/14/2021 Administered Hepatitis A (adult) Unknown 07/20/2017 Administered Hepatitis A (adult) Unknown 02/02/2018 Administered Fluzone Quad (6months&older) IM Intramuscular 02/02/2018 Administered Fluzone Quad (6months&older) IM Intramuscular 01/09/2019 Administered Fluzone Quad (6months&older) Unknown 12/19/2019 Administered Fluzone PF Quad (6-35 months) Unknown 12/20/2016 Administered Fluzone PF Quad (6-35 months) Unknown 12/28/2021 Administered Fluzone PF Quad (6-35 months) Unknown 11/23/2022 Administered Fluzone Intradermal Quad private(18-64yrs) IM Intramuscular 04/14/2021 Administered COVID 19 Elva Unknown 06/12/2020 Administered Social History Tobacco Use: Social History Observation Description Date Details (start date - stop date) Current Smoker NA - NA CURRENT TOBACCO USE: Question Answer Notes Are you a: current smoker How many cigarettes a day do you smoke? 31 or mo re Problems Problem Type SNOMED Code ICD Code Onset Dates Problem Status W/U Status Risk Notes Problem Gastroesophageal reflux disease (963275038) GERD (gastroesophagea l reflux disease) (K21.9) Active confirmed Problem Insomnia (447910815) Insomnia (G47.00) Active confirmed Problem Vitamin D deficiency (25135379) Vitamin D deficiency (E55.9) Active confirmed Problem Urinary incontinence (952388467) Urinary incontinence (R32) Active confirmed Problem Anxiety (39586079) Anxiety (F41.9) Active confi rmed Problem Mixed anxiety and depressive disorder (054390869) Anxiety and depression (F41.8) Active confirmed Problem Paresthesia (58306468) Paresthesia (R20.2) Active confirmed Problem Mixed anxiety and depressive disorder (810059717) Depression with anxiety (F41.8) Active confirmed Problem Skin sensation disturbance (29623519) Paresthesia of right arm (R20.2) Active confirmed Problem Dysthymia (32171986) Dysthymic disorder (F34.1) Active confirmed Problem Goiter (3434440) Goiter (E04.9) Active confirme d Problem Mood disorder (10317328) Mood disorder (F39) Active confirmed Problem Obese class II (891521128098200) BMI 36.0-36.9,adult (Z68.36) Active confirmed Problem Essential tremor (613030631) Benign essential tremor (G25.0) Active confirmed Problem Chronic bronchitis (43108151) Chronic bronchitis (J42) Active confirmed Problem Polyarthritis (355796394) Polyarthritis (M13.0) Active confirmed Problem Rheumatoid arthritis (26876237) Rheumatoid arthritis (M06.9) Active confirmed Problem Obstructive sleep apnea syndrome (02470840) VANDANA (obstructive sleep apnea) (G47.33) Active confirmed Problem Hearing loss (47436038) Hearing loss of both ears (H91.93) Active confirmed Vital Signs Heart Rate 70 /min 10/03/2024 Blood pressure diastolic 80 mm Hg 10/03/2024 Height 67.50 in 10/03/2024 Blood pressure systolic 122 mm Hg 10/03/2024 Weight 236 lbs 10/03/2024 BMI 36.41 kg/m2 10/03/2024 Encounters Encounter Location Date Provider Diagnosis [facility] [address] [place] [id number] 03/20/2024 Indira Broderick Tremor R25.1 ; Depression 311 ; Tobacco abuse Z72.0 ; Dependent edema R60.9 ; Sleep disorder 780.50 ; GERD (gastroesophageal reflux disease) K21.9 ; Lipid screening Z13.220 ; Diabetes mellitus screening Z13.1 ; Vitamin D deficiency E55.9 ; Lower extremity edema R60.0 ; Cellulitis L03.90 ; Goiter E04.9 ; Hip pain, acute, left M25.552 ; Rheumatoid arthritis M06.9 and Polyarthritis M13.[address] [facility] [address] [facility] [address] [id number] 04/03/2024 Indira Broderick Pneumonia J18.[address] [facility] [address] [place] [id number] 04/06/2024 Alejandrina Crowdy Pneumonia J18.9 and Rhinovirus B34.[address] [id number] 04/13/2024 Alejandrina Crowdy Pneumonia J18.9 ; Rhinovirus B34.8 and Open wound T14.8XXA [facility] [address] [id number] 06/26/2024 Indira Broderick Benign essential tammi mor G25.0 ; Tobacco abuse Z72.0 ; Open wound T14.8XXA and BMI 36.0-36.9,adult Z68.[address] [facility] [address] [id number] 09/19/2024 Indira Broderick Tobacco abuse Z72.0 ; Polyarthritis M13.0 ; Lipid screening Z13.220 ; Back pain M54.9 ; Lower extremity edema R60.0 ; Colon cancer screening Z12.11 ; Screening mammogram for breast cancer Z12.31 ; Thyroid disorder screen Z13.29 ; Sleep disorder 780.50 ; Infection, fungal, left foot B35.3 ; Cerumen impaction H61.20 and Hearing loss of both ears H91.[address] [facility] [address] [place] [id number] 10/03/2024 Indira Broderick Acute pain of left f oot M79.672 [facility] [address] [place] [id number] 03/15/2024 Mary Jo Mcwilliams Sleep disorder 780.5 0 [facility] [address] [place] [id number] 03/20/2024 Indira Broderick Personal history of smoking Z87.891 [facility] [address] [place] [id number] 03/21/2024 Indirarhianna Broderick [facility] [address] [place] [id number] 03/21/2024 Mary Jo Mcwilliams [facility] [address] [place] [id number] 06/29/2024 Indira Broderick [facility] [address] [place] [id number] 08/28/2024 Indira Broderick [facility] [address] [place] [id number] 08/31/2024 Mary Jo Mcwilliams [facility] [address] [place] [id number] 10/09/2024 Indira Broderick Assessments Encounter Date Diagnosis (ICD Code) Assessment Notes Treatment Notes Treatment Clinical Notes Section Notes 03/15/2024 Sleep disorder (ICD-10 - 780.50) 03/20/2024 Depression (ICD-10 - 311) 03/20/2024 Tremor (ICD-10 - R25.1) 03/20/2024 Personal history of smoking (ICD-10 - Z87.891) 04/03/2024 Pneumonia (ICD-10 - J18.9) continue not to smoke; , fluids, rest, supportive measures for fever/symptom relief 10/03/2024 Acute pain of left foot (ICD-10 - M79.672) shoes with wide frontal base; neg xray; sent to podiatry for possible injections; will try brief increase in steriods 09/19/2024 Tobacco abuse (ICD-10 - Z72.0) We [...] smoking cessation 09/19/2024 Polyarthritis (ICD-10 - M13.0) 04/13/2024 Pneumonia (ICD-10 - J18.9) Has been weaning down off the nebs. Much improved. WBC is normal and lungs are clear. No need for another CXR. 04/13/2024 Rhinovirus (ICD-10 - B34.8) 04/06/2024 Pneumonia (ICD-10 - J18.9) Will finish levaquin and continue nebs and mucinex. Will f/u next week and see if we need to repeat her CXR. 04/06/2024 Rhinovirus (ICD-10 - B34.8) 06/26/2024 Tobacco abuse (ICD-10 - Z72.0) discussed cessation; she did quit for 1 month with usage of the patch; ; discussed change of behaviors 06/26/2024 Benign essential tremor (ICD-10 - G25.0) plan for now is to discuss med ( gabapentin) as a possible cause; she sees pain management tomorrow; if provider does not think this is a cause, will do Neuro referral 06/26/2024 Open wound (ICD-10 - T14.8XXA) right lower leg wound has a pen point opening will continue with dry dressing application as per wound care providers 04/13/2024 Open wound (ICD-10 - T14.8XXA) 09/19/2024 Lipid screening (ICD-10 - Z13.220) 03/20/2024 Tobacco abuse (ICD-10 - Z72.0) discussed smoking cessation; currently smoking 1 1/2- 2 PPD; will see if insurance will cover the patches 03/20/2024 Dependent edema (ICD-10 - R60.9) 09/19/2024 Back pain (ICD-10 - M54.9) 06/26/2024 BMI 36.0-36.9,adult (ICD-10 - Z68.36) 09/19/2024 Lower extremity edema (ICD-10 - R60.0) 03/20/2024 Sleep disorder (ICD-10 - 780.50) 03/20/2024 GERD (gastroesophageal reflux disease) (ICD-10 - K21.9) 09/19/2024 Colon cancer screening (ICD-10 - Z12.11) 09/19/2024 Screening mammogram for breast cancer (ICD-10 - Z12.31) 03/20/2024 Lipid screening (ICD-10 - Z13.220) 03/20/2024 Diabetes mellitus screening (ICD-10 - Z13.1) 09/19/2024 Thyroid disorder screen (ICD-10 - Z13.29) 09/19/2024 Sleep disorder (ICD-10 - 780.50) 03/20/2024 Vitamin D deficiency (ICD-10 - E55.9) 03/20/2024 Lower extremity edema (ICD-10 - R60.0) 09/19/2024 Infection, fungal, left foot (ICD-10 - B35.3) 09/19/2024 Cerumen impaction (ICD-10 - H61.20) declines ear irrigationfor removal of cerumen today; will see ENT for hearing loss 03/20/2024 Cellulitis (ICD-10 - L03.90) elevate ther lerg; moist heat application 03/20/2024 Goiter (ICD-10 - E04.9) 09/19/2024 Hearing loss of both ears (ICD-10 - H91.93) obvious hearing loss during visit; agrees to ENT referral 03/20/2024 Hip pain, acute, left (ICD-10 - M25.552) 03/20/2024 Rheumatoid arthritis (ICD-10 - M06.9) 03/20/2024 Polyarthritis (ICD-10 - M13.0) 06/26/2024 Other has regular lab s done by rheumatology; we have not received results; pt will obtain for us 03/20/2024 Other will discuss lo w dose chest CT with FU Plan Of Treatment Pending Test Test Name Order Date Lipid Profile 03/20/2024 Glycohemoglobin (HbA1C) 03/20/2024 Magnesium 03/20/2024 Iron 03/20/2024 colonoscopy 09/19/2024 TSH 03/20/2024 CMP 03/20/2024 Mammogram 09/19/2024 Mammogram 10/18/2023 VITAMIN D, 25-HYDROXY 03/20/2024 VITAMIN B12 03/20/2024 CBC 03/20/2024 Insurance Providers Payer Name Payer Address Payer Phone Subscriber Number Group Number Insured Name Patient Relationship to Insured Coverage Start Date Coverage End Date [employer] [address] [place] [address] [id number] LOUISEANDRESRA Self - patient is the insured Medications Administered Medication Instructions Date of Administration Dosage Notes Bicillin LA 1,200,000 12/24/2007 2 mL depo medrol 80 mg 05/24/2019 2 mL Dexamethasone 01/09/2019 1 mL Dexamethasone 09/23/2021 1 mL Medical (General) History Medical History History ICD Code Anxiety chronic back issues and pain- sees ortho RA- seeing rhenmatology chronic pain- seespainmanagement thyroid nodules- to have thyroidectomy 2024 Surgical History Surgery Date(Month/Year) RT Elbow Tendon Repair 2002 RT Knee LT Leg Metal [place], d/t femur fracture 199 1 LT Wrist 2004 Total Hysterectomy A&P repair Cholecystectomy Heart cath 07/25/2018 RT Rotator Cuff Tear Repair 03/10/2019 Lower Back Disc Replaced x 3, Dr. Andrzej keating [place] 11/21/2019 appendectomy 08/2022 thyroidectomy 05/2024 Hospitalization History Reason Date(Month/Year) [facility] with pneumonia and hypoxia 03/31-04/01 Stomach Pain- [facility] ER 01/07/2019 Stomach Pain- H 12/31/2018 Chest Pain- H 07/25/2018
--- OUTSIDE RECORDS SUMMARY | 2024-11-03 07:38 | XMS_ITS | Encounter Summary ---
Author Organization [employer] ([place], [place], [place], [place]) Address [address] [place] [address] Care Team Providers Care Distribution Sales Representative Name Role Phone Unavailable Primary Care Provider Unavailabl e Encounter Details Date Type Department Care Team (Late st Contact Info) Description 11/17/2021 Transcribed Document [facility] Family Medicine [address] [place] [address] ProviderXochilt MD [address] [place], [place] [id number] Social History Tobacco Use Types Packs/Day Years [...] Date Andre rded Speak language other than Estonian at home Not on file 03/27/2023 Want [...] ProviderMD - 11/17/2021 10:39 AM CDT Liz Houston [address] [address] ROSINA DOTY :1965 Visit Time:11/17/2021 [...] blocks once approved by insurance. Where: [address] [facility] [address] [place] [address]- Medications What How Much When Instructions Next [...] This Visit No Immunizations Found Education Materials [facility] DISCHARGE INSTRUCTIONS FOR MEDIAL BRANCH BLOCK AFTER [...] during clinic hours for questions or concerns. [facility] Cervical/Thoracic/ Lumbar Medial Branch Block What is [...] hours before the procedure. ??? Bring a commercial trailer truck driver. If you do not have a commercial trailer truck driver, the procedure will be cancelled. Your commercial trailer truck driver must also remain in our lobby until [...] Assistance with quitting is available by contacting 6-383-LCJHNOW. This is a free resource providing counseling, support, and referral. Or you may contact your personal physician. [employer] Suicide Prevention Lifeline: The National Suicide Prevention [...] was given the opportunity to ask questions. Patient/Hose Tester Name: Patient/Hose Tester Signature: Relationship to Patient: Clinician/Hospital Hose Tester Signature: Date: documented in this encounter Plan of Treatment Not on file documented as of this encounter Visit Diagnoses Not on filedocumented in this encounter
--- OUTSIDE RECORDS SUMMARY | 2024-11-03 07:38 | XMS_ITS | Encounter Summary ---
Author Organization Healthcare Address [address] [place] [address] Care Team Providers Care Supply Chain Logistics Manager Name Role Phone Immanuel Mcwilliams MD Primary Care Provider [phone] Luanne Mcgrath Unavailable [phone] Encounter Details Date Type Department Care [...] often do you attend chur ch or oriental orthodox services? Never 06/15/2024 Do you belong to any clubs o r organizations such as rastafarian groups, unions, fraternal or athletic groups, or [...] Recorded Patient Health Questionnaire-2 Score 0 11/02/2023 [facility] - Occupational Stress [...] any time in the past 12 m [facility], were you homeless or living in a fpc (including now)? No 06/15/2024 Utilities Answer Date [...] Description 12/08/2024 10:40 AM EDT Office Visit [facility] [address] [place] [address] Luanne Mcgrath PA [address] [facility] [address] [place] [address] documented as of this encounter Visit Diagnoses Not on filedocumented in this encounter Additional Health Concerns Assessment Noted Time A fall risk assessment has been complete d for the patient 09/06/2024 10:05 AM EDT A Body Mass Index follow-up plan has been documented for the patient 09/08/2024 4:59 PM EDT documented as of this encounter Care Teams Supply Chain Logistics Manager Relationship Specialty Start Date End Date Immanuel Mcwilliams MD [address] [place] [address] PCP - General 07/19/20 Luanne Mcgrath PA [address] [facility] [address] [place] [address] Physician Tax Analyst Neurology 09/06/24 documented as of this encounter
--- OUTSIDE RECORDS SUMMARY | 2024-11-03 07:38 | XMS_ITS | Encounter Summary ---
Author Organization Healthcare Address [address] [place] [address] Care Team Providers Care Conference Service Coordinator Name Role Phone Immanuel Mcwilliams MD Primary Care Provider [phone] Luanne Mcgrath PA Unavailable [phone] Encounter Details Date Type Department Care Team (Late Contact Info) Description 12/01/2023 [facility] [address] [place] [address] Pamela Brambila PA [address] [facility] [address] [address] Social History Tobacco Use Types Packs/Day Years [...] Visit [place] [facility] [address] [place] [address] Luanne Mcgrath, PA [address] [facility] [address] [place] [address] documented as of this encounter Visit Diagnoses Not on filedocumented in this encounter Additional Health Concerns Assessment Noted Time A fall risk assessment has been complete d for the patient 11/02/2023 10:02 AM EDT A Body Mass Index follow-up plan has been documented for the patient 11/02/2023 10:35 AM EDT documented as of this encounter Care Teams Conference Service Coordinator Relationship Specialty Start Date End Date Immanuel Mcwilliams MD [address] [place] [address] PCP - General 07/19/20 Luanne Mcgrath PA [address] [facility] [address] [place] [address] Physician Hide And Skin Classer Neurology 09/06/24 documented as of this encounter
--- OUTSIDE RECORDS SUMMARY | 2024-11-03 07:38 | XMS_ITS | Encounter Summary ---
Author Organization [employer] ([place], [place], [place], [place]) Address [address] [place] [address] Care Team Providers Care Secondary Social Studies Teacher Name Role Phone Unavailable Primary Care Provider Unavailabl e Encounter Details Date Type Department Care Team (Late st Contact Info) Description 11/17/2021 Transcribed Document [facility] [address] [place] [address] ProviderXochilt MD [address] [place], [place] [id number] Social History Tobacco Use Types Packs/Day Years [...] Date Andre rded Speak language other than Frisian at home Not on file 03/27/2023 Want [...] 11/17/2021 10:39 EDT Electronically signed by [facility] Conversion Ear Nose And Throat Specialist Cerner at 06/25/2022 1:52 PM CDT documented in this encounter Plan of Treatment Not on file documented as of this encounter Visit Diagnoses Not on filedocumented in this encounter
--- OUTSIDE RECORDS SUMMARY | 2024-11-03 07:38 | XMS_ITS | Referral Summary ---
Author Organization [employer] ([place], [place], [place], [place]) Address [address] [place] [address] Care Team Providers Care Pipe Organ Mechanic Apprentice Name Role Phone Unavailable Primary Care Provider [...] Date Andre rded Speak language other than Kyrgyz at home Not on file 03/27/2023 Want [...]
== END 2024-11-03 23:59 | disposition home or self-care (01) ==
LOC: RAD 07:35
PROVIDERS: PCP Nurse Practitioner Family; Visit Provider Nurse Practitioner Family
DX: Z12.31 Encounter for screening mammogram for malignant neoplasm of breast (principal); R92.323 Mammographic fibroglandular density, bilateral breasts
CPT/HCPCS: 77063; 77067

== ENCOUNTER 2024-11-29 12:09 | Day surgery (SDC) | payer BC, SELFPAY ==
--- NOTE | 2024-11-26 12:42 | EXP.HP ---
History of Present Illness *Admission Date: 11/29/24 *History of present illness: Mrs. Doty is a 59-year-old female who is here for follow-up screening/surveillance colonoscopy secondary to a personal history of adenomatous colon polyps and a family history of colon cancer (mother). The patient did have a colonoscopy in May 2021 (Cedrick Mercer MD) and had 2 polyps (tubular adenomas x 2) removed. The examination is deemed medically necessary for screening colonoscopy. The patient has been seen, interviewed and examined prior to the procedure by both myself and the anesthesia provider. [facility] Disclaimer: The information contained in this section may have been updated after the patient was seen, as this information can be updated by other users. Medical History Impacted cerumen of right ear cerumen impaction was removed in office using suction tools, and microscopic lighting and the impaction was cleared on 10/02/24. Tinnitus of both ears scheduled for audiometric on November with a follow up with [facility] Hearing loss scheduled for audiometric on November with a follow up with [facility] Neck pain with history of cervical spinal surgery History of left heart catheterization Pharyngitis Sinusitis Lumbar back pain with radiculopathy affecting left lower extremity Ganglion cyst of volar aspect of right wrist Right wrist pain Hand pain Back pain Arthritis Knee pain Umbilical hernia Low back pain Dyspnea Angina, class II Pulmonary HTN Elevated left ventricular end-diastolic pressure (LVEDP) CAD (coronary artery disease) Snoring Restless sleeper Daytime somnolence Bradycardia Unstable angina Chest pain Dependent edema Vulval edema Surgical History History of thyroidectomy Status post appendectomy Previous back surgery H/O repair of rotator cuff History of cholecystectomy H/O total hysterectomy S/P tendon repair Family History Mother Family history of cancer Other Family history of myocardial infarction Social History (Updated 11/29/24 @ 13:05 by Karoline Maciel RN) Smoking Status: Current every day smoker tobacco type: cigarettes packs per day: 1 alcohol intake: never substance use type: denies use current occupational status: unemployed Travel in the last 8 weeks?: None household members: spouse and family housing: house 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 caffeine: Yes Have you lived/traveled outside US in past 30 days?: No Contact w/someone who lives/traveled outside US past 30 days?: No Exposure to someone with infectious disease in past 14 days?: No Do you have a fever (greater than 100.4 F or 38 C)?: No Have you tested positive for COVID-19?: No Exposed to someone with COVID-19 in past 14 days?: No Do you have a sore throat?: No Do you have a cough?: No Do you have any weakness?: No Are you experiencing any nausea/vomitting?: No Do you have any diarrhea?: No Are you experiencing any unusual bleeding?: No Do you have any muscle aches/pain?: No Do you have any abdominal pain?: No Are you experiencing loss of taste or smell?: No Other Medical History Have you received the Flu Vaccine for this season: No Have you received the Pneumonia Vaccine: No Review of Systems Review of Systems Review of systems (narrative): Negative *Cardiovascular Comments: Negative *Gastrointestinal Comments: Negative *Genitourinary Comments: Negative *Musculoskeletal Comments: Negative *Neurologic Comments: Negative Meds Home Medications and Allergies Home Medications ?Medication ?Instructions ?Recorded ?Confirmed ?Type furosemide 40 mg tablet 40 mg PO DAILY 03/31/24 11/29/24 History gabapentin 600 mg tablet 600 mg PO TID 03/31/24 11/29/24 History hydroxychloroquine 200 mg tablet 200 mg PO BID 03/31/24 11/29/24 History Held on 04/01/24. Instructions: hold until completes antibiotics for pneumonia ibuprofen 600 mg tablet 600 mg PO NEEDED PRN Pain 03/31/24 11/29/24 History (Scale Score 1-3) leflunomide 20 mg tablet 20 mg PO DAILY 03/31/24 11/29/24 History pantoprazole 40 mg tablet,delayed 40 mg PO DAILY 03/31/24 11/29/24 History release rosuvastatin 10 mg tablet 10 mg PO DAILY 03/31/24 11/29/24 History trazodone 50 mg tablet 50 mg PO HS 03/31/24 11/29/24 History cyclobenzaprine 10 mg tablet 10 mg PO TID 07/24/24 11/29/24 History levothyroxine 175 mcg tablet 175 mcg PO DAILY 07/24/24 11/29/24 History prednisone 5 mg tablet 5 mg PO DAILY 09/27/24 11/29/24 History spironolactone 25 mg tablet 25 mg PO DAILY 09/27/24 11/29/24 History rizatriptan 10 mg tablet 10 mg PO NEEDED PRN Headache 10/02/24 11/29/24 History adalimumab 40 mg/0.4 mL See Rx Instructions .Route .COMPLEX 11/15/24 11/29/24 History subcutaneous pen kit (Humira(CF) Pen) sod picosulf 10 mg-magnes 3.5 175 ml PO DAILY Bowel Prep 2 doses 11/15/24 11/29/24 Rx gram-citric 12 gram/175 mL oral #350 mL solution (Clenpiq) New Prescriptions to Start Prescriptions: Allergies Allergy/AdvReac Type Severity Reaction Status Date / Time No Known Allergies Allergy Verified 11/29/24 13:14 Exam *Routine HEENT Exam Head: Present normocephalic Eye: Present EOMI and PERRL ENT: Present mucous membranes moist *Routine Neck Exam Neck: Present supple *Routine Respiratory Exam Respiratory: Present CTA bilaterally *Routine Cardiovascular Exam Cardiovascular: Present RRR *Routine Abdominal Exam Abdominal: Present soft and normoactive bowel sounds; Absent tenderness *Routine Rectal Exam Rectal:: deferred *Routine Genitalia Exam Genitalia:: deferred *Routine Extremities Exam Extremities: Absent cyanosis, clubbing or edema *Routine Skin Exam Skin: Present warm; Absent rash *Routine Neurological Exam Neurological: Present alert and oriented X3 Assessment and Plan *Assessment and plan (1) Personal history of adenomatous and serrated colon polyps: Status: Acute Category: Medical Code(s): Z86.0101 - Personal history of adenomatous and serrated colon polyps (2) Family history of colon cancer in mother: Status: Acute Category: Medical Code(s): Z80.0 - Family history of malignant neoplasm of digestive organs (3) Screening for colon cancer: Status: Acute Category: Medical Code(s): Z12.11 - Encounter for screening for malignant neoplasm of colon Plan A/P: 1. Personal history of adenomatous colon polyps and family history of colon cancer (in mother) is the preprocedural diagnosis. The patient will be anesthetized/sedated using MAC sedation. The patient has been seen and examined. Cardiac and lung assessment prior to the examination is stable. Proceed with planned screening/surveillance colonoscopy.
--- NOTE | 2024-11-29 07:12 | P.PCN_ITS ---
[facility] Procedure Note Date: 11/29/24 Time: 14:18 Procedure Note:: Colonoscopy Procedure Report: Colonoscopy with cold snare polypectomy Endoscopist: Florentin Louise II, MD Referring physician: RICKY Franklin Date of Procedure: November 29, 2024 Equipment: Olympus [id number] adult colonoscope Sedation: MAC sedation Indication: Mrs. Doty is a 59-year-old female who is here for follow-up screening/surveillance colonoscopy secondary to a personal history of adenomatous colon polyps and a family history of colon cancer (mother in her 60s). The patient did have a colonoscopy in May 2021 (Cedrick Mercer MD) and had 2 polyps (tubular adenomas x 2) removed. The patient reports no abdominal pain, weight loss, change in her bowel habits or rectal bleeding. The examination is deemed medically necessary for screening colonoscopy. Procedure: Prior to the procedure, a history and physical exam was performed, and patient's medications and allergies were reviewed. The risks, benefits and alternatives of the sedation and procedure were discussed with the patient. All questions were answered and informed consent was obtained. The patient was brought to the procedure room. Patient identification and proposed procedure were verified by the physician and the nurse. The patient was placed in a left lateral decubitus position and the scope was passed under direct vision. Throughout the procedure, the patient's blood pressure, pulse, and oxygen saturations were monitored continuously. The colonoscopy was accomplished without difficulty. The patient tolerated the procedure well. Findings: On digital rectal examination there was normal rectal tone. There were no external hemorrhoids. The colonoscope was introduced through the anal canal to the rectum and advanced to the cecum. The ileocecal valve and appendiceal orifice were identified. The scope was advanced a short distance into the ileum which appeared grossly normal. The scope was then withdrawn into the colon. There were 6 colon polyps (transverse x 3 (3, 4 and 4 mm) and descending x 3 (4, 5 and 8 mm)). These were all removed via cold snare polypectomy. The remaining cecum, ascending, transverse, descending, sigmoid and rectum were grossly normal. There were no other mucosal abnormalities identified. Upon retroflexion within the rectum there were grade 1-2 internal hemorrhoids. The preparation was excellent throughout with [place] Preparation Score of 9. The cecal time was 16 minutes. Impression: 1. Colonic polyps x 6 Plan: I will follow-up the polyp histology and recommend repeat screening/surveillance colonoscopy again in 3 years.
[2024-11-29 13:04] VITALS: BP 120/69; PULSE 74; RESP 18; TEMP 36.2; O2SAT 97; BMI 39.1
[2024-11-29] MEDS: LACTATED RINGERS 1000ML 1,000 ML 50 ML IV (13:18)
--- NOTE | 2024-11-29 13:51 | EXP.ANES.CKL ---
[facility] Disclaimer: The information contained in this section may have been updated after the patient was seen, as this information can be updated by other users. Medical History Impacted cerumen of right ear cerumen impaction was removed in office using suction tools, and microscopic lighting and the impaction was cleared on 10/02/24. Tinnitus of both ears scheduled for audiometric on November with a follow up with [facility] Hearing loss scheduled for audiometric on November with a follow up with [facility] Neck pain with history of cervical spinal surgery History of left heart catheterization Pharyngitis Sinusitis Lumbar back pain with radiculopathy affecting left lower extremity Ganglion cyst of volar aspect of right wrist Right wrist pain Hand pain Back pain Arthritis Knee pain Umbilical hernia Low back pain Dyspnea Angina, class II Pulmonary HTN Elevated left ventricular end-diastolic pressure (LVEDP) CAD (coronary artery disease) Snoring Restless sleeper Daytime somnolence Bradycardia Unstable angina Chest pain Dependent edema Vulval edema Surgical History History of thyroidectomy Status post appendectomy Previous back surgery H/O repair of rotator cuff History of cholecystectomy H/O total hysterectomy S/P tendon repair Family History Mother Family history of cancer Other Family history of myocardial infarction Social History (Updated 11/29/24 @ 13:05 by Karoline Maciel RN) Smoking Status: Current every day smoker tobacco type: cigarettes packs per day: 1 alcohol intake: never substance use type: denies use current occupational status: unemployed Travel in the last 8 weeks?: None household members: spouse and family housing: house 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 caffeine: Yes Have you lived/traveled outside US in past 30 days?: No Contact w/someone who lives/traveled outside US past 30 days?: No Exposure to someone with infectious disease in past 14 days?: No Do you have a fever (greater than 100.4 F or 38 C)?: No Have you tested positive for COVID-19?: No Exposed to someone with COVID-19 in past 14 days?: No Do you have a sore throat?: No Do you have a cough?: No Do you have any weakness?: No Are you experiencing any nausea/vomitting?: No Do you have any diarrhea?: No Are you experiencing any unusual bleeding?: No Do you have any muscle aches/pain?: No Do you have any abdominal pain?: No Are you experiencing loss of taste or smell?: No [facility] Anesthesia Checklist Patient Identification Patient Identification: Arm Band Structural Data Admitted From: Home Planned Operative Procedure/s: Colonoscopy Consent for Planned Operative Procedure(s) Verified: Yes Verified Documents: Surgical Consent and History and Physical NPO Status Verified Time NPO: 10:00 (finished prep) Additional verifications Anesthesia Reactions: No Airway Assessment Mallampati Score:: Class I C-Spine Mobility Assessed: Yes TMJ Mobility Assessed: Yes Dentition: Good Dentition Neurological Assessment Level of Consciousness: Awake, Alert and Appropriate Anesthesia Plan Anesthesia Risk discussed: Yes Anesthesia Plan: Verified ASA Class: II Anesthesia Type: MAC
[2024-11-29 14:20] VITALS: BP 103/68; PULSE 73; RESP 16; TEMP 36.5; O2SAT 94
[2024-11-29 14:30] VITALS: BP 110/76; PULSE 74; RESP 16; O2SAT 94
[2024-11-29 14:40] VITALS: BP 109/72; PULSE 66; RESP 16; O2SAT 95
[2024-11-29 14:50] VITALS: BP 115/70; PULSE 64; RESP 16; O2SAT 95
== END 2024-11-29 14:50 | disposition home or self-care (01) ==
PROVIDERS: PCP Nurse Practitioner Family; Visit Provider Internal Medicine Gastroenterology
PROC: 0DJD8ZZ Inspection of Lower Intestinal Tract, Via Natural or Artificial Opening Endoscopic (ICD-10-PCS; CPT 45378; principal; 2024-11-29 14:00)
DX: Z12.11 Encounter for screening for malignant neoplasm of colon (principal); Z80.0 Family history of malignant neoplasm of digestive organs; Z86.0101 Personal history of adenomatous and serrated colon polyps; D12.4 Benign neoplasm of descending colon; D12.3 Benign neoplasm of transverse colon; I25.119 Atherosclerotic heart disease of native coronary artery with unspecified angina pectoris; M19.90 Unspecified osteoarthritis, unspecified site; I27.20 Pulmonary hypertension, unspecified; H93.13 Tinnitus, bilateral; F17.210 Nicotine dependence, cigarettes, uncomplicated; Z79.890 Hormone replacement therapy; Z79.52 Long term (current) use of systemic steroids; Z79.899 Other long term (current) drug therapy
CPT/HCPCS: 45385; J2003; J2704; J7120

== ENCOUNTER 2024-12-06 08:47 | Outpatient (CLI) | payer BC, SELFPAY ==
--- OUTSIDE RECORDS SUMMARY | 2024-04-06 05:30 | XMS_ITS ---
[facility] Address [address] [facility] [address] [place], [place] [id number] Care Team Providers Care Building Maintenance Supervisor Name Role Phone Mary Jo Mcwilliams Primary Care Provider [phone] Alejandrina Rivera Unavailable [phone] Allergies No Known Allergies Results Component Value [...] a day Active Vitamin D3 1.25 MG (98686 UT) Take 1 cap roger by mouth [...] 04/06/2024 Encounters Encounter Location Date Provider Diagnosis [facility] [address], [place] [id number] 04/06/2024 Alejandrina Crowdy Pneumonia J18.9 and Rhinovirus [...] * ANDRES GILRADOB:1965 ([age] yo F)Acc No.[id number]:04/06/2024 Patient: JULIAN WATERS Provider: FOZIA Tiwari :1965 A ge:58 Y S ex:Female Date:04/06/2024 Address:[address] [place] [address] Pcp:Mary Jo Mcwilliams Subjective: * Chief Complaints: [...] Disc Replaced x 3, Dr. Donnelly in [place] 11/21/2019, appendectomy 08/2022. * Hospitalization/Major Diagno stic Procedure: C hest Pain- [facility] 07/25/2018, Stomach Pain- [facility] 12/31/2018, Stomach Pain- [facility] ER 01/07/2019, [facility] with pneumonia and hypoxia 03/31-04/01/2024. * Family [...] day , Taking Vitamin D3 1.25 MG (37395 UT) Capsule Take 1 capsule by mouth [...] * Procedure Codes: 9 4760 [place], [address] CAPILLARY BLOOD DRAW, 32481 CBC WITH AUTO DIFF * Follow Up: 1 Week * Images: Billing Information: * Visit Code: 51774 Office Visit, Est Pt., Level 3. * Procedure Codes: [address] [place]. [address] CAPILLARY BLOOD DRAW. 29885 CBC WITH AUTO DIFF. * Electronic signature of FOZIA Islas on 12/06/2024 at 08:51 AM EDT Sign off status: Pending * Provider: FOZIA Tiwari Date: 0 04/06/2024 Generated for Rashauni francesco/Fastacyg/eTransmitting on: 1 08:51 AM EDT History and Physical Notes * [...]
--- OUTSIDE RECORDS SUMMARY | 2024-04-13 05:45 | XMS_ITS ---
Author Organization [facility] Address [address] [facility] [address] [place], [place] [id number] Care Team Providers Care Senior Quality Control Inspector Name Role Phone Mary Jo Mcwilliams Primary Care Provider Alejandrina Rivera Unavailable [phone] Allergies No Known Allergies Results Component Value Reference Range Notes CBC Fingerstick (in house) Reviewed date:04/13/2024 10:17:42 AM Interpretation: Performing Lab: Notes/Report: wbc 8.8 3.5 - 10 lym 20.2% 15 - 50 mid 5.3% 2 - 15 gran 74.5% 35 - 80 rbc 4.49 3.5 - 5.5 hgb 13.4 11.5 - 16.5 hct 40.0 35 - 55 mcv 89.2 75 - 100 mch 29.9 25 - 35 mchc 33.5 31 - 38 plat 206 100 - 400 Reason For Referral Diagnosis 1 Open wound (T14.8XXA ) Referral Organization [facility] Referring Provider First Name Alejandrina Referring Provider Last Name Nicole Referring Provider Speciality Physician Recruiting Scheduler Referred Provider Physical Therapy, . Referred Provider Specialty Physical The rapist General Notes Alejandrina Rivera 2024 9:59:24 AM > Needs an appt with Wound care, Jalyn Mckeon 04/13/2024 11:13:28 AM > faxed to [facility] PT Referral Priority Routine REASON FOR VISIT 1 week Medications Medication SIG (Take, Route, Frequency, Duration) Notes Start Date End Date Status methIMAzole 5 MG 1 tablet Orally Once a day; Duration: 30 day(s) 03/21/2024 Active Mucinex DM 30-600 MG 1 tablet as needed Orally every 12 hrs Active Nebulizer System All-In-One - as directed Active Ipratropium-Albuterol 0.5-2. 5 (3) MG/3ML 3 ml as needed Inhalation every 6 hrs Active Ibuprofen 600 MG take 1 tablet by angie th three times daily Orally Three times a day; Duration: 90 days Active traZODone HCl 50 MG 1 tablet at bedtime Orally As needed; Duration: 90 days Active Nicotine Step 1 21 MG/24HR 1 patch to sk in Transdermal Once a day; Duration: 28 days 03/20/2024 Active Crestor 10 MG 1 tablet Orally Once a day; Duration: 30 day(s) Active Pantoprazole Sodium 40 MG 1 tablet 1/2 t o 1 hour before morning meal Orally Once a day; Duration: 90 days Active Gabapentin 600 MG 1 tablet Orally Thre e times a day Active Vitamin D3 1.25 MG (17103 UT) Take 1 cap roger by mouth once a week; Duration: 84 Active Lasix 40 MG 1 tab(s) orally Once a day; Duration: 90 days Active Aspir-Low 81 MG 1 tab(s) orally once a day Active Hydroxychloroquine Sulfate 2 00 MG 1 [...] mo re Vital Signs Blood pressure systolic 102 mm Hg 04/13/19 25 Blood pressure diastolic 70 mm Hg 025 Heart Rate 58 /min 04/13/2024 Height 67.50 in 04/13/2024 Weight 231.6 lbs 04/13/2024 BMI 35.73 kg/m2 04/13/2024 Encounters Encounter Location Date Provider Diagnosis [facility] [address] [place], [place] [id number] 04/13/2024 Alejandrina Fredericdy Pneumonia J18.9 ; Rhinovirus B34.8 and Open wound T14.8XXA Assessments Encounter Date Diagnosis (ICD Code) Assessment Notes Treatment Notes Treatment Clinical Notes Section Notes 04/13/2024 Pneumonia (ICD-10 - J18.9) Has been weaning down off the nebs. Much improved. WBC is normal and lungs are clear. No need for another CXR. 04/13/2024 Rhinovirus (ICD-10 - B34.8) 04/13/2024 Open wound (ICD-10 - T14.8XXA) Plan Of Treatment Treatment Notes Assessment Notes Pneumonia Has been weaning carlie n off the nebs. Much improved. WBC is normal and lungs are clear. No need for another CXR. Referrals Referral Date Details 04/13/2024 04/13/2024, . Physic al Therapy Next Appt Details Follow Up: with wound care, Reason: Progress Notes * VINICIUS GILOB:1965 ([age] yo F)Acc No.[id number]:04/13/2024 Patient: JULIAN WATERS Provider: FOZIA Tiwari :1965 A ge:58 Y S ex:Female Date:04/13/2024 Address:[address] [place] [address] Pcp:Mary Jo Mcwilliams Subjective: * Chief Complaints: * 1 . 1 week. * HPI: E NT/respiratory: The pt is here for a 1 week follow up on pneumonia. Pt states she is doing better except for a slight sore throat and some cough. 58 year old female presents with c/o sore throat. c/o cough. Denies : Fever. D enies : Chest Pain. D enies : Short of Breath. * ROS: D ERMATOLOGY: no R wayne. n o H dionicio. G ASTROENTEROLOGY: no N ausea. n o V omiting. n o D iarrhea.? U ROLOGY: no D ifficulty urinating. n o B lood in urine. * Medical History: A nxiety, Chronic back issues and pain- sees ortho, RA- seeing rhenmatology, Chronic pain- seespainmanagement, thyroid nodules- to have thyroidectomy May 2024. * Surgical History: R T Elbow Tendon Repair 2002, RT Knee 1979's, LT Leg Metal [place], d/t femur fracture 1990, LT Wrist 2004, Total Hysterectomy , A&P repair , Cholecystectomy , Heart cath 07/25/2018, RT Rotator Cuff Tear Repair 03/10/2019, Lower Back Disc Replaced x 3, Dr. Donnelly in [place] 11/21/2019, appendectomy 08/2022. * Hospitalization/Major Diagno stic Procedure: C hest Pain- [facility] 07/25/2018, Stomach Pain- [facility] 12/31/2018, Stomach Pain- [facility] ER 01/07/2019, [facility] with pneumonia and hypoxia 03/31-04/01/2024. [...] ouside [place]: no. * Medications: T aking Hydroxychloroquine Sulfate 200 MG Tablet 1 tab [...] day , Taking Vitamin D3 1.25 MG (73755 UT) Capsule Take 1 capsule by mouth [...] skin Transdermal Once a day , Taking Ibuprofen 600 MG Tablet take [...] System All-In-One - Miscellaneous as directed , Discontinued levoFLOXacin 750 MG Tablet 1 tablet Orally Once a day , Discontinued Cephalexin 500 MG Capsule 1 capsule Orally bid , Discontinued levoFLOXacin 500 MG Tablet 1 tablet Orally Once a day , Medication List reviewed and reconciled with the patient * Allergies: N .K.D.A. Objective: * Vitals: W t:231.6, Temp:97.7, BP:102/70, HR:58, O2 Sat:98% on RA, Nurse:INOCENCIA, Ht: 67.50, BMI:35.73. * Examination: E NT/Respiratory: General Appearance: N AD. E ars: a uditory canals normal bilaterally, TM's WNL. N ose : n ormal, no lesions, nares patent. O ral cavity :?no erythema or exudate seen on pharynx. N michele : n o cervical lymphadenopathy. H eart : R RR, normal S1 S2, no murmurs. L ungs: c lear to auscultation bilaterally. S kin : right lower leg with a nonhealing wound, no surrounding erythema, tender to palpation.? Assessment: * Assessment: 1. P neumonia - J18.9 (Primary) 2 . R hinovirus - B34.8 3 .?Open wound - T14.8XXA S pecify :right lower leg Plan: * Treatment: Value Reference Range w bc 8.8 3.5 - 10 * l ym 20.2% 15 - 50 * m id 5.3% 2 - 15 * g ran 74.5% 35 - 80 * r bc 4.49 3.5 - 5.5 * h gb 13.4 11.5 - 16.5 * h ct 40.0 35 - 55 * m cv 89.2 75 - 100 * m ch 29.9 25 - 35 * m chc 33.5 31 - 38 * p lat 206 100 - 400 * Camilla Nicole 04/13/2024 10:0 5:31 AM > , Provider reviewed results while patient in office.Alejandrina Rivera 04/13/2024 10:17:39 AM > Notes: Has been weaning down off the nebs. Much improved. WBC is normal and lungs are clear. No need for another CXR.??2.?Open wound? Referral To:. Physical Therapy??Physical Therapist ?Reason: * Procedure Codes: 9 4760 [place], [address] CAPILLARY BLOOD DRAW, 77340 CBC WITH AUTO DIFF * Follow Up: w ith wound care * Images: Billing Information: * Visit Code: 50904 Office Visit, Est Pt., Level 3. * Procedure Codes: [address] [place]. [address] CAPILLARY BLOOD DRAW. 98348 CBC WITH AUTO DIFF. * Electronic signature of FOZIA Islas on 12/06/2024 at 08:51 AM EDT Sign off status: Pending * Provider: FOZIA Tiwari Date: 0 04/13/2024 Generated for Printi ng/Faxing/eTransmitting on: 1 08:51 AM EDT History and Physical Notes * HPI (History of Present Illness) Category Sub-Category Detail Notes Category Not es ENT/respiratory sore throat Short of Breath Chest Pain cough Fever Examination Category Sub-Category Detail Notes Category Not es ENT/Respiratory Oral cavity : no erythema or exudate s een on pharynx Ears: auditory canals norm al bilaterally, TM's WNL Neck : no cervical lymphade nopathy Heart : RRR, normal S1 S2, n o murmurs Lungs: clear to auscultatio n bilaterally General Appearance: NAD Nose : normal, no lesions, nares patent Skin : right lower leg with a nonhealing wound, no surrounding erythema, tender to palpation Consultation Request Notes Referral Date Referring Provider Referred Provider Not es 04/13/2024 Alejandrina Rivera Physical Therapy, .
--- OUTSIDE RECORDS SUMMARY | 2024-06-26 05:45 | XMS_ITS ---
Author [facility] Address [address] [facility] [address] [place], [place] [id number] Care Team Providers Care Air Conditioning Installer Name Role Phone Mary Jo Mcwilliams Primary Care Provider [phone] Indira Broderick Unavailable [phone] Allergies No Known Allergies REASON FOR VISIT hands still shaking Medications Medication SIG (Take, Route, Frequency, Duration) Notes Start Date End Date Status Vitamin D3 1.25 MG (26682 UT) Take 1 cap roger by mouth [...] W/U Status Risk Notes Problem Essential tremor (449060387) Benign essential tremor (G25.0) Active confirmed Problem Obese class II (0777496389924 05) BMI 36.0-36.9,adul t (Z68.36) Active confirmed Vital Signs Blood pressure systolic 120 mm Hg 06/27/19 25 Blood pressure diastolic 76 mm Hg 025 Heart Rate 77 /min 06/26/2024 Height 67.50 in 06/26/2024 Weight 236.6 lbs 06/26/2024 BMI 36.51 kg/m2 06/26/2024 Encounters Encounter Location Date Provider Diagnosis [facility] [address] [facility] [address] [place], [place] [id number] 06/26/2024 Indira Broderick Benign essential tremor G25.0 [...] * VINICIUS DOTYOB:1965 ([age] yo F)Acc No.[id number]:06/26/2024 Progress Notes Patient: JULIAN WATERS Provider: RICKY Wells :1965 A ge:58 Y S ex:Female Date:06/26/2024 Address:[address] [place] [address] Pcp:Mary Jo Mcwilliams Subjective: * Chief Complaints: [...] Disc Replaced x 3, Dr. Donnelly in [place] 11/21/2019, appendectomy 08/2022, thyroidectomy 05/2024. * Hospitalization/Major Diagno stic Procedure: C hest Pain- H 07/25/2018, Stomach Pain- [facility] 12/31/2018, Stomach Pain- [facility] ER 01/07/2019, H with pneumonia and hypoxia [...] day , Taking Vitamin D3 1.25 MG (63736 UT) Capsule Take 1 capsule by mouth [...] otes :right lower leg 4 . B UT 36.0-36.9,adult - Z68.36 Plan: * Treatment: 2. [...] * Images: Billing Information: * Visit Code: 43223 Office Visit, Est Pt., Level 3. * Procedure Codes: 3074F SYST BP LT 130 MM HG. 3078F DIAST BP < 80 MM HG. * Electronic signature of Saloni katie Broderick APRN on 12/06/2024 at 08:50 AM EDT Sign off status: Pending * Provider: RICKY Wells Date: 0 06/26/2024 Generated for Dalton maya/Riley/Otoniel on: 1 08:50 AM EDT History and Physical Notes * [...]
--- OUTSIDE RECORDS SUMMARY | 2024-09-19 05:30 | XMS_ITS ---
Author Organization [facility] Address [address] [facility] [address] [place], [place] [id number] Care Team Providers Care Play Reader Name Role Phone Mary Jo Mcwilliams Primary Care Provider [phone] Indira Broderick Unavailable [phone] Allergies No Known Allergies Results Component Value Reference Range Notes P-CBC With Platelet And Diff erential Reviewed date:09/20/2024 02:28:17 PM Interpretation: Performing Lab: Notes/Report: Test performed by [facility] [address] , [address], [place] [address] Vasyl Syed MD, Desk Editor CLIA: [id number] WBC 6.2 3.8-11.5 K/uL Red Blood Cell Count (RBC) 4.72 3.60-5.30 M/mm 3 Hemoglobin (Hgb) 13.9 11.5-15.5 gm/dL Hematocrit (HCT) 44.0 35.2-46.4 % MCV 93.2 79.0-99.0 fL MCH 29.4 26.9-35.0 pg MCHC 31.6 30.4-34.8 g/dL RDW 46.0 38.6-53.8 fL Platelet Count 185 137-397 K/cumm Neutrophils Automated 71.3 41.0-77.0 % Lymphocytes Automated 17.8 14.0-48.0 % Monocytes Automated 7.5 4.0-13.0 % Eosinophils Automated 1.8 0.0-8.0 % Basophils Automated 1.4 0.0-1.5 % Immature Granulocyte Automated 0.2 0.0-1.0 % P-Comprehensive Metabolic Pa gideon (CMP) Reviewed date:09/20/2024 02:30:18 PM Interpretation: Performing Lab: Notes/Report: Test performed by [facility] [address] [place] [address] , [address], [place] [address] Vasyl Syed MD, Desk Editor CLIA: [id number] Sodium 142 135-145 mmol/L Potassium 3.9 3.5-5.3 mmol/L Chloride 104 97-108 mmol/L CO2 27 20-32 mmol/L Glucose 85 65-99 mg/dL BUN 9 6-20 mg/dL Creatinine 0.67 0.50-1.00 mg/dL Calcium 8.6 8.6-10.4 mg/dL eGFR by Creatinine 102 >59 mL/min/1.73m2 Protein 6.1 6.0-8.3 g/dL Albumin 4.1 3.5-5.3 g/dL Alkaline Phosphatase 63 35-121 IU/L ALT (SGPT) 31 <5-47 IU/L AST (SGOT) 26 <5-40 IU/L Bilirubin, Total 0.3 <0.2-1.2 mg/dL A/G Ratio 2.0 1.1-2.5 P-Lipid Panel Reviewed date:09/20/2024 02:29:51 PM Interpretation:LDL 88; HDL 65; TG 73 Performing Lab: Notes/Report: Test performed by [facility] [address] [place] [address] [address], [place] [address] Vasyl Syed MD, Desk Editor CLIA: [id number] Cholesterol 168 <200 mg/dL Triglycerides 73 <150 mg/dL HDL Cholesterol 65 >39 mg/dL Cholesterol / HDL Ratio 2.58 0.00-4.44 Ratio Non-HDL Cholesterol 103 <130 mg/dL LDL Cholesterol (Calculation) 88 <130 mg/dL LDL Cholesterol Levels* Less than 100 mg/dL Optimal 100 to 129 mg/dL Near Optimal/ Above Optimal 130 to 159 mg/dL Borderline High 160 to 189 mg/dL High 190 mg/dL and above Very High * Categories as recommended by the 2004 ATPIII guidelines LDL/HDL Ratio 1.4 <3.3 Ratio LDL Cholesterol Patient History Test Date: 03/23/2022 LDL Results: 131 Units: mg/dL % Change: - Test Date: 08/24/2023 LDL Results: 148 Units: mg/dL % Change: +12% Test Date: 09/19/2024 LDL Results: 88 Units: mg/dL % Change: -40% P-TSH Reviewed date:09/20/2024 02:30:41 PM Interpretation:0.83 Performing Lab: Notes/Report: Test performed by [facility] [address] [place] [address] , [address], [place] [address] Vasyl Syed MD, Desk Editor CLIA: [id number] TSH 0.83 0.43-5.25 mU/L Mammogram Reviewed date:11/10/2024 03:46:49 PM Interpretation:no evidence of malignancy Performing Lab: Notes/Report: no evidence of malignancy Reason For Referral Diagnosis 1 Hearing loss of both ears (H91.93) Referral Organization [facility] Referring Provider First Name Indira Referring Provider Last Name Meggan Referring Provider Speciality Family Dharmesh ji Referred Provider ENT, . Referred Provider Specialty ENT General Notes Indira Broderick 0 09/20/2024 07:15:09 AM >hearing Linda bernal Brynn 09/20/2024 09:54:38 AM > faxed to [facility] Linda NOBLE Brynn 09/21/2024 11:33:11 AM > spoke with Holly; referral received Referral Priority Routine REASON FOR VISIT checkup with labs and refills, Needs labs & colon cancer screening Medications Medication SIG (Take, Route, Frequency, Duration) Notes Start Date End Date Status traZODone HCl 50 MG 1 tablet at bedtime as needed Orally Once a day; Duration: 90 days Active Ibuprofen 600 MG take 1 tablet by angie th three times daily Orally Three times a day; Duration: 90 days Active Spironolactone 25 MG 1 tablet Orally Onc e a day; Duration: 30 days 09/19/2024 Active Nystatin 049137 UNIT/GM lapply to bilate ral feet Externally Twice a day; Duration: 30 days 09/19/2024 Active Pantoprazole Sodium 40 MG TAKE 1 TABLET BY MOUTH ONE-HALF TO ONE HOUR BEFORE MORNING MEAL ONCE A DAY Once a day; Duration: 90 days Active Aspir-Low 81 MG 1 tab(s) orally ger y; Duration: 90 days Active Furosemide 40 MG Take 1 tablet by angie th once daily for 90 days; Duration: 90 days Active Rosuvastatin Calcium 10 MG Take 1 tablet by mouth once daily; Duration: 90 days Active Levothyroxine Sodium 175 MCG 1 tablet in the morning on an empty stomach Orally Once a day; Duration: 90 days 08/29/2024 Active Gabapentin 600 MG 1 tablet Orally Thre e times a day Active Cyclobenzaprine HCl 10 MG 1 tablet Orall y 3 times a day Active Leflunomide 20 MG 1 tablet Orally Once a day Active Diflucan 150 MG 1 tablet Orally ger y; Duration: 3 days 09/19/2024 Active Hydroxychloroquine Sulfate 2 00 MG 1 [...] Problem Status W/U Status Risk Notes Problem Hearing loss (60956419) Hearing loss of both ears (H91.93) Active confirmed Vital Signs Blood pressure systolic 126 mm Hg 09/20/19 25 Blood pressure diastolic 80 mm Hg 025 Heart Rate 72 /min 09/19/2024 Height 67.50 in 09/19/2024 Weight 240 lbs 09/19/2024 BMI 37.03 kg/m2 09/19/2024 Encounters Encounter Location Date Provider Diagnosis [facility] [address] [place] [id number] 09/19/2024 Indira Broderick Tobacco abuse Z72.0 ; Polyarthritis M13.0 ; Lipid screening Z13.220 ; Back pain M54.9 ; Lower extremity edema R60.0 ; Colon cancer screening Z12.11 ; Screening mammogram for breast cancer Z12.31 ; Thyroid disorder screen Z13.29 ; Sleep disorder 780.50 ; Infection, fungal, left foot B35.3 ; Cerumen impaction H61.20 and Hearing loss of both ears H91.93 Assessments Encounter Date Diagnosis (ICD Code) Assessment Notes Treatment Notes Treatment Clinical Notes Section Notes 09/19/2024 Tobacco abuse (ICD-10 - Z72.0) We discussed to continue all her medications as ordered. Continue to taper off of smoking cigarettes. We did scrape her callus down today in office. She may use a file to file this down at home. We sent in some medicine for a fungal foot infection. She is to take the pill for 3 days and use the cream at night and put socks on. Change socks everyday. discussed smoking cessation 09/19/2024 Polyarthritis (ICD-10 - M13.0) 09/19/2024 Lipid screening (ICD-10 - Z13.220) 09/19/2024 Back pain (ICD-10 - M54.9) 09/19/2024 Lower extremity edema (ICD-10 - R60.0) 09/19/2024 Colon cancer screening (ICD-10 - Z12.11) 09/19/2024 Screening mammogram for breast cancer (ICD-10 - Z12.31) 09/19/2024 Thyroid disorder screen (ICD-10 - Z13.29) 09/19/2024 Sleep disorder (ICD-10 - 780.50) 09/19/2024 Infection, fungal, left foot (ICD-10 - B35.3) 09/19/2024 Cerumen impaction (ICD-10 - H61.20) declines ear irrigationfor removal of cerumen today; will see ENT for hearing loss 09/19/2024 Hearing loss of both ears (ICD-10 - H91.93) obvious hearing loss during visit; agrees to ENT referral Plan Of Treatment Medication Medication Name Sig Start Date Stop Date Notes traZODone HCl 50 MG 1 tablet at bedtime as needed Orally Once a day; Duration: 90 days Ibuprofen 600 MG take 1 tablet by angie th three times daily Orally Three times a day; Duration: 90 days Spironolactone 25 MG 1 tablet Orally Onc e a day; Duration: 30 days 09/19/2024 Nystatin 565227 UNIT/GM lapply to bilate ral feet Externally Twice a day; Duration: 30 days 09/19/2024 Pantoprazole Sodium 40 MG TAKE 1 TABLET BY MOUTH ONE-HALF TO ONE HOUR BEFORE MORNING MEAL ONCE A DAY Once a day; Duration: 90 days Aspir-Low 81 MG 1 tab(s) orally ger y; Duration: 90 days Furosemide 40 MG Take 1 tablet by angie th once daily for 90 days; Duration: 90 days Rosuvastatin Calcium 10 MG Take 1 tablet by mouth once daily; Duration: 90 days Levothyroxine Sodium 175 MCG 1 tablet in the morning on an empty stomach Orally Once a day; Duration: 90 days 08/29/2024 Diflucan 150 MG 1 tablet Orally ger y; Duration: 3 days 09/19/2024 Treatment Notes Assessment Notes Tobacco abuse We discussed to continue all her medications as ordered. Continue to taper off of smoking cigarettes. We did scrape her callus down today in office. She may use a file to file this down at home. We sent in some medicine for a fungal foot infection. She is to take the pill for 3 days and use the cream at night and put socks on. Change socks everyday. discussed smoking cessation Cerumen impaction declines ear irrigat ionfor removal of cerumen today; will see ENT for hearing loss Hearing loss of both ears obvious hearin g loss during visit; agrees to ENT referral Pending Test Test Name Order Date colonoscopy 09/19/2024 Referrals Referral Date Details 09/20/2024 09/20/2024, . ENT Next Appt Details Follow Up: 2 Weeks, Reason: Procedure Notes * Category Sub-Category Detail Notes Debridement callus #10 blade, marcell board used, debrided Progress Notes * VINICIUS DOTYOB:1965 ([age] yo F)Acc No.[id number]:09/19/2024 Progress Notes Patient: JULIAN WATERS Provider: RICKY Wells :1965 A ge:59 Y S ex:Female Date:09/19/2024 Address:[address] [place] [address] Pcp:Mary Jo Mcwilliams Subjective: * Chief Complaints: * 1 . Checkup with labs and refills. 2. Needs labs & colon cancer screening. * HPI: C ardiology: 59 year old female presents with c/o Leg Edema r ight more than left, all day. c/o Hyperlipidemia P t here for a checkup. Pt states she needs refills. Pt is fasting today. Denies : Chest Pain. D enies : Short of Breath. D enies : Dizziness. D enies : Palpitations. E NT/respiratory: c/o ear pain r inging in ears bilaterally. c/o smoking. c/o ringing in ear P t has been having problems hearing and she is having ringing. Denies : sore throat. D enies : cough. D enies : nasal congestion. D enies : Fever. D enies : Chest Pain. D enies : Short of Breath. D enies : headache. D ermatology: c/o redness. c/o itching. c/o Callus r ight foot. * ROS: R ESPIRATORY: Positive for c ontinues to smoke less than 1 PPD. ? D ERMATOLOGY: no R wayne. n o H dionicio. G ASTROENTEROLOGY: no N ausea. n o V omiting. n o D iarrhea.? M USCULOSKELETAL: Positive for c ontinues with Rheumatology every 3 months.? U ROLOGY: no D ifficulty urinating. n [...] Disc Replaced x 3, Dr. Donnelly in [place] 11/21/2019, appendectomy 08/2022, thyroidectomy 05/2024. * Hospitalization/Major Diagno stic Procedure: C hest Pain- [facility] 07/25/2018, Stomach Pain- [facility] 12/31/2018, Stomach Pain- [facility] ER 01/07/2019, [facility] with pneumonia and hypoxia 03/31-04/01/2024. * [...] ouside US: no. * Medications: T aking Cyclobenzaprine HCl 10 MG Tablet 1 tablet Orally 3 times a day , Taking Leflunomide 20 MG Tablet 1 tablet Orally [...] Orally Three times a day , Taking Ibuprofen 600 MG Tablet take 1 tablet by mouth three times daily Orally Three times a day , Taking Furosemide 40 MG Tablet Take 1 tablet by mouth once daily for 90 days , Taking Rosuvastatin Calcium 10 MG Tablet Take 1 tablet by mouth once daily , Taking Pantoprazole Sodium 40 MG Tablet Delayed Release TAKE 1 TABLET BY MOUTH ONE-HALF TO ONE HOUR BEFORE MORNING MEAL ONCE A DAY , Taking Levothyroxine Sodium 175 MCG Tablet 1 tablet in the morning on an empty stomach Orally Once a day , Taking traZODone HCl 50 MG Tablet TAKE 1 TABLET BY MOUTH AT BEDTIME NEEDED , Discontinued Vitamin D3 1.25 MG (66214 UT) Capsule Take 1 capsule by mouth once a week , Discontinued Nicotine Step 1 21 MG/24HR Patch 24 Hour 1 patch to skin Transdermal Once a day , Discontinued Ipratropium-Albuterol 0.5-2.5 (3) MG/3ML Solution 3 ml as needed Inhalation every 6 hrs , Discontinued Mucinex DM 30-600 MG Tablet Extended Release 12 Hour 1 tablet as needed Orally every 12 hrs , Discontinued Nebulizer System All-In-One - Miscellaneous as directed , Medication List reviewed and reconciled with the patient * Allergies: N .K.D.A. Objective: * Vitals: W t: 240, Temp: 97.9, BP: 126/80, HR: 72, Nurse: bryn, Ht: 67.50, BMI:37.03. * Examination: G eneral Examination: General Appearance: N AD, appears healthy, alert. H EENT: s clera and conjunctiva clear, PERRLA, translucent, cerumen impaction R ear. O ral cavity: m ild erythema. N michele: n o lymphadenopathy. C hest: n ormal shape and expansion. H eart: R RR. L ungs: n ormal, clear to auscultation. A bdomen: n ormal, bowel sounds present, nontender. N eurologic Exam: a lert and oriented. S kin: R wayne around the sides of the left foot, itchy. Not in between the toes or the bottom of the foot. Callus on bottom of right foot. P eripheral pulses: n ormal (2+) bilaterally. E xtremities: 2 + leg edema right, , 1+ leg edema left.?Neck, Thyroid : n o thyromegaly. Assessment: * Assessment: 1. P olyarthritis - M13.0 (Primary) 2 . T obacco abuse - Z72.0 ?3. L ipid screening - Z13.220 4 . B ack pain - M54.9 5 . L ower extremity edema - R60.0 6 . C olon cancer screening - Z12.11 & #160; 7 . S creening mammogram for breast cancer - Z12.31 8 . T hyroid disorder screen - Z13.29 9 . S leep disorder - 780.50 1 0. I nfection, fungal, left foot - B35.3 1 1. C erumen impaction - H61.20 ?12. H earing loss of both ears - H91.93 Plan: * Treatment: Value Reference Range A /G Ratio 2.0 1.1-2.5 - * A lbumin 4.1 3.5-5.3 - g/dL * A lkaline Phosphatase 63 35-121 - IU/L * A LT (SGPT) 31 <5-47 - IU/L * A ST (SGOT) 26 <5-40 - IU/L * B ilirubin, Total 0.3 <0.2-1.2 - mg/dL * B UN 9 6-20 - mg/dL * C alcium 8.6 8.6-10.4 - mg/dL * C hloride 104 97-108 - mmol/L * C O2 27 20-32 - mmol/L * C reatinine 0.67 0.50-1.00 - mg/dL * G lucose 85 65-99 - mg/dL * P otassium 3.9 3.5-5.3 - mmol/L * S odium 142 135-145 - mmol/L * P rotein 6.1 6.0-8.3 - g/dL * e GFR by Creatinine 102 >59 - mL/min/1.73m2 * Indira Broderick 09/20/2024 02:30:00 PM EDT >I spoke with pt and reported results 2.?Tobacco abuse?LAB: P-CBC With Platelet And Differential (Collection Date & Time - 09/19/2024 09:34 AM)* Value Reference Range B asophils Automated 1.4 0.0-1.5 - % * E osinophils Automated 1.8 0.0-8.0 - % * H ematocrit (HCT) 44.0 35.2-46.4 - % * H emoglobin (Hgb) 13.9 11.5-15.5 - gm/dL * I mmature Granulocyte Automated 0.2 0.0-1.0 - % * L ymphocytes Automated 17.8 14.0-48.0 - % * M CH 29.4 26.9-35.0 - pg * M CHC 31.6 30.4-34.8 - g/dL * M CV 93.2 79.0-99.0 - fL * M onocytes Automated 7.5 4.0-13.0 - % * P latelet Count 185 137-397 - K/cumm * R ed Blood Cell Count (RBC) 4.72 3.60-5.30 - M/ mm3 * R DW 46.0 38.6-53.8 - fL * N eutrophils Automated 71.3 41.0-77.0 - % * W BC 6.2 3.8-11.5 - K/uL * Indira Broderick 09/20/2024 02:27:58 PM EDT >I spoke with pt and reported results Notes: We discussed to continue all her medications as ordered. Continue to taper off of smoking cigarettes. We did scrape her callus down today in office. She may use a file to file this down at home. We sent in some medicine for a fungal foot infection. She is to take the pill for 3 days and use the cream at night and put socks on. Change socks everyday. discussed smoking cessation??3.?Lipid screening? Refill Aspir-Low Tablet Delayed Release, 81 MG, 1 tab(s), orally, daily, 90 days, 90 Tablet, Refills 1;?Refill Rosuvastatin Calcium Tablet, 10 MG, Take 1 tablet by mouth once daily, 90 days, 90,Refills 1.?LAB: P-Lipid Panel (Collection Date & Time - 09/19/2024 09:34 AM)?LDL 88; HDL 65; TG 73* Value Reference Range C holesterol / HDL Ratio 2.58 0.00-4.44 - Ratio * C holesterol 168 <200 - mg/dL * H DL Cholesterol 65 >39 - mg/dL * L DL Cholesterol (Calculation) 88 <130 - mg/d L * L DL/HDL Ratio 1.4 <3.3 - Ratio * N on-HDL Cholesterol 103 <130 - mg/dL * T riglycerides 73 <150 - mg/dL * Indira Broderick 09/20/2024 02:29:32 PM EDT >I spoke with pt and reported results 4.?Lower extremity edema? Refill Furosemide Tablet, 40 MG, Take 1 tablet by mouth once daily for 90 days, 90 days, 90 Tablet,Refills 1;?Start Spironolactone Tablet, 25 MG, 1 tablet, Orally, Once a day, 30 days, 30, Refills 1.?LAB: P-CBC With Platelet And Differential (Collection Date & Time - 09/19/2024 09:34 AM)* Value Reference Range B asophils Automated 1.4 0.0-1.5 - % * E osinophils Automated 1.8 0.0-8.0 - % * H ematocrit (HCT) 44.0 35.2-46.4 - % * H emoglobin (Hgb) 13.9 11.5-15.5 - gm/dL * I mmature Granulocyte Automated 0.2 0.0-1.0 - % * L ymphocytes Automated 17.8 14.0-48.0 - % * M CH 29.4 26.9-35.0 - pg * M CHC 31.6 30.4-34.8 - g/dL * M CV 93.2 79.0-99.0 - fL * M onocytes Automated 7.5 4.0-13.0 - % * P latelet Count 185 137-397 - K/cumm * R ed Blood Cell Count (RBC) 4.72 3.60-5.30 - M/ mm3 * R DW 46.0 38.6-53.8 - fL * N eutrophils Automated 71.3 41.0-77.0 - % * W BC 6.2 3.8-11.5 - K/uL * Meggan Indira 09/20/2024 02:27:58 PM EDT >I spoke with pt and reported results 5.?Colon cancer screening?Imaging: colonoscopy* Indira Broderick 09/19/2024 12:45:34 PM EDT >recommended repeat; procedure with Jalyn Bradford 09/20/2024 08:58:36 AM EDT > faxed to Dr. Louise office 6.?Screening mammogram for breast cancer?Imaging: Mammogram (Performed Date - 11/03/2024)?no evidence of malignancy * Indira Broderick 09/19/2024 12:45:16 PM EDT >Jalyn Grant 09/20/2024 08:43:09 AM EDT > faxed to [facility] Indira Martinez 11/09/2024 12:32:52 PM EDT >please report to pt neg results [facility] [place] [facility] 11/10/2024 03:46:39 PM EDT >pt informed 7.?Thyroid disorder screen? Refill Levothyroxine Sodium Tablet, 175 MCG, 1 tablet in the morning on an empty stomach, Orally, Once a day, 90 days, 90 Tablet, Refills 1.?LAB: P-TSH (Collection Date & Time - 09/19/2024 09:34 AM)?0.83* Value Reference Range T SH 0.83 0.43-5.25 - mU/L * Indira Broderick 09/20/2024 02:30:27 PM EDT >I spoke with pt and reported results 8.?Sleep disorder? Refill traZODone HCl Tablet, 50 MG, 1 tablet at bedtime as needed, Orally, Once a day, 90 days, 90 Tablet, Refills 1.??9.?Infection, fungal, left foot? Start Nystatin Cream, 792536 UNIT/GM, lapply to bilateral feet, Externally, Twice a day, 30 days, 1, Refills 1;?Start Diflucan Tablet, 150 MG, 1 tablet, Orally, daily, 3 days, 3 Tablet.? 10.?Cerumen impaction? Notes: declines ear irrigationfor removal of cerumen today; will see ENT for hearing loss? 11.?Hearing loss of both ears? Notes: obvious hearing loss during visit; agrees to ENT referral? Referral To:. ENT??ENT ?Reason: 12.?Others? Refill Pantoprazole Sodium Tablet Delayed Release, 40 MG, TAKE 1 TABLET BY MOUTH ONE-HALF TO ONE HOUR BEFORE MORNING MEAL ONCE A DAY, Once a day, 90 days, Refills 1.?? * Procedures: D ebridement: callus # 10 blade, marcell board used, debrided. ? * Procedure Codes: 3 074F SYST BP LT 130 MM HG, 3079F DIAST BP 80-89 MM HG * Follow Up: 2 Weeks * Images: Billing Information: * Visit Code: 74292 Office Visit, Est Pt., Level 4. * Procedure Codes: 3074F SYST BP LT 130 MM HG. 3079F DIAST BP 80-89 MM HG. * Electronic signature of Saloni Broderick APRN on 12/06/2024 at 08:50 AM EDT Sign off status: Pending * Provider: RICKY Wells Date: 0 09/19/2024 Generated for Dalton maya/Riley/Otoniel on: 1 08:50 AM EDT History and Physical Notes * HPI (History of Present Illness) Category Sub-Category Detail Notes Category Not es ENT/respiratory sore throat ear pain ringing in ears bila terally Short of Breath Chest Pain cough Fever headache nasal congestion smoking ringing in ear Pt has been having p roblems hearing and she is having ringing Dermatology redness itching Callus right foot Cardiology Short of Breath Chest Pain Palpitations Dizziness Leg Edema right more than left , all day Hyperlipidemia Pt here for a checku p. Pt states she needs refills. Pt is fasting today Examination Category Sub-Category Detail Notes Category Not es General Examination HEENT: sclera and c onjunctiva clear, PERRLA, translucent, cerumen impaction R ear Neck, Thyroid : no thyromegaly Heart: RRR Lungs: normal, clear to aus cultation Abdomen: normal, bowel sounds present, nontender Extremities: 2+ leg edema right, , 1+ leg edema left General Appearance: NAD, appears healthy , alert Skin: Rash around the side s of the left foot, itchy. Not in between the toes or the bottom of the foot. Callus on bottom of right foot Neurologic Exam: alert and oriented Neck: no lymphadenopathy Oral cavity: mild erythema Peripheral pulses: normal (2+) bilatera lly Chest: normal shape and exp ansion Consultation Request Notes Referral Date Referring Provider Referred Provider Not es 09/20/2024 Indira Broderick ENT, .
--- OUTSIDE RECORDS SUMMARY | 2024-10-03 05:45 | XMS_ITS ---
[facility] Address [address] [place] [id number] Care Team Providers Care Gas Or Petroleum Operator Name Role Phone Mary Jo Mcwilliams Primary Care Provider Indira Broderick Unavailable [phone] Allergies No Known Allergies Reason For Referral Diagnosis 1 Acute pain of left f oot (M79.672) Ref[facility] [place] Referring Provider First Name Indira Referring Provider Last Name Meggan Referring Provider Speciality Family Pra ctice Referred Provider PODIATRY, . General Notes Madyson ; possible inje leonLinda pereira Brynn 10/03/2024 10:01:38 AM > faxed to [facility] Podiatry; called and spoke to Vy; they are going to take a look at the referral and call back with an appt time Referral Priority Routine REASON FOR VISIT 2 week f/u Medications Medication SIG (Take, Route, Frequency, Duration) Notes Start Date End Date Status Spironolactone 25 MG 1 tablet Orally Onc e a day; Duration: 30 days 09/19/2024 Active Cyclobenzaprine HCl 10 MG 1 tablet Orall y 3 times a day Active Pantoprazole Sodium 40 MG TAKE 1 TABLET BY MOUTH ONE-HALF TO ONE HOUR BEFORE MORNING MEAL ONCE A DAY Once a day; Duration: 90 days Active Diflucan 150 MG 1 tablet Orally ger y; Duration: 3 days 09/19/2024 Active Nystatin 347413 UNIT/GM lapply to bilate ral feet Externally Twice a day; Duration: 30 days 09/19/2024 Active Levothyroxine Sodium 175 MCG 1 tablet in the morning on an empty stomach Orally Once a day; Duration: 90 days 08/29/2024 Active Ibuprofen 600 MG take 1 tablet by angie th three times daily Orally Three times a day; Duration: 90 days Active traZODone HCl 50 MG 1 tablet at bedtime as needed Orally Once a day; Duration: 90 days Active Rosuvastatin Calcium 10 MG Take 1 tablet by mouth once daily; Duration: 90 days Active Furosemide 40 MG Take 1 tablet by angie th once daily for 90 days; Duration: 90 days Active Medrol 4 MG as directed orally daily; Duration: 6 days 10/03/2024 Active Aspir-Low 81 MG 1 tab(s) orally ger y; Duration: 90 days Active Gabapentin 600 MG 1 tablet Orally Thre e times a day Active predniSONE 5 MG 1 tablet Orally Once a day Active Hydroxychloroquine Sulfate 2 00 MG 1 tab Orally Two times a day Active Leflunomide 20 MG 1 tablet Orally Once a day Active Social History Tobacco Use: Social History Observation Description Date Details (start date - stop date) Current Smoker NA - NA CURRENT TOBACCO USE: Question Answer Notes Are you a: current smoker How many cigarettes a day do you smoke? 31 or mo re Vital Signs Blood pressure systolic 122 mm Hg 10/04/19 25 Blood pressure diastolic 80 mm Hg 025 Heart Rate 70 /min 10/03/2024 Height 67.50 in 10/03/2024 Weight 236 lbs 10/03/2024 BMI 36.41 kg/m2 10/03/2024 Encounters Encounter Location Date Provider Diagnosis [facility] [facility] [address] [id number] 10/03/2024 Indira Broderick Acute pain of left foot M79.672 Assessments Encounter Date Diagnosis (ICD Code) Assessment Notes Treatment Notes Treatment Clinical Notes Section Notes 10/03/2024 Acute pain of left foot (ICD-10 - M79.672) shoes with wide frontal base; neg xray; sent to podiatry for possible injections; will try brief increase in steriods Plan Of Treatment Medication Medication Name Sig Start Date Stop Date Notes Medrol 4 MG as directed orally daily; Duration: 6 days Treatment Notes Assessment Notes Acute pain of left foot shoes with wide frontal base; neg xray; sent to podiatry for possible injections; will try brief increase in steriods Referrals Referral Date Details 10/03/2024 10/03/2024, . PODIAT RY Next Appt Details Follow Up: 6 Months, Reason: Progress Notes * VINICIUS DOTYOB:1965 ([age] yo F)Acc No.[id number]:10/03/2024 Patient: JULIAN WATERS Provider: RICKY Wells :1965 A ge:59 Y S ex:Female Date:10/03/2024 Address:[address] [place] [address] Pcp:Mary Jo Mcwilliams Subjective: * Chief Complaints: * 1 . 2 week f/u. * HPI: D ermatology: 59 year old female presents with c/o Swelling P t here to f/u on swelling on her right leg. Pt states its a little bit better . A nkle/Foot: trouble bearing weight; reviewed xray results. c/o Pain P t states she is having pain and swelling in her left foot. Pt states she went to Urgent treatment last week and they did a Xray and nothing came back she said. Pt states its not getting no better. c/o Swelling. Denies : Fall. D enies : Previous Injury. D enies : Tingling/ Numbness. D enies : Direct Trauma. * ROS: D ERMATOLOGY: no R [facility]. n o H dionicio. E NT: Positive for s aw ENT and had ear cerumen removed; to have hearing tests. G ASTROENTEROLOGY: no N ausea. n o [...] Disc Replaced x 3, Dr. Donnelly in [place] 11/21/2019, appendectomy 08/2022, thyroidectomy 05/2024. * Hospitalization/Major Diagno stic Procedure: C hest Pain- [facility] 07/25/2018, Stomach Pain- [facility] 12/31/2018, Stomach Pain- [facility] ER 01/07/2019, [facility] with pneumonia and hypoxia 03/31-04/01/2024. * [...] tablet Orally Once a day , Taking Gabapentin 600 MG Tablet 1 tablet Orally Three times a day , Taking Aspir-Low 81 MG Tablet Delayed Release 1 tab(s) orally daily , Taking Furosemide 40 MG Tablet Take 1 tablet by mouth once daily for 90 days , Taking Rosuvastatin Calcium 10 MG Tablet Take 1 tablet by mouth once daily , Taking Levothyroxine Sodium 175 MCG Tablet 1 tablet in the morning on an empty stomach Orally Once a day , Taking traZODone HCl 50 MG Tablet 1 tablet at bedtime as needed Orally Once a day , Taking Ibuprofen 600 MG Tablet take 1 tablet by mouth three times daily Orally Three times a day , Taking Pantoprazole Sodium 40 MG Tablet Delayed Release TAKE 1 TABLET BY MOUTH ONE-HALF TO ONE HOUR BEFORE MORNING MEAL ONCE A DAY Once a day , Taking Spironolactone 25 MG Tablet 1 tablet Orally Once a day , Taking Nystatin 903973 UNIT/GM Cream lapply to bilateral feet Externally Twice a day , Taking Diflucan 150 MG Tablet 1 tablet Orally daily , Medication List reviewed and reconciled with the patient * Allergies: N .K.D.A. Objective: * Vitals: W t: 236, Temp: 97.6, BP: 122/80, HR: 70, Nurse: pe, Ht: 67.50, BMI:36.41. * Examination: G eneral Examination: General Appearance: N AD, appears healthy, pleasant, alert.?Heart: R RR. L ungs: n ormal, clear to auscultation. N eurologic Exam: a lert and oriented. S kin: n ormal, no rash. P eripheral pulses: n ormal (2+) bilaterally, good capillary refill. E xtremities: a nterior left foot swollen and tender to touch. no redness. rash from 2 weeks ago resolved pulses 2 plus bilaterally. Assessment: * Assessment: 1. A cute pain of left foot - M79.672 (Primary) Plan: * Treatment: * Procedure Codes: 3 074F SYST BP LT 130 MM HG, 3079F DIAST BP 80-89 MM HG * Follow Up: 6 Months * Images: Billing Information: * Visit Code: 04396 Office Visit, Est Pt., Level 3. * Procedure Codes: 3074F SYST BP LT 130 MM HG. 3079F DIAST BP 80-89 MM HG. * Electronic signature of Saloni Broderick APRN on 12/06/2024 at 08:50 AM EDT Sign off status: Pending * Provider: RICKY Wells Date: 0 10/03/2024 Generated for aDlton maya/Riley/Otoniel on: 1 08:50 AM EDT History and Physical Notes * HPI (History of Present Illness) Category Sub-Category Detail Notes Category Not es Dermatology Swelling Pt here to f/u o n swelling on her right leg. Pt states its a little bit better Ankle/Foot Fall Previous Injury Tingling/ Numbness Pain Pt states she is hav ing pain and swelling in her left foot. Pt states she went to Urgent treatment last week and they did a Xray and nothing came back she said. Pt states its not getting no better Direct Trauma Swelling Examination Category Sub-Category Detail Notes Category Not es General Examination Heart: RRR Lungs: normal, clear to aus cultation Extremities: anterior left foot s wollen and tender to touch. no redness. rash from 2 weeks ago resolved pulses 2 plus bilaterally General Appearance: NAD, appears healthy , pleasant, alert Skin: normal, no rash Neurologic Exam: alert and oriented Peripheral pulses: normal (2+) bilatera lly, good capillary refill Consultation Request Notes Referral Date Referring Provider Referred Provider Not es 10/03/2024 Indira Broderick PODIATRY, .
--- OUTSIDE RECORDS SUMMARY | 2024-12-06 08:50 | XMS_ITS | Clinical Summary ---
Author Organization [employer] ([place], [place], [place], [place]) Address [address] [place] [address] Care Team Providers Care Graphic Engineer Name Role Phone Unavailable Primary Care Provider [...] Date Andre rded Speak language other than Polish at home Not on file 03/27/2023 Want [...] Screening (12+) 01/1201/12/2022 COVID-19 VACCINE (2 - 2024- season) 11/06/202409/2020 Influenza Vaccine (#1) 2024 DTAP/TDAP/TD VACCINES (2 - Td or Tdap) 04/14/2031 Insurance [facility] [place] [address]
--- OUTSIDE RECORDS SUMMARY | 2024-12-06 08:50 | XMS_ITS | Clinical Summary ---
Author Organization [facility] Address [address] [place] [address] Care Team Providers Care Belt Machine Operator Name Role Phone Immanuel Mcwilliams MD Primary Care Provider [phone] Luanne Mcgrath Unavailable [phone] Allergies No known active allergies Medications [...] mg) by mouth daily. Active HYDROcodone-caridad taminophen (Mccoll) 5-325 MG tablet Take 1 tablet (5 [...] Right wrist pain 02/16/2024 Rheumatoid arthritis 02/16/2024 Snoring 02/16/2024 Status post appendectomy 02/16/2024 [...] Date Resolved Date Multinodular goiter 02/17/2024 05/21/19 25 Pharyngitis 02/16/2024 11/26/2024 Sinusitis 02/16/2024 11/26/2024 Encounters Date Type Department Care Team Description 12/01/2024 Travel 09/06/2024 10:00 AM EDT Consult [facility] [address] [place] [address] Luanne Mcgrath, PA Myofascial neck pain (Primary Dx); Bilateral occipital neuralgia; Migraine without aura and without status migrainosus, not intractable 09/06/2024 Travel from Last 3 Months Immunizations Immunization [...] often do you attend chur ch or faith services? Never 06/15/2024 Do you belong to any clubs o r organizations such as zoroastrianism groups, unions, fraternal or athletic groups, or [...] Recorded Patient Health Questionnaire-2 Score 0 11/02/2023 [facility] - Occupational Stress Questionnaire Answer Date Recorded [...] any time in the past 12 m [facility], were you homeless or living in a correction (including now)? No 06/15/2024 Utilities Answer Date Recorded In the past 12 months has th e [employer], gas, oil, or water company threatened to [...] Visit [place] [facility] [address] [place] [address] Luanne Mcgrath, PA [address] [place] [address] Health Maintenance Due Date Last Done Comments [facility]-HIV Screening 1965 [facility]-Hepatitis C Screening 1965 [facility]-Infant/Child/Adol SDOH Screenings 1965 [facility]-Hepatitis B Vaccines (1 of 3 - 19+ 3-dose series) 08/05/1986 [facility]-Pneumococcal Vaccine: 50+ Years (1 of 2 - PCV) 08/05/1986 CT Colonography 08/05/2012 Colonoscopy 08/05/2012 FIT-DNA 08/05/2012 FIT 08/05/2012 FOBT 08/05/2012 Sigmoidoscopy 08/05/2012 [facility]-Colorectal Cancer Screening 08/05/2012 [facility]-Breast Cancer Screening 08/05/2017 [id number] Vaccine (2 - Elva risk series) 07/10/2020 [...] this topic Medical Devices Implanted Type Area Chief Solution Architect Device Identifier Shelf Expiration Date Model / [...] Narrative SUNQUEST - 07/17/2013 6:50 AM EDT [facility] MR #: [id number] [facility] [place] [address] 1965 (Age: 47) FW Collect Date: 07/06/2013 00:00 Receipt Date: 07/07/2013 13:29 Page 1 DEPARTMENT OF PATHOLOGY AND LABORATORY MEDICINE CYTOPATHOLOGY REPORT Email: [email or web address] * Amended * ATTENDING MD/Practitioner: Sandro Byrd MD. Service: END Location: [facility] OTHER (S): Enid Schumacher MD Reported: 07/17/2013 [...] IRVIN Montano ([facility]) Reason: entry level account manager error. Case amended in error, no changes. [...] 6 ICD: 240.9 GOITER NOS F: A; 23652 ASP INTER SNOMED CODES: A; [id number] A resident has participated in this service. [...] 12:54 PM 05/20/2024 1:40 PM Care Teams Belt Machine Operator Relationship Specialty Start Date End Date Immanuel Mcwilliams MD [address] [place] [address] PCP - General 07/19/20 Luanne Mcgrath, PA [address] [place] [address] Physician Supervisor Industrial Garment Neurology 09/06/24
--- OUTSIDE RECORDS SUMMARY | 2024-12-06 08:50 | XMS_ITS | Patient Health Record ---
[facility] Address [address] [place] [id number] Care Team Providers Care Special Events Assistant Name Role Phone Mary Jo Mcwilliams Primary Care Provider Indira Broderick Unavailable [phone] Alejandrina Rivera Unavailable [phone] Allergies No Known Allergies Results Component Value Reference Range Notes CT Scan : Chest, low dose Reviewed date:05/13/2024 03:09:43 PM Interpretation:no evidence of lung cancer, annual f/u Performing Lab: Notes/Report: no evidence of lung cancer, annual f/u CBC Fingerstick (in house) Reviewed date:04/07/2024 08:56:17 [...] - 38 plat 172 100 - 400 H-TSH Reviewed date:03/20/2024 03:41:47 PM Interpretation:0.23 Performing [...] Performing Lab: Notes/Report: FE 83 37-170 ug/dL X ray : Hip, left Reviewed date:03/31/2024 03:21:00 PM Interpretation:No acute Findings Performing Lab: Notes/Report: No acute Findings CBC Fingerstick (in house) Reviewed date:04/13/2024 10:17:42 [...] - 38 plat 206 100 - 400 P-CBC With Platelet And Diff erential Reviewed date:09/20/2024 02:28:17 PM Interpretation: Performing Lab: Notes/Report: Test performed by [facility] [address] [place] [address] , [address], [place] [address] Vasyl Syed MD, Nursing Resident CLIA: [id number] WBC 6.2 3.8-11.5 K/uL Red Blood Cell [...] Interpretation: Performing Lab: Notes/Report: Test performed by [facility] [address] [place] [address] , [address], [place] [address] Vasyl Syed MD, Nursing Resident CLIA: [id number] Sodium 142 135-145 mmol/L Potassium 3.9 3.5-5.3 [...] 73 Performing Lab: Notes/Report: Test performed by [facility], [address] , [address], [place] [address] Vasyl Syed MD, Nursing Resident CLIA: [id number] Cholesterol 168 <200 mg/dL Triglycerides 73 <150 [...] Interpretation:0.83 Performing Lab: Notes/Report: Test performed by [facility] [address] [place] [address] , [address] , [place] [address] Vasyl Syed MD, Nursing Resident CLIA: [id number] TSH 0.83 0.43-5.25 mU/L Mammogram Reviewed date:11/10/2024 03:46:49 PM Interpretation:no evidence of malignancy Performing Lab: Notes/Report: no evidence of malignancy Medications Medication SIG (Take, Route, Frequency, Duration) [...] orally ger y; Duration: 90 days Active Spironolactone 25 MG Take 1 tablet by mo uth once daily; Duration: 30 Active Gabapentin 600 MG 1 tablet Orally Thre e times a day Active Rosuvastatin Calcium 10 MG Take 1 tablet by mouth once daily; Duration: 90 days Active Furosemide 40 MG Take 1 tablet by angie th once daily for 90 days; Duration: 90 days Active Leflunomide 20 MG 1 tablet Orally Once a day Active Cyclobenzaprine HCl 10 MG 1 tablet Orall y 3 times a day Active predniSONE 5 MG 1 tablet Orally Once a day Active Diflucan 150 MG 1 tablet Orally ger y; Duration: 3 days 09/19/2024 Active Hydroxychloroquine Sulfate 2 00 MG 1 tab Orally Two times a day Active Nystatin 230752 UNIT/GM lapply to bilate ral feet Externally Twice a day; Duration: 30 days 09/19/2024 Active Medrol 4 MG as directed orally daily; Duration: 6 days 10/03/2024 Active Pantoprazole Sodium 40 MG 1 tablet 1/2 t o 1 hour before morning meal Orally Once a day; Duration: 90 days Active Immunizations Vaccine Route Administration Date Status Comme nts COVID 19 Elva Unknown 06/12/2020 Administered Fluzone Intradermal Quad private(18-64yrs) IM Intramuscular 04/14/2021 Administered Fluzone PF Quad (6-35 months) Unknown 12/20/2016 Administered Fluzone PF Quad (6-35 months) Unknown 12/28/2021 Administered Fluzone PF Quad (6-35 months) Unknown 11/23/2022 Administered Fluzone Quad (6months&older) IM Intramuscular 02/02/2018 Administered Fluzone Quad (6months&older) IM Intramuscular 01/09/2019 Administered Fluzone Quad (6months&older) Unknown 12/19/2019 Administered Hepatitis A (adult) Unknown 07/20/2017 Administered Hepatitis A (adult) Unknown 02/02/2018 Administered Shingrix IM Intramuscular 04/14/2021 Administered Tetanus Tdap-Adacel (over 7yrs) IM Intramuscular 04/14/2021 Administered tuberculin (ppd) ID Intradermal 05/21/2007 Administered Social History Tobacco Use: Social History Observation Description Date Details (start date - stop date) Current Smoker NA - NA CURRENT TOBACCO USE: Question Answer Notes Are you a: current smoker How many cigarettes a day do you smoke? 31 or mo re Problems Problem Type SNOMED Code ICD Code Onset Dates Problem Status W/U Status Risk Notes Problem Gastroesophageal reflux disease (485584186) GERD (gastroesophagea l reflux disease) (K21.9) Active confirmed Problem Insomnia (099562696) Insomnia (G47.00) Active confirmed Problem Vitamin D deficiency (60560872) Vitamin D deficiency (E55.9) Active confirmed Problem Urinary incontinence (373982034) Urinary incontinence (R32) Active confirmed Problem Anxiety (69481028) Anxiety (F41.9) Active confi rmed Problem Mixed anxiety and depressive disorder (969483942) Anxiety and depression (F41.8) Active confirmed Problem Paresthesia (90608187) Paresthesia (R20.2) Active confirmed Problem Mixed anxiety and depressive disorder (501200069) Depression with anxiety (F41.8) Active confirmed Problem Skin sensation disturbance (15071458) Paresthesia of right arm (R20.2) Active confirmed Problem Dysthymia (99504256) Dysthymic disorder (F34.1) Active confirmed Problem Goiter (7858022) Goiter (E04.9) Active confirme d Problem Mood disorder (05258207) Mood disorder (F39) Active confirmed Problem Obese class II (404325040849086) BMI 36.0-36.9,adult (Z68.36) Active confirmed Problem Essential tremor (369748550) Benign essential tremor (G25.0) Active confirmed Problem Chronic bronchitis (92134408) Chronic bronchitis (J42) Active confirmed Problem Polyarthritis (038890154) Polyarthritis (M13.0) Active confirmed Problem Rheumatoid arthritis (25422366) Rheumatoid arthritis (M06.9) Active confirmed Problem Obstructive sleep apnea syndrome (77501457) VANDANA (obstructive sleep apnea) (G47.33) Active confirmed Problem Hearing loss (61382582) Hearing loss of both ears (H91.93) Active confirmed Vital Signs Heart Rate 70 /min 10/03/2024 Blood pressure diastolic 80 mm Hg 10/03/2024 Height 67.50 in 10/03/2024 Blood pressure systolic 122 mm Hg 10/03/2024 Weight 236 lbs 10/03/2024 BMI 36.41 kg/m2 10/03/2024 Encounters Encounter Location Date Provider Diagnosis [facility] [address] [id number] 03/20/2024 Indira Broderick Tremor R25.1 ; Depression [...] ; Rheumatoid arthritis M06.9 and Polyarthritis M13.0 [facility] [address] [id number] 04/03/2024 Indira Broderick Pneumonia J18.9 [facility] [address] [id number] 04/06/2024 Alejandrina Crowdy Pneumonia J18.9 and Rhinovirus B34.8 [facility] [address] [place] [address] [id number] 04/13/2024 Alejandrina Crowdy Pneumonia J18.9 ; Rhinovirus B34.8 and Open wound T14.8XXA [facility] [address] [id number] 06/26/2024 Indira Broderick Benign essential tammi mor G25.0 ; Tobacco abuse Z72.0 ; Open wound T14.8XXA and BMI 36.0-36.9,adult Z68.36 [facility] [address] [id number] 09/19/2024 Indira Broderick Tobacco abuse Z72.0 ; Polyarthritis M13.0 ; Lipid screening Z13.220 ; Back pain M54.9 ; Lower extremity edema R60.0 ; Colon cancer screening Z12.11 ; Screening mammogram for breast cancer Z12.31 ; Thyroid disorder screen Z13.29 ; Sleep disorder 780.50 ; Infection, fungal, left foot B35.3 ; Cerumen impaction H61.20 and Hearing loss of both ears H91.93 [facility] [address] [place], [place] [id number] 10/03/2024 Indira Broderick Acute pain of left f oot M79.672 [facility] [address] [place], [place] [id number] 03/15/2024 Mary Jo Mcwilliams Sleep disorder 780.5 0 [facility] [address] [place], [place] [id number] 03/20/2024 Indira Broderick Personal history of smoking Z87.891 [facility] [address] [place], [place] [id number] 03/21/2024 Indira Broderick [facility] [address] [place] [id number] 03/21/2024 Mary Jo Mcwilliams [facility] [address] [place], [place] [id number] 06/29/2024 Indira Broderick [facility] [address] [place], [place] [id number] 08/28/2024 Indira Broderick [facility] [address] [place], [place] [id number] 08/31/2024 Mary Jo Mcwilliams [facility] [address] [place], [place] [id number] 10/09/2024 Indira Broderick [facility] [address] [place], [place] [id number] 11/13/2024 Indira Broderick Assessments Encounter Date Diagnosis (ICD Code) Assessment Notes Treatment Notes Treatment Clinical Notes Section Notes 03/15/2024 Sleep disorder (ICD-10 - 780.50) 03/20/2024 Depression (ICD-10 - 311) 03/20/2024 Tremor (ICD-10 - R25.1) 03/20/2024 Personal history of smoking (ICD-10 - Z87.891) 04/03/2024 Pneumonia (ICD-10 - J18.9) continue not to smoke; , fluids, rest, supportive measures for fever/symptom relief 04/06/2024 Pneumonia (ICD-10 - J18.9) Will finish levaquin and continue nebs and mucinex. Will f/u next week and see if we need to repeat her CXR. 04/06/2024 Rhinovirus (ICD-10 - B34.8) 04/13/2024 Pneumonia (ICD-10 - J18.9) Has been weaning down off the nebs. Much improved. WBC is normal and lungs are clear. No need for another CXR. 04/13/2024 Rhinovirus (ICD-10 - B34.8) 06/26/2024 Tobacco abuse [...] is a cause, will do Neuro referral 09/19/2024 Tobacco abuse (ICD-10 - Z72.0) We [...] smoking cessation 09/19/2024 Polyarthritis (ICD-10 - M13.0) 10/03/2024 Acute pain of left foot (ICD-10 - M79.672) shoes with wide frontal base; neg xray; sent to podiatry for possible injections; will try brief increase in steriods 09/19/2024 Lipid screening (ICD-10 - Z13.220) 06/26/2024 Open wound (ICD-10 - T14.8XXA) right lower leg wound has a pen point opening will continue with dry dressing application as per wound care providers 04/13/2024 Open wound (ICD-10 - T14.8XXA) 03/20/2024 Tobacco abuse (ICD-10 - Z72.0) discussed smoking cessation; currently smoking 1 1/2- 2 PPD; will see if insurance will cover the patches 09/19/2024 Back pain (ICD-10 - M54.9) 06/26/2024 BMI 36.0-36.9,adult (ICD-10 - Z68.36) 03/20/2024 Dependent edema (ICD-10 - R60.9) 03/20/2024 Sleep disorder (ICD-10 - 780.50) 09/19/2024 Lower extremity edema (ICD-10 - R60.0) 09/19/2024 Colon cancer screening (ICD-10 - Z12.11) 03/20/2024 GERD (gastroesophageal reflux disease) (ICD-10 - K21.9) 03/20/2024 Lipid screening (ICD-10 - Z13.220) 09/19/2024 Screening mammogram for breast cancer (ICD-10 - Z12.31) 03/20/2024 Diabetes mellitus screening (ICD-10 - Z13.1) 09/19/2024 Thyroid disorder screen (ICD-10 - Z13.29) 03/20/2024 Vitamin D deficiency (ICD-10 - E55.9) 09/19/2024 Sleep disorder (ICD-10 - 780.50) 09/19/2024 Infection, fungal, left foot (ICD-10 - B35.3) 03/20/2024 Lower extremity edema (ICD-10 - R60.0) 03/20/2024 Cellulitis (ICD-10 - L03.90) elevate ther lerg; moist heat application 09/19/2024 Cerumen impaction (ICD-10 - H61.20) declines ear irrigationfor removal of cerumen today; will see ENT for hearing loss 09/19/2024 Hearing loss of both ears (ICD-10 - H91.93) obvious hearing loss during visit; agrees to ENT referral 03/20/2024 Goiter (ICD-10 - E04.9) 03/20/2024 Hip pain, acute, left (ICD-10 - M25.552) 03/20/2024 Rheumatoid arthritis (ICD-10 - M06.9) 03/20/2024 Polyarthritis (ICD-10 - M13.0) 03/20/2024 Other will discuss lo w dose chest CT with FU 06/26/2024 Other has regular lab s done by rheumatology; we have not received results; pt will obtain for us Plan Of Treatment Pending Test Test Name Order Date Lipid Profile 03/20/2024 Glycohemoglobin (HbA1C) 03/20/2024 Magnesium 03/20/2024 Iron 03/20/2024 Bone density 11/14/2024 colonoscopy 09/19/2024 TSH 03/20/2024 CMP 03/20/2024 Mammogram 10/18/2023 VITAMIN D, 25-HYDROXY 03/20/2024 VITAMIN B12 03/20/2024 CBC 03/20/2024 Insurance Providers Payer Name Payer Address Payer Phone Subscriber Number Group Number Insured Name Patient Relationship to Insured Coverage Start Date Coverage End Date [employer] [address] [place] [address] [id number] JULIAN DOTY Self - patient is the insured Medications Administered Medication Instructions Date of Administration Dosage Notes Bicillin LA 1,200,000 12/24/2007 2 mL depo medrol 80 mg 05/24/2019 2 mL Dexamethasone 01/09/2019 1 mL Dexamethasone 09/23/2021 1 mL Medical (General) History Medical History History ICD Code Anxiety chronic back issues and pain- sees ortho RA- seeing rhenmatology chronic pain- seespainmanagement thyroid nodules- to have thyroidectomy M 2024 Surgical History Surgery Date(Month/Year) RT Elbow Tendon Repair 2002 RT Knee LT Leg Metal [place], d/t femur fracture 199 1 LT Wrist 2004 Total Hysterectomy A&P repair Cholecystectomy Heart cath 07/25/2018 RT Rotator Cuff Tear Repair 03/10/2019 Lower Back Disc Replaced x 3, Dr. Andrzej keating [place] 11/21/2019 appendectomy 08/2022 thyroidectomy 05/2024 Hospitalization History Reason Date(Month/Year) [facility] with pneumonia and hypoxia 03/31-04/01 Stomach Pain- [facility] ER 01/07/2019 Stomach Pain- H 12/31/2018 Chest Pain- [facility] 07/25/2018
--- OUTSIDE RECORDS SUMMARY | 2024-12-06 08:51 | XMS_ITS | Encounter Summary ---
Author Organization Healthcare Address [address] [place] [address] Care Team Providers Care House Rn Name Role Phone Immanuel Mcwilliams MD Primary Care Provider [phone] Luanne Mcgrath Unavailable [phone] Encounter Details Date Type Department Care Team (Latest Contact Info) Description 12/01/2024 Travel Social History Tobacco Use Types Packs/Day [...] often do you attend chur ch or adventist services? Never 06/15/2024 Do you belong to any clubs o r organizations such as gnosticist groups, unions, fraternal or athletic groups, or [...] Recorded Patient Health Questionnaire-2 Score 0 11/02/2023 [facility] - Occupational [...] any time in the past 12 m [facility], were you homeless or living in a mcc (including now)? No 06/15/2024 Utilities Answer Date [...] Description 12/08/2024 10:40 AM EDT Office Visit [place] [facility] [address] [place] [address] Luanne Mcgrath PA [address] [facility] [address] [place] [address] documented as of this encounter Visit Diagnoses Not on filedocumented in this encounter Additional Health Concerns Assessment Noted Time A fall risk assessment has been complete d for the patient 09/06/2024 10:05 AM EDT A Body Mass Index follow-up plan has been documented for the patient 09/08/2024 4:59 PM EDT documented as of this encounter Care Teams House Rn Relationship Specialty Start Date End Date Immanuel Mcwilliams MD [address] [place] [address] PCP - General 07/19/20 Luanne Mcgrath PA [address] [facility] [address] [place] [address] Physician Tower Director Neurology 09/06/24 documented as of this encounter
--- OUTSIDE RECORDS SUMMARY | 2024-12-06 08:51 | XMS_ITS | Encounter Summary ---
Author Organization Healthcare Address [address] [place] [address] Care Team Providers Care Youth Associate Name Role Phone Immanuel Mcwilliams MD Primary Care Provider [phone] Luanne Mcgrath PA Unavailable [phone] Encounter Details Date Type Department Care Team (Late Contact Info) Description 12/01/2023 [facility] [address] [place] [address] Pamela Brambila PA [address] [facility] [address] [address] Social History Tobacco Use Types Packs/Day Years [...] Visit [place] [facility] [address] [place] [address] Luanne Mcgrath, PA [address] [facility] [address] [place] [address] documented as of this encounter Visit Diagnoses Not on filedocumented in this encounter Additional Health Concerns Assessment Noted Time A fall risk assessment has been complete d for the patient 11/02/2023 10:02 AM EDT A Body Mass Index follow-up plan has been documented for the patient 11/02/2023 10:35 AM EDT documented as of this encounter Care Teams Youth Associate Relationship Specialty Start Date End Date Immanuel Mcwilliams MD [address] [place] [address] PCP - General 07/19/20 Luanne Mcgrath PA [address] [facility] [address] [place] [address] Physician House Shorer Neurology 09/06/24 documented as of this encounter
--- OUTSIDE RECORDS SUMMARY | 2024-12-06 08:51 | XMS_ITS | Referral Summary ---
Author Organization [employer] ([place], [place], [place], [place]) Address [address] [place] [address] Care Team Providers Care Geriatric Nurse Practitioner Name Role Phone Unavailable Primary Care Provider [...]
--- OUTSIDE RECORDS SUMMARY | 2024-12-06 08:51 | XMS_ITS | Clinical Summary ---
Author Organization [facility] Address [address] [place], [place] [id number] Phone [email or web address] Care Team Providers Care General Forecaster Name Role Phone Unavailable Primary Care Provider [...] Date Last Done Comments CT Colonography 1967 Cervical Cancer Screening Combo 1967 Colonoscopy 1967 Colorectal Cancer Screening Combo 1967 DNA Cologuard 1967 Dental Cleaning/Exam 1967 FIT or FOBT Test 1967 HIV Screening 1967 HPV / Cotest 1967 Hepatitis C Screening 1967 Pap Testing 1967 Sigmoidoscopy 1967 Annual Preventive Exam 08/05/1985 Hep B Infection Screening - Triple Screen 08/05/1985 Hepatitis B Immunization (1 of 3 - 19+ 3-dose series) 08/05/1986 Pneumococcal: 50+ Years (1 o f 2 - PCV) 08/05/1986 Tetanus Diphtheria and Pertu ssis Immunization (1 - Tdap) 08/05/1986 Breast Cancer Screening 08/05/1997 Zoster Immunization (1 of 2) 08/05/2017 Covid-19 Immunization (1 - 2 25 season) 2024 Influenza Immunization (#1) 2024 HIB Immunization Aged [...] patient's age to complete this topic Insurance ANTHJIAN NO COPAY NB
--- NOTE | 2024-12-06 09:09 | XR_ITS ---
FINAL REPORT CLINICAL HISTORY: SCREENING METAL IN LEFT HIP AND LUMBAR SPINE COMPARISON: None FINDINGS: The lumbar spine was not evaluated. Using the left forearm, the bone mineral density of the 1/3 is 0.589 g/cm2, corresponding to a T-score of -1.8, consistent with osteopenia. Using the right hip, the bone mineral density of the femoral neck is 0.649 g/cm2, corresponding to a T-score of -1.8, consistent with osteopenia. FRAX 10 year fracture risk is 2.9% for a hip fracture and 16% for a major osteoporotic fracture.. NOTE: T-score: Standard deviation compared with peak bone mass of young adult mean. *Following the recommendations of the International Society of Bone densitometry, classification of hip BMD is based on the lower of two T-scores; total hip or femoral neck. IMPRESSION: Diminished bone mineral density consistent with osteopenia. Reviewed, Interpreted and Dictated by Merritt Schaffer MD Transcribed by Cate Guzmán Authenticated and [facility]
== END 2024-12-06 23:59 | disposition home or self-care (01) ==
LOC: RAD 08:48
PROVIDERS: PCP Nurse Practitioner Family; Visit Provider Nurse Practitioner Family
DX: Z13.820 Encounter for screening for osteoporosis (principal); M85.832 Other specified disorders of bone density and structure, left forearm; M85.88 Other specified disorders of bone density and structure, other site; Z78.0 Asymptomatic menopausal state
CPT/HCPCS: 77080

== ENCOUNTER 2025-02-05 10:36 | Outpatient (CLI) | payer BC, SELFPAY ==
--- OUTSIDE RECORDS SUMMARY | 2024-12-08 09:40 | XMS_ITS | Encounter Summary ---
Author Organization Healthcare Address [address] [place] [address] Care Team Providers Care Foreign Policy Officer Name Role Phone Immanuel Mcwilliams MD Primary Care Provider [phone] Luanne Mcgrath PA Unavailable [phone] Reason for Referral * Consultation (Routine) - Authorized Specialty Diagnoses / Procedures Referred By Contac t Referred To Contact Physical Therapy Diagnoses Bilateral occipital neuralgia Myofascial neck pain Luanne Mcgrath PA [address] [address] Phone: tel: fax: Referral ID Status Reason Start Date Expiration Date Visits Requested Visits Authorized [id number] Authorized Consult and Treat 12/08/2024 06/09/2026 1 1 Scheduling Instructions Call patient for name of PT that patient goes to in [place]. We can send this referral to that facilty * Other Medical (Routine) - Pending Review Specialty Diagnoses / Procedures Referred By Contac t Referred To Contact Diagnoses Bilateral occipital neuralgia Myofascial neck pain Procedures Inject Trigger Points, >3 Luanne Mcgrath PA [address] [address] Phone: tel: fax: Referral ID Status Reason Start Date Expiration Date V isits Requested Visits Authorized [id number] Pending Review 12/08/2024 06/09/2026 1 1 Encounter Details Date Type Department Care Team (Late st Contact Info) Description 12/08/2024 10:40 AM EDT Office Visit [place] [facility] [address], [address] [place] [address] Luanne Mcgrath PA [address] [place] [address] Bilateral occipital neuralgia (Primary Dx); Myofascial neck pain Social History Tobacco Use Types Packs/Day Years [...] often do you attend chur ch or advent services? Never 06/15/2024 Do you belong to any clubs o r organizations such as sikhism groups, unions, fraternal or athletic groups, or [...] Recorded Patient Health Questionnaire-2 Score 0 11/02/2023 [facility] - Occupational Stress [...] any time in the past 12 m [facility], were you homeless or living in a residential (including now)? No 06/15/2024 Utilities Answer Date Recorded In the past 12 months has e electric, gas, oil, or water company [...] Sign Reading Time Taken Comments Blood Pressure 118/92 12/08/2024 10:41 AM EDT Pulse 75 12/08/2024 10:41 AM EDT Temperature - - Respiratory Rate - - Oxygen Saturation 92% 12/08/2024 10:41 AM EDT Inhaled Oxygen Concentration - - Weight 107 kg (236 lb 8.9 oz) 12/08/2024 10:41 A M EDT Height 170.2 cm (5' 7 ) 12/08/2024 10:41 AM EDT Body Mass Index 37.05 12/08/2024 10:41 AM EDT documented in this encounter Miscellaneous Notes * Progress Notes - Luanne Mcgrath PA - 12/08/2024 10:40 AM EDT [facility] Clinic Note Rosina Doty presents to clinic for a follow up regarding 1) Migraine Headache 2) Occipital Neuralgia / Myofascial neck pain Patient was last seen by ARMANDO Valiente on 09/06/2024. HPI Today, patient presents to clinic to contributes to the history. Patient reports here pain continues to be coming from her neck, It is not a headache, not coming from head. Did not get order for MRI. Did not get prescriptions for Tizanidine/ Ibuprofen filled. Reports already taking, Flexeril tid, prescribed by pain management. She continues to see pain management for her back. But not for her neck. Pain management requested referral for neck evaluation / treatment. Continues to take Gabapentin for neuropathy in leg. Started back on Gabapentin after surgery. Reports she has tried physical therapy in the past. States she doesn't go to PT because she cannot ride the bike. Has rizatriptan, only took one dose, it did not help - states she 'doesn't take it now'. Has never had Trigger point injections. Interested in considering change in muscle relaxer, but will need to check with pain management (from Flexeril to Tizanidine). Has Ibuprofen 600mg - but does not take it routinely. Past Medical History[1] Family History[2] Surgical History[3] Medications Ordered Prior to Encounter[4] Allergies[5] All medications have been reviewed today. Review of Systems As noted in HPI Objective Vitals: 12/08/24 1041 BP: (!) 118/92 Pulse: 75 SpO2: 92% Physical Exam GEN: Well developed, well nourished. Cooperative. HENT: Atraumatic, normocephalic. NECK: Supple, ROM normal. RESP: Good effort EXT: No edema NEURO: MS: Awake, alert, oriented. Good fund of knowledge. Appropriate mood and affect. CN: PERRL. Visual brown are full. EOMI full and conjugate. Facial sensation intact bilaterally. Nofacial droop. Speech is normal. Hearing is intact. MOTOR: No pronator drift. Muscle tone is normal. Strength is 5/5, R=L. No abnormal movements. SENSORY: Intact DTR: grossly intact COORD: Intact FNF and Elif bilaterally. GAIT: Normal base, stride and stance. Discussion Summary: Past medical history, lab/imaging results, interval history reviewed. Using shared decision making, the following treatment is recommended: 1) Bilateral Occipital neuralgia / Myofascial neck pain Okay for OTC Tylenol / Ibuprofen Continue meds as prescribed by pain management (flexeril). Will consider changing to Tizanidine / Naproxen. Recommend using travel pillow to support head and neck Discussed trigger point injections - order placed - pt instructed to get in touch w/ clinic if doesnot hear from anyone in 2 weeks. Refer to PO Physical therapy for evaluation and treatment. Stay well hydrated, including electrolyte replacement (diluted gatorade) Maintain usual sleep pattern Keep all follow up appts as scheduled, especially w/ pain management. RTC 3mos Assessment and Plan Diagnosis Plan 1. Bilateral occipital neuralgia Inject Trigger Points, >3 Ambulatory referral to Physical Therapy 2. Myofascial neck pain Inject Trigger Points, >3 Ambulatory referral to Physical Therapy - 31 minutes was spent preparing, performing an examination, counseling, educating the patient, andcare coordination with more than 50% of that time used for counseling the patient and coordination of care. [1] Past Medical History: Diagnosis Date Disease of thyroid gland Generalized osteoarthritis GERD (gastroesophageal reflux disease) Hyperlipidemia Pharyngitis 02/16/24 Rheumatoid arthritis (CMS/HCC) Sinusitis 02/16/24 [2] Family History Problem Relation Name Age of Onset Arthritis Mother Heart disease Mother Ovarian cancer Mother Colon cancer Mother Hypertension Mother Esophageal cancer Father Arthritis Father Hearing loss Father Asthma Daughter Anesthesia problems Neg Hx Malig Hyperthermia Neg Hx [3] Past Surgical History: Procedure Laterality Date APPENDECTOMY 2022 CARPAL TUNNEL RELEASE Right CERVICAL FUSION CHOLECYSTECTOMY N/A Cholecystectomy from [employer] FEMUR FRACTURE SURGERY Left Femur Repair from [employer] LUMBAR FUSION TOTAL ABDOMINAL HYSTERECTOMY N/A Total Abdominal Hysterectomy from [employer] TOTAL THYROIDECTOMY Bilateral 05/19/2024 [4] Current [...] by mouth 3 (three) times a day. Humira, 2 Pen, 40 MG/0.4ML Auto-injector Kit hydroxychloroquine (Plaquenil) 200 MG tablet Take 1 [...] (5 mg) by mouth in the morning. rizatriptan (Maxalt) 10 MG tablet Take 1 tablet by mouth 1 time as needed for migraine for up to 9 doses. May repeat in 2 hours if unresolved. Do not exceed 30 mg in 24 hours. 9 tablet 3 rosuvastatin (Crestor) 10 MG tablet Take 1 tablet (10 mg) by mouth nightly. spironolactone (Aldactone) 25 MG tablet Take 1 tablet by mouth daily. traZODone (Desyrel) 50 MG tablet Take 1 tablet (50 mg) by mouth nightly. Every day. calcium carbonate (Tums Ultra) 1000 MG chewable tablet Chew 1 tablet (1,000 mg) every 6 (six) hours. 120 tablet 1 HYDROcodone-acetaminophen (Becket) 5-325 MG tablet Take 1 tablet (5 [...] the sametime. (Patient not taking: Reported on 12/08/2024) No current facility-administered medications on file prior to visit. [5] No Known Allergies documented in this encounter Plan of Treatment Upcoming Encounters Date Type Department Care Team (Late st Contact Info) Description 03/23/2025 9:20 AM EST Office Visit [place] [facility] [address], [address] [place] [address] Luanne Mcgrath PA [address] [place] [address] Scheduled Orders Name Type Priority Associated Diagnoses Orde r Schedule Inject Trigger Points, >3 Procedures Routine Bilateral occipital neuralgia Myofascial neck pain Expected: 12/08/2024 (Approximate), Expires: 12/08/2025 Scheduled Referrals Name Type Priority Associated Diagnoses Order Schedule Ambulatory referral to Physical Therapy Outpatient Referral Routine Bilateral occipital neuralgia Myofascial neck pain Expected: 12/08/2024 (Approximate), Expires: 06/08/2026 documented as of this encounter Visit Diagnoses Diagnosis Bilateral occipital neuralgia- Primary Myofascial neck pain documented in this encounter Additional Health Concerns Assessment Noted Time A fall risk assessment has been complete d for the patient 12/08/2024 10:36 AM EDT A Body Mass Index follow-up plan has been documented for the patient 12/24/2024 5:45 PM EDT documented as of this encounter Care Teams Foreign Policy Officer Relationship Specialty Start Date End Date Immanuel Mcwilliams MD [address] [place] [address] PCP - General 07/19/20 Luanne Mcgrath PA [address] [facility] [address] [place] [address] Physician Mold Builder Neurology 09/06/24 documented as of this encounter
--- NOTE | 2025-02-05 11:11 | ECG_ITS ---
APPROVED REPORT Exam: Resting ECG HR:69 bpm ECG Measurements Heart Rate 69 AXES MN 183 P 52 QRSd 100 QRS -9 QT 420 T 59 QTc 439 Conclusion SINUS RHYTHM NORMAL ECG UNCONFIRMED REPORT Electronically signed by : Quang Costa MD 02/06/2025 09:12:10
--- OUTSIDE RECORDS SUMMARY | 2025-02-05 11:29 | XMS_ITS | Clinical Summary ---
Author Organization [facility] Address [address] [place] [address] Care Team Providers Care Retail Aide Name Role Phone Immanuel Mcwilliams MD Primary Care Provider [phone] Luanne Mcgrath Unavailable [phone] Allergies No known active allergies Medications [...] mg) by mouth daily. Active HYDROcodone-caridad taminophen (Lincoln) 5-325 MG tablet Take 1 tablet (5 [...] 24 hours. 9 tablet 3 5 Active Humira, 2 Pen, 40 MG/0.4ML Auto-injector Kit 5 Active spironolactone (Aldactone) 25 MG tablet Take 1 tablet by mouth daily. 5 Active naproxen (Naprosyn) 500 MG tablet Take 1 tablet by mouth 2 times a day. 1 at HS w/ Tizanidine 4mg. Can be repeated during the day 60 tablet 5 5 Active tiZANidine (Zanaflex) 4 MG tablet Take 1 tablet by mouth 2 times a day. 1 tablet by mouth + Naproxen 500mg every HS. May repeat during the day 60 tablet 5 5 Active Active Problems Problem Noted Date [...] Encounters Date Type Department Care Team Description 12/08/2024 10:40 AM EDT Office Visit [facility] [address] [place] [address] Luanne Mcgrath, PA Bilateral occipital neuralgia (Primary Dx); Myofascial neck pain 12/08/2024 Travel 12/01/2024 Travel from Last 3 Months Immunizations Immunization [...] 06/15/2024 How often do you attend chur or lutheran services? Never 06/15/2024 Do you belong to [...] Recorded Patient Health Questionnaire-2 Score 0 11/02/2023 [facility] - Occupational Stress [...] any time in the past 12 m [facility], were you homeless or living in a detention (including now)? No 06/15/2024 Utilities Answer Date [...] Pulse 75 12/08/2024 10:41 AM EDT Temperature 36.7 C (98.1 F) 06/15/2024 11:16 AM EDT Respiratory Rate 16 05/20/2024 2:36 AM EDT Oxygen Saturation 92% 12/08/2024 10:41 AM EDT Inhaled Oxygen Concentration - - Weight 107 kg (236 lb 8.9 oz) 12/08/2024 10:41 A M EDT Height 170.2 cm (5' 7 ) 12/08/2024 10:41 AM EDT Body Mass Index 37.05 12/08/2024 10:41 AM EDT Plan of Treatment Upcoming Encounters Date Type Department Care Team (Late st Contact Info) Description 03/23/2025 9:20 AM EST Office Visit [place] [facility] [address] [place] [address] Luanne Mcgrath, PA [address] [place] [address] Health Maintenance Due Date Last Done Comments [facility]-HIV Screening 1965 [facility]-Hepatitis C Screening 1967 [facility]-/Child/Adol SDOH Screenings 1965 [facility]-Hepatitis B Vaccines (1 of 3 - 19+ 3-dose series) 08/05/1986 [facility]-Pneumococcal Vaccine: 50+ Years (1 of 2 - PCV) 08/05/1986 CT Colonography 08/05/2012 Colonoscopy 08/05/2012 FIT-DNA 08/05/2012 FIT 08/05/2012 FOBT 08/05/2012 Sigmoidoscopy 08/05/2012 [facility]-Colorectal Cancer Screening 08/05/2012 [facility]-Breast Cancer Screening 08/05/2017 [id number] Vaccine (2 - Elva risk series) 07/10/2020 [...] complete this topic [facility]-Obesity Intervention Completed 025, 09/06/2024, 06/15/2024, Additional history exists HPV Vaccines Aged Out [...] this topic Medical Devices Implanted Type Area Surgery Scheduler Device Identifier Shelf Expiration Date Model / [...] Narrative SUNQUEST - 07/17/2013 6:50 AM EDT [facility] MR #: [id number] [facility] [place] [address] 1965 (Age: 47) FW Collect Date: 07/06/2013 00:00 Receipt Date: 07/07/2013 13:29 Page 1 DEPARTMENT OF PATHOLOGY AND LABORATORY MEDICINE CYTOPATHOLOGY REPORT Email: [email or web address] * Amended * ATTENDING MD/Practitioner: Sandro Byrd MD. Service: END Location: [facility] OTHER MD(S): Enid Schumacher MD Reported: 07/17/2013 06:50 Collected: 07/06/2013 00:00 DIAGNOSIS ULTRASOUND GUIDED FNA, LEFT THYROID: COLLOID, MACROPHAGES, AND BLAND FOLLICULAR GROUPS, FINDINGS MOST CONSISTENT WITH COLLOID NODULE /GOITER. Electronically Signed Out Bernard Cantu M.D. AMENDMENTS Amended: 07/13/2013 by IRVIN Montano ([facility]) Reason: Date of service error made during accessioning Case amended to correct dos from 07/07 to 07/06/2013. 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 Case amended in error, no changes. [...] 6 ICD: 240.9 GOITER NOS F: A; 02195 ASP INTER SNOMED CODES: A; [id number] A resident has participated in this service. [...] 12:54 PM 05/20/2024 1:40 PM Care Teams Retail Aide Relationship Specialty Start Date End Date Immanuel Mcwilliams MD [address] [place] [address] PCP - General 07/19/20 Luanne Mcgrath, PA [address] [place] [address] Neurology 09/06/24
--- OUTSIDE RECORDS SUMMARY | 2025-02-05 11:29 | XMS_ITS | Referral Summary ---
Author Organization [employer] ([place], [place], [place], [place], [place]) Address [address] [place] [address] Care Team Providers Care Communications Equipment Operator Name Role Phone Unavailable Primary Care [...] Date Andre rded Speak language other than Italian at home Not on file 03/27/2023 Want [...] Plan of Treatment [place] [address]
--- OUTSIDE RECORDS SUMMARY | 2025-02-05 11:29 | XMS_ITS | Clinical Summary ---
Author Organization [employer] ([place], [place], [place], [place], [place]) Address [address] [place] [address] Care Team Providers Care Industrial Safety And Health Technician Name Role Phone Unavailable Primary Care Provider [...] Date Andre rded Speak language other than Taiwanese at home Not on file 03/27/2023 Want [...] 1965 Sigmoidoscopy 1967 Depression Screening (12+) 1979 Tobacco Cessation Counseling and Screening (12+) 08/05 Pap Smear 08/05/1988 Breast Cancer Screening 2007 Pneumococcal 50+ years (1 of 1 - PCV) 08/05/2017 Shingles Vaccine (Zoster) (2 of 2) 06/09/20212021 COVID-19 VACCINE (2 - 2024- season) 11/06/202409/2020 Influenza Vaccine (#1) 2024 DTAP/TDAP/TD VACCINES (2 - Td or Tdap) 04/14/2031 Insurance [facility]
--- OUTSIDE RECORDS SUMMARY | 2025-02-05 11:29 | XMS_ITS | Clinical Summary ---
Author Organization [facility] Address [address] [place], [place] [id number] Phone [email or web address] Care Team Providers Care Diorama Model Maker Name Role Phone Unavailable Primary Care Provider [...] FOBT Test 1965 HIV Screening 1965 HPV only / HPV + Pap 1967 Hepatitis C Screening 1967 Pap only testing 1967 Sigmoidoscopy 1967 Annual Preventive Exam 08/05/1985 Hep B Infection Screening - Triple Screen 08/05/1985 Hepatitis B Immunization (1 of 3 - 19+ 3-dose series) 08/05/1986 Pneumococcal: 50+ Years (1 o f 2 - PCV) 08/05/1986 Tetanus Diphtheria and Pertu ssis Immunization (1 - Tdap) 08/05/1986 Breast Cancer Screening 08/05/1997 Zoster Immunization (1 of 2) 08/05/2017 Covid-19 Immunization (1 - 2 season) 2024 Influenza Immunization (#1) 2024 HIB [...]
--- OUTSIDE RECORDS SUMMARY | 2025-02-05 11:29 | XMS_ITS | Encounter Summary ---
Author Organization Healthcare Address [address] [place] [address] Care Team Providers Care Test Equipment Mechanic Name Role Phone Immanuel Mcwilliams MD Primary Care Provider [phone] Luanne Mcgrath Unavailable [phone] Encounter Details Date Type Department Care Team (Latest Contact Info) Description 12/08/2024 Travel Social History Tobacco Use Types Packs/Day [...] any clubs o r organizations such as christian groups, unions, fraternal or athletic groups, or [...] Recorded Patient Health Questionnaire-2 Score 0 11/02/2023 [facility]at ional [facility] - [...] any time in the past 12 m [facility], were you homeless or living [...] Description 03/23/2025 9:20 AM EST Office Visit [place] [facility] [address] [place] [address] Luanne Mcgrath PA [id number] [place] [address] documented as of this encounter Visit Diagnoses Not on filedocumented in this encounter Additional Health Concerns Assessment Noted Time A fall risk assessment has been complete d for the patient 12/08/2024 10:36 AM EDT A Body Mass Index follow-up plan has been documented for the patient 12/24/2024 5:45 PM EDT documented as of this encounter Care Teams Test Equipment Mechanic Relationship Specialty Start Date End Date Immanuel Mcwilliams MD [address] [place] [address] PCP - General 07/19/20 Luanne Mcgrath PA [address] [facility] [address] [place] [address] Physician Buffing Turner And Counter Neurology 09/06/24 documented as of this encounter
--- OUTSIDE RECORDS SUMMARY | 2025-02-05 11:29 | XMS_ITS | Encounter Summary ---
Author Organization Healthcare Address [address] [place] [address] Care Team Providers Care Machine Greaser Name Role Phone Immanuel Mcwilliams MD Primary Care Provider [phone] Luanne Mcgrath PA Unavailable [phone] Encounter Details Date Type Department Care Team (Late Contact Info) Description 12/01/2023 [facility] [address] [place] [address] Pamela Brambila PA [address] [facility] [address] [address] Social History Tobacco Use Types Packs/Day Years [...] Department Care Team (Late Contact Info) Description 03/23/2025 9:20 AM EST Office Visit [place] [facility] [address] [place] [address] Luanne Mcgrath, PA [address] [facility] [address] [place] [id number] documented as of this encounter Visit Diagnoses Not on filedocumented in this encounter Additional Health Concerns Assessment Noted Time A fall risk assessment has been complete d for the patient 11/02/2023 10:02 AM EDT A Body Mass Index follow-up plan has been documented for the patient 11/02/2023 10:35 AM EDT documented as of this encounter Care Teams Machine Greaser Relationship Specialty Start Date End Date Immanuel Mcwilliams MD [address] [place] [address] PCP - General 07/19/20 Luanne Mcgrath PA [address] [facility] [address] [place] [address] Physician Machine Feeder Raw Stock Neurology 09/06/24 documented as of this encounter
--- OUTSIDE RECORDS SUMMARY | 2025-02-05 11:29 | XMS_ITS | Data Portability ---
Author Organization [facility] CHRISTIAN Hickey GEYSER CLOSED Address [address] [facility] [place] [address] Care Team Providers Care Cage Manager Name Role Phone NAYAN PLAZA Primary Care Provider RAÚL FOSTER Orthopedist Assessment No assessment recorded. Plan of Treatment Reminders Order Date Submit Date Provider Last Modified By Organization Details Last Modified Time Details Appointments None recorded. Lab sjogren antibody panel, serum 2019 [facility], [address] [place] [address], [phone], 0 17:04:55 ccp (cyclic citrullinat ed peptide) iga+igg, serum 2019 020 [facility], [address] [place] [address], [phone], 0 03:54:04 ESR (erythrocyt e sedimentati on rate), blood 2019 020 [facility], [address] [place] [address], [phone], 0 14:17:30 Referral None recorded. Procedures None recorded. Surgeries None recorded. Imaging None recorded. Medication Orders None recorded. Patient TargetsNo targets recorded. Patient Instructions Encounter Date Encounter Id Patient Instructions Last Modified By Organization Details Last Modified Time 06/27/2019 [id number] osteoarthritis: care instructions [email or web address] Not available 06/27/2019 09:36:48 Reason for Referral None Reported. Results Created Date Observation Date Name Description Value Unit Range Abnormal Flag Note LastModifiedBy Organization Detail LastModifiedTime 06/27/19 20 06/27/2019 ESR (eryt hrocy te sedim entat ion rate) , blood ESR, automated 29 mm/HR 0-29 normal Not Available [facility] [address] [place] [address], [phone], 06/27/2019 14:17:30 06/27/19 20 06/28/2019 sjogr en antib christiano panel , serum ss-A Ab <1.0 NEG ai <1.0 neg normal Not Available [facility] [address] [place] [address], [phone], 06/28/2019 17:04:55 06/27/19 20 06/28/2019 sjogr en antib christiano panel , serum ss-B Ab <1.0 NEG ai <1.0 neg normal TEST PERFO RMED AT: [facility] [address] [facility], [place] [id number] FRAN Treviño MD Not Available [facility] [address] [place] [address], [phone], 06/28/2019 17:04:55 06/27/19 20 06/29/2019 ccp (cycl ic citru llina rudolph pepti de) iga+i gg, serum anti-ccp <16 units normal Refer ence Range Negat isabelle: <20 Weak Posit isabelle: 20-39 Moder ate Posit isabelle: 40-59 Stron g Posit isabelle: >59 TEST PERFO RMED AT: [facility] [address] [facility], [place] [id number] FRAN Treviño MD Not Available [facility] [address] [place] [address], [phone], 06/29/2019 03:54:04 06/26/19 20 05/27/2018 MRI, shoul gisel, w/o contr ast No observ ation record ed. [email or web address] [address], [place], [phone], 06/26/2019 10:32:15 Result Notes None recorded. Medical [...] 16 /min LUIS F CHAVEZ MD [address] [place], [phone], [facility] 06/27/2019 09:35:33 Social History None recorded. Functional Status None recorded. Mental Status None recorded. Family History Nothing Reported. Medical History No medical history recorded. Gynecological HistoryNo gynecological history recorded. Obstetrics History GPAL:G 0 P 0 0 0 0 Past Encounters Encounter ID Performer Location Encounter Start Date Encounter Closed Date Diagnosis/Indication Diagnosis SNOMED-CT Code Diagnosis ICD10 Code Diagnosis IMO Codes Diagnosis Note [id number] LUIS F CHAVEZ MD RHEUMATOL [facility] [address] [place] [address] 06/27/2019 08:02:49 06/27/2019 14:48:26 Anti-nuclear factor detected 252636029 R76.8 53-year-ol d female with positive ABIMAEL screen, significan ce doubtful. Certainly she does not have any clinical stigmata for systemic lupus. I would like to obtain an anti-SSA and anti-SSB antibodies to complete investigat ions and to screen her for Sjogren's. Rheumatoid factor detected [id number] R76.0 she has a positive rheumatoid factor [...] the anti-CCP antibody results. Generalize d osteoarthritis [id number] M15.9 she has diffuse degenerati ve joint disease along with degenerati ve disc disease. She also has chronic degenerati ve changes and pain in the right knee along with numbness. Followed by orthopedic surgeon and has received steroid injection as a when necessary. Symptomat ic management is the way to go. I [...] Bauman Member ID Guarantor Name 11/03/2023 1 [employer]: [facility] [id number] Chandler Doty [id number] Rosina Doty Notes Date Note Type Note Provider Name and Address Organization Details Recorded Time 06/27/2019 text/html ROS as noted in the HPI The patient has requested and consented to [...] 2000 units daily. LUIS F CHAVEZ MD [address] [place] [address], [phone], [facility] 06/27/2019 09:50:53 OBGyn Episode No OBEpisode recorded.
== END 2025-02-05 23:59 | disposition home or self-care (01) ==
LOC: RT 10:37
PROVIDERS: PCP Nurse Practitioner Family; Visit Provider Nurse Practitioner Family
DX: R07.9 Chest pain, unspecified (principal)
CPT/HCPCS: 93005